=== PATIENT | male | born 1980 | race Caucasian/White ===

== ENCOUNTER 2017-10-12 07:57 | Observation (INO) | payer BC ==
[~2017-10-12] VITALS: Ht 188 cm; Wt 140.0 kg
[~2017-10-12 07:57] MED LIST: ALLERCLEAR10 MG PO; AXIRON30 MG/1.5 TOP; CALCA500CH PO; CALCAVITD PO; D3-20002000 UNIT PO; FENO48 PO; FISH1000 PO; Humalog100 UNIT/3 SC; INSULANPEN SC; INVOKANA300 MG; LIRA0.6P SC; LOW DOSE ASPIRI81 MG PO; Lyrica100 MG PO; MAGOXI400 PO; METO50 PO; MULVITMIND PO; MYCO250 PO; NAPR220 PO; NIFE90ER PO; OLME5TAB; PRED5 PO; PROZAC20 MG; Prilosec Otc20 MG PO; ROSU10TA; TACR1 PO; TERA5 PO; TYLENOL PM PO; Tylenol325 MG PO
[2017-10-12 09:03] LABS: BASOPHILS ABSOLUTE AUTO 0.02 K/mm3 (0.00-0.23); BASOPHILS PERCENT AUTO 0 % (0-2); EOSINOPHILS ABSOLUTE AUTO 0.13 K/mm3 (0.00-0.68); EOSINOPHILS PERCENT AUTO 1 % (0-6); Hematocrit 43.1 % (37.0-53.0); IMMATURE GRAN ABSOLUTE AUTO 0.07 K/mm3 (0.00-0.10); IMMATURE GRAN PERCENT AUTO 1 % (0-1); LYMPHOCYTES ABSOLUTE AUTO 1.36 K/mm3 (0.84-5.20); LYMPHOCYTES PERCENT AUTO 10 % (21-46); MONOCYTES PERCENT AUTO 7 % (4-13); Mean Corpuscular HGB 31.5 pg (26.0-34.0); Mean Corpuscular HGB Conc 34.8 g/dL (31.5-36.5); Mean Corpuscular Volume 91 fL (80-100); Mean Platelet Volume 11.1 fL (9.1-12.4); NEUTROPHILS ABSOLUTE AUTO 11.06 K/mm3 (1.96-9.15); NEUTROPHILS PERCENT AUTO 81 % (41-73); Platelet Count 338 K/mm3 (150-400); RDW Coefficient Variation 12.9 % (11.7-14.2); RDW Standard Deviation 42.4 fL (35.1-46.3); Red Blood Cell Count 4.76 M/mm3 (4.30-5.90); White Blood Cell Count 13.64 K/mm3 (4.00-11.30)
[2017-10-12 09:17] LABS: Alanine Aminotransfer (ALT/SGP 89 U/L (12-78); Albumin, Blood 3.7 g/dL (3.4-5.0); Albumin/Globulin Ratio 0.9 (0.8-1.8); Alk Phos 94 U/L (50-136); Anion Gap 10 mmol/L (6-16); Aspartate Aminotrans (AST/SGOT 48 U/L (12-37); Bilirubin, Total 0.4 mg/dL (0.1-1.0); Blood Urea Nitrogen 17 mg/dL (8-24); Bun/Creatinine Ratio 17.3 (12.0-20.0); CO2, Blood 25 mmol/L (21-32); Calcium, Blood 8.7 mg/dL (8.5-10.1); Chloride, Blood 102 mmol/L (98-108); Creatinine, Blood 0.99 mg/dL (0.60-1.20); Globulin, Blood 4.2 g/dL (2.2-4.0); Glomerular Filtration Rate >60 (60-); Glucose, Blood 234 mg/dL (70-99); Sodium, Blood 137 mmol/L (136-145); Total Protein, Blood 7.9 g/dL (6.4-8.2)
[2017-10-12 10:24] LABS: Source, Urine Clean Catch
[2017-10-12 10:27] LABS: Blood, Urine Neg (Neg); Glucose Qualitative, Urine 3+ (Neg); Ketones, Urine Neg (Neg); Leukocyte Esterase, Urine 1+ (Neg); Nitrite, Urine Neg (Neg); Protein, Urine 4+ (Neg); Specific Gravity, Urine 1.025 (1.003-1.022); Urobilinogen, Urine 1+ (Normal)
[2017-10-12 10:35] LABS: Appearance, Urine Hazy (Clear); Color, Urine Yellow (P-Yellow)
[2017-10-12 10:36] LABS: Bacteria Few /hpf; Mucus Mod (0-Heavy); Red Blood Cells, Urine Not Seen /hpf (0-2); Squamous Epithelial Cells Many /hpf (Few); White Blood Cells, Urine Not Seen /hpf (0-5)
[2017-10-12 13:52] LABS: Adenovirus F 40/41 Not Detected (NOT DETECT); Astrovirus Not Detected (NOT DETECT); Campylobacter Sp Not Detected (NOT DETECT); Cryptosporidium Not Detected (NOT DETECT); Cyclospora Cayetanensis Not Detected (NOT DETECT); E. Coli O157 Not Detected (NOT DETECT); Entamoeba Histolytica Not Detected (NOT DETECT); Enteroaggregative E. coli-EAEC Not Detected (NOT DETECT); Enteropathogenic E. coli-EPEC Not Detected (NOT DETECT); Enterotoxigenic E. coli-ETEC Not Detected (NOT DETECT); Giardia Lamblia Not Detected (NOT DETECT); Plesiomonas Shigelloides Not Detected (NOT DETECT); Rotavirus A Not Detected (NOT DETECT); Salmonella Sp Not Detected (NOT DETECT); Sapovirus Not Detected (NOT DETECT); Shiga Toxin-prod E. coli-STEC Not Detected (NOT DETECT); Shigella/Enteroin E. coli-EIEC Not Detected (NOT DETECT); Vibrio Cholerae Not Detected (NOT DETECT); Vibrio Sp Not Detected (NOT DETECT); Yersinia Enterocolitica Not Detected (NOT DETECT)
[2017-10-12 15:09] LABS: Norovirus GI/GII Detected (NOT DETECT)
[2017-10-13 04:55] LABS: BASOPHILS ABSOLUTE AUTO 0.01 K/mm3 (0.00-0.23); BASOPHILS PERCENT AUTO 0 % (0-2); EOSINOPHILS ABSOLUTE AUTO 0.06 K/mm3 (0.00-0.68); EOSINOPHILS PERCENT AUTO 1 % (0-6); Hematocrit 39.5 % (37.0-53.0); Hemoglobin 13.2 g/dL (13.5-17.5); IMMATURE GRAN ABSOLUTE AUTO 0.02 K/mm3 (0.00-0.10); IMMATURE GRAN PERCENT AUTO 0 % (0-1); LYMPHOCYTES ABSOLUTE AUTO 0.99 K/mm3 (0.84-5.20); LYMPHOCYTES PERCENT AUTO 12 % (21-46); MONOCYTES ABSOLUTE AUTO 0.64 K/mm3 (0.16-1.47); MONOCYTES PERCENT AUTO 8 % (4-13); Mean Corpuscular HGB 31.4 pg (26.0-34.0); Mean Corpuscular HGB Conc 33.4 g/dL (31.5-36.5); Mean Platelet Volume 11.1 fL (9.1-12.4); NEUTROPHILS PERCENT AUTO 80 % (41-73); Platelet Count 273 K/mm3 (150-400); RDW Coefficient Variation 13.8 % (11.7-14.2); RDW Standard Deviation 47.1 fL (35.1-46.3); Red Blood Cell Count 4.21 M/mm3 (4.30-5.90); White Blood Cell Count 8.42 K/mm3 (4.00-11.30)
[2017-10-13 05:21] LABS: Mean Corpuscular Volume 94 fL (80-100)
[2017-10-13 05:37] LABS: Anion Gap 12 mmol/L (6-16); Blood Urea Nitrogen 28 mg/dL (8-24); Bun/Creatinine Ratio 21.5 (12.0-20.0); CO2, Blood 23 mmol/L (21-32); Chloride, Blood 104 mmol/L (98-108); Glomerular Filtration Rate >60 (60-); Glucose, Blood 260 mg/dL (70-99); Potassium, Blood 4.3 mmol/L (3.5-5.5); Sodium, Blood 139 mmol/L (136-145)
[2017-10-13 05:40] LABS: Calcium, Blood 7.6 mg/dL (8.5-10.1)
[2017-10-13] MEDS ORDERED: HUMULIN R500 UNIT/1 SC (09:04)
[2017-10-13] MEDS ORDERED: GABA300 PO (09:07)
== END 2017-10-13 10:54 | disposition home or self-care (01) ==
LOC: ER 07:57 → PCU 07:58 → MEDS 07:58 → PCU 21:30
PROVIDERS: Internal Medicine; Psychiatry & Neurology Psychiatry
DX: K52.9 Noninfective gastroenteritis and colitis, unspecified (principal); E10.22 Type 1 diabetes mellitus with diabetic chronic kidney disease; I12.0 Hypertensive chronic kidney disease with stage 5 chronic kidney disease or end stage renal disease; N18.6 End stage renal disease; N25.81 Secondary hyperparathyroidism of renal origin; Z94.0 Kidney transplant status; R79.89 Other specified abnormal findings of blood chemistry; Z79.82 Long term (current) use of aspirin; Z79.899 Other long term (current) drug therapy; Z79.4 Long term (current) use of insulin
CPT/HCPCS: 36415; 76705; 80048; 80053; 81001; 82947; 83605; 83690; 85025; 87040; 87086; 87507; 92950; 96361; 96374; 96375; 96376; 99285; C9113; G0378; J1170; J1815; J2405; J2550; J7030; J7120; J7507; J7517

== ENCOUNTER 2019-07-04 21:01 | Emergency (ER) | payer BC ==
[~2019-07-04] VITALS: Ht 188 cm; Wt 136.1 kg
[~2019-07-04 21:01] MED LIST changes: -D3-20002000 UNIT PO; +GABA300 PO; +GLUC500 PO; +HUMULIN R500 UNIT/1 SC; -OLME5TAB; +OLME5TAB PO; +VITAMIN D5000 UNI1 PO
[2019-07-04 21:37] LABS: BASOPHILS ABSOLUTE AUTO 0.03 K/mm3 (0.00-0.23); BASOPHILS PERCENT AUTO 0 % (0-2); EOSINOPHILS ABSOLUTE AUTO 0.08 K/mm3 (0.00-0.68); EOSINOPHILS PERCENT AUTO 1 % (0-6); Hematocrit 39.9 % (37.0-53.0); Hemoglobin 13.7 g/dL (13.5-17.5); IMMATURE GRAN ABSOLUTE AUTO 0.03 K/mm3 (0.00-0.10); IMMATURE GRAN PERCENT AUTO 0 % (0-1); LYMPHOCYTES ABSOLUTE AUTO 2.09 K/mm3 (0.84-5.20); LYMPHOCYTES PERCENT AUTO 27 % (21-46); MONOCYTES ABSOLUTE AUTO 0.53 K/mm3 (0.16-1.47); MONOCYTES PERCENT AUTO 7 % (4-13); Mean Corpuscular HGB 31.9 pg (26.0-34.0); Mean Corpuscular HGB Conc 34.3 g/dL (31.5-36.5); Mean Corpuscular Volume 93 fL (80-100); Mean Platelet Volume 11.1 fL (9.1-12.4); NEUTROPHILS ABSOLUTE AUTO 5.11 K/mm3 (1.96-9.15); NEUTROPHILS PERCENT AUTO 65 % (41-73); Platelet Count 317 K/mm3 (150-400); RDW Coefficient Variation 12.7 % (11.7-14.2); RDW Standard Deviation 43.2 fL (35.1-46.3); Red Blood Cell Count 4.29 M/mm3 (4.30-5.90); White Blood Cell Count 7.87 K/mm3 (4.00-11.30)
[2019-07-04 22:10] LABS: Alanine Aminotransfer (ALT/SGP 24 U/L (12-78); Albumin, Blood 1.8 g/dL (3.4-5.0); Albumin/Globulin Ratio 0.5 (0.8-1.8); Alk Phos 69 U/L (50-136); Anion Gap 7 mmol/L (6-16); Aspartate Aminotrans (AST/SGOT 25 U/L (12-37); Bilirubin, Total 0.2 mg/dL (0.1-1.0); Blood Urea Nitrogen 20 mg/dL (8-24); Bun/Creatinine Ratio 13.5 (12.0-20.0); CO2, Blood 25 mmol/L (21-32); Calcium, Blood 8.3 mg/dL (8.5-10.1); Chloride, Blood 107 mmol/L (98-108); Creatinine, Blood 1.48 mg/dL (0.60-1.20); Globulin, Blood 3.8 g/dL (2.2-4.0); Glomerular Filtration Rate 56 (60-); Glucose, Blood 292 mg/dL (70-99); Potassium, Blood 3.7 mmol/L (3.5-5.5); Sodium, Blood 139 mmol/L (136-145); Total Protein, Blood 5.6 g/dL (6.4-8.2); Troponin I <0.015 ng/mL (0.000-0.040)
== END 2019-07-05 00:55 | disposition home or self-care (01) ==
LOC: ER 21:01
PROVIDERS: Emergency Medicine
DX: I12.9 Hypertensive chronic kidney disease with stage 1 through stage 4 chronic kidney disease, or unspecified chronic kidney disease (principal); E11.22 Type 2 diabetes mellitus with diabetic chronic kidney disease; N18.9 Chronic kidney disease, unspecified; Z94.0 Kidney transplant status; Z79.899 Other long term (current) drug therapy; Z79.82 Long term (current) use of aspirin; Z79.4 Long term (current) use of insulin; E78.5 Hyperlipidemia, unspecified
CPT/HCPCS: 36415; 71046; 80053; 84484; 85025; 93005; 93010; 96374; 99284-25; J0360

== ENCOUNTER → 2019-08-03 | Outpatient (CLI) | payer BC | END | disposition home or self-care (01) | LOC: LAB SHORT 18:23 → LAB 18:23 | DX: L97.512 Non-pressure chronic ulcer of other part of right foot with fat layer exposed (principal) | CPT/HCPCS: 87071; 87075; 87076; 87147; 87185; 87205 ==

== ENCOUNTER 2019-09-17 05:19 | Inpatient (IN) | payer BC ==
[~2019-09-17] VITALS: Ht 190.5 cm; Wt 129.3 kg
[~2019-09-17 05:19] MED LIST changes: -ROSU10TA; +ROSU10TA PO
[2019-09-17] MEDS ORDERED: CLON.3 PO (06:05)
[2019-09-17] MEDS ORDERED: OLME5TAB (06:06)
[2019-09-17] MEDS ORDERED: METO50 PO (06:07)
[2019-09-17 06:09] LABS: BASOPHILS ABSOLUTE AUTO 0.04 K/mm3 (0.00-0.23); BASOPHILS PERCENT AUTO 0 % (0-2); EOSINOPHILS ABSOLUTE AUTO 0.07 K/mm3 (0.00-0.68); EOSINOPHILS PERCENT AUTO 1 % (0-6); Hematocrit 41.6 % (37.0-53.0); Hemoglobin 14.5 g/dL (13.5-17.5); IMMATURE GRAN ABSOLUTE AUTO 0.03 K/mm3 (0.00-0.10); IMMATURE GRAN PERCENT AUTO 0 % (0-1); LYMPHOCYTES ABSOLUTE AUTO 1.55 K/mm3 (0.84-5.20); LYMPHOCYTES PERCENT AUTO 15 % (21-46); MONOCYTES ABSOLUTE AUTO 0.69 K/mm3 (0.16-1.47); MONOCYTES PERCENT AUTO 7 % (4-13); Mean Corpuscular HGB 31.7 pg (26.0-34.0); Mean Corpuscular HGB Conc 34.9 g/dL (31.5-36.5); Mean Corpuscular Volume 91 fL (80-100); Mean Platelet Volume 11.3 fL (9.1-12.4); NEUTROPHILS ABSOLUTE AUTO 8.19 K/mm3 (1.96-9.15); NEUTROPHILS PERCENT AUTO 77 % (41-73); Platelet Count 313 K/mm3 (150-400); RDW Coefficient Variation 12.3 % (11.7-14.2); RDW Standard Deviation 41.1 fL (35.1-46.3); Red Blood Cell Count 4.57 M/mm3 (4.30-5.90); White Blood Cell Count 10.57 K/mm3 (4.00-11.30)
[2019-09-17 06:23] LABS: Albumin, Blood 2.1 g/dL (3.4-5.0); Albumin/Globulin Ratio 0.5 (0.8-1.8); Bilirubin, Total 0.3 mg/dL (0.1-1.0); Bun/Creatinine Ratio 12.6 (12.0-20.0); Calcium, Blood 8.9 mg/dL (8.5-10.1); Creatinine, Blood 2.69 mg/dL (0.60-1.20); Potassium, Blood 3.5 mmol/L (3.5-5.5); Total Protein, Blood 6.1 g/dL (6.4-8.2)
--- NOTE | 2019-09-17 17:00 | NUR ---
SPOKE WITH DR. CLAKR ABOUT SBP >200 DESPITE GIVING IV METOPROLOL AND HYDRALAZINE. ORDERS FOR 1 INCH OF NITRO PASTE AND NOW DOSE OF COZAAR ORDERED.
--- NOTE | 2019-09-17 18:48 | NUR ---
PLACED CALL TO DR. NORMAN'S ANSWERING SERVICE FOR UNCONTROLLED BLOOD PRESSURE. AWAITING CALL BACK.
--- NOTE | 2019-09-17 19:11 | NUR ---
SPOKE WITH DR. NORMAN AND NEW MEDICATION ORDERS REEIVED TO CONTROL B/P.
--- NOTE | 2019-09-17 20:29 | NUR ---
PATIENT RESTING IN BED. USED URINAL TO VOID, PT NAUSEATED/VOMITING. GAVE PHENERAGAN AND WILL ATTEMPT TO GIVE MEDS FOR HTN SOON HE FEELS HE CAN TOLERATE THEM. BP CHECKS ON RIGHT ANKLE Q1HR ON-GOING..BED LOW AND LOCKED. CALL MONTANO WITHIN REACH.
--- NOTE | 2019-09-18 00:34 | NUR ---
2320: SPOKE TO DR NORMAN REGARDING PT ONGOING ELEVATED BPS, CONTIUES TO HAVE SBPS 190s-200s. BPS ARE NOT RESPONDING TO CURRENT MEDS. LAST MANUAL BP CHECK WAS 190/98. RECEIVED ORDER PER EMAR. PER DR IF BPS ARE NOT TRENDING DOWNWARD OF 160 THEN TRANSFER PATEINT TO ICU FOR: NITRO DRIP PER PROTOCOL. TITRATE SBP TO BELOW 160. 2330: BP AT TIME OF ATIVAN ADMINISTRATION = 170S. WILL RECHECK IN [address] INSTRUCTION.
--- NOTE | 2019-09-18 02:42 | NUR ---
PT BP 170/88 HR 102; PER MD GOAL IS TO TITRATE PT BP DOWN TO 10 160, GAVE HYDRALIZINE PER EMAR PLUS TYLENOL FOR TEMP 100.4
[2019-09-18 04:32] LABS: Bun/Creatinine Ratio 11.9 (12.0-20.0); Calcium, Blood 8.3 mg/dL (8.5-10.1); Creatinine, Blood 2.68 mg/dL (0.60-1.20); Potassium, Blood 3.6 mmol/L (3.5-5.5)
--- NOTE | 2019-09-18 06:48 | NUR ---
spoke to Dr Armando this morning regarding patient SBPs trending back up to 178/81. per her instruction stopped IVF and gave am bp meds now.
--- NOTE | 2019-09-18 16:53 | NUR ---
SHIFT SUMMARY PT HAS HAD LABILE BLOOD PRESSURES THAT HAVE ONLY BEEN CONTROLLED WITH MEDS. DR. STERLING CONSULTED FOR CARDIO THIS SHIFT AND MADE SOME MEDICATION CHANGES. PT HAS HAD A GOOD APETITE DURING THE SHIFT. PT HAS DENIED ANY PAIN OR NAUSEA DURING THIS SHIFT. WILL COUNTINUE TO MONITOR AND REPORT NOC RN, CALL [facility] WITH ON REACH.
--- NOTE | 2019-09-18 19:43 | NUR ---
JAK CONSULT SPOKE WITH DR BENEDICT ON THE PHONE REGARDING PT. REPORTED THAT PT HAS DENIED SOB. DR BENEDICT ORDERED A STAT CHEST XR, BNP AND ABG. WILL CALL TO REPORT RESULTS.
[2019-09-18 20:01] LABS: PCO2 Arterial 35.2 mmHg (35-45); PO2 Arterial 79.6 mmHg (80-100); pH Blood Arterial 7.45 (7.35-7.45)
[2019-09-19 05:42] LABS: Hematocrit 35.5 % (37.0-53.0); Hemoglobin 11.8 g/dL (13.5-17.5)
[2019-09-19 06:07] LABS: Albumin, Blood 1.5 g/dL (3.4-5.0); Anion Gap 8 mmol/L (6-16); Blood Urea Nitrogen 38 mg/dL (8-24); CO2, Blood 24 mmol/L (21-32); CPK Creatine Kinase 84 U/L (39-308); Calcium, Blood 8.5 mg/dL (8.5-10.1); Chloride, Blood 106 mmol/L (98-108); Creatinine, Blood 3.45 mg/dL (0.60-1.20); Glomerular Filtration Rate 21 (60-); Glucose, Blood 260 mg/dL (70-99); Magnesium, Blood 1.9 mg/dL (1.6-2.4); Phosphorus, Blood 2.9 mg/dL (2.5-4.9); Potassium, Blood 3.3 mmol/L (3.5-5.5); Sodium, Blood 138 mmol/L (136-145); Uric Acid, Blood 5.5 mg/dL (3.5-7.2)
[2019-09-19 06:18] LABS: Cortisol, AM 5.6 ug/dL (6.7-22.6)
--- NOTE | 2019-09-19 07:33 | NUR ---
SHIFT SUMMARY PT IS A 39 Y/O MALE, ADMITTED FOR HYPERTENSIVE URGENCY. HE HAS A HX OF KIDNEY TRANSPLANT, AND IS BEING FOLLOWED BY DR BENEDICT. PT'S BP WAS STABLE AT THE BEGINNING OF SHIFT AFTER RECEIVING HIS BEDTIME MEDS, BUT HAD CLIMBED TO 183/89. PT WAS GIVEN 20 OF HYDRALAZINE, AND ON RECHECK WAS AT 192/107. PT WAS THEN MEDICATED WITH PRN ATIVAN, WHICH BROUGHT THE PT'S BP DOWN TO 143/89 ON RECHECK. ALL OTHER VITALS STABLE. PT DID REPORT A HEADACHE WHILE HIS BP WAS ELEVATED, BUT DENIED THE NEED FOR PAIN MEDS. NO OTHER ACUTE COMPLAINTS DURING THE NIGHT. NO OTHER ACUTE CHANGES IN PT CONDITION NOTED. WILL CONTINUE TO MONITOR AND TREAT PER EMAR UNTIL HAND OFF TO DAY SHIFT RN.
--- NOTE | 2019-09-19 17:57 | NUR ---
PT. SITTING IN BED EATING DINNER, SO AT BEDSIDE. BLOOD PRESSURE IS NOW IN THE 120'S WITH JUST PO MEDS. PT. AMB IM MARTI TODAY AND SAT OUT IN LOBBY FOR A WHILE. NO REPORTS OF PAIN
--- NOTE | 2019-09-19 21:10 | NUR ---
WAS GOING TO DC PT AFTER 24HR URINE COMPLETED BUT WANTS PT TO REMAINS ADMITTED D/T WORSENING KIDNEY FUNCTION AND FEAR OF POSSIBLE KIDNEY TRANSPLANT REJECTION. CANCELLED DC ORDER RESULT UNTIL FURTHER INSTRUCTION.
--- NOTE | 2019-09-19 21:54 | NUR ---
OK'D GIVING METOPROLOL TONIGHT DESPITE HR BEING NEAR TO HOLD PARAMETERS.
--- NOTE | 2019-09-19 23:25 | NUR ---
24HR URINE SPECIMEN OBTAINED AND COMPLETED. WILL DELIVER TO LAB MOMENTARILY BUT COLLECTION BASIN REMAINS ON ICE AT THIS TIME.
--- NOTE | 2019-09-20 02:14 | NUR ---
SAW PT FOR CARDIO CX ON 09/18/19 AT 2793 AND CX'D ON 09/19/19 AT 4007.
--- NOTE | 2019-09-20 05:10 | NUR ---
SUMMARY: A/OX4, INDEPENDENT AND SPECIFIES NEEDS. 24HR URINE COLLECTION WAS COMPLETED THIS SHIFT. CONTEMPLATED D/C BUT ADVISED AGAINST IT D/T KIDNEY FUNCTION DECREASED FROM BASELINE AND FEAR OF POSSIBLE KIDNEY TRANSPLANT REJECTION. NS WAS COMMENCED AT 75 ML/HR PER NEW ORDERS RECIEVED ON DAY SHIFT. HE REMAINS NSR AT 60'S-80'S BPM. NO PRN BP MEDS WERE REQUIRED THIS SHIFT W/SBP IMPROVED TO 130'S-150'S T/O NOCTE. NO ACUTE CHANGES, VSS/AFEBRILE. AM LABS PENDING. WCTM AND REPORT TO DAY RN.
[2019-09-20 05:21] LABS: Hematocrit 30.1 % (37.0-53.0); Hemoglobin 10.1 g/dL (13.5-17.5)
[2019-09-20 05:41] LABS: Albumin, Blood 1.3 g/dL (3.4-5.0); Anion Gap 8 mmol/L (6-16); Blood Urea Nitrogen 48 mg/dL (8-24); Bun/Creatinine Ratio 12.5 (12.0-20.0); CO2, Blood 23 mmol/L (21-32); Calcium, Blood 7.9 mg/dL (8.5-10.1); Chloride, Blood 105 mmol/L (98-108); Creatinine, Blood 3.84 mg/dL (0.60-1.20); Glomerular Filtration Rate 19 (60-); Glucose, Blood 272 mg/dL (70-99); Magnesium, Blood 1.9 mg/dL (1.6-2.4); Phosphorus, Blood 3.7 mg/dL (2.5-4.9); Potassium, Blood 3.5 mmol/L (3.5-5.5); Sodium, Blood 136 mmol/L (136-145)
--- NOTE | 2019-09-20 06:15 | NUR ---
AUTHORIZED ADDING ON THE 24 HR URINE PROTEIN LAB RX'D THIS AM ONTO THE PREVIOUSLY COMPLETED 24HR URINE COLLECTION ON 09/19/19 AT 2324. LAB VERIFIED THIS WAS POSSIBLE BUT SAID THEY'D ALERT STAFF IF ANY COMPLICATIONS.
--- NOTE | 2019-09-20 15:33 | NUR ---
PATIENT IS NOT DISCHARGING AT THIS TIME. AWAITING OKAY FROM DR. BENEDICT. CONTINUING TO MONITOR, 24 HR URINE WILL BE COMPLETED AT 1130 ON 09/21.
--- NOTE | 2019-09-20 18:16 | NUR ---
SHIFT SUMMARY PATIENT WOULD LIKE TO D/C. PROVIDER WOULD LIKE THE PATIENT TO STAY ANOTHER DAY THE KIDNEY FUNCTION IS DECREASING. 24 HOUR URINE PROTEIN TO BE COMPLETED. PATIENT BLOOD PRESSURES HAVE BEEN IMPROVING. TELEMETRY D/C'D TODAY.
--- NOTE | 2019-09-21 04:20 | NUR ---
SHIFT SUMMARY NO ACUTE CHANGES OVERNIGHT. 24-HR URINE IN PROGRESS, TO FINISH 09/21 @ 1130. 10 MG IV HYDRALAZINE GIVEN THIS AM FOR SBP > 160. NS RUNNING @ 75 ML/HR. AT BEDSIDE MAJORITY OF NIGHT. NO OTHER CHANGES. WILL CONT TO MONITOR AND PROVIDE CARE UNTIL PRESUMED BY ONCOMING RN.
[2019-09-21 05:40] LABS: Hematocrit 32.3 % (37.0-53.0)
[2019-09-21 05:58] LABS: Albumin, Blood 1.5 g/dL (3.4-5.0); Anion Gap 11 mmol/L (6-16); Blood Urea Nitrogen 48 mg/dL (8-24); Bun/Creatinine Ratio 14.3 (12.0-20.0); CO2, Blood 20 mmol/L (21-32); Calcium, Blood 8.1 mg/dL (8.5-10.1); Chloride, Blood 106 mmol/L (98-108); Creatinine, Blood 3.36 mg/dL (0.60-1.20); Glomerular Filtration Rate 22 (60-); Glucose, Blood 207 mg/dL (70-99); Magnesium, Blood 1.8 mg/dL (1.6-2.4); Phosphorus, Blood 3.8 mg/dL (2.5-4.9); Potassium, Blood 3.6 mmol/L (3.5-5.5); Sodium, Blood 137 mmol/L (136-145)
[2019-09-21 13:37] LABS: Protein, Urine Quantitative 398.5 mg/dL (0.0-11.9)
--- NOTE | 2019-09-21 14:30 | NUR ---
DR. BENEDICT NOTIFIED FOR RESULTS OF URINE PROTIEN 24 HR COLLECTION
--- NOTE | 2019-09-21 18:23 | NUR ---
SHIFT SUMMARY PATIENT AMBULATED THROUGHOUT THE MARTI TODAY. NO ACUTE ISSUES NOTED. CONTINUING TO HAVE IV FLUIDS. 24 HR URINE SAMPLE COMPLETE.
--- NOTE | 2019-09-22 04:24 | NUR ---
SHIFT SUMMARY: BP CONTINUES TO BE ELEVATED. DENIES PAIN. SLEPT MOST OF THE NIGHT. COMMUNICATES NEEDS, CALL LIGHT IN REACH, BED LOW.
[2019-09-22 05:39] LABS: Hematocrit 34.9 % (37.0-53.0); Hemoglobin 11.5 g/dL (13.5-17.5)
[2019-09-22 06:18] LABS: Albumin, Blood 1.7 g/dL (3.4-5.0); Anion Gap 9 mmol/L (6-16); Blood Urea Nitrogen 49 mg/dL (8-24); Bun/Creatinine Ratio 15.1 (12.0-20.0); CO2, Blood 21 mmol/L (21-32); Calcium, Blood 8.5 mg/dL (8.5-10.1); Chloride, Blood 108 mmol/L (98-108); Creatinine, Blood 3.25 mg/dL (0.60-1.20); Glomerular Filtration Rate 23 (60-); Glucose, Blood 229 mg/dL (70-99); Magnesium, Blood 1.9 mg/dL (1.6-2.4); Phosphorus, Blood 3.8 mg/dL (2.5-4.9); Sodium, Blood 138 mmol/L (136-145)
--- NOTE | 2019-09-22 17:26 | NUR ---
SHIFT SUMMARY-PT A/O, PLESANT AND COOPERATIVE. PT EATING AND DRINKING WELL. [facility]. PT AT BEDSIDE INTERMITENTLY THROUGHOUT THIS SHIFT.
--- NOTE | 2019-09-22 21:41 | NUR ---
CBG 428. LISPRO AND LANTUS INSULIN ADMINISTERED ORDERED. CALL PLACED TO ANSWERING SERVICE. SPOKE WITH LAUREN GARCÍA. INSTRUCED TO RECHECK CBG IN 2 HRS.
[2019-09-23 05:05] LABS: Hematocrit 31.3 % (37.0-53.0); Hemoglobin 10.3 g/dL (13.5-17.5)
[2019-09-23 05:26] LABS: Albumin, Blood 1.6 g/dL (3.4-5.0); Anion Gap 8 mmol/L (6-16); Blood Urea Nitrogen 41 mg/dL (8-24); Bun/Creatinine Ratio 14.1 (12.0-20.0); CO2, Blood 20 mmol/L (21-32); Calcium, Blood 8.5 mg/dL (8.5-10.1); Chloride, Blood 111 mmol/L (98-108); Creatinine, Blood 2.91 mg/dL (0.60-1.20); Glomerular Filtration Rate 26 (60-); Glucose, Blood 213 mg/dL (70-99); Magnesium, Blood 1.7 mg/dL (1.6-2.4); Phosphorus, Blood 3.3 mg/dL (2.5-4.9); Potassium, Blood 3.9 mmol/L (3.5-5.5); Sodium, Blood 139 mmol/L (136-145)
--- NOTE | 2019-09-23 05:29 | NUR ---
SHIFT SUMMARY. NO ACUTE CHANGES. PT REMAINS HYPERTENSIVE. BP'S ARE BEING CHECKED ON R FOOT DUE TO L ARM FISTULA AND R ARM IV. 1+ PITTING EDEMA NOTED IN R HAND, PT STATES HE SLEPT ON HAND, NOW ELEVATED ON PILLOW. PT'S MOOD HAS BEEN MALANCHOLIC. SLEPT MUCH OF THE NIGHT. RECEIVED CALL FROM [facility], REQUESTING UPDATE ON PT STATUS IN PREPARATION FOR PENDING T/F.
[2019-09-23 07:08] LABS: ALDOS/RENIN RATIO <.5 (0.0-30.0); ALDOSTERONE <1.0 ng/dL (0.0-30.0)
--- NOTE | 2019-09-23 13:06 | NUR ---
[facility] DEFENSIVE DRIVING INSTRUCTOR CALLED FOR UPDATE ON PATIENT. UPDATE GIVEN. NO ROOMS AVAILABLE AT THIS TIME. [facility] WILL KEEP US UP TO DATE ON ROOM STATUS.
--- NOTE | 2019-09-23 16:04 | NUR ---
SHIFT SUMMARY THE PATIENT HAD AN UNEVENTFUL DAY. BLOOD PRESSURE STARTED OUT ELEVATED BUT CAME DOWN WNL BY LUNCH TIME. PATIENT DECLINES PAIN AND DISCOMFORT. ALL OTHER VITALS WNL. STILL AWAITING A ROOM UP AT [facility]. WILL CONTINUE TO MONITOR AND PROVIDE CARE NEEDED.
--- NOTE | 2019-09-23 22:57 | NUR ---
DIPAK FROM [facility] TRANSFER CALLED TO REPORT BED AVAILABLE FOR PT. UPDATE GIVEN TO DIPAK IN REGARDS TO PT. BED ASSIGNMENT GIVEN IS 14C RM 21 BED 1.
--- NOTE | 2019-09-23 23:36 | NUR ---
CALLED ONEIL SCHMID RN AT [facility], TO GIVE HER REPORT ON THE PATIENT WHO WILL BE TRANSFERRING TO UNIT 14-, ROOM 21, BED 1 AT 2335.
[2019-09-24 00:06] LABS: METANEPHRINE, UR 51 ug/L (Undefined)
[2019-09-26 07:07] LABS: CREATININE, URINE 104.6 mg/dL (Not Estab.)
== END 2019-09-24 00:15 | disposition short-term general hospital (02) | DRG 699 ==
LOC: ER 05:19 → MEDS 05:33 → ENPENDDIS 09-22 10:54 → MEDS 09-24 00:15
PROVIDERS: Emergency Medicine; Internal Medicine Nephrology; ADMIT Hospitalist
DX: T86.19 Other complication of kidney transplant (principal); N17.9 Acute kidney failure, unspecified; E87.2 Acidosis; N25.81 Secondary hyperparathyroidism of renal origin; I16.0 Hypertensive urgency; I12.9 Hypertensive chronic kidney disease with stage 1 through stage 4 chronic kidney disease, or unspecified chronic kidney disease; N18.3 Chronic kidney disease, stage 3 (moderate); E11.42 Type 2 diabetes mellitus with diabetic polyneuropathy; E11.22 Type 2 diabetes mellitus with diabetic chronic kidney disease; E11.65 Type 2 diabetes mellitus with hyperglycemia; E11.621 Type 2 diabetes mellitus with foot ulcer; E11.59 Type 2 diabetes mellitus with other circulatory complications; L97.509 Non-pressure chronic ulcer of other part of unspecified foot with unspecified severity; D63.1 Anemia in chronic kidney disease; E86.9 Volume depletion, unspecified; E88.09 Other disorders of plasma-protein metabolism, not elsewhere classified; E87.6 Hypokalemia; I95.9 Hypotension, unspecified; E78.5 Hyperlipidemia, unspecified; F32.9 Major depressive disorder, single episode, unspecified; Z79.82 Long term (current) use of aspirin; Z79.4 Long term (current) use of insulin; Z79.52 Long term (current) use of systemic steroids; Z79.899 Other long term (current) drug therapy
CPT/HCPCS: 36415; 36430; 36600; 71045; 76770; 80048; 80053; 80069; 80197; 81050; 82088; 82533; 82550; 82565; 82570; 82803; 82947; 83735; 83835; 83880; 83970; 84156; 84244; 84443; 84550; 84585; 85014; 85018; 85025; 86644; 86645; 87496; 96361; 96374; 96375; 96376; 99285-25; A9270; G0378; J0360; J1170; J2060; J2270; J2405; J2550; J7030; J7120; J7507; J7512; J7517

== ENCOUNTER 2019-11-05 15:33 | Inpatient (IN) | payer BC ==
[~2019-11-05] VITALS: Ht 188 cm; Wt 129.0 kg
[~2019-11-05 15:33] MED LIST changes: +Aspir 8181 MG PO; -CALCAVITD PO; +CLON.3 PO; +Calcium 600 Wi1 EAC3 PO; +Fish Oil Conc1 EACH PO; -LOW DOSE ASPIRI81 MG PO; -PROZAC20 MG; +PROZAC20 MG PO; -VITAMIN D5000 UNI1 PO; +Vitamin D2000 UNIT PO
[2019-11-05 16:00] LABS: BASOPHILS ABSOLUTE AUTO 0.03 K/mm3 (0.00-0.23); BASOPHILS PERCENT AUTO 0 % (0-2); EOSINOPHILS ABSOLUTE AUTO 0.08 K/mm3 (0.00-0.68); EOSINOPHILS PERCENT AUTO 1 % (0-6); Hematocrit 33.6 % (37.0-53.0); IMMATURE GRAN ABSOLUTE AUTO 0.09 K/mm3 (0.00-0.10); IMMATURE GRAN PERCENT AUTO 1 % (0-1); LYMPHOCYTES ABSOLUTE AUTO 1.17 K/mm3 (0.84-5.20); LYMPHOCYTES PERCENT AUTO 13 % (21-46); MONOCYTES ABSOLUTE AUTO 0.53 K/mm3 (0.16-1.47); MONOCYTES PERCENT AUTO 6 % (4-13); Mean Corpuscular HGB 30.8 pg (26.0-34.0); Mean Corpuscular HGB Conc 35.7 g/dL (31.5-36.5); Mean Platelet Volume 10.2 fL (9.1-12.4); NEUTROPHILS ABSOLUTE AUTO 7.21 K/mm3 (1.96-9.15); NEUTROPHILS PERCENT AUTO 79 % (41-73); Platelet Count 348 K/mm3 (150-400); RDW Coefficient Variation 11.5 % (11.7-14.2); RDW Standard Deviation 35.8 fL (35.1-46.3); White Blood Cell Count 9.11 K/mm3 (4.00-11.30)
[2019-11-05 16:02] LABS: Mean Corpuscular Volume 86 fL (80-100)
[2019-11-05 16:21] LABS: Albumin, Blood 2.3 g/dL (3.4-5.0); Albumin/Globulin Ratio 0.6 (0.8-1.8); Bilirubin, Total 0.4 mg/dL (0.1-1.0); Bun/Creatinine Ratio 9.8 (12.0-20.0); Calcium, Blood 8.2 mg/dL (8.5-10.1); Creatinine, Blood 5.94 mg/dL (0.60-1.20); Globulin, Blood 3.9 g/dL (2.2-4.0); Potassium, Blood 4.8 mmol/L (3.5-5.5); Total Protein, Blood 6.2 g/dL (6.4-8.2)
[2019-11-05] MEDS ORDERED: AMLO10 PO (19:12)
[2019-11-05] MEDS ORDERED: Isosorbide Mono30 MG PO (19:12)
[2019-11-05] MEDS ORDERED: PANT40 PO (19:13)
[2019-11-05] MEDS ORDERED: CARV25 PO (19:13)
[2019-11-05] MEDS ORDERED: FURO40 PO (20:47)
[2019-11-06 04:34] LABS: Source, Urine Clean Catch
[2019-11-06 04:35] LABS: Bilirubin, Urine Neg (Neg); Blood, Urine 1+ (Neg); Glucose Qualitative, Urine 4+ (Neg); Ketones, Urine 2+ (Neg); Leukocyte Esterase, Urine Neg (Neg); Nitrite, Urine Neg (Neg); Protein, Urine 4+ (Neg); Urobilinogen, Urine NORM (Normal); pH, Urine 6.5 (5.0-8.0)
[2019-11-06 04:37] LABS: Appearance, Urine Clear (Clear); Color, Urine Yellow (P-Yellow)
[2019-11-06 04:40] LABS: White Blood Cells, Urine 0-2 /hpf (0-5)
[2019-11-06 04:41] LABS: Bacteria Few /hpf; Hyaline Casts 0-2 /lpf (0-2); Squamous Epithelial Cells Few /hpf (Few)
--- NOTE | 2019-11-06 04:50 | NUR ---
CALLED TO [facility] REGARDING PT HTN. RECIEVED ORDER FOR HYDRALAZINE 10MG [id number] PRN SBP >160.
[2019-11-06 05:19] LABS: Hematocrit 31.2 % (37.0-53.0); Hemoglobin 10.6 g/dL (13.5-17.5); Mean Corpuscular HGB 30.2 pg (26.0-34.0); Mean Platelet Volume 10.2 fL (9.1-12.4); Platelet Count 261 K/mm3 (150-400); RDW Coefficient Variation 11.8 % (11.7-14.2); RDW Standard Deviation 37.5 fL (35.1-46.3); Red Blood Cell Count 3.51 M/mm3 (4.30-5.90); White Blood Cell Count 8.53 K/mm3 (4.00-11.30)
[2019-11-06 05:20] LABS: Mean Corpuscular Volume 89 fL (80-100)
[2019-11-06 05:42] LABS: Albumin/Globulin Ratio 0.6 (0.8-1.8); Bilirubin, Total 0.3 mg/dL (0.1-1.0); Bun/Creatinine Ratio 9.1 (12.0-20.0); Calcium, Blood 7.9 mg/dL (8.5-10.1); Creatinine, Blood 6.15 mg/dL (0.60-1.20); Globulin, Blood 3.5 g/dL (2.2-4.0); Magnesium, Blood 2.8 mg/dL (1.6-2.4); Phosphorus, Blood 4.1 mg/dL (2.5-4.9); Potassium, Blood 4.5 mmol/L (3.5-5.5); Total Protein, Blood 5.5 g/dL (6.4-8.2)
--- NOTE | 2019-11-06 06:12 | NUR ---
NO CHANGE IN BP WITH IV HYDRALAZINE SBP STILL IN 190'S CALLED TO [facility]. NO CHANGE IN ORDERES. TOLD PT WILL START SCHEDULED BP MEDS AT 0900 TODAY.
--- NOTE | 2019-11-06 07:24 | NUR ---
NOC SHIFT SUMMARY PT PLEASANT AND COOPERATIVE WITH CARE. VERY HYPERTENSIVE. ATTEMMPTED TO TREAT WITH HYDRALAZINE WITHOUGH SUCCESS. PER HOSPITALIST ORDERS PT WILL RECIEVE ANTIHYPERTENSIVES WITH 0900 MED PASS. RECIEVED CALL FROM JAK DURING SHIFT CHANGE FOR SURG CONSULT TO HAVE PERMACATH PLACED. HAVE PASSED THIS ON TO ONCOMING RN AND SHE WILL PLACE CONSULTS.
--- NOTE | 2019-11-06 18:47 | NUR ---
No acute changes noted. Patient's BP is back to baseline with his medications on board. Patient blood glucose remains elevated according to the hospital machines but show a drastic decrease per his continuous glucose monitor. Patient is NPO after midnight for Permacath Placement. No other issues noted at this time. Will continue to monitor for changes.
--- NOTE | 2019-11-07 03:15 | NUR ---
PT ASKED TO HAVE CBG CHECKED DUE HIM TASTING SUGAR. CBG WAS FOUND TO BE 396 MG/DL. DR. MCKEE CALLED. PROVIDER ORDERED BID LANTUS DOSE TO CHANGE TO 25 UNITS VS. 15 UNITS. PROVIDER ORDERED 10 UNITS LANTUS AND 10 UNITS HUMALOG FOR NOW. PT HAS BEEN NPO SINCE MIDNIGHT. WCTM
--- NOTE | 2019-11-07 04:58 | NUR ---
SHIFT SUMMARY PTHAD SOME ISSUES WITH GLUCOSE AND WAS TX ORDERED BY PROVIDER. PT ALSO HAD ISSUES NOTED WITH HTN. PT DID NOT RESPOND TO APRESOLINE AND DR. LEE ORDERED LABEALOL IV. PT STATES NOT FEELING WELL. PT CURRENTLY TRYING TO SLEEP. PT HAS BEEN NPO SINCE MIDNIGHT. CALL LIGHT IN REACH. WCTM.
[2019-11-07 05:42] LABS: Hematocrit 28.6 % (37.0-53.0); Hemoglobin 9.8 g/dL (13.5-17.5)
[2019-11-07 06:09] LABS: Magnesium, Blood 2.7 mg/dL (1.6-2.4)
[2019-11-07 06:11] LABS: Albumin, Blood 1.9 g/dL (3.4-5.0); Anion Gap 9 mmol/L (6-16); Blood Urea Nitrogen 54 mg/dL (8-24); Bun/Creatinine Ratio 8.1 (12.0-20.0); CO2, Blood 21 mmol/L (21-32); Calcium, Blood 7.8 mg/dL (8.5-10.1); Chloride, Blood 104 mmol/L (98-108); Creatinine, Blood 6.63 mg/dL (0.60-1.20); Glomerular Filtration Rate 10 (60-); Glucose, Blood 363 mg/dL (70-99); Phosphorus, Blood 3.3 mg/dL (2.5-4.9); Potassium, Blood 3.7 mmol/L (3.5-5.5); Sodium, Blood 134 mmol/L (136-145)
--- NOTE | 2019-11-07 08:12 | NUR ---
CONSENT TO TREAT PT GAVE STUDENT PERMISSION TO TREAT ON 11/07/2019 FROM [phone].
--- NOTE | 2019-11-07 14:37 | NUR ---
THIS STUDENT NURSE ASKED PATIENT FOR PERMISSION TO HELP IN HIS CARE ON 11/08/2019 FROM [id number]. PATIENT GAVE CONSENT.
--- NOTE | 2019-11-07 16:52 | NUR ---
SHIFT SUMMARY PT AXO, PLEASANT AND COOPERATIVE WITH CARE. BLOOD PRESSURE WITH AM VITALS WAS ELEVATED AT 171/90, DR SEGURA AWARE. AFTER MORNING MEDICATION ADMIN, BP IMPROVED AT 147/86. PT IN PROCEDURE AT THIS TIME, SEE NOTE. POC GLUCOSE IMPROVING, THOUGH PT NPO. MONITORING FOR HYPOGLYCEMIA. PT UP AD EDD IN ROOM. BED IN LOW POSITION, CALL LIGHT WITHIN REACH. AWAITING PATIENT ARRIVAL FROM PROCEDURE AT THIS TIME.
--- NOTE | 2019-11-08 00:17 | NUR ---
DIALYSIS DONE EARLIER AT SHIFT COMMENCE. ALERT AND ORIENTED X 4. UP AD EDD, TOLERATED DIET AT HS. CALL LIGHT IN REACH.
--- NOTE | 2019-11-08 04:06 | NUR ---
LUNGS CLEAR TO AUSCULTATION, DENIED PAIN WHEN ASKED. HOB ELEVATED FOR COMFORT. BP ELEVATED, RECEIVED HYDRALAZINE 10 MG IV PER MD ORDERS - SEE MAR FOR DETAILS. WILL RE CHECK BP LATER FOR FOLLOW UP. ASYMPTOMATIC. CALL LIGHT IN REACH.
[2019-11-08 05:45] LABS: Hematocrit 29.8 % (37.0-53.0)
[2019-11-08 06:05] LABS: Albumin, Blood 1.9 g/dL (3.4-5.0); Anion Gap 10 mmol/L (6-16); Blood Urea Nitrogen 38 mg/dL (8-24); Bun/Creatinine Ratio 7.2 (12.0-20.0); CO2, Blood 23 mmol/L (21-32); Calcium, Blood 7.8 mg/dL (8.5-10.1); Chloride, Blood 105 mmol/L (98-108); Glomerular Filtration Rate 13 (60-); Glucose, Blood 164 mg/dL (70-99); Magnesium, Blood 2.3 mg/dL (1.6-2.4); Phosphorus, Blood 4.2 mg/dL (2.5-4.9); Potassium, Blood 3.5 mmol/L (3.5-5.5); Sodium, Blood 138 mmol/L (136-145)
--- NOTE | 2019-11-08 14:25 | NUR ---
PT GAVE PERMISSIN FOR ME TO CARE FOR HIM THE DAY OF 11/09/2019
--- NOTE | 2019-11-08 18:11 | NUR ---
SHIFT SUMMARY PT INDEPENDENT IN ROOM. REPORTED PERMCATH LESS PAINFUL THAN IT WAS IN THE NIGHT. DID RECEIVE DIALYSIS TODAY AND TOLERATED WELL. WAS REQUESTING IV TO BE MOVED OR REMOVED SO BLOOD COULD BE DRAWN FROM THAT SITE. BLOOD PRESSURE HAS BEEN WELL CONTROLLED THROUGH DAY. CALLED AND LEFT A MESSAGE WITH . PLANS FOR PT TO DISCHARGE HOME AFTER DIALYSIS TOMORROW.
--- NOTE | 2019-11-09 03:14 | NUR ---
JOKED WITH NURSE AT . VOICED NECK FELT BETTER AND WAS LOOKING FORWARD TO DISCHARGE IN THE AM. HAS BEEN RESTING QUIETLY WITH FEW INTERRUPTIONS THIS SHIFT. CALL LIGHT IN REACH.
[2019-11-09 05:49] LABS: Hematocrit 29.9 % (37.0-53.0); Hemoglobin 9.9 g/dL (13.5-17.5)
[2019-11-09 06:19] LABS: Albumin, Blood 1.9 g/dL (3.4-5.0); Anion Gap 6 mmol/L (6-16); Blood Urea Nitrogen 29 mg/dL (8-24); Bun/Creatinine Ratio 6.2 (12.0-20.0); CO2, Blood 30 mmol/L (21-32); Chloride, Blood 105 mmol/L (98-108); Creatinine, Blood 4.67 mg/dL (0.60-1.20); Glomerular Filtration Rate 15 (60-); Glucose, Blood 96 mg/dL (70-99); Magnesium, Blood 2.2 mg/dL (1.6-2.4); Phosphorus, Blood 4.3 mg/dL (2.5-4.9); Potassium, Blood 3.3 mmol/L (3.5-5.5); Sodium, Blood 141 mmol/L (136-145)
--- NOTE | 2019-11-09 07:15 | NUR ---
BP eleaed, call placed to cost reduction engineer MD. Orders received to give AM Catapress early. AM nurse to follow up. Asymptomatic.
--- NOTE | 2019-11-09 16:23 | NUR ---
SHIFT SUMMARY PT RECIEVED DIAYLSIS THIS AM THROUGH PERMA CATH. PT DENIES PAIN THROUGHOUT SHIFT. NO CHANGES IN ASSESSMENT AT THIS TIME. BP TRENDING DOWN. OTHER VITALS STABLE. PT WAITING FOR LAB RESULTS PRIOR TO DC. WILL CONTINUE TO MONITOR UNTIL TURNOVER IS COMPLETE.
--- NOTE | 2019-11-10 05:09 | NUR ---
11/10/19 0445 LAB HERE TO DO LABWORK. PT WONDERING WHY HE NEEDS MORE LABWORK THIS AM. RN INFORMED HIM THAT MD ORDERED IT BUT HE CAN DECLINE IT. PT APOLOGISED AND WAS AGREEABLE TO GETTING THEM DONE. VITALS AND AM MED GIVEN WELL. PT STATES HE JUST WANTS TO GO HOME SOON.
[2019-11-10 05:20] LABS: BASOPHILS ABSOLUTE AUTO 0.03 K/mm3 (0.00-0.23); BASOPHILS PERCENT AUTO 0 % (0-2); EOSINOPHILS ABSOLUTE AUTO 0.14 K/mm3 (0.00-0.68); EOSINOPHILS PERCENT AUTO 2 % (0-6); Hematocrit 33.6 % (37.0-53.0); Hemoglobin 10.9 g/dL (13.5-17.5); IMMATURE GRAN ABSOLUTE AUTO 0.03 K/mm3 (0.00-0.10); IMMATURE GRAN PERCENT AUTO 0 % (0-1); LYMPHOCYTES ABSOLUTE AUTO 2.23 K/mm3 (0.84-5.20); LYMPHOCYTES PERCENT AUTO 31 % (21-46); MONOCYTES ABSOLUTE AUTO 0.84 K/mm3 (0.16-1.47); MONOCYTES PERCENT AUTO 12 % (4-13); Mean Corpuscular HGB Conc 32.4 g/dL (31.5-36.5); Mean Platelet Volume 10.3 fL (9.1-12.4); NEUTROPHILS ABSOLUTE AUTO 3.86 K/mm3 (1.96-9.15); NEUTROPHILS PERCENT AUTO 54 % (41-73); Platelet Count 320 K/mm3 (150-400); RDW Coefficient Variation 12.4 % (11.7-14.2); RDW Standard Deviation 40.5 fL (35.1-46.3); Red Blood Cell Count 3.63 M/mm3 (4.30-5.90); White Blood Cell Count 7.13 K/mm3 (4.00-11.30)
[2019-11-10 05:28] LABS: Mean Corpuscular Volume 93 fL (80-100)
[2019-11-10 05:44] LABS: Albumin, Blood 2.1 g/dL (3.4-5.0); Anion Gap 7 mmol/L (6-16); Blood Urea Nitrogen 20 mg/dL (8-24); Bun/Creatinine Ratio 4.6 (12.0-20.0); CO2, Blood 29 mmol/L (21-32); Calcium, Blood 8.2 mg/dL (8.5-10.1); Chloride, Blood 102 mmol/L (98-108); Creatinine, Blood 4.36 mg/dL (0.60-1.20); Glomerular Filtration Rate 16 (60-); Glucose, Blood 223 mg/dL (70-99); Magnesium, Blood 2.1 mg/dL (1.6-2.4); Potassium, Blood 3.5 mmol/L (3.5-5.5); Sodium, Blood 138 mmol/L (136-145)
--- NOTE | 2019-11-10 07:22 | NUR ---
ASSUMED CARE OF PT- BEDSIDE REPORT COMPLETED WITH NIGHT RN CLAUDE. PT ALERT, ORIENTED AND INDEPENDENT. PT SITTING UP IN THE RECLINER AT SHIFT CHANGE. PT STATED DR WARD HAD JUST BEEN IN TO SEE HIM AND STATED HIS RESULTS THAT THEY HAVE BEEN WAITING FOR WERE IN. PER PT DR WARD STATED HE DOES NOT NEED DIALYSIS TODAY AND MAY BE ABLE TO DISCHARGE HOME WITH [facility] ON THURSDAY (IF IT CAN BE ARRANGED).
--- NOTE | 2019-11-10 08:30 | NUR ---
CALLED [facility] TO SEE ABOUT A CHAIR FOR THE PT ON THURSDAY. SPOKE TO ANGEL LUIS. PLAN IS TO DO INTAKE FOR PT TOMORROW HOWEVER SHE DOES NOT HAVE A TIME YET. AWAITING A CALL BACK BEFORE CALLING DR SEGURA FOR PT DISCHARGE ORDERS. ANGEL LUIS IS AWARE PT DISCHARGE PENDING CHAIR TIME, PT WILL NEED DIALYSIS TOMORROW PER DR WARD (STATED BY THE PT).
[2019-11-10] MEDS ORDERED: ACET325 PO (09:24)
--- NOTE | 2019-11-10 09:43 | NUR ---
RECIEVED A CALL FROM ZACARIAS HAJI HAS A CHAIR TIME AND INTAKE FOR TOMORROW AT 1:45
--- NOTE | 2019-11-10 11:51 | NUR ---
DISCHARGE NOTE- PT WAS GIVEN VERBAL AND WRITTEN DISCHARGE INSTRUCTIONS AND ACKNOWLEDGED UNDERSTANDING OF THEM. PT HAD NO IV AT THE TIME OF DISCHARGE AND DECLINED WC. PT ARRIVED TO TAKE HIM HOME PT AWARE OF HIS APPOINTMENT AT [facility] TOMORROW AT 1:45PM. PT WALKED OUT WITH HIS SPOUSE ESCORTED BY THE HELP DESK COORDINATOR. NO FURTHER QUESTIONS AT THE TIME OF DISCHARGE.
== END 2019-11-10 11:28 | disposition home or self-care (01) | DRG 699 ==
LOC: ER 15:33 → MEDS 19:13 → ENPENDDIS 11-10 09:00 → MEDS 11-10 11:28
PROVIDERS: Internal Medicine Nephrology; Physician Assistant; Surgery; ADMIT Internal Medicine
PROC: 02HV33Z Insertion of Infusion Device into Superior Vena Cava, Percutaneous Approach (ICD-10-PCS; 2019-11-07)
PROC: 5A1D70Z Performance of Urinary Filtration, Intermittent, Less than 6 Hours Per Day (ICD-10-PCS; 2019-11-07)
PROC: 0JH63WZ Insertion of Totally Implantable Vascular Access Device into Chest Subcutaneous Tissue and Fascia, Percutaneous Approach (ICD-10-PCS; principal; 2019-11-07 12:30)
PROC: 5A1D70Z Performance of Urinary Filtration, Intermittent, Less than 6 Hours Per Day (ICD-10-PCS; 2019-11-09)
DX: E11.22 Type 2 diabetes mellitus with diabetic chronic kidney disease (principal); Z94.0 Kidney transplant status; L97.518 Non-pressure chronic ulcer of other part of right foot with other specified severity; I12.0 Hypertensive chronic kidney disease with stage 5 chronic kidney disease or end stage renal disease; E11.65 Type 2 diabetes mellitus with hyperglycemia; I12.9 Hypertensive chronic kidney disease with stage 1 through stage 4 chronic kidney disease, or unspecified chronic kidney disease; N18.4 Chronic kidney disease, stage 4 (severe); N17.9 Acute kidney failure, unspecified; E11.621 Type 2 diabetes mellitus with foot ulcer; Z79.4 Long term (current) use of insulin; N18.5 Chronic kidney disease, stage 5
CPT/HCPCS: 36415; 71046; 77001; 80053; 80069; 80074; 81001; 82947; 83690; 83735; 84100; 85014; 85018; 85025; 85027; 86317; 93005; 93010; 96361; 96374; 99284-25; A9270; C1750; J0360; J0690; J0881; J1642; J1644; J1650; J1720; J1815; J2250; J2405; J2704; J3010; J7030; J7120; J7507; J7512; J7517

== ENCOUNTER → 2019-12-01 | Day surgery (SDC) | payer BC ==
[~2019-12-01] MED LIST changes: +ACET325 PO; +AMLO10 PO; +CARV25 PO; +Cipro500 MG PO; +FURO40 PO; +Flagyl500 MG PO; +Isosorbide Mono30 MG PO; +Norco 5-325 Ta1 EACH PO; +PANT40 PO
== END ==
LOC: WOUND 08:27
DX: E11.621 Type 2 diabetes mellitus with foot ulcer (principal); L97.512 Non-pressure chronic ulcer of other part of right foot with fat layer exposed; E11.22 Type 2 diabetes mellitus with diabetic chronic kidney disease; E11.40 Type 2 diabetes mellitus with diabetic neuropathy, unspecified; I12.9 Hypertensive chronic kidney disease with stage 1 through stage 4 chronic kidney disease, or unspecified chronic kidney disease; J45.909 Unspecified asthma, uncomplicated; N18.9 Chronic kidney disease, unspecified; F41.9 Anxiety disorder, unspecified; F32.9 Major depressive disorder, single episode, unspecified; Z94.0 Kidney transplant status; Z79.4 Long term (current) use of insulin; Z79.82 Long term (current) use of aspirin; Z79.899 Other long term (current) drug therapy
CPT/HCPCS: G0463

== ENCOUNTER 2019-12-05 06:29 | Emergency (ER) | payer BC ==
[~2019-12-05] VITALS: Ht 188 cm; Wt 122.5 kg
[~2019-12-05 06:29] MED LIST changes: -Cipro500 MG PO; -Flagyl500 MG PO; -Norco 5-325 Ta1 EACH PO
[2019-12-05 07:07] LABS: BASOPHILS ABSOLUTE AUTO 0.02 K/mm3 (0.00-0.23); BASOPHILS PERCENT AUTO 0 % (0-2); EOSINOPHILS ABSOLUTE AUTO 0.04 K/mm3 (0.00-0.68); EOSINOPHILS PERCENT AUTO 0 % (0-6); Hematocrit 33.6 % (37.0-53.0); Hemoglobin 11.4 g/dL (13.5-17.5); IMMATURE GRAN ABSOLUTE AUTO 0.05 K/mm3 (0.00-0.10); IMMATURE GRAN PERCENT AUTO 1 % (0-1); LYMPHOCYTES PERCENT AUTO 22 % (21-46); MONOCYTES ABSOLUTE AUTO 0.97 K/mm3 (0.16-1.47); MONOCYTES PERCENT AUTO 11 % (4-13); Mean Corpuscular HGB 29.5 pg (26.0-34.0); Mean Corpuscular HGB Conc 33.9 g/dL (31.5-36.5); Mean Corpuscular Volume 87 fL (80-100); Mean Platelet Volume 9.9 fL (9.1-12.4); NEUTROPHILS ABSOLUTE AUTO 6.03 K/mm3 (1.96-9.15); NEUTROPHILS PERCENT AUTO 66 % (41-73); Platelet Count 287 K/mm3 (150-400); RDW Coefficient Variation 12.8 % (11.7-14.2); RDW Standard Deviation 39.6 fL (35.1-46.3); Red Blood Cell Count 3.87 M/mm3 (4.30-5.90); White Blood Cell Count 9.11 K/mm3 (4.00-11.30)
[2019-12-05 07:24] LABS: Albumin, Blood 2.1 g/dL (3.4-5.0); Bilirubin, Total 0.7 mg/dL (0.1-1.0); Bun/Creatinine Ratio 3.4 (12.0-20.0); Calcium, Blood 8.6 mg/dL (8.5-10.1); Creatinine, Blood 6.84 mg/dL (0.60-1.20); Potassium, Blood 3.3 mmol/L (3.5-5.5)
[2019-12-05 07:26] LABS: Albumin/Globulin Ratio 0.6 (0.8-1.8); Globulin, Blood 3.6 g/dL (2.2-4.0); Total Protein, Blood 5.7 g/dL (6.4-8.2)
[2019-12-05 08:34] LABS: Source, Urine Clean Catch
[2019-12-05 08:42] LABS: Bilirubin, Urine Neg (Neg); Blood, Urine 2+ (Neg); Glucose Qualitative, Urine 4+ (Neg); Ketones, Urine 1+ (Neg); Leukocyte Esterase, Urine 1+ (Neg); Nitrite, Urine Neg (Neg); Protein, Urine 4+ (Neg); Specific Gravity, Urine 1.015 (1.003-1.022); Urobilinogen, Urine NORM (Normal)
[2019-12-05] MEDS ORDERED: Flagyl500 MG PO (08:50)
[2019-12-05] MEDS ORDERED: Cipro500 MG PO (08:50)
[2019-12-05 09:33] LABS: Appearance, Urine Clear (Clear); Color, Urine Yellow (P-Yellow)
[2019-12-05 09:35] LABS: Bacteria Mod /hpf; Squamous Epithelial Cells Mod /hpf (Few)
[2019-12-05] MEDS ORDERED: Norco 5-325 Ta1 EACH PO (09:44)
== END 2019-12-05 10:09 | disposition home or self-care (01) ==
LOC: ER 06:29
PROVIDERS: Emergency Medicine
DX: K52.9 Noninfective gastroenteritis and colitis, unspecified (principal); I12.0 Hypertensive chronic kidney disease with stage 5 chronic kidney disease or end stage renal disease; E11.22 Type 2 diabetes mellitus with diabetic chronic kidney disease; N18.6 End stage renal disease; Z79.899 Other long term (current) drug therapy; Z79.82 Long term (current) use of aspirin; Z79.4 Long term (current) use of insulin
CPT/HCPCS: 36415; 74176; 80053; 81001; 83690; 85025; 87086; 96361; 96374; 96375; 99284-25; A9270-GY; J2405; J3010; J7030

== ENCOUNTER 2019-12-07 00:31 | Day surgery (SDC) | payer BC ==
[~2019-12-07 00:31] MED LIST changes: +Cipro500 MG PO; +Flagyl500 MG PO; +Norco 5-325 Ta1 EACH PO
== END 2019-12-07 22:54 | disposition home or self-care (01) ==
LOC: WOUND 00:31
DX: E11.621 Type 2 diabetes mellitus with foot ulcer (principal); L97.512 Non-pressure chronic ulcer of other part of right foot with fat layer exposed; E11.22 Type 2 diabetes mellitus with diabetic chronic kidney disease; E11.40 Type 2 diabetes mellitus with diabetic neuropathy, unspecified; N18.9 Chronic kidney disease, unspecified; I10 Essential (primary) hypertension; J45.909 Unspecified asthma, uncomplicated; F41.9 Anxiety disorder, unspecified; F32.9 Major depressive disorder, single episode, unspecified; Z99.2 Dependence on renal dialysis; Z79.4 Long term (current) use of insulin; Z94.0 Kidney transplant status

== ENCOUNTER 2019-12-14 09:00 | Day surgery (SDC) | payer BC | END 2019-12-14 22:57 | disposition home or self-care (01) | LOC: WOUND 09:00 | DX: E11.621 Type 2 diabetes mellitus with foot ulcer (principal); E11.40 Type 2 diabetes mellitus with diabetic neuropathy, unspecified; I12.9 Hypertensive chronic kidney disease with stage 1 through stage 4 chronic kidney disease, or unspecified chronic kidney disease; J45.909 Unspecified asthma, uncomplicated; L97.512 Non-pressure chronic ulcer of other part of right foot with fat layer exposed; Z94.0 Kidney transplant status; N18.9 Chronic kidney disease, unspecified; Z79.4 Long term (current) use of insulin; Z99.2 Dependence on renal dialysis ==

== ENCOUNTER → 2019-12-23 | Outpatient (CLI) | payer BC ==
[2019-12-23 16:55] LABS: Hematocrit 28.9 % (37.0-53.0); Hemoglobin 10.2 g/dL (13.5-17.5)
== END | disposition home or self-care (01) ==
LOC: LAB SHORT 15:55 → LAB 15:55
PROVIDERS: Internal Medicine Nephrology
DX: D64.9 Anemia, unspecified (principal)
CPT/HCPCS: 85014; 85018

== ENCOUNTER 2019-12-28 00:35 | Day surgery (SDC) | payer BC | END 2019-12-28 23:16 | disposition home or self-care (01) | LOC: WOUND 00:35 | DX: E11.621 Type 2 diabetes mellitus with foot ulcer (principal); L97.512 Non-pressure chronic ulcer of other part of right foot with fat layer exposed; E11.40 Type 2 diabetes mellitus with diabetic neuropathy, unspecified; E11.22 Type 2 diabetes mellitus with diabetic chronic kidney disease; I12.9 Hypertensive chronic kidney disease with stage 1 through stage 4 chronic kidney disease, or unspecified chronic kidney disease; N18.9 Chronic kidney disease, unspecified; F41.9 Anxiety disorder, unspecified; F32.9 Major depressive disorder, single episode, unspecified; J45.909 Unspecified asthma, uncomplicated; Z94.0 Kidney transplant status; Z79.4 Long term (current) use of insulin; Z99.2 Dependence on renal dialysis; Z79.899 Other long term (current) drug therapy; Z79.82 Long term (current) use of aspirin ==

== ENCOUNTER 2020-01-03 00:15 | Day surgery (SDC) | payer BC, OTHER | END 2020-01-03 22:49 | disposition home or self-care (01) | LOC: WOUND 00:15 | DX: E11.621 Type 2 diabetes mellitus with foot ulcer (principal); L97.512 Non-pressure chronic ulcer of other part of right foot with fat layer exposed; E11.40 Type 2 diabetes mellitus with diabetic neuropathy, unspecified; E11.22 Type 2 diabetes mellitus with diabetic chronic kidney disease; I12.9 Hypertensive chronic kidney disease with stage 1 through stage 4 chronic kidney disease, or unspecified chronic kidney disease; N18.9 Chronic kidney disease, unspecified; J45.909 Unspecified asthma, uncomplicated; Z79.4 Long term (current) use of insulin ==

== ENCOUNTER 2020-01-16 00:11 | Day surgery (SDC) | payer BC ==
[2020-01-19] MEDS ORDERED: PRED5 PO (07:05)
[2020-01-19] MEDS ORDERED: DULO60 PO (07:09)
[2020-01-19] MEDS ORDERED: ROPI.25 PO (07:10)
== END 2020-01-16 23:10 | disposition home or self-care (01) ==
LOC: WOUND 00:11
DX: E11.621 Type 2 diabetes mellitus with foot ulcer (principal); L97.512 Non-pressure chronic ulcer of other part of right foot with fat layer exposed; E11.40 Type 2 diabetes mellitus with diabetic neuropathy, unspecified; M10.9 Gout, unspecified; E11.22 Type 2 diabetes mellitus with diabetic chronic kidney disease; I12.9 Hypertensive chronic kidney disease with stage 1 through stage 4 chronic kidney disease, or unspecified chronic kidney disease; N18.9 Chronic kidney disease, unspecified; Z79.4 Long term (current) use of insulin; Z94.0 Kidney transplant status

== ENCOUNTER 2020-01-19 06:28 | Inpatient (IN) | payer BC ==
[~2020-01-19] VITALS: Ht 188 cm; Wt 114.5 kg
[~2020-01-19 06:28] MED LIST changes: -CLON.3 PO; +Catapres0.2 MG PO; -FURO40 PO; +FURO80 PO
[2020-01-19] MEDS ORDERED: PRED5 PO ×2 (07:05)
[2020-01-19 07:06] LABS: BASOPHILS ABSOLUTE AUTO 0.04 K/mm3 (0.00-0.23); BASOPHILS PERCENT AUTO 1 % (0-2); EOSINOPHILS ABSOLUTE AUTO 0.09 K/mm3 (0.00-0.68); EOSINOPHILS PERCENT AUTO 1 % (0-6); Hematocrit 31.7 % (37.0-53.0); Hemoglobin 10.6 g/dL (13.5-17.5); IMMATURE GRAN ABSOLUTE AUTO 0.03 K/mm3 (0.00-0.10); IMMATURE GRAN PERCENT AUTO 0 % (0-1); LYMPHOCYTES ABSOLUTE AUTO 1.84 K/mm3 (0.84-5.20); LYMPHOCYTES PERCENT AUTO 27 % (21-46); MONOCYTES PERCENT AUTO 12 % (4-13); Mean Corpuscular HGB 28.5 pg (26.0-34.0); Mean Corpuscular HGB Conc 33.4 g/dL (31.5-36.5); Mean Corpuscular Volume 85 fL (80-100); Mean Platelet Volume 10.4 fL (9.1-12.4); NEUTROPHILS ABSOLUTE AUTO 4.11 K/mm3 (1.96-9.15); NEUTROPHILS PERCENT AUTO 60 % (41-73); Platelet Count 275 K/mm3 (150-400); RDW Coefficient Variation 13.2 % (11.7-14.2); RDW Standard Deviation 40.1 fL (35.1-46.3); Red Blood Cell Count 3.72 M/mm3 (4.30-5.90); White Blood Cell Count 6.91 K/mm3 (4.00-11.30)
[2020-01-19] MEDS ORDERED: MEGE40T PO (07:08)
[2020-01-19] MEDS ORDERED: DULO60 PO ×2 (07:09)
[2020-01-19] MEDS ORDERED: ROPI.25 PO ×2 (07:10)
[2020-01-19 07:27] LABS: Albumin, Blood 3.4 g/dL (3.4-5.0); Albumin/Globulin Ratio 0.9 (0.8-1.8); Bilirubin, Total 0.5 mg/dL (0.1-1.0); Bun/Creatinine Ratio 5.9 (12.0-20.0); Calcium, Blood 9.1 mg/dL (8.5-10.1); Creatinine, Blood 4.42 mg/dL (0.60-1.20); Globulin, Blood 3.9 g/dL (2.2-4.0); Potassium, Blood 3.5 mmol/L (3.5-5.5); Total Protein, Blood 7.3 g/dL (6.4-8.2)
--- NOTE | 2020-01-19 11:34 | NUR ---
Call to Dr. Mcdaniels to verify that he had been notified of the nephrology consultation. He states that he was notified of the consultation, but not of any labs. Labs were given over the phone as requested by Dr. Mcdaniels. Call to Hiro Miranda, lay out drafter, as requested also by Dr. Mcdaniels to notify her of the pt's admission and need for dialysis.
--- NOTE | 2020-01-19 12:01 | NUR ---
ARRIVES FROM ED AT 10;45. SLEEPY ON ARRIVAL BUT OPENS EYES TO VERBAL STIMULI. ANSWERS QUESTIONS WITH SLOW RESPONSE. ORIENTED TO SELF AND PLACE. CHEMBG TAKEN ON ARRIVAL. TELEPHONE ORDER FROM KAELA ROBERTO FOR 1/2 AMP D50 AND D10 AT 75ML IVS.
--- NOTE | 2020-01-19 14:00 | NUR ---
TAKEN TO [facility] BY ROME AND ESTIVEN.
--- NOTE | 2020-01-19 17:56 | NUR ---
HOLDING 1700 COREG DUE TO NPO FOR US STUDY.
[2020-01-19 18:00] LABS: Thyroid Stimulating Hormone 2.31 uIU/mL (0.360-4.800); Uric Acid, Blood 2.2 mg/dL (3.5-7.2)
--- NOTE | 2020-01-19 18:04 | NUR ---
SHIFT SUMMARY: ADMIT FROM ED DURING SHIFT. HYPOGLYCEMIC THROUGHOUT ED VISIT WITH SEIZURE ACTIVITY PRIOR TO ED ARRIVAL. RESPONSIVE TO STERNAL RUB WITH VERBAL STIMULI ON ARRIVAL TO PCU. Q2 CHEMBG CHECKS MAINTAINED. AWAKE AND ORIENTED IN AFTERNOON WITH FULL LUNCH TRAY EATEN. 10% DEXTROSE INFUSING AT 75ML HOUR PER ORDERS. APPROX 1 HOUR DIALYSIS COMPLETED INSTEAD OF FULL 2 HOURS DUE TO INCREASING HYPERTENSION. DR. RUDD NOTIFIED. MEDICATED PER ORDERS. DR. BENEDICT TO BEDSIDE IN EVENING, ADDITIONAL ORDERS PLACED BY DR. BENEDICT. WILL CONTINUE TO MONITOR BLOOD PRESSURE AND MEDICATE PER ORDERS.
[2020-01-19 18:29] LABS: Amylase, Blood 19 U/L (25-115)
--- NOTE | 2020-01-19 18:30 | NUR ---
Radha Orona [employer] [facility] says that she will be up in about 30 minutes for the ultrasound ordered by Dr. Mcdaniels.
--- NOTE | 2020-01-19 18:55 | NUR ---
Call to Dr. Simmons regarding pt's blood sugar of 204 at this time. The pt is now eating, drinking, and has no vomiting although he was treated in the last hour for c/o nausea associated with dialysis. New orders were received for ongoing Blood sugar monitoring, and coverage with regular insulin and treatment for hypoglycemia as indicated. IVF were discontinued and the pt's IV was saline locked at this time.
--- NOTE | 2020-01-19 19:15 | NUR ---
INITAL ASSESSMENT PT IS ALERT AND ORIENTED IN ROOM SITTING UP IN BED. ULTRASOUND IN ROOM AT THIS TIME. HE STATES HE HAS A HEADACHE AND THAT HIS BACK HURTS. HE STATES HIS BACK HURTS AFTER HE HAS DIALYSIS. PT'S BP IS ELEVATED AT THIS TIME WHICH IS A LIKELY CONTRIBUTOR TO HIS HEADACHE. WILL CON'T TO MONITOR BP AND ADMINISTER PRN MEDICATIONS NEEDED TO LOWER BP. ALL OVER VITALS ARE STABLE. HE DOES NOT APPEAR TO HAVE ANY SOB UPON REST IN BED. EDEMA NOTED TO ALL EXTREMITIES AND PT STATES THIS IS MORE THAN USUAL, BUT ATTRIBUTES THIS TO LACK OF A FULL DIALYSIS TREATMENT. PT DOES APPEAR TO BE FLUSHED AND HE STATES HE HAS BEEN FEELING WARM AND THEN COLD FOR THE LAST FEW HOURS. PT STATES HE OVERALL JUST FEELS ANXIOUS ABOUT HIS CONDITION. STATES HE HAS BEEN TEXTING DR BENEDICT TO MAKE SURE HE IS GETTING THE CARE HE NEEDS. PT IS A Q2HR BLOOD SUGAR CHECK WITH A SPECIFIC SLIDDING SCALE FROM DR RUDD. REVIEWED THIS WITH PT AND HE IS OK WITH THE AMOUNT OF INSULIN TO BE ADMINISTERED FOR THE BLOOD SUGAR LEVELS. CALL LIGHT WITHIN REACH OF PT. ENCOURAGED HIM TO CALL IF HE NEEDS ANYTHING. HE DID EXPRESS THAT HE WANTED TO FINISH DINNER WHEN REBAR FABRICATOR LEAVES AND THAT HE WOULD THEN ATTEMPT TO USE THE URINAL. WILL COLLECT A SPECIMEN IF HE IS ABLE TO URINATE. PT STABLE AT THIS TIME.
--- NOTE | 2020-01-19 22:48 | NUR ---
BLOOD PRESSURE PT HAS HAD ELEVATED BP'S EVEN AFTER HIS PM MEDICATIONS WERE ADMINISTERED. PT WAS GIVEN AN ADDITIONAL DOSE OF IV HYDRALIZINE SEE EMAR. THIS DID BRING HIS BP DOWN. WILL CON'T TO MONITOR AND TREAT BP.
--- NOTE | 2020-01-20 00:23 | NUR ---
DR LANDA CALLED DR LANDA REGARDING SOME HOME MEDICATIONS THAT NEED TO BE STARTED FOR PT'S COMFORT. TYLENOL FOR HEADACHE. GABAPENTIN FOR THE NUMBNESS AND TINGLING PT HAS. HE TAKES AT HOME CONSISTENTLY. LASIX HE TAKES DAILY AND DID NOT RECIEVE TODAY REALTED TO DIALYSIS. HOWEVER HE DID NOT GET A FULL DIALYSIS CYCLE AND HE HAS EDEMA IN HIS HANDS. DR LANDA WAS OK WITH ORDERING THESE MEDICATIONS. PT AT THIS TIME HAS ELEVATED BP, BUT WILL HOLD OFF ON GIVING IV MEDICATION TO ASSIST WITH LOWERING UNTIL PT HAS HAD HIS DOSE OF LASIX. THIS MAY AFFECT HIS BP. WILL CON'T TO MONITOR PT AND KEEP SAFE.
[2020-01-20 02:32] LABS: BASOPHILS ABSOLUTE AUTO 0.02 K/mm3 (0.00-0.23); BASOPHILS PERCENT AUTO 0 % (0-2); EOSINOPHILS ABSOLUTE AUTO 0.05 K/mm3 (0.00-0.68); EOSINOPHILS PERCENT AUTO 1 % (0-6); Hematocrit 25.2 % (37.0-53.0); Hemoglobin 8.5 g/dL (13.5-17.5); IMMATURE GRAN ABSOLUTE AUTO 0.04 K/mm3 (0.00-0.10); IMMATURE GRAN PERCENT AUTO 1 % (0-1); LYMPHOCYTES ABSOLUTE AUTO 2.23 K/mm3 (0.84-5.20); LYMPHOCYTES PERCENT AUTO 27 % (21-46); MONOCYTES ABSOLUTE AUTO 0.99 K/mm3 (0.16-1.47); MONOCYTES PERCENT AUTO 12 % (4-13); Mean Corpuscular HGB 28.9 pg (26.0-34.0); Mean Corpuscular HGB Conc 33.7 g/dL (31.5-36.5); Mean Corpuscular Volume 86 fL (80-100); Mean Platelet Volume 10.2 fL (9.1-12.4); NEUTROPHILS ABSOLUTE AUTO 4.81 K/mm3 (1.96-9.15); NEUTROPHILS PERCENT AUTO 59 % (41-73); Platelet Count 291 K/mm3 (150-400); RDW Coefficient Variation 13.6 % (11.7-14.2); RDW Standard Deviation 42.2 fL (35.1-46.3); Red Blood Cell Count 2.94 M/mm3 (4.30-5.90); White Blood Cell Count 8.14 K/mm3 (4.00-11.30)
[2020-01-20 02:50] LABS: Albumin, Blood 2.6 g/dL (3.4-5.0); Albumin/Globulin Ratio 0.9 (0.8-1.8); Bilirubin, Total 0.3 mg/dL (0.1-1.0); Bun/Creatinine Ratio 5.6 (12.0-20.0); Calcium, Blood 8.2 mg/dL (8.5-10.1); Creatinine, Blood 4.86 mg/dL (0.60-1.20); Globulin, Blood 2.8 g/dL (2.2-4.0); Magnesium, Blood 1.7 mg/dL (1.6-2.4); Phosphorus, Blood 3.4 mg/dL (2.5-4.9); Potassium, Blood 3.3 mmol/L (3.5-5.5); Total Protein, Blood 5.4 g/dL (6.4-8.2)
--- NOTE | 2020-01-20 05:46 | NUR ---
SHIFT SUMMARY PT HAD A LOW BLOOD SUGAR READING THIS AM. HE WAS GIVEN AN AMP OF D50 ORDERED. HE ALSO WAS ABLE TO EAT SOME APPLESAUCE AND HAD SOME PUDDING. HE IS ALERT AND IS NOT DEMONSTRATING ANY LOW BLOOD SUGAR SYMPTOMS. WILL CON'T TO CHECK BLOOD SUGARS. VITALS HAVE BEEN STABLE. BP READINGS ARE HIGH BUT HOLDING. OVERALL PT CON'T TO COOPERATIVE WITH CARE. WILL CON'T TO MONITOR AND KEEP PT SAFE TILL REPORT TO ONCOMING RN.
--- NOTE | 2020-01-20 08:00 | NUR ---
pt laying in bed awake, a/ox3, pleasant and cooperative with care, follows commands well, denies pain this am, states he didn't sleep well last night, lungs are clear, a bit dim t/o, resp even and unlabored, no cough noted, he reports he gets a bit sob laying flat, does better sitting up, is on r/a, hrr, tele in place running sr per monitor, see strip, trace edema noted to ext, he reports his hands and arms were swollen last night, but are better this am, iv site is clear and patent, btx4, abd flat soft nontender, voids via urinal, however no void since being in hosp. does not feel like he needs to go, has a H.D. cath to [facility], site is clear, will not have dialysis today, next dialysis planned is tomorrow, btx4, abd flat soft nontender, skin has a wound to his right great toe, medial aspect, changed dressing with nonadherant dressing, secured with mefix, manuel, flo, call light in reach.
--- NOTE | 2020-01-20 13:02 | NUR ---
pt ate his lunch, is resting quietly, does not want coverage for his glucose, call light in reach.
--- NOTE | 2020-01-20 18:07 | NUR ---
pt slept most of the day, wakes easily, seems depressed, did allow insulin coverage at this time, and is eating dinner. had one void today that was dark jonel. no further changes. call light in reach.
--- NOTE | 2020-01-20 21:31 | NUR ---
PT IN ROOM, DENIES PAIN, N/V, SOB AT TIME OF EVAL-1930 PT EXPRESSED FEELINGS OF FRUSTRATION OVER HOSPITAL STAY-PT GIVEN ENCOURAGMENT
--- NOTE | 2020-01-20 22:16 | NUR ---
PT TREATED FOR CBG OF 211, PM SNACK GIVEN, NO CHANGES IN PT STATUS WILL CONTINUE TO MONITOR
--- NOTE | 2020-01-21 01:52 | NUR ---
0000-PT HAD CBG 120 NO COVERAGE NEEDED, NO CHANGES IN PATIENT STATUS VSS
--- NOTE | 2020-01-21 03:06 | NUR ---
0200-PT CBG 58, PT A/OX4 PT GIVEN 25CC OF D50 PER ORDER, DR LANDA CALLED NEW ORDERS RECIEVED, PT RECHECKED 20 MINUTES POST ADMINISTRATION OF D50 CBG 69, 25CC MORE OF D50 GIVEN DR LANDA ALERTED TO REPEAT CBG, PT GIVEN SNACK, PT DENIES ANY SYMPTOMS OF HYPOGLYCEMIA AT THIS TIME. WILL REPEAT CBG Q1HR FOR REMAINDER OF SHIFT
[2020-01-21 03:46] LABS: Hematocrit 23.5 % (37.0-53.0); Hemoglobin 7.9 g/dL (13.5-17.5)
[2020-01-21 04:03] LABS: Albumin, Blood 2.6 g/dL (3.4-5.0); Anion Gap 5 mmol/L (6-16); Blood Urea Nitrogen 40 mg/dL (8-24); Bun/Creatinine Ratio 5.9 (12.0-20.0); CO2, Blood 34 mmol/L (21-32); Calcium, Blood 8.2 mg/dL (8.5-10.1); Chloride, Blood 95 mmol/L (98-108); Glomerular Filtration Rate 10 (60-); Glucose, Blood 113 mg/dL (70-99); Magnesium, Blood 1.9 mg/dL (1.6-2.4); Phosphorus, Blood 4.9 mg/dL (2.5-4.9); Potassium, Blood 3.7 mmol/L (3.5-5.5); Sodium, Blood 134 mmol/L (136-145)
--- NOTE | 2020-01-21 04:33 | NUR ---
PT CBG AT 84 PT DENIES ANY SYMPTOMS OF HYPOGLYCEMIA, PT ENCOURAGED TO EAT, PT GIVEN PUDDING, ORANGE JUICE, AND RAMA CRACKERS. PT TAKING PO WELL WILL CONTINUE TO MONITOR
--- NOTE | 2020-01-21 05:47 | NUR ---
PT IN BED RESTING QUIETLY AT THIS TIME, VSS THROUGHOUT SHIFT, BLOOD GLUCOSE LEVELS VARIED DRAMATICALLY MD AWARE. CBG 140 NO COVERAGE NEEDED, PT DENIES PAIN, N/V, SOB T/O SHIFT. WILL CONTINUE TO MONITOR ANG REPORT OFF CARE TO AM NURSE RELIEF
--- NOTE | 2020-01-21 08:00 | NUR ---
pt laying in bed awake, a/ox3, pleasant and cooperative with care, follows commands well, denies pain, reports poor sleep last night, lungs are clear t/o, resp even and unlabored, no cough noted, hrr, tele in place running sr per monitor, see strip, no a bit of edema noted to b/l le, hands looks like they did yesterday, ppp+2, cap refill <3sec, vs stable, afebrile, iv site is clear and patent, btx4, abd flat soft nontender voids very small amounts at a time, urine is dark jonel, 24hr urine in progress, skin has a wound to the right great toe, dressing in place, flo jackson, call light in reach, plan for dialysis today.
[2020-01-21 09:39] LABS: Percent Saturation 20.5 % (20.0-50.0)
[2020-01-21 12:23] LABS: Protein, Urine Quantitative 2156.3 mg/dL (0.0-11.9)
[2020-01-21 20:37] LABS: Source, Urine Voided
[2020-01-21 20:41] LABS: Appearance, Urine Clear (Clear); Bilirubin, Urine Neg (Neg); Blood, Urine 1+ (Neg); Color, Urine Amber (P-Yellow); Glucose Qualitative, Urine 2+ (Neg); Ketones, Urine 1+ (Neg); Leukocyte Esterase, Urine 1+ (Neg); Nitrite, Urine Neg (Neg); Protein, Urine 4+ (Neg); Urobilinogen, Urine NORM (Normal)
[2020-01-21 20:49] LABS: Bacteria Mod /hpf; Red Blood Cells, Urine 0-2 /hpf (0-2); Squamous Epithelial Cells Mod /hpf (Few)
[2020-01-21 20:50] LABS: Waxy Cast 0-2 /lpf (0)
--- NOTE | 2020-01-21 20:52 | NUR ---
CARE ASSUMED CARE AND REPORT ASSUMED FROM DEVAN PETER. PT SITTING UP IN BED. HE IS A/O X 3, CALM AND COOPERATIVE. C/O MILD HEADACHE. BP ELEVATED; WILL ADMINISTER EVEVNING BP MEDS. TEMP 99.0; WILL MONITOR. LUNG SOUNDS CLEAR THROUGHOUT BUT DIMINISHED. UA SENT TO LAB. PT INDEPENDENT IN ROOM. CALL LIGHT WITHIN REACH. WILL CONTINUE TO MONITOR.
[2020-01-21 20:53] LABS: U Amphetamine Screen Not Detected; U Barbituate Screen Not Detected; U Benzodiazapine Screen Not Detected; U Buprenorphine Screen Not Detected; U Cannabinoids Screen Not Detected; U Cocaine Screen Not Detected; U Methadone Screen Not Detected; U Methamphetamine Screen Not Detected; U Opiates Screen Not Detected; U Oxycodone Screen Not Detected; U Phencyclidine Screen Not Detected; U Propoxyphene Screen Not Detected
--- NOTE | 2020-01-22 00:05 | NUR ---
REASSESSMENT PT SITTING UPRIGHT IN BED HE REPORTS HE IS HAVING DIFFICULTY SLEEPING. DENIES PAIN. BP ELEVATED; WILL MONITOR. AFEBRILE. WILL CONTINUE TO MONITOR.
[2020-01-22 04:13] LABS: Hemoglobin 7.9 g/dL (13.5-17.5)
--- NOTE | 2020-01-22 04:24 | NUR ---
REASSESSMENT PT SITTING UP IN BED, FLAT AFFECT; STATING HE WANTS TO GO HOME SOON. AFEBRILE. BP ELEVATED 189/106, HYDRALAZINE 20 MG IVP GIVEN. WILL RECHECK BP IN A BIT. PT STATED HE IS FRUSTRATED THAT HIS BP CONTINUES TO BE ELEVATED DESPITE MULTIPLE ADMISSIONS AND MEDICATION CHANGES. DISCUSSED WITH PT THE IMPORTANCE OF MAKING SCHEDULED APPOINTMENTS WITH HIS PCP, WHO STATES IS MD BENEDICT, TO DISCUSS HIS CURRENT MEDICATION REGIMEN. LABS PENDING. WILL CONTINUE TO MONITOR.
[2020-01-22 04:32] LABS: Albumin, Blood 2.6 g/dL (3.4-5.0); Anion Gap 7 mmol/L (6-16); Blood Urea Nitrogen 37 mg/dL (8-24); Bun/Creatinine Ratio 6.2 (12.0-20.0); CO2, Blood 31 mmol/L (21-32); Calcium, Blood 8.1 mg/dL (8.5-10.1); Chloride, Blood 96 mmol/L (98-108); Creatinine, Blood 5.95 mg/dL (0.60-1.20); Glomerular Filtration Rate 11 (60-); Glucose, Blood 254 mg/dL (70-99); Phosphorus, Blood 3.6 mg/dL (2.5-4.9); Potassium, Blood 4.1 mmol/L (3.5-5.5); Sodium, Blood 134 mmol/L (136-145)
--- NOTE | 2020-01-22 05:56 | NUR ---
SHIFT SUMMARY PT SLEPT OFF/ON DURING SHIFT. HYDRALAZINE 20 MG GIVEN X1 DURING SHIFT. BP NOW 158/89. PT SITTING UP IN CHAIR READING AT THIS TIME. WILL GIVE BEDSIDE, HANDOFF REPORT TO DAY RN.
[2020-01-22] MEDS ORDERED: LOSA50 PO ×2 (14:43)
[2020-01-22] MEDS ORDERED: INSULANPEN SC ×2 (14:44)
[2020-01-22] MEDS ORDERED: CLON.3 TD ×2 (14:45)
--- NOTE | 2020-01-22 15:30 | NUR ---
discharge Discharged home. Pt medication orders faxed to [facility] per request. Pt will arrange EEG with Dr Mcdaniels as out pt. IV removed with cannula intct. Pressure dressing applied with 2x2 with coban wrap. COntinue pot.
[2020-01-23 15:08] LABS: METANEPHRINE, UR 29 ug/L (Undefined)
[2020-01-25 09:09] LABS: ALDOS/RENIN RATIO <.8 (0.0-30.0); ALDOSTERONE <1.0 ng/dL (0.0-30.0)
[2020-01-25 10:10] LABS: CREATININE, URINE 93.6 mg/dL (Not Estab.)
== END 2020-01-22 15:26 | disposition home or self-care (01) | DRG 638 ==
LOC: ER 06:28 → PCU 06:29
PROVIDERS: Emergency Medicine; Family Medicine; Internal Medicine Nephrology; Nurse Practitioner Acute Care; ADMIT Internal Medicine
DX: E11.649 Type 2 diabetes mellitus with hypoglycemia without coma (principal); Z94.0 Kidney transplant status; I12.0 Hypertensive chronic kidney disease with stage 5 chronic kidney disease or end stage renal disease; N18.6 End stage renal disease; N25.81 Secondary hyperparathyroidism of renal origin; E11.40 Type 2 diabetes mellitus with diabetic neuropathy, unspecified; Z99.2 Dependence on renal dialysis; F32.9 Major depressive disorder, single episode, unspecified; Z79.82 Long term (current) use of aspirin; Z79.4 Long term (current) use of insulin; E11.22 Type 2 diabetes mellitus with diabetic chronic kidney disease; E11.21 Type 2 diabetes mellitus with diabetic nephropathy; E78.5 Hyperlipidemia, unspecified; I16.0 Hypertensive urgency; E87.6 Hypokalemia; D64.9 Anemia, unspecified; R56.9 Unspecified convulsions; T38.3X5A Adverse effect of insulin and oral hypoglycemic [antidiabetic] drugs, initial encounter; Y92.9 Unspecified place or not applicable; Z66 Do not resuscitate
CPT/HCPCS: 36415; 70551; 71045; 76776; 80053; 80069; 80197; 81001; 81050; 82088; 82150; 82530; 82570; 82728; 82947; 83036; 83525; 83527; 83540; 83550; 83690; 83735; 83835; 84100; 84156; 84244; 84443; 84484; 84550; 84585; 84681; 85014; 85018; 85025; 87086; 93005; 93010; 96374; 96375; 96376; 99285-25; A9270; A9270-GY; G0257; G0378; J0360; J0881; J1610; J1720; J1815; J2250; J2405; J2916; J3475; J7030; J7070; J7507; J7512; J7517; J7799

== ENCOUNTER 2020-01-24 00:10 | Day surgery (SDC) | payer BC ==
[~2020-01-24 00:10] MED LIST changes: +CLON.3 TD; +DULO60 PO; +LOSA50 PO; +MEGE40T PO; +ROPI.25 PO
== END 2020-01-24 22:57 | disposition home or self-care (01) ==
LOC: WOUND 00:10
DX: E11.621 Type 2 diabetes mellitus with foot ulcer (principal); L97.512 Non-pressure chronic ulcer of other part of right foot with fat layer exposed; E11.40 Type 2 diabetes mellitus with diabetic neuropathy, unspecified; E11.22 Type 2 diabetes mellitus with diabetic chronic kidney disease; N18.9 Chronic kidney disease, unspecified; F41.9 Anxiety disorder, unspecified; I12.0 Hypertensive chronic kidney disease with stage 5 chronic kidney disease or end stage renal disease; N18.6 End stage renal disease; F32.9 Major depressive disorder, single episode, unspecified; J45.909 Unspecified asthma, uncomplicated; Z79.4 Long term (current) use of insulin; Z99.2 Dependence on renal dialysis; Z94.0 Kidney transplant status

== ENCOUNTER 2020-01-31 00:19 | Day surgery (SDC) | payer BC | END 2020-01-31 22:55 | disposition home or self-care (01) | LOC: WOUND 00:19 | DX: E11.621 Type 2 diabetes mellitus with foot ulcer (principal); L97.512 Non-pressure chronic ulcer of other part of right foot with fat layer exposed; E11.40 Type 2 diabetes mellitus with diabetic neuropathy, unspecified; I12.9 Hypertensive chronic kidney disease with stage 1 through stage 4 chronic kidney disease, or unspecified chronic kidney disease; N18.9 Chronic kidney disease, unspecified; E11.22 Type 2 diabetes mellitus with diabetic chronic kidney disease; Z79.4 Long term (current) use of insulin | CPT/HCPCS: Q4196 ==

== ENCOUNTER 2020-02-07 00:22 | Day surgery (SDC) | payer BC | END 2020-02-07 22:39 | disposition home or self-care (01) | LOC: WOUND 00:22 | DX: E11.621 Type 2 diabetes mellitus with foot ulcer (principal); L97.512 Non-pressure chronic ulcer of other part of right foot with fat layer exposed; E11.40 Type 2 diabetes mellitus with diabetic neuropathy, unspecified; I13.0 Hypertensive heart and chronic kidney disease with heart failure and stage 1 through stage 4 chronic kidney disease, or unspecified chronic kidney disease; E11.22 Type 2 diabetes mellitus with diabetic chronic kidney disease; N18.6 End stage renal disease; Z79.4 Long term (current) use of insulin | CPT/HCPCS: Q4196 ==

== ENCOUNTER → 2020-02-10 | Outpatient (CLI) | payer BC ==
[~2020-02-10] MED LIST changes: +ABAT250V; +Catapres-Tts 11 EACH TD; +OMEP20ER PO
== END | disposition home or self-care (01) ==
LOC: LAB DAV 07:00
DX: N18.6 End stage renal disease (principal)
CPT/HCPCS: 85651

== ENCOUNTER 2020-02-14 00:15 | Day surgery (SDC) | payer BC | END 2020-02-14 22:38 | disposition home or self-care (01) | LOC: WOUND 00:15 | DX: E11.621 Type 2 diabetes mellitus with foot ulcer (principal); E11.22 Type 2 diabetes mellitus with diabetic chronic kidney disease; E11.40 Type 2 diabetes mellitus with diabetic neuropathy, unspecified; L97.512 Non-pressure chronic ulcer of other part of right foot with fat layer exposed; J45.909 Unspecified asthma, uncomplicated; I12.0 Hypertensive chronic kidney disease with stage 5 chronic kidney disease or end stage renal disease; N18.6 End stage renal disease; Z94.0 Kidney transplant status; Z79.4 Long term (current) use of insulin; Z99.2 Dependence on renal dialysis; Z79.82 Long term (current) use of aspirin; Z79.899 Other long term (current) drug therapy | CPT/HCPCS: Q4196 ==

== ENCOUNTER 2020-02-20 15:32 | Inpatient (IN) | payer BC ==
[~2020-02-20] VITALS: Ht 188 cm; Wt 106.8 kg
[2020-02-20 16:26] LABS: BASOPHILS ABSOLUTE AUTO 0.02 K/mm3 (0.00-0.23); BASOPHILS PERCENT AUTO 0 % (0-2); EOSINOPHILS ABSOLUTE AUTO 0.04 K/mm3 (0.00-0.68); EOSINOPHILS PERCENT AUTO 1 % (0-6); Hematocrit 29.8 % (37.0-53.0); Hemoglobin 9.9 g/dL (13.5-17.5); IMMATURE GRAN ABSOLUTE AUTO 0.03 K/mm3 (0.00-0.10); IMMATURE GRAN PERCENT AUTO 0 % (0-1); LYMPHOCYTES ABSOLUTE AUTO 1.43 K/mm3 (0.84-5.20); LYMPHOCYTES PERCENT AUTO 19 % (21-46); MONOCYTES ABSOLUTE AUTO 0.75 K/mm3 (0.16-1.47); MONOCYTES PERCENT AUTO 10 % (4-13); Mean Corpuscular HGB 28.5 pg (26.0-34.0); Mean Corpuscular HGB Conc 33.2 g/dL (31.5-36.5); Mean Platelet Volume 11.1 fL (9.1-12.4); NEUTROPHILS ABSOLUTE AUTO 5.46 K/mm3 (1.96-9.15); NEUTROPHILS PERCENT AUTO 71 % (41-73); Platelet Count 331 K/mm3 (150-400); RDW Coefficient Variation 13.9 % (11.7-14.2); RDW Standard Deviation 43.6 fL (35.1-46.3); Red Blood Cell Count 3.47 M/mm3 (4.30-5.90); White Blood Cell Count 7.73 K/mm3 (4.00-11.30)
[2020-02-20 16:28] LABS: Mean Corpuscular Volume 86 fL (80-100)
[2020-02-20 16:46] LABS: Alanine Aminotransfer (ALT/SGP 12 U/L (12-78); Albumin, Blood 3.7 g/dL (3.4-5.0); Alk Phos 53 U/L (50-136); Anion Gap 12 mmol/L (6-16); Aspartate Aminotrans (AST/SGOT 13 U/L (12-37); Bilirubin, Total 0.5 mg/dL (0.1-1.0); Blood Urea Nitrogen 35 mg/dL (8-24); Bun/Creatinine Ratio 7.6 (12.0-20.0); CO2, Blood 30 mmol/L (21-32); Chloride, Blood 93 mmol/L (98-108); Creatinine, Blood 4.59 mg/dL (0.60-1.20); Globulin, Blood 3.8 g/dL (2.2-4.0); Glomerular Filtration Rate 15 (60-); Glucose, Blood 228 mg/dL (70-99); Potassium, Blood 4.4 mmol/L (3.5-5.5); Sodium, Blood 135 mmol/L (136-145); Total Protein, Blood 7.5 g/dL (6.4-8.2); Troponin I <0.015 ng/mL (0.000-0.040)
[2020-02-20] MEDS ORDERED: Carvedilol25 MG PO (18:03)
[2020-02-20] MEDS ORDERED: DULOXETINE HCL60 M1 PO (18:03)
[2020-02-20] MEDS ORDERED: Megestrol Aceta40 MG PO (18:04)
[2020-02-20] MEDS ORDERED: HYDR10 PO (18:04)
[2020-02-20] MEDS ORDERED: MYCOPHENOLATE500 MG PO (18:05)
[2020-02-20] MEDS ORDERED: Klonopin0.5 MG PO (18:05)
[2020-02-20] MEDS ORDERED: BASAGLAR K100 UNIT/1 SC (18:06)
[2020-02-20] MEDS ORDERED: ROPINIROLE HCL0.5 MG PO (18:06)
[2020-02-20] MEDS ORDERED: CLON.2 PO (18:07)
[2020-02-20] MEDS ORDERED: CATAPRES-TTS 31 EACH TOP (18:13)
--- NOTE | 2020-02-20 21:00 | NUR ---
ARRIVAL NOTE PT ARRIVED FROM ED ON STRETCHER. PT OPENS EYES TO VERBAL STIMULI, OTHER CARLOS KEEPS EYES CLOSED AND ONLY ANSWERS DIRECT QUESTIONS. PT VERY TREMULOUS AND SKIN IS VISIBLY RED AND HOT TO TOUCH. PT FEBRILE AT 102.8 IN ED. TEMP 101.7 UPON ARRIVAL. PT REPORTS BEING UNABLE TO KEEP MEDS DOWN. ED RN REPORTS GAVE ZOFRAN WHICH DID NOT HELP. PT SBP >200 UPON ARRIVAL. WILL MEDICATE PT PER EMAR FOR HIGN BP. PT LEFT SIDE VERY WEAK. PT DRIFT TO L SIDE AND UNKABLE TO HOLD SELF UP. REGIONAL FLATBED TRUCK DRIVER STRENGTH UNEQUAL, L SIDE UNABLE TO REGIONAL FLATBED TRUCK DRIVER AT ALL. PT DID HAVE CT IN ED. BLANKETS REMOVED OFF PT, ICE PACKS PLACED UNDER ARMS AND BACK OF NECK FOR TEMP. PILLOWS PLACED UNDER L SIDE TO SUPPORT PT UPRIGHT D/T NAUSEA.
[2020-02-20 23:07] LABS: Adenovirus Not Detected (NOT DETECT); Bordetella pertussis Not Detected (NOT DETECT); Chlamydophila pneumoniae Not Detected (NOT DETECT); Coronavirus 229E Not Detected (NOT DETECT); Coronavirus HKU1 Not Detected (NOT DETECT); Coronavirus NL63 Not Detected (NOT DETECT); Coronavirus OC43 Not Detected (NOT DETECT); Human Metapneumovirus Not Detected (NOT DETECT); Human Rhinovirus/Enterovirus Not Detected (NOT DETECT); Influenza A/2009-H1 Not Detected (NOT DETECT); Influenza A/H1 Not Detected (NOT DETECT); Influenza A/H3 Not Detected (NOT DETECT); Influenza B Not Detected (NOT DETECT); Mycoplasma pneumoniae Not Detected (NOT DETECT); Parainfluenza Virus 1 Not Detected (NOT DETECT); Parainfluenza Virus 2 Not Detected (NOT DETECT); Parainfluenza Virus 3 Not Detected (NOT DETECT); Parainfluenza Virus 4 Not Detected (NOT DETECT); Respiratory Syncytial Virus Not Detected (NOT DETECT)
--- NOTE | 2020-02-21 | NUR ---
ICE PACKS PLACED IN PT GROIN, BILAT AXILLARY, AND BEHIND NECK TO ASSIST IN BRINGING DOWN FEVER
--- NOTE | 2020-02-21 02:30 | NUR ---
SBP REMAINS HIGH. WILL MEDICATE PER EMAR FOR BP AND FEVER OF 102.8
[2020-02-21 04:08] LABS: BASOPHILS ABSOLUTE AUTO 0.03 K/mm3 (0.00-0.23); BASOPHILS PERCENT AUTO 0 % (0-2); EOSINOPHILS PERCENT AUTO 0 % (0-6); Hematocrit 32.4 % (37.0-53.0); Hemoglobin 10.6 g/dL (13.5-17.5); IMMATURE GRAN ABSOLUTE AUTO 0.07 K/mm3 (0.00-0.10); IMMATURE GRAN PERCENT AUTO 1 % (0-1); LYMPHOCYTES ABSOLUTE AUTO 1.47 K/mm3 (0.84-5.20); LYMPHOCYTES PERCENT AUTO 11 % (21-46); MONOCYTES ABSOLUTE AUTO 1.18 K/mm3 (0.16-1.47); MONOCYTES PERCENT AUTO 9 % (4-13); Mean Corpuscular HGB 28.6 pg (26.0-34.0); Mean Corpuscular HGB Conc 32.7 g/dL (31.5-36.5); Mean Corpuscular Volume 87 fL (80-100); Mean Platelet Volume 10.9 fL (9.1-12.4); NEUTROPHILS ABSOLUTE AUTO 10.55 K/mm3 (1.96-9.15); NEUTROPHILS PERCENT AUTO 79 % (41-73); Platelet Count 393 K/mm3 (150-400); RDW Coefficient Variation 14.4 % (11.7-14.2); RDW Standard Deviation 45.2 fL (35.1-46.3); Red Blood Cell Count 3.71 M/mm3 (4.30-5.90)
[2020-02-21 04:31] LABS: Albumin, Blood 3.5 g/dL (3.4-5.0); Anion Gap 14 mmol/L (6-16); Blood Urea Nitrogen 45 mg/dL (8-24); Bun/Creatinine Ratio 7.3 (12.0-20.0); CO2, Blood 25 mmol/L (21-32); Calcium, Blood 8.5 mg/dL (8.5-10.1); Chloride, Blood 96 mmol/L (98-108); Creatinine, Blood 6.17 mg/dL (0.60-1.20); Glomerular Filtration Rate 11 (60-); Glucose, Blood 234 mg/dL (70-99); Magnesium, Blood 1.6 mg/dL (1.6-2.4); Potassium, Blood 4.5 mmol/L (3.5-5.5); Sodium, Blood 135 mmol/L (136-145)
--- NOTE | 2020-02-21 05:05 | NUR ---
CALLED PROVIDER TO UPDATE PT CONDITION. NEW IORDERS. AND ICU TRANSFER.
--- NOTE | 2020-02-21 05:19 | NUR ---
SHIFT SUMMARY/TRANSFER OF CARE PT SLEEPING IN ROOM RESTLESS AT THIS TIME. PT HAS BEEN FEBRILE AND HYPERTENIVE T/O NIGHT. RESP TACHY AND LABORED AT TIMES ON RA W/ SATS >92%. TMAX DURING NIGHT WAS 102.9, PT WAS MEDICATED TWICE PER EMAR FOR FEVER, AND HAD ICE PACKS PLACED BEHIND NECK, IN BILAT AXILLARY, AND GROIN TO ASSIST IN TEMP. SBP REMAINED >200 T/O NIGHT, UP TO SBP 235. PT WAS MEDCIATED MULTIPLE TIMES DURING NIGHT FOR HYPERTENSION, NOT CONTROLED. CALL TO HOSPITALIST FOR FURTHER ORDERS. PT TO BE TRANSFFERED TO ICU ON PLACED ON NITRO GTT. PT TO HAVE MRI TODAY. PT UNABLE TO ANSWER QUESTIONS ABOUT MRI FOR PAPERWORK. WAITING TO CALL AND CLARIFY WITH SPOUSE. WILL GIVE REPORT OFF TO COLLAR SEPARATOR.
--- NOTE | 2020-02-21 06:27 | NUR ---
PT TO ICU 10 FROM PCU. PT HYPERTENSIVE ON ARRIVAL WITH SPB 248 AND TEMP 103.9. PT VISIBLY SHAKING AND HAS FACIAL FLUSHING. RECTAL TEMP PROBE INSERTED FOR CORE TEMP MONITORING AND COOLING BLANKET PLACED. PT HAS LEFT SIDED DEFICIT THAT IS REPORTED TO BE NEW TO THIS ADMISSION. PT HAS NO LEFT SIDED DIRECTOR OF DIGITAL TECHNOLOGY, CANNOT PUSH BACK OR UP WITH LEFT FOOT. WHEN LEFT ARM LIFTED IT DROPS FLACCIDLY TO PT'S SIDE. PT ABLE TO RESPOND WITH ONE WORD ANSWERS TO QUESTIONS AND ABLE TO FOLLOW COMMANDS. O2 SATS 96% ON ROOM AIR, PT GRUNTING, SNORING AND BLOWING AIR THROUGH PUFFED CHEEKS. NICARDAPINE GTT STARTED AT 50 ML/HR TO BE TITRATED TO EFFECT. DR. FONTENOT AT BEDSIDE TO REASESS, ORDER TO CHANGE ANTIBIOTICS TO ZOSYN AND ORDER STAT LACTIC ACID, CONSULT FOR DR. GARSIA FOR DIALYSIS CATH CHANGE . DR. BENEDICT AT BEDSIDE FOR MORNING ROUNDS, ORDER FOR ECHO THIS AM TO ASSESS FOR VEGETATION ON THE HEART. SCHEDULED MRI THIS MORNING WELL. ROBERTO CONSULT.
--- NOTE | 2020-02-21 07:30 | NUR ---
ASSUMED CARE: REPORT RECEIVED FROM NICHOLAS Lugo RN. ASSUMED CARE OF THIS PT AT APPROX 0700. ON ASSESSMENT, THE PT IS RESTING QUIETLY. HE IS TREMULOUS T/O BODY, MORE TREMORS NOTED ON R SIDE. HE AWAKENS EASILY TO VERBAL STIMULI & IS ABLE TO TELL THIS RN HIS & RESPOND "NO" WHEN ASKED IF HAVING ANY PAIN. PT IS ABLE TO FOLLOW COMMANDS SOMEWHAT. HE IS ABLE TO MOVE THE R SIDE OF HIS BODY, BUT VERY MINIMAL MOVEMENT OF L SIDE IS NOTED. L SIDE FINGERS & FOOT MOVE SLIGHTLY, BUT L SIDE EXTREMITIES ARE OTHERWISE FLACCID. PT's HEAD IS TURNED TO R SIDE OF BODY & HE IS UNABLE TO LOOK TOWARD LEFT SIDE. PERRL. NO FACIAL DROOP NOTED. LS ARE DIM T/O, PT ON RA W/ O2 SATS > 92% MONITOR SHOWS ST W/ HR 130s. HTN PERSISTS W/ NICARDIPINE DRIP AT 100 ML/HR ON ASSUMING CARE. SBP 190-200s, BUT IMPROVED PER REPORT. BT HYPOACTIVE, PT IS NPO R/T DECREASED LOC. DIALYSIS PT MAKES MINIMAL URINE, UNABLE TO COLLECT SPECIMEN FOR UA ORDERED. ANGELINA Vergara, ASSISTANT PORTFOLIO MANAGER, CALLS TO SAY DIALYSIS TO OCCUR AROUND 1300 TODAY. SKIN CONDITION IS OVERALL CDI. PERMACATH SITE TO R CHEST WALL W/ CHG DRESSING CDI. SLIGHT REDNESS NOTED AROUND INSERTION SITE. CHRONIC WOUND TO R GREAT TOE IS SUKHDEEP. WILL CONTINUE TO MONITOR & UPDATE NEEDED.
--- NOTE | 2020-02-21 08:39 | NUR ---
DR ELLSWORTH: PROVIDER AT BEDSIDE TO EVAL PT. NEURO STATUS & LACK OF MOBILITY TO L SIDE HAS BEEN DISCUSSED. SHE STS THAT SHE WILL PLACE ORDERS FOR F/U CT OF HEAD & THAT MRI WILL BE HELD FOR THIS TIME PT IS NOT MEDICALLY STABLE ENOUGH. DISCUSSED PT's CONTINUED FEVER OF 104.0 PER RECTAL TEMP PROBE MONITORING. SHE STS IF PT REMAINS FEBRILE DESPITE COOLING BLANKET TO NOTIFY HER. PROVIDER AGREES THAT SC HEPARIN SHOULD BE HELD UNTIL CT RESULTS ARE BACK. PROVIDER STS THAT SHE MAY CONSULT SURGICAL SERVICES ASST SERVICE IF PT CONDITION DECLINES FURTHER.
--- NOTE | 2020-02-21 12:59 | NUR ---
UPDATE: PT HAS BEEN TAKEN DOWN TO IMAGING FOR HEAD CT W/ THIS RN, NOW BACK TO ROOM. SHORTLY AFTER RETURN TO ROOM, THIS RN COMPLETED REPEAT ASSESSMENT & NOTED THE PT's PUPILS TO BE UNEQUAL W/ THE LEFT PUPIL APPROX 7MM & THE RIGHT PUPIL APPROX 5 MM. LEFT PUPIL REMAINS BRISK IN RESPONSE & LEFT PUPIL SLIGHTLY MORE SLUGGISH. THE PT IS ALSO MORE LETHARGIC & LESS RESPONSIVE VERBALLY THAN HE HAD BEEN THIS AM. DR DEL ROSARIO IS AWARE OF THESE NEURO STATUS CHANGES WELL & WOULD LIKE THE PT's TO BE NOTIFIED OF CURRENT PT STATUS. PALLIATIVE CARE CONSULT ALSO PLACED BY THIS RN FOR ADVANCED CARE PLANNING NEEDS.
--- NOTE | 2020-02-21 13:20 | NUR ---
UPDATE TO PT's / DR ELLSWORTH: CALL TO PT's , SUREKHA, TO INFORM HER OF PT's CURRENT STATUS & NEUROLOGICAL CHANGES SEEN SINCE THIS RN's ASSUMPTION OF CARE. CODE STATUS IS DISCUSSED & SUREKHA STS THAT TRISTA WOULD WANT ALL EXTRAORDINARY MEASURES TO BE COMPLETED IN THE EVENT OF HIS CONDITION DETERIORATING FURTHER. 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 THIS HAS BEEN NOTED ON HIS PHYSICAL CHART WELL. WHEN ASKED IF SHE KNEW ANY DETAILS REGARDING THE PT's GROUND LEVEL FALL PRIOR TO ADMIT, SHE STS THAT SHE WAS NOT HOME BUT THAT THE PT DID NOT REMEMBER THE EVENT, HE JUST REMEMBERED HIS HEAD HURTING AFTER. CALL FROM DR ELLSWORTH TO NOTIFY THIS RN ABOUT THE PT's HEAD CT RESULTS. 4MM SUBDURAL HEMATOMA NOTED IN R PARIETAL REGION ON SCAN. HEPARIN HAS BEEN D/C'd. NOTIFIED HER OF PT's NEURO CHANGES & SHE BELIEVES THAT HTN EMERGENCY MAY BE CONTRIBUTING TO THIS WELL. NO OTHER CHANGES AT THIS TIME.
--- NOTE | 2020-02-21 14:47 | NUR ---
Case Conference Note Reviewed chart and spoke with Bedside RN Kiki. Pt experiencing brain bleed and hypertensive urgency. Pt currently receiving dilysis on his room. Called and spoke with Pt's spouse Sussy. Provided update, POC, and offer therapeutic listening. Answered questions. Sussy expresses appreciation of call and reports no concerns at this time. Palliative Care will remain available.
[2020-02-21 17:10] LABS: Vancomycin, Random 13.1 ug/mL
--- NOTE | 2020-02-21 17:31 | NUR ---
SHIFT SUMMARY: CHANGES NOTED PRIOR & IN REASSESSMENT INTERVENTIONS. PT INCREASINGLY SOMNOLENT, IS NO LONGER ANSWERING QUESTIONS BUT DOES MUMBLE/GROAN OCCASIONALLY. R PUPIL SMALLER THAN L PUPIL, R SIDE PUPILARRY RESPONSE ALSO SLUGGISH COMPARED TO L SIDE. SWELLING NOTED TO R EYE & PT RESISTS OPENING OF EYE DURING ASSESSMENTS. UNABLE TO ASSESS GAG R/T PT CLENCHING JAW TIGHTLY. HE HAS BEEN HAVING FROTHY SECRETIONS NOTED COMING FROM MOUTH. LS REMAIN DIM T/O, PT ON RA W/ O2 SATS > 92%. MONITOR SHOWS ST, HR NOW DECREASED SLIGHTLY TO 120 BPM ON AVG. HTN PERSISTS AFTER DIALYSIS W/ 2.5 L TAKEN OFF DURING HD. NICARDIPINE DRIP INCREASED TO 125 ML/HR. PT HAD ONE INCONTINENT, SMALL SOFT BROWN BM THIS AFTERNOON. OLIGURIC R/T HD & ESRD, NO VOID THIS SHIFT. SKIN CONDITION UNCHANGED FROM AM ASSESSMENT. PHOTO DOCUMENTATION OF R GREAT TOE WOUND COMPLETED & PLACED IN CHART. PERMACATH DRESSING CDI. WILL CONTINUE TO MONITOR & REPORT OFF TO ONCOMING RN.
--- NOTE | 2020-02-21 19:30 | NUR ---
ASSUMED CARE OF PT, REPORT RCV'D FROM ROME WILSON. PT ON NICARDAPINE GTT OF 125 ML/HR INFUSING INTO MARGA PG. PT REMAINS UNDER COOLING BLANKET CORE TEMP IS CURRENTLY 102.9. PUPIL UNEQUAL, LEFT PUPIL 7 MM SLUGGISH, RIGHT PUPIL 5 MM BRISK. NYSTAGMUS NOTICED WITH EYES UP AND TO THE RIGHT. PT FAILING TO FOLLOW COMMANDS FOR THIS NURSE, ATTEMPTS TO VERBALLY ANSWER QUESTIONS BUT JUST GRUNTS RESPONSE. LEFT EYE OPENS SPONTANEOUSLY, RIGHT EYE SQUEEZED SHUT AND HARD TO OPEN. JAW CLENCHED, UNABLE TO ASSESS GAG REFLUX. PT SHIVERING, MOSTLY RIGHT SIDED. LEFT SIDE FLACCID. DR. DEL ROSARIO IN TO ASSESS NEUROLOGICAL CHANGES. CONTACTED AND ENCOURAGED TO COME AND SEE PATIENT. SEE FULL SHIFT ASSESSMENT
--- NOTE | 2020-02-21 21:30 | NUR ---
PT'S AT BEDSIDE, DR. DEL ROSARIO UPDATED PT'S ON PT'S STATUS AND PLAN OF CARE.
--- NOTE | 2020-02-21 22:00 | NUR ---
PT MINIMALLY RESPONSIVE TO . PT WEAKLY SQUEEZED RIGHT HAND, ATTEMPTS TO ANSWER QUESTIONS ON OCCASION WITH GRUNTING. PUPILS CURRENTLY EQUAL, REACTIVE.
--- NOTE | 2020-02-22 01:51 | NUR ---
MIDSHIFT ASSESSMENT CURRENT CORE TEMP 102.4, COOLING BLANKET REMAINS IN PLACE. LEFT PUPIL 4MM AND SLUGGISH, RIGHT PUPIL PINPOINT. PT FAILS TO FOLLOW COMMANDS AT THIS TIME. PT MOANING/GRUNTING. LEFT EYE OPENS SPONTANEOUSLY, DOES NOT APPEAR TO FOCUS ON OBJECTS. INVOLUNTARY MUSCLE MOVEMENT/TWITCH/SHIVER CONTINUE ON RIGHT SIDE. PT HAD LARGE INCONTINENT FORMED BOWEL MOVEMENT. NICARDAPINE INFUSING AT 50 ML/HR. SBP LABILE 120-160'S.
--- NOTE | 2020-02-22 03:58 | NUR ---
PUPILS 4MM EQUAL AND REACTIVE. PT FOAMING AT MOUTH, ORAL CARE PERFORMED. CURRENT TEMP 102.0. NICARDAPINE GTT INCREASED TO 75 ML/HR. PT FAILS TO FOLLOW COMMANDS OR DISPLAY PURPOSEFUL MOVEMENT.
[2020-02-22 04:02] LABS: BASOPHILS ABSOLUTE AUTO 0.04 K/mm3 (0.00-0.23); BASOPHILS PERCENT AUTO 0 % (0-2); EOSINOPHILS PERCENT AUTO 0 % (0-6); Hematocrit 29.3 % (37.0-53.0); Hemoglobin 9.4 g/dL (13.5-17.5); IMMATURE GRAN PERCENT AUTO 1 % (0-1); LYMPHOCYTES ABSOLUTE AUTO 1.65 K/mm3 (0.84-5.20); LYMPHOCYTES PERCENT AUTO 10 % (21-46); MONOCYTES ABSOLUTE AUTO 1.67 K/mm3 (0.16-1.47); MONOCYTES PERCENT AUTO 10 % (4-13); Mean Corpuscular HGB 28.7 pg (26.0-34.0); Mean Corpuscular HGB Conc 32.1 g/dL (31.5-36.5); Mean Platelet Volume 10.4 fL (9.1-12.4); NEUTROPHILS PERCENT AUTO 79 % (41-73); Platelet Count 313 K/mm3 (150-400); RDW Coefficient Variation 14.6 % (11.7-14.2); RDW Standard Deviation 47.5 fL (35.1-46.3); Red Blood Cell Count 3.27 M/mm3 (4.30-5.90); White Blood Cell Count 16.56 K/mm3 (4.00-11.30)
[2020-02-22 04:04] LABS: Mean Corpuscular Volume 90 fL (80-100)
[2020-02-22 04:17] LABS: Albumin, Blood 3.2 g/dL (3.4-5.0); Anion Gap 17 mmol/L (6-16); Blood Urea Nitrogen 50 mg/dL (8-24); Bun/Creatinine Ratio 7.3 (12.0-20.0); CO2, Blood 24 mmol/L (21-32); Calcium, Blood 8.9 mg/dL (8.5-10.1); Chloride, Blood 97 mmol/L (98-108); Creatinine, Blood 6.87 mg/dL (0.60-1.20); Glomerular Filtration Rate 10 (60-); Glucose, Blood 166 mg/dL (70-99); Magnesium, Blood 1.8 mg/dL (1.6-2.4); Potassium, Blood 4.7 mmol/L (3.5-5.5); Sodium, Blood 138 mmol/L (136-145)
--- NOTE | 2020-02-22 05:54 | NUR ---
SHIFT SUMMARY PT REMAINS ON NICARDAPINE GTT @75 ML/HR. COOLING BLANKET REMAINS IN PLACE, CURRENT TEMP 102.7. PT CONTINUES TO FOAM AT MOUTH AND DISPLAY INVOLUNTARY MUSCLE MOVEMENTS. LEFT PUPIL VARIES FROM 4MM-7MM, RIGHT PUPIL FROM 5MM-PINPOINT, OCCASIONALLY UNEQUAL AND SLUGGISH. LEFT SIDED FACIAL DROOP NOTED. PT CONTINUES TO SPONTANEOUSLY OPEN LEFT EYE, SQUEEZES RIGHT EYE SHUT, CLAMPS JAW CLOSED. ADMINISTERED ONE TIME 1 MG ATIVAN DOSE FOR POSSIBLE SEIZURE ACTIVITY WITH NO NOTICEABLE CHANGE. PT DOES NOT FOLLOW COMMANDS, OCCASIONALLY MAKES MOANING SOUNDS BUT DOES NOT FORM ACTUAL WORDS. PLEASE SEE PREVIOUS NOTES FROM THIS SHIFT
--- NOTE | 2020-02-22 08:37 | NUR ---
Sevier of Care: Care assumed at 0700hr. Patient constantly tremors/shivers. Spontaneously moves all extremities, but significantly less movement to rt arm and leg. Attempts to open eyes to verbal stimuli, but only left eye opens. Rt pupil 4mm, lt pupil 6mm, both brisk reaction to lite. Moans/grunts with noxious stimuli, moaned the word "yes" x1, otherwise non-verbal and not following any commands. Withdraws extremities to painful stimuli. Unable to assess plantar reflex as patient's feet/legs constantly tremor. Unable to assess gag reflex as patient clamps mouth closed when attempting to do oral care. SpO2-96% on RA, respirations 22-24/min. Snoring respirations at times, otherwise no s/s of respiratory distress. Power-glide to MARGA patent and intact, infusing without difficulty. Nicardipine gtt infusing at 75ml/hr, systolic BP in the 160's. Rectal temp-probe in place, temp-101.2-102.4. Cooling blanket in place, temp is slowly decreasing at this time, will consider ice packs if temp again increasing. Received orders per Dr. Boyer this morning for head MRI and EEG. Dr. Boyer then to unit to see patient. Discussed that MRI and EEG will not be possible at this time as patient constantly tremors, may repeat head CT. Also discussed discussing possible transfer to [facility] with Dr. Galloway this morning. Will continue to monitor.
--- NOTE | 2020-02-22 14:08 | NUR ---
Update: Received order per Dr. Galloway for [place] transfer to [facility] medical ICU. Awaiting bed assignment at this time. NO significant changes to patient's condition throughout morning.
--- NOTE | 2020-02-22 15:30 | NUR ---
REPORT TO [facility]: bed assignment received at [facility], (medical ICU, room 16, bed 1). Report called to Julio PETER at [facility]. Update and information given to patient's who is at bedside at this time. Belongings gathered and will be sent home with .
--- NOTE | 2020-02-22 16:40 | NUR ---
Transfer to [facility]: Patient transferred via [facility] ground transport to [facility]. Patient left facility at 1639, accompanied by x2 Paramedics. IV gtt/s and fluids reveiwed with [facility] staff. No changes to patient's condition at time of departure, remained stable. Belongings sent home with patient's .
[2020-02-23 14:28] LABS: CMV QUANT DNA PCR (PLASMA) Negative (Negative); EBV AB VCA, IGG 52.6 U/mL (0.0-17.9)
== END 2020-02-22 16:45 | disposition short-term general hospital (02) | DRG 871 ==
LOC: ER 15:32 → PCU 20:26 → ICUW 20:26 → PCU 20:30 → ICUW 02-21 05:40
PROVIDERS: Emergency Medicine; Internal Medicine Nephrology; Pharmacist; ADMIT Family Medicine
DX: A41.9 Sepsis, unspecified organism (principal); S06.5X0A Traumatic subdural hemorrhage without loss of consciousness, initial encounter; N18.6 End stage renal disease; Z94.0 Kidney transplant status; N25.81 Secondary hyperparathyroidism of renal origin; E87.1 Hypo-osmolality and hyponatremia; Z79.82 Long term (current) use of aspirin; R65.20 Severe sepsis without septic shock; E11.22 Type 2 diabetes mellitus with diabetic chronic kidney disease; J45.909 Unspecified asthma, uncomplicated; E78.5 Hyperlipidemia, unspecified; F32.9 Major depressive disorder, single episode, unspecified; Z99.2 Dependence on renal dialysis; I12.9 Hypertensive chronic kidney disease with stage 1 through stage 4 chronic kidney disease, or unspecified chronic kidney disease; Z79.4 Long term (current) use of insulin; E11.40 Type 2 diabetes mellitus with diabetic neuropathy, unspecified; I16.0 Hypertensive urgency; D63.1 Anemia in chronic kidney disease; K21.9 Gastro-esophageal reflux disease without esophagitis; W18.30XA Fall on same level, unspecified, initial encounter; R53.1 Weakness; R25.1 Tremor, unspecified; Y92.9 Unspecified place or not applicable; L97.519 Non-pressure chronic ulcer of other part of right foot with unspecified severity; E11.621 Type 2 diabetes mellitus with foot ulcer
CPT/HCPCS: 0099U; 36415; 70450; 71045; 73630; 74176; 80053; 80069; 80197; 80202; 82330; 82550; 82947; 83605; 83735; 84484; 85025; 86403; 86644; 86645; 86665; 87040; 87497; 93005; 93010; 93306; 96361; 96365; 96367; 96375; 99285-25; A9270; A9270-GY; C1751; J0133; J0360; J0692; J0696; J0780; J1200; J1580; J1644; J1953; J2060; J2405; J2543; J2765; J2920; J2930; J3010; J3370; J7030; J7040; J7050; J7517; U0003

== ENCOUNTER → 2020-03-14 | Outpatient (CLI) | payer BC ==
[~2020-03-14] MED LIST changes: +BASAGLAR K100 UNIT/1 SC; +CATAPRES-TTS 31 EACH TOP; +CLON.2 PO; +Carvedilol25 MG PO; +DULOXETINE HCL60 M1 PO; +HYDR10 PO; +Klonopin0.5 MG PO; +MYCOPHENOLATE500 MG PO; +Megestrol Aceta40 MG PO; +ROPINIROLE HCL0.5 MG PO
== END | disposition home or self-care (01) ==
LOC: LAB SHORT 16:21 → LAB 16:21
DX: E03.9 Hypothyroidism, unspecified (principal)
CPT/HCPCS: 84443

== ENCOUNTER 2020-04-03 00:17 | Day surgery (SDC) | payer BC | END 2020-04-03 23:16 | disposition home or self-care (01) | LOC: WOUND 00:17 | DX: E11.621 Type 2 diabetes mellitus with foot ulcer (principal); E11.40 Type 2 diabetes mellitus with diabetic neuropathy, unspecified; L97.512 Non-pressure chronic ulcer of other part of right foot with fat layer exposed; I12.9 Hypertensive chronic kidney disease with stage 1 through stage 4 chronic kidney disease, or unspecified chronic kidney disease; E11.22 Type 2 diabetes mellitus with diabetic chronic kidney disease; N18.9 Chronic kidney disease, unspecified; J45.909 Unspecified asthma, uncomplicated; F41.9 Anxiety disorder, unspecified; F32.9 Major depressive disorder, single episode, unspecified; Z79.4 Long term (current) use of insulin; Z94.0 Kidney transplant status; Z99.2 Dependence on renal dialysis; Z79.82 Long term (current) use of aspirin; Z79.899 Other long term (current) drug therapy | CPT/HCPCS: G0463 ==

== ENCOUNTER 2020-04-05 19:21 | Inpatient (IN) | payer BC ==
[~2020-04-05] VITALS: Ht 188 cm; Wt 103.2 kg
[2020-04-05 20:01] LABS: BASOPHILS ABSOLUTE AUTO 0.02 K/mm3 (0.00-0.23); BASOPHILS PERCENT AUTO 0 % (0-2); EOSINOPHILS PERCENT AUTO 0 % (0-6); Hematocrit 32.6 % (37.0-53.0); Hemoglobin 10.4 g/dL (13.5-17.5); IMMATURE GRAN PERCENT AUTO 1 % (0-1); LYMPHOCYTES ABSOLUTE AUTO 0.33 K/mm3 (0.84-5.20); LYMPHOCYTES PERCENT AUTO 3 % (21-46); MONOCYTES ABSOLUTE AUTO 1.24 K/mm3 (0.16-1.47); MONOCYTES PERCENT AUTO 10 % (4-13); Mean Corpuscular HGB 32.2 pg (26.0-34.0); Mean Corpuscular HGB Conc 31.9 g/dL (31.5-36.5); Mean Corpuscular Volume 101 fL (80-100); Mean Platelet Volume 10.1 fL (9.1-12.4); NEUTROPHILS ABSOLUTE AUTO 11.26 K/mm3 (1.96-9.15); NEUTROPHILS PERCENT AUTO 87 % (41-73); Platelet Count 330 K/mm3 (150-400); RDW Coefficient Variation 15.8 % (11.7-14.2); RDW Standard Deviation 58.8 fL (35.1-46.3); Red Blood Cell Count 3.23 M/mm3 (4.30-5.90); White Blood Cell Count 12.95 K/mm3 (4.00-11.30)
[2020-04-05 20:24] LABS: Albumin, Blood 2.5 g/dL (3.4-5.0); Albumin/Globulin Ratio 0.6 (0.8-1.8); Bilirubin, Total 0.5 mg/dL (0.1-1.0); Bun/Creatinine Ratio 9.4 (12.0-20.0); Calcium, Blood 8.1 mg/dL (8.5-10.1); Creatinine, Blood 6.69 mg/dL (0.60-1.20); Globulin, Blood 4.2 g/dL (2.2-4.0); Potassium, Blood 5.8 mmol/L (3.5-5.5); Total Protein, Blood 6.7 g/dL (6.4-8.2)
[2020-04-05] MEDS ORDERED: GABA300 PO (22:44)
[2020-04-05] MEDS ORDERED: DIVA500ER PO (22:44)
[2020-04-05] MEDS ORDERED: ONDA4ODT MM (22:45)
[2020-04-05] MEDS ORDERED: ACETAMINOPHEN500 M2 PO (22:48)
[2020-04-05] MEDS ORDERED: QUET25 PO (22:49)
[2020-04-06 05:08] LABS: Adenovirus Not Detected (NOT DETECT); Bordetella pertussis Not Detected (NOT DETECT); Chlamydophila pneumoniae Not Detected (NOT DETECT); Coronavirus 229E Not Detected (NOT DETECT); Coronavirus HKU1 Not Detected (NOT DETECT); Coronavirus NL63 Not Detected (NOT DETECT); Coronavirus OC43 Not Detected (NOT DETECT); Human Metapneumovirus Not Detected (NOT DETECT); Human Rhinovirus/Enterovirus Not Detected (NOT DETECT); Influenza A/2009-H1 Not Detected (NOT DETECT); Influenza A/H1 Not Detected (NOT DETECT); Influenza A/H3 Not Detected (NOT DETECT); Influenza B Not Detected (NOT DETECT); Mycoplasma pneumoniae Not Detected (NOT DETECT); Parainfluenza Virus 1 Not Detected (NOT DETECT); Parainfluenza Virus 2 Not Detected (NOT DETECT); Parainfluenza Virus 3 Not Detected (NOT DETECT); Parainfluenza Virus 4 Not Detected (NOT DETECT); Respiratory Syncytial Virus Not Detected (NOT DETECT)
--- NOTE | 2020-04-06 07:20 | NUR ---
ASSUMED CARE OF PATIENT AT . PATIENT ALERT AND ORIENTED BUT SLEEPY AND SHAKY. PATIENT STATES THAT HE HAS BEEN THRASHING ABOUT LATELY. HERE FOR FEVER, TEMPERATURE NOTED TO BE 98.6 ON ARRIVAL. TEMPERATURE CHECK AT 0600 WAS 103.3. ACETOMINOPHEN ADMINISTERED, DOCTOR CALLED ABOUT BLOOD PRESSURE BEING ELEVATED AND TEMPERATURE. DR. MOORE ORDERED IBUPROFEN 400MG X1. EDUCATED PATIENT ON USING CALL LIGHT FOR ANY AMBULATION DUE TO HIM BEING UNSTEADY ON HIS FEET. CALL LIGHT WITHIN REACH, BED LOWERED TO LOWEST POSITION. WILL CONTINUE TO MONITOR UNTIL THE END OF SHIFT.
[2020-04-06 10:16] LABS: BASOPHILS ABSOLUTE AUTO 0.04 K/mm3 (0.00-0.23); BASOPHILS PERCENT AUTO 0 % (0-2); EOSINOPHILS PERCENT AUTO 0 % (0-6); Hematocrit 28.5 % (37.0-53.0); Hemoglobin 8.7 g/dL (13.5-17.5); IMMATURE GRAN ABSOLUTE AUTO 0.05 K/mm3 (0.00-0.10); IMMATURE GRAN PERCENT AUTO 1 % (0-1); LYMPHOCYTES ABSOLUTE AUTO 0.37 K/mm3 (0.84-5.20); LYMPHOCYTES PERCENT AUTO 4 % (21-46); MONOCYTES ABSOLUTE AUTO 0.73 K/mm3 (0.16-1.47); MONOCYTES PERCENT AUTO 8 % (4-13); Mean Corpuscular HGB 31.6 pg (26.0-34.0); Mean Corpuscular HGB Conc 30.5 g/dL (31.5-36.5); Mean Corpuscular Volume 104 fL (80-100); Mean Platelet Volume 9.8 fL (9.1-12.4); NEUTROPHILS ABSOLUTE AUTO 8.58 K/mm3 (1.96-9.15); NEUTROPHILS PERCENT AUTO 88 % (41-73); Platelet Count 257 K/mm3 (150-400); RDW Coefficient Variation 16.4 % (11.7-14.2); RDW Standard Deviation 61.6 fL (35.1-46.3); Red Blood Cell Count 2.75 M/mm3 (4.30-5.90); White Blood Cell Count 9.77 K/mm3 (4.00-11.30)
[2020-04-06 10:44] LABS: Albumin, Blood 2.2 g/dL (3.4-5.0); Albumin/Globulin Ratio 0.6 (0.8-1.8); Bilirubin, Total 0.5 mg/dL (0.1-1.0); Calcium, Blood 7.8 mg/dL (8.5-10.1); Globulin, Blood 3.5 g/dL (2.2-4.0); Total Protein, Blood 5.7 g/dL (6.4-8.2)
[2020-04-06 10:46] LABS: Bun/Creatinine Ratio 9.1 (12.0-20.0); Creatinine, Blood 8.01 mg/dL (0.60-1.20)
--- NOTE | 2020-04-06 13:17 | NUR ---
PT HAS NOW RETURNED FROM DIALYSIS
[2020-04-06 13:27] LABS: Vancomycin, Random 12.7 ug/mL
--- NOTE | 2020-04-06 18:45 | NUR ---
SHIFT NOTE PT HAD FEVER AT THE BEGINING OF THE SHIFT WHICH RESOLVED WITH TYLENOL AND MOTRIN GIVEN VIA NOC SHIFT. PT BEGAN SHIVERING A FEW MOMENTS AGO, TEMP REASSESSED WHICH WAS 99.1, PT WAS TREATED WITH 650MG TYLENOL PO FOR FEVER. PT HAS BEEN TO DIALYSIS TODAY WHICH HE TOLERATED WELL. PT'S IV BEGAN LEAKING AND WAS NO LONGER PATENT WHILE IN DIALYSIS SO FLUIDS AND ROCEPHIN HAVE NOT BEEN ABLE TO BE GIVEN, CALLED FOR POWERGLIDE NURSE BUT ONE WAS NOT AVAILABLE, MULTIPLE NURSES HAVE ATTEMPTED TO INSERT A PATENT LINE WITHOUT SUCCESS, MEDICAL FLOOR RN IS JUST FINISHING WITH US GUIDED IV AT THE TIME OF THIS NOTE. PT IS ALERT, FREQUENTLY DROWSY.
--- NOTE | 2020-04-06 18:45 | NUR ---
MEDICAL FLOOR RN IS ATTEMPTING US GUIDED IV AT THIS TIME
[2020-04-06 20:29] LABS: Campylobacter Sp Not Detected (NOT DETECT); Plesiomonas Shigelloides Not Detected (NOT DETECT)
[2020-04-06 20:30] LABS: Adenovirus F 40/41 Not Detected (NOT DETECT); Astrovirus Not Detected (NOT DETECT); Cryptosporidium Not Detected (NOT DETECT); Cyclospora Cayetanensis Not Detected (NOT DETECT); E. Coli O157 Not Detected (NOT DETECT); Entamoeba Histolytica Not Detected (NOT DETECT); Enteroaggregative E. coli-EAEC Not Detected (NOT DETECT); Enteropathogenic E. coli-EPEC Not Detected (NOT DETECT); Enterotoxigenic E. coli-ETEC Not Detected (NOT DETECT); Giardia Lamblia Not Detected (NOT DETECT); Norovirus GI/GII Not Detected (NOT DETECT); Rotavirus A Not Detected (NOT DETECT); Salmonella Sp Detected (NOT DETECT); Sapovirus Not Detected (NOT DETECT); Shiga Toxin-prod E. coli-STEC Not Detected (NOT DETECT); Shigella/Enteroin E. coli-EIEC Not Detected (NOT DETECT); Vibrio Cholerae Not Detected (NOT DETECT); Vibrio Sp Not Detected (NOT DETECT); Yersinia Enterocolitica Not Detected (NOT DETECT)
--- NOTE | 2020-04-07 00:23 | NUR ---
PROVIDER CALLED DR MOORE REGARDING PT'S BP OF 199/92. DR AWARE OF PT'S POST CVA STATUS AND HX OF HTN. UPDATED ON ALL THE HTN MEDICATIONS GIVEN AT 2100 THIS SHIFT. UPDATED THAT PT IS ASYMPTOMATIC TO THIS BP. UPDATED TO THE FACT THAT WE HAVE NOT BEEN ABLE TO OBTAIN IV ACCESS AND THE SONOGRAM IV PLACED ON DAY SHIFT INFILTRATESD AT THE BEGINNING OF SHIFT. PLACES IV HYDRALZINE IN THE CHANCE THAT STAFF ARE ABLE TO OBTAIN IV ACCESS. DUE TO PT'S PAST CVA, HTN, AND BEING ASYMPTOMATIC, STATES EVEN WITHOUT IV HYDRALZINE TO CONTINUE TO MONITOR BUT CALL IF IT INCREASES SIGNIFICANTLY OR PT BECOMES SYMPTOMATIC.
--- NOTE | 2020-04-07 03:54 | NUR ---
PROVIDER CALLED DR MOORE REGARDING PT'S BP, ORDERS RECEIVED FOR ANOTHER LABETOLOL PUSH. DR STATES TO CALL DR BENEDICT IF THIS MEDICATION DOESN'T MANAGE BP. DR BENEDICT CALLED FOLLOWING ADMINISTRATION OF LABETOLOL WITH SBP 239. ORDERS RECEIVED.
--- NOTE | 2020-04-07 05:29 | NUR ---
END OF SHIFT SUMMARY PT AXO BUT SLEEPY T/O SHIFT. LUNGS CLEAR. PT IN SR. BP HAS RANGED FROM 160SBP TO 239. MULTIPLE CALLS TO PROVIDERS HAVE BEEN MADE, MEDS RECEIVED AND ADMINISTERED. PT ASYMPTOMATIC TO THESE BP'S. UNABLE TO OBTAIN IV ACCESS UNTIL LATE INTO SHIFT WITH HELP OF SONOGRAM AND CEMENT MIXER DRIVER. PT GI PANEL RECEIVED, NEGATIVE FOR C DIFF, POSITIVE FOR SALMONELLA IN BM, PT TAKEN OUT OF ISOLATION. PT HAS HAD A FEVER AT TIMES T/O THE SHIFT BUT HAW PREDOMINANTLY BEEN AFEBRILE. L SIDED WEAKNESS PRESENT WITH TREMORS BASELINE PER PT. WILL CONTINUE TO MONITOR UNTIL SHIFT CHANGE.
[2020-04-07 05:59] LABS: BASOPHILS ABSOLUTE AUTO 0.02 K/mm3 (0.00-0.23); BASOPHILS PERCENT AUTO 0 % (0-2); EOSINOPHILS PERCENT AUTO 0 % (0-6); Hematocrit 28.8 % (37.0-53.0); Hemoglobin 8.8 g/dL (13.5-17.5); IMMATURE GRAN ABSOLUTE AUTO 0.03 K/mm3 (0.00-0.10); IMMATURE GRAN PERCENT AUTO 1 % (0-1); LYMPHOCYTES ABSOLUTE AUTO 0.52 K/mm3 (0.84-5.20); LYMPHOCYTES PERCENT AUTO 9 % (21-46); MONOCYTES ABSOLUTE AUTO 0.58 K/mm3 (0.16-1.47); MONOCYTES PERCENT AUTO 10 % (4-13); Mean Corpuscular HGB 31.8 pg (26.0-34.0); Mean Corpuscular HGB Conc 30.6 g/dL (31.5-36.5); Mean Corpuscular Volume 104 fL (80-100); Mean Platelet Volume 9.4 fL (9.1-12.4); NEUTROPHILS ABSOLUTE AUTO 4.62 K/mm3 (1.96-9.15); NEUTROPHILS PERCENT AUTO 80 % (41-73); Platelet Count 213 K/mm3 (150-400); RDW Coefficient Variation 15.6 % (11.7-14.2); RDW Standard Deviation 59.7 fL (35.1-46.3); Red Blood Cell Count 2.77 M/mm3 (4.30-5.90); White Blood Cell Count 5.77 K/mm3 (4.00-11.30)
[2020-04-07 06:18] LABS: Albumin, Blood 2.2 g/dL (3.4-5.0); Anion Gap 8 mmol/L (6-16); Blood Urea Nitrogen 49 mg/dL (8-24); Bun/Creatinine Ratio 7.6 (12.0-20.0); CO2, Blood 30 mmol/L (21-32); Chloride, Blood 101 mmol/L (98-108); Creatinine, Blood 6.44 mg/dL (0.60-1.20); Glomerular Filtration Rate 10 (60-); Glucose, Blood 112 mg/dL (70-99); Magnesium, Blood 2.4 mg/dL (1.6-2.4); Phosphorus, Blood 3.8 mg/dL (2.5-4.9); Potassium, Blood 3.9 mmol/L (3.5-5.5); Sodium, Blood 139 mmol/L (136-145)
--- NOTE | 2020-04-07 18:27 | NUR ---
PCU DAYSHIFT SUMMARY PATIENT ALERT AND ORIENTED TO SELF, LOCATION AND SITUATION T/O SHIFT. PATIENT DENIES ANY PAIN T/O SHIFT. PATIENT STOOD AND TRANSFERED OVER TO COMMODE USING GAIT BELT, WALKER AND 1 ASSIT. RESP E/U W/ CLEAR CLUNG SOUNDS T/O SHIFT ON ROOM AIR. PATIENT REMAINED NSR IN THE 60-70'S T/O SHIFT. PATIENT OVER IMPROVED THIS SHIFT - AT BEDSIDE VERBALIZED THAT HE IS CLOSE TO IF NOT BASELINE. MILD TREMORS NORMAL FOR PATIENT SINCE HIS CVA A FEW MONTHS AGO ALONG WITH LEFT SIDED WEAKNESS. PATIENT HAD DIALYSIS THIS SHIFT AND TOLERATED IT WELL. AWAITING FINAL PERMA CATH CULTURE - TO ASSESS IF CATH IS INFECTED. PATIENT HAD MUTLIPLE LOOSE STOOLS THIS SHIFT. MD ISTRATE UPDATE AND PATIEN TIN ROOM OF PLAN OF CARE. NO ACUTE DISTRESS NOTED. WILL CONTINUE TO MONITOR AND REPORT TO NOC SHIFT RN. CALL LIGHT W/I REACH.
[2020-04-08 04:21] LABS: BASOPHILS ABSOLUTE AUTO 0.02 K/mm3 (0.00-0.23); BASOPHILS PERCENT AUTO 0 % (0-2); EOSINOPHILS ABSOLUTE AUTO 0.04 K/mm3 (0.00-0.68); EOSINOPHILS PERCENT AUTO 1 % (0-6); Hematocrit 28.6 % (37.0-53.0); Hemoglobin 9.2 g/dL (13.5-17.5); IMMATURE GRAN ABSOLUTE AUTO 0.03 K/mm3 (0.00-0.10); IMMATURE GRAN PERCENT AUTO 1 % (0-1); LYMPHOCYTES ABSOLUTE AUTO 0.88 K/mm3 (0.84-5.20); LYMPHOCYTES PERCENT AUTO 18 % (21-46); MONOCYTES ABSOLUTE AUTO 0.92 K/mm3 (0.16-1.47); MONOCYTES PERCENT AUTO 18 % (4-13); Mean Corpuscular HGB 32.4 pg (26.0-34.0); Mean Corpuscular HGB Conc 32.2 g/dL (31.5-36.5); Mean Corpuscular Volume 101 fL (80-100); Mean Platelet Volume 9.9 fL (9.1-12.4); NEUTROPHILS PERCENT AUTO 62 % (41-73); Platelet Count 239 K/mm3 (150-400); RDW Coefficient Variation 14.7 % (11.7-14.2); RDW Standard Deviation 54.2 fL (35.1-46.3); Red Blood Cell Count 2.84 M/mm3 (4.30-5.90); White Blood Cell Count 4.99 K/mm3 (4.00-11.30)
[2020-04-08 04:38] LABS: Albumin, Blood 2.2 g/dL (3.4-5.0); Anion Gap 7 mmol/L (6-16); Blood Urea Nitrogen 43 mg/dL (8-24); CO2, Blood 32 mmol/L (21-32); Chloride, Blood 94 mmol/L (98-108); Creatinine, Blood 6.17 mg/dL (0.60-1.20); Glomerular Filtration Rate 11 (60-); Glucose, Blood 186 mg/dL (70-99); Magnesium, Blood 2.3 mg/dL (1.6-2.4); Phosphorus, Blood 3.1 mg/dL (2.5-4.9); Potassium, Blood 3.6 mmol/L (3.5-5.5); Sodium, Blood 133 mmol/L (136-145)
--- NOTE | 2020-04-08 06:35 | NUR ---
END OF SHIFT SUMMARY NO ACUTE CHANGES THIS SHIFT, BP HAS BEEN BETTER CONTROLLED THIS SHSIFT VS LAST. HAS ONLY REQUIRED ONE PRN BP MEDICATION. HAS AMBULATED TO BATHROOM WITH LITTLE ASSISTANCE AT ALL WITH FWW. MUCH IMPROVED FROM LAST SHIFT. REMAINS SR 60'S. HAS NOT HAD ANY LOOSE STOOLS THIS SHIFT. PT AFEBRILE. BASELINE CVA EFFECTS TO L SIDE PRESENT. PT HAS BEEN ABLE TO SLEEP T/O MUCH OF SHIFT, THANFUL FOR THIS HE WAS NOT ABLE TO OBTAIN MUCH SLEEP LAST NOC SHIFT. WILL CONTINUE TO MONITOR UNTIL SHIFT CHANGE.
[2020-04-08] MEDS ORDERED: LEVOFLOXACIN500 MG PO (11:43)
[2020-04-08] MEDS ORDERED: VISBIOME PROBIOTIC PO (11:45)
--- NOTE | 2020-04-08 14:33 | NUR ---
PCU DISCHARGE SUMMARY PATIENT ALERT AND ORIENTED TO SELF, LOCATION AND TIME/DATE - CONFUSED AT TIMES (NORMAL PER PATIENT AND HIS ). PATIENT HAS STRONG STEADY GAIT. DISCHARGED HOME WITH . EDUCATED (BOTH PATIENT AND ) VIA WRITTEN AND VERBALLY REGARDING DISCHARGE INSTRUCTIONS, MEDICATIONS AND FOLLOW UP APPTS -VERBALIZED UNDERSTAND. PATIENT LEFT VIA WHEEL CHAIR HOME WITH BELONGINGS WITH HIM IN NO ACUTE DISTRESS.
[2020-04-09 17:08] LABS: CMV QUANT DNA PCR (PLASMA) Negative (Negative)
[2020-04-11] MEDS ORDERED: Norco 5-325 Ta1 EACH PO (11:51)
[2020-04-24] MEDS ORDERED: LOSA25 PO (14:26)
[2020-04-24] MEDS ORDERED: GABA300 PO (14:26)
[2020-04-24] MEDS ORDERED: CLON.1 PO (14:27)
[2020-04-24] MEDS ORDERED: HYDRA25 PO (14:27)
[2020-04-24] MEDS ORDERED: AMLO5 PO (14:27)
[2020-04-24] MEDS ORDERED: CARV25 PO (14:28)
[2020-05-09] MEDS ORDERED: TACROLIMUS1 MG PO (12:31)
[2020-05-12] MEDS ORDERED: AMOCLA875 PO (15:13)
[2020-05-12] MEDS ORDERED: Norco 5-325 Ta1 EACH PO (15:14)
[2020-05-12] MEDS ORDERED: VENL37.5ER PO (16:15)
[2020-05-12] MEDS ORDERED: AMOCLA500 PO (16:57)
[2020-05-12] MEDS ORDERED: DIVA500ER PO (18:19)
== END 2020-04-08 12:33 | disposition home or self-care (01) | DRG 64 ==
LOC: ER 19:21 → PCU 23:48 → ER 04-06 00:21 → PCU 04-06 01:38
PROVIDERS: Emergency Medicine; Family Medicine; Internal Medicine Nephrology; ADMIT Internal Medicine
PROC: 5A1D70Z Performance of Urinary Filtration, Intermittent, Less than 6 Hours Per Day (ICD-10-PCS; principal; 2020-04-07)
DX: I63.511 Cerebral infarction due to unspecified occlusion or stenosis of right middle cerebral artery (principal); N18.6 End stage renal disease; G81.94 Hemiplegia, unspecified affecting left nondominant side; G93.40 Encephalopathy, unspecified; Z94.0 Kidney transplant status; I12.0 Hypertensive chronic kidney disease with stage 5 chronic kidney disease or end stage renal disease; E11.22 Type 2 diabetes mellitus with diabetic chronic kidney disease; Z99.2 Dependence on renal dialysis; R56.9 Unspecified convulsions; E11.40 Type 2 diabetes mellitus with diabetic neuropathy, unspecified; Z20.828 Contact with and (suspected) exposure to other viral communicable diseases; F32.9 Major depressive disorder, single episode, unspecified; E78.5 Hyperlipidemia, unspecified; K21.9 Gastro-esophageal reflux disease without esophagitis
CPT/HCPCS: 0097U; 0099U; 36415; 70450; 70551; 71046; 80053; 80069; 80202; 82947; 83605; 83735; 85014; 85018; 85025; 86644; 86645; 87040; 87497; 93005; 93010; 96360; 99285-25; A9270; A9270-GY; J0360; J0610; J0696; J0881; J1644; J2405; J3370; J7030; J7050; J7507; J7512; U0002

== ENCOUNTER → 2020-04-10 | Outpatient (CLI) | payer BC, OTHER ==
[~2020-04-10] MED LIST changes: +ACET500 PO; +ACETAMINOPHEN500 M2 PO; +AMLO5 PO; +AMOCLA500 PO; +AMOCLA875 PO; +CLON.1 PO; +DIVA500ER PO; +HYDRA25 PO; +LEVOFLOXACIN500 MG PO; +LOSA25 PO; +ONDA4ODT MM; +QUET25 PO; +TACROLIMUS1 MG PO; +VENL37.5ER PO; +VISBIOME PROBIOTIC PO
== END | disposition home or self-care (01) ==
LOC: LAB 08:36 → LAB SHORT 08:36
DX: R05 Cough (principal); Z20.828 Contact with and (suspected) exposure to other viral communicable diseases
CPT/HCPCS: U0002

== ENCOUNTER 2020-05-07 15:35 | Emergency (ER) | payer BC ==
[~2020-05-07] VITALS: Ht 190.5 cm; Wt 104.3 kg
[~2020-05-07 15:35] MED LIST changes: -ACET500 PO; -AMOCLA500 PO; -AMOCLA875 PO; -TACROLIMUS1 MG PO; -VENL37.5ER PO
[2020-05-07 16:00] LABS: BASOPHILS ABSOLUTE AUTO 0.04 K/mm3 (0.00-0.23); BASOPHILS PERCENT AUTO 1 % (0-2); EOSINOPHILS ABSOLUTE AUTO 0.11 K/mm3 (0.00-0.68); EOSINOPHILS PERCENT AUTO 2 % (0-6); Hematocrit 31.9 % (37.0-53.0); Hemoglobin 10.3 g/dL (13.5-17.5); IMMATURE GRAN ABSOLUTE AUTO 0.09 K/mm3 (0.00-0.10); IMMATURE GRAN PERCENT AUTO 2 % (0-1); LYMPHOCYTES ABSOLUTE AUTO 0.94 K/mm3 (0.84-5.20); LYMPHOCYTES PERCENT AUTO 17 % (21-46); MONOCYTES ABSOLUTE AUTO 0.78 K/mm3 (0.16-1.47); MONOCYTES PERCENT AUTO 14 % (4-13); Mean Corpuscular HGB 32.4 pg (26.0-34.0); Mean Corpuscular HGB Conc 32.3 g/dL (31.5-36.5); Mean Corpuscular Volume 100 fL (80-100); NEUTROPHILS ABSOLUTE AUTO 3.51 K/mm3 (1.96-9.15); NEUTROPHILS PERCENT AUTO 64 % (41-73); Platelet Count 230 K/mm3 (150-400); RDW Standard Deviation 51.3 fL (35.1-46.3); Red Blood Cell Count 3.18 M/mm3 (4.30-5.90); White Blood Cell Count 5.47 K/mm3 (4.00-11.30)
[2020-05-07] MEDS ORDERED: ACET500 PO (16:05)
[2020-05-07] MEDS ORDERED: DIVA500ER PO (16:07)
[2020-05-07] MEDS ORDERED: ONDA4ODT MM (16:09)
[2020-05-07] MEDS ORDERED: QUET25 PO (16:09)
[2020-05-07] MEDS ORDERED: PRED5 PO (16:11)
[2020-05-07 16:18] LABS: Albumin, Blood 2.7 g/dL (3.4-5.0); Albumin/Globulin Ratio 0.6 (0.8-1.8); Bilirubin, Total 0.5 mg/dL (0.1-1.0); Bun/Creatinine Ratio 8.8 (12.0-20.0); Calcium, Blood 8.3 mg/dL (8.5-10.1); Creatinine, Blood 4.56 mg/dL (0.60-1.20); Globulin, Blood 4.3 g/dL (2.2-4.0); Potassium, Blood 4.4 mmol/L (3.5-5.5)
[2020-05-07 17:17] LABS: Valproic Acid 39.4 ug/mL (50.0-100.0)
[2020-05-09] MEDS ORDERED: TACROLIMUS1 MG PO (12:31)
[2020-05-12] MEDS ORDERED: AMOCLA875 PO (15:13)
[2020-05-12] MEDS ORDERED: Norco 5-325 Ta1 EACH PO (15:14)
[2020-05-12] MEDS ORDERED: VENL37.5ER PO (16:15)
[2020-05-12] MEDS ORDERED: AMOCLA500 PO (16:57)
[2020-05-12] MEDS ORDERED: DIVA500ER PO (18:19)
== END 2020-05-07 20:34 | disposition home or self-care (01) ==
LOC: ER 15:35
PROVIDERS: Physician Assistant
DX: G40.909 Epilepsy, unspecified, not intractable, without status epilepticus (principal); I12.0 Hypertensive chronic kidney disease with stage 5 chronic kidney disease or end stage renal disease; N18.6 End stage renal disease; E11.22 Type 2 diabetes mellitus with diabetic chronic kidney disease; R89.2 Abnormal level of other drugs, medicaments and biological substances in specimens from other organs, systems and tissues; Z79.82 Long term (current) use of aspirin; Z79.4 Long term (current) use of insulin; Z79.899 Other long term (current) drug therapy; Z79.52 Long term (current) use of systemic steroids; E11.40 Type 2 diabetes mellitus with diabetic neuropathy, unspecified; F32.9 Major depressive disorder, single episode, unspecified; E78.5 Hyperlipidemia, unspecified; Z99.2 Dependence on renal dialysis; Z86.73 Personal history of transient ischemic attack (TIA), and cerebral infarction without residual deficits
CPT/HCPCS: 36415; 70450; 72125; 80053; 80164; 85025; 93005; 93010; 96365; 96375; 99285-25; J0360; J2060

== ENCOUNTER 2020-06-11 01:41 | Inpatient (IN) | payer BC ==
[~2020-06-11] VITALS: Ht 188 cm; Wt 102.0 kg
[~2020-06-11 01:41] MED LIST changes: +ACET500 PO; +AMOCLA500 PO; +AMOCLA875 PO; +AURYXIA210 MG PO; -CLON.1 PO; +CLON.3 PO; +Crestor40 MG PO; +Divalproex Sod500 MG PO; -HUMULIN R500 UNIT/1 SC; +HYDR100 PO; -HYDRA25 PO; +INSULIN LI100 UNIT/6 SC; -LOSA25 PO; +MEGESTROL400 MG/11 PO; +ONDA4 PO; -ROSU10TA PO; +TACROLIMUS1 MG PO; +VENL37.5ER PO
[2020-06-11 02:28] LABS: BASOPHILS ABSOLUTE AUTO 0.02 K/mm3 (0.00-0.23); BASOPHILS PERCENT AUTO 0 % (0-2); EOSINOPHILS ABSOLUTE AUTO 0.21 K/mm3 (0.00-0.68); EOSINOPHILS PERCENT AUTO 3 % (0-6); Hematocrit 26.7 % (37.0-53.0); Hemoglobin 8.5 g/dL (13.5-17.5); IMMATURE GRAN ABSOLUTE AUTO 0.07 K/mm3 (0.00-0.10); IMMATURE GRAN PERCENT AUTO 1 % (0-1); LYMPHOCYTES ABSOLUTE AUTO 1.48 K/mm3 (0.84-5.20); LYMPHOCYTES PERCENT AUTO 24 % (21-46); MONOCYTES ABSOLUTE AUTO 0.73 K/mm3 (0.16-1.47); MONOCYTES PERCENT AUTO 12 % (4-13); Mean Corpuscular HGB 30.1 pg (26.0-34.0); Mean Corpuscular HGB Conc 31.8 g/dL (31.5-36.5); Mean Corpuscular Volume 95 fL (80-100); Mean Platelet Volume 9.8 fL (9.1-12.4); NEUTROPHILS ABSOLUTE AUTO 3.66 K/mm3 (1.96-9.15); NEUTROPHILS PERCENT AUTO 59 % (41-73); Platelet Count 172 K/mm3 (150-400); RDW Coefficient Variation 13.9 % (11.7-14.2); RDW Standard Deviation 46.9 fL (35.1-46.3); Red Blood Cell Count 2.82 M/mm3 (4.30-5.90); White Blood Cell Count 6.17 K/mm3 (4.00-11.30)
[2020-06-11 02:50] LABS: Magnesium, Blood 2.5 mg/dL (1.6-2.4); Troponin I <0.015 ng/mL (0.000-0.040)
[2020-06-11 03:05] LABS: Alanine Aminotransfer (ALT/SGP 32 U/L (12-78); Albumin, Blood 2.8 g/dL (3.4-5.0); Albumin/Globulin Ratio 0.7 (0.8-1.8); Alk Phos 66 U/L (50-136); Anion Gap 12 mmol/L (6-16); Bilirubin, Total 0.3 mg/dL (0.1-1.0); Blood Urea Nitrogen 97 mg/dL (8-24); Bun/Creatinine Ratio 10.6 (12.0-20.0); CO2, Blood 27 mmol/L (21-32); Calcium, Blood 8.2 mg/dL (8.5-10.1); Chloride, Blood 96 mmol/L (98-108); Creatinine, Blood 9.12 mg/dL (0.60-1.20); Globulin, Blood 4.3 g/dL (2.2-4.0); Glomerular Filtration Rate 7 (60-); Glucose, Blood 159 mg/dL (70-99); Potassium, Blood 4.4 mmol/L (3.5-5.5); Sodium, Blood 135 mmol/L (136-145); Total Protein, Blood 7.1 g/dL (6.4-8.2)
[2020-06-11 03:12] LABS: Aspartate Aminotrans (AST/SGOT 7 U/L (12-37)
[2020-06-11 05:22] LABS: Valproic Acid 61.7 ug/mL (50.0-100.0)
--- NOTE | 2020-06-11 06:47 | NUR ---
ARRIVAL FROM ED NOTE PT ARRIVED TO ICU 3 VIA GURNEY. HAD 250 EMESIS ENROUTE. PT TX TO BED USING SLIDER SHEET. PLACED ON ICU MONITORS. CONTINUES TO BE HYPERTENSIVE. O2 SATS IN HIGH 70'S/ LOW 80'S ON RA, PLACED ON 6L/ OXY, SATS IN THE LOW 90'S. RESPIRATIONS SHALLOW. REPORT GIVEN TO ONCOMING NURSE. FIRST DOSE OF 10MG LABETOLOL GIVEN.
--- NOTE | 2020-06-11 08:48 | NUR ---
ASSUMED CARE OF PT AT 0700. REPORT FROM TALON/FIDELIA RN. PT RECENTLY ARRIVED FROM ER FOR HTN URGENCY. BP UNRESPONSIVE TO HYDRALAZINE AND CLONIDINE GIVEN IN ER. LABETALOL GIVEN PRIOR TO SHIFT CHANGE. DR BENEDICT CALLED FOR CONSULT, PLAN FOR DIALYSIS TODAY. PT A&OX 3. SLOW TO RESPOND, FLAT AFFECT. PT C/O GODFREY, STATES PAIN 7/10. REPORTS NO RELIEF FROM PREVIOUS PAIN MEDS GIVEN. NSR, RATE 80'S. PT ON 6L O2 VIA OXYMIZER, SHALLOW RESP. WEAK, NON PRODUCTIVE COUGH. LUNGS DIMINISHED IN BASES. O2 SATS LOW 90'S. PT REPORTS NAUSEA. NO FURTHER EMESIS SINCE ARRIVAL. PERMACATH TO LEFT CHEST WALL, DRESSING C/D/I. NON FUNCTIONING FISTULA TO LEFT ARM. MAEW. PT REPORTS INCREASED WEAKNESS c GAIT, USES CANE. WILL CONTINUE TO MONITOR.
--- NOTE | 2020-06-11 18:26 | NUR ---
PT RESTING IN BED. WAKES c VERBAL STIMULI. C/O GODFREY, 04/20. MINIMAL RELIEF FROM FENTANYL. APPEARS TO SLEEP WHEN UNDISTURBED. HTN MOST OF SHIFT. NICARDIPINE GTT D/C'D AFTER MAX RATE REACHED c NO IMPROVEMENT OF BP, CHANGED TO LABETALOL DRIP. CURRENTLY INFUSING AT 5 MG/MIN. DR JAK GIRON, ORDERED HTN MANAGEMENT c CLONDINE PATCHES, PRN IVP LABETALOL AND HYDRALAZINE, AWAITING ORDERED. ORDERED LABETALOL BE TITRATED OFF BY [phone] AND D/C'D AT THAT TIME. NEUROLOGY CONSULT ORDERED, CALL TO BE PLACED TOMORROW DAY SHIFT. DIALYSIS COMPLETED THIS SHIFT. PT REFUSING PO MEDS AND FLUIDS ENTIRE SHIFT. PT HAD ONE SEIZURE, LASTING APPROX 2 MINUTES DURING DIALYSIS, ATIVAN GIVEN. SO AT BEDSIDE. REPORTS PT NORMAL BP 160'S/90'S. ALSO REPORTS PT MAKES URINE EVERY THREE DAYS. WILL CONTINUE TO MONITOR UNTIL REPORT TO ONCOMING NURSE.
--- NOTE | 2020-06-11 19:45 | NUR ---
SHIFT ASSESSMENT RECEIVED REPORT FROM ROME BAPTISTE. PT RESTING IN BED, RESPONDS TO VERBAL STIMULI, A&OX4. NO COMPLAINTS OF PAIN AT THIS TIME. PT ON 5LPM 02 VIA NC c SATS >95%. PT HYPERTENSIVE c LABETOLOL GTT @ 5MG/MIN INFUSING IN THE POWERGLIDE IN MARGA. 2-0.3MG CLONIDINE PATCHES RECENTLY PLACED VIA DAY NURSE. PLAN ON TITRATING OFF THE LABETOLOL GTT, REPLACING WITH Q4 PRN HYDRALIZINE, LABETOLOL PUSH, AND CLONIDINE. WILL ATTEMPT TO ADMINISTER EVENING MEDS PENDING PT REMAINS FREE OF NAUSEA.
[2020-06-12 04:09] LABS: Hematocrit 26.1 % (37.0-53.0); Hemoglobin 8.2 g/dL (13.5-17.5)
[2020-06-12 04:24] LABS: Albumin, Blood 2.4 g/dL (3.4-5.0); Anion Gap 8 mmol/L (6-16); Blood Urea Nitrogen 61 mg/dL (8-24); Bun/Creatinine Ratio 7.9 (12.0-20.0); CO2, Blood 30 mmol/L (21-32); Calcium, Blood 8.5 mg/dL (8.5-10.1); Chloride, Blood 96 mmol/L (98-108); Creatinine, Blood 7.77 mg/dL (0.60-1.20); Glomerular Filtration Rate 8 (60-); Glucose, Blood 70 mg/dL (70-99); Magnesium, Blood 2.1 mg/dL (1.6-2.4); Potassium, Blood 4.6 mmol/L (3.5-5.5); Sodium, Blood 134 mmol/L (136-145)
--- NOTE | 2020-06-12 06:35 | NUR ---
SHIFT SUMMARY. PT RESTED THROUGHOUT MOST OF THE NIGHT. LABETOLOL GTT DISCONTINUED AROUND 2200. LABETOLOL AND HYDRALYZINE PUSHES ADMINSTERED Q4H. DR. BENEDICT NOTIFIED OF THE CONTINOUS HTN. PO LABETOLOL AND ONE TIME HYDRALYZINE PUSH GIVEN PER DR. BENEDICT. PT REMAINED HYPERTENSIVE, BUT WAS BELOW 190 SYSTOLIC UNTIL APPROXIMATELY 0600. PT HAD NO C/O OF HEADACHE. WILL CONTINUE TO MONITOR.
--- NOTE | 2020-06-12 10:15 | NUR ---
DR BENEDICT / ASSUMED CARE: PROVIDER AT BEDSIDE APPROX 0710. VERBAL ORDER FOR ATIVAN TAKEN BY OFFGOING RN. DR BENEDICT VERIFIES THAT NEURO CONSULT WILL BE CALLED THIS AM. REPORT RECEIVED FROM FIDELIA Monroe, RN & TALON Monroe RN. ASSUMED CARE OF THIS PT AT APPROX 0700. ON ASSESSMENT. THE PT IS AWAKE, A&O. HE IS TREMULOUS TO ALL EXT & STS THIS IS RESIDUAL DEFICIT FROM CVA IN FEBRUARY. LS ARE DIM, COARSE IN BASES. PT ON 2L NC W/ O2 SATS > 92%. MONITOR SHOWS SR W/ HR 80-90s, HTN PERSISTS W/ SBP 190-200s. MEDS PER EMAR. PT HAS NO GI COMPLAINTS, VOIDS APPROX EVERY 3 DAYS R/T DIALYSIS. DIALYSIS CATHETER IN PLACE TO R CHEST. SKIN OVERALL CDI. WILL CONTINUE TO MONITOR & UPDATE NEEDED.
--- NOTE | 2020-06-12 16:59 | NUR ---
SHIFT SUMMARY: NO ACUTE CHANGES SINCE PRIOR UPDATES. PT REMAINS A&O, PLEASANT & COOPERATIVE. HE HAS GOTTEN SOME REST THIS AFTERNOON & STS FEELING BETTER. LS REMAIN DIM IN BASES, ON 2L NC W/ O2 SATS > 92%, ENCOURAGED TO COUGH/ DEEP BREATHE. MONITOR SHOWS SR W/ HR 70-80s, HTN PERSISTS W/ SBP 190-200s, MEDS PER EMAR. PT HAS NO GI COMPLAINTS. NO URINARY VOID THIS SHIFT. SKIN CONDITION UNCHANGED & PT IS REPOSITIONING SELF IN BED FREQUENTLY. REPORT HAS BEEN GIVEN TO HALLE Vergara RN TO ASSUME CARE FOR REMAINDER OF SHIFT.
--- NOTE | 2020-06-12 17:22 | NUR ---
REPORT RECIEVED FROM STEVE PETER. PT AWAKE AND TALKING TO AT BEDSIDE. HTN NOTED. WILL MEDICATE ABLE. NO FURTHER NEEDS AT THIS TIME.
--- NOTE | 2020-06-12 18:15 | NUR ---
CALL TO DR BENEDICT IN REGARDS TO PT'S INCREASED BLOOD PRESSURES THIS SHIFT. RECIEVED NEW MED ORDER. WILL ADMINISTER SOON ABLE
--- NOTE | 2020-06-12 20:00 | NUR ---
SHIFT ASSESSMENT REPORT RECEIVED FROM ROME NERI. PT RESTING COMFORTABLY IN BED, A&OX4. HEENT-NORMOCEPHALIC. LS CLEAR, DIMINISHED LOWERS. WAS ON 2LPM O2 THROUGHOUT THE DAY, BUT CONTINUES TO KNOCK IT OFF ACCIDENTALLY, OXYGEN SATS REMAINING ABOVE 95% ON RA, WILL LEAVE OFF AND MONITOR. PT REMAINS HYPERTENSIVE. DENIES H/A. IV/ PO MEDS TO BE ADMINSTERED PRN FOR HTN.
--- NOTE | 2020-06-12 21:00 | NUR ---
DOCTOR LADONNA IN TO SEE PATIENT, AND PLACED CALL TO PATIENTS . SEE NEW ORDERS
--- NOTE | 2020-06-12 23:06 | NUR ---
DR AVIS BENEDICT NOTIFIED OF CONTINUED HTN AFTER PO AND IV MEDS. ATTEMPTED TO ORDER MINOXIDIL, PHARMACY CONTACTED, WE DO NOT CARRY THAT MEDICATION. SEE NEW ORDERS.
[2020-06-13 05:06] LABS: Hematocrit 25.2 % (37.0-53.0); Hemoglobin 8.1 g/dL (13.5-17.5)
[2020-06-13 05:52] LABS: Magnesium, Blood 2.5 mg/dL (1.6-2.4)
[2020-06-13 05:56] LABS: Albumin, Blood 2.4 g/dL (3.4-5.0); Anion Gap 10 mmol/L (6-16); Blood Urea Nitrogen 91 mg/dL (8-24); Bun/Creatinine Ratio 8.7 (12.0-20.0); CO2, Blood 28 mmol/L (21-32); Calcium, Blood 8.2 mg/dL (8.5-10.1); Chloride, Blood 97 mmol/L (98-108); Glomerular Filtration Rate 6 (60-); Glucose, Blood 127 mg/dL (70-99); Phosphorus, Blood 8.8 mg/dL (2.5-4.9); Potassium, Blood 5.8 mmol/L (3.5-5.5); Sodium, Blood 135 mmol/L (136-145)
--- NOTE | 2020-06-13 06:23 | NUR ---
SHIFT SUMMARY PT SLEEPING OFF AND ON THROUGH THE NIGHT. HTN CONTINUES DESPITE SLEEPING/ WAKEFULLNESS. PRN MEDS GIVEN PER EMAR. DR. BENEDICT AWARE OF CONTINUED HTN, PLAN ON DIALYSIS TODAY PER DR. BENEDICT. CONTINUE c CURRENT ORDERS.
--- NOTE | 2020-06-13 08:00 | NUR ---
ASSUMED CARE BEDSIDE REPORT RECIEVED. PT AWAKENS TO VERBAL STIMULI UPON ENTERING ROOM. PT IS DROWSEY, BUT IS ALERT, ORIENTED, AND FOLLOWING DIRECTIONS APPROPRIATELY. PT DRIFTS BACK TO SLEEP QUICKLY. PT HYPERTENSIVE WITH SBP 200'S. POWERGLIDE TO MARGA SALINE LOCKED. PERMACATH TO RIGHT UPPER CHEST C/D/I. WILL CONTINUE TO MONITOR.
--- NOTE | 2020-06-13 15:14 | NUR ---
DIALYSIS DR ALEX ORDERED DIALYSIS 2.5 HOURS, 2L UF, AND 4 K+ DIALYSATE. WHEN I WAS READY TO START THE PT, HER VS WERE 94/58, 115 HR, AND 99.1 TEMP. Екатерина LEA RN WAS THERE TO SUPPORT THE BP WITH MEICATIONS. BP WENT TO 85/54 130 HR, THEN 98/67 130 HR, THEN 70/43 137, 56/46 125, 61/36 120. i STARTED THE TX WITH A UF 1500 ML DECREASED TO 1 L THEN DECREASED AGAIN TO 500 ML, THEN 0 UF. DESPITE ADJUSTMENTS OF UF GOAL AND Екатерина LEA'S ADJUSTMENT OF MEDICATIONS A CODE BLUE WAS CALLED. I RETURNED THE BLOOD AND DC'ED TX. DUE TO MY POSITION IN THE ROOM I WAS UNABLE TO LEAVE THE ROOM. I ASSISTED WITH LAB DRAWS FROM THE DIALYSIS PORT. HER UF WAS 352 ML. 21 MIN OF TX. AND A RINSE BACK OF 400 ML OF SALINE. [id number] HER VS WERE 112/66 111 HR.
--- NOTE | 2020-06-13 17:52 | NUR ---
SHIFT SUMMARY NO ACUTE CHANGES THIS SHIFT. PT REMAINS AWAKE, ALERT, AND ORIENTED. PT SLEPT FOR PERIODS THROUGHOUT THE DAY. PT RECIEVED DIALYSIS AND AN EEG TODAY. PT HAS REMAINED HYPERTENSIVE WITH SBP 150-200'S. PT REMAINS ON ROOM AIR. IV AND POWERGLIDE REMAIN SALINE LOCKED. PT UP TO TOILET WITH STANDBY ASSISTANCE. PT SPOUSE REMAINS AT BEDSIDE AT THIS TIME. PERMACATH TO RIGHT UPPER CHEST REMAINS C/D/I. WILL CONTINUE TO MONITOR AND REPORT OFF TO ONCOMING RN.
--- NOTE | 2020-06-13 19:45 | NUR ---
ASSUMPTION OF CARE: RECIEED REPORT FROM KAELA PETER. PATIENT ALERT AND ORIENTED WITH FLAT AFFECT/WITHDRAWN. SKIN C/D/I AND PATIENT TURNS SELF FREQUENTLY. PATIENT HAS RESIDUAL, MILD LEFT SIDED WEAKNESS FROM A PREVIOUS CVA AND ALSO HAS TREMORS, THEREFORE HE IS A SBA WITH CANE. PATIENT DENIES PAIN AND STATES HE JUST WANTS TO SLEEP. BED LOW AND LOCKED WITH CALL LIGHT WITHIN REACH AND PATIENT MONITORED CAREFULLY.
[2020-06-14 03:34] LABS: Hematocrit 26.5 % (37.0-53.0); Hemoglobin 8.4 g/dL (13.5-17.5)
[2020-06-14 03:59] LABS: Albumin, Blood 2.4 g/dL (3.4-5.0); Anion Gap 7 mmol/L (6-16); Blood Urea Nitrogen 62 mg/dL (8-24); Bun/Creatinine Ratio 7.8 (12.0-20.0); CO2, Blood 33 mmol/L (21-32); Calcium, Blood 8.3 mg/dL (8.5-10.1); Chloride, Blood 98 mmol/L (98-108); Creatinine, Blood 7.95 mg/dL (0.60-1.20); Glomerular Filtration Rate 8 (60-); Glucose, Blood 53 mg/dL (70-99); Magnesium, Blood 2.3 mg/dL (1.6-2.4); Potassium, Blood 4.8 mmol/L (3.5-5.5); Sodium, Blood 138 mmol/L (136-145)
[2020-06-14 04:08] LABS: Phosphorus, Blood 8.5 mg/dL (2.5-4.9)
--- NOTE | 2020-06-14 04:37 | NUR ---
SHIFT SUMMARY: PATIENT SBP DROPPED TO 160'S THIS SHIFT BUT THEN TRENDED BACK UP AGAIN TOWARDS MORNING. MONITORING PATINT CLOSELY, BED LOW AND LOCKED, NO OTHER ISSUES NOTED.
--- NOTE | 2020-06-14 07:20 | NUR ---
ASSUMED CARE BEDSIDE REPORT RECIEVED. PT IS AWAKE, ALERT, AND ORIENTED. PT DENIES PAIN OR DISCOMFORT. PT ON ROOM AIR. VITAL SIGNS STABLE. PT HYPERTENSIVE WITH SBP 180-200'S. PT MED PER EMAR. IV AND POWERGLIDE SALINE LOCKED. PERMACATH TO RIGHT UPPER CHEST C/D/I. PT REPOSITIONS SELF IN BED FOR COMFORT. NO FAMILY AT BEDSIDE. WILL CONTINUE TO MONITOR.
--- NOTE | 2020-06-14 17:54 | NUR ---
SHIFT SUMMARY NO ACUTE CHANGES THIS SHIFT. PT HAS REMAINED ALERT, ORIENTED, AND PLEASANT. PT UP OUT OF BED TO AMBULATE AND REPOSITIONS SELF INDEPENDENTLY. VITAL SIGNS STABLE. PT ON ROOM AIR. IV AND POWERGLIDE REMAIN SALINE LOCKED. PERMACATH TO RIGHT UPPER CHEST REMAINS C/D/I. PT SPOUSE AT BEDSIDE FOR PART OF THE DAY. PT REMAINS WITH SBP 180-200'S. WILL CONTINUE TO MONITOR AND REPORT OFF TO ONCOMING RN.
--- NOTE | 2020-06-14 19:19 | NUR ---
ASSUMED ARE OF PT AT 1915. REPORT RECEIVED AT BEDSIDE. PT PRESENTS IN BED. ALERT AND ORIENTED. PARTICIPATES IN BEDSIDE REPORT. NOTING PT'S BLOOD PRESSURE REMAINS ELEVATED. WILL REVIEW OPTIONS FOR CONTROL. WILL REVIEW CHART AND PLAN OF CARE FOR THIS PT.
--- NOTE | 2020-06-14 23:06 | NUR ---
PT'S BLOOD PRESSURES REMAIN ELEVATED. HAS RECEIVED HIS PM DOSES OF ANTIHYPERTENSIVES. HAVE GIVEN PRN DOSE OF LABATELOL 20MG IVP. THIS DID NOT CHANGE PRESSURES. WILL REVIEW OTHER PRN OPTIONS.
[2020-06-15 04:12] LABS: Hematocrit 24.8 % (37.0-53.0); Hemoglobin 8.1 g/dL (13.5-17.5)
--- NOTE | 2020-06-15 04:13 | NUR ---
PT MEDICATED WITH 20 MG LABATELOL FOR SBP > 180. PT ASYMPTOMATIC WITH ELEVATED BLOOD PRESSURES. NO COMPLAINTS HEADACHE. HAS BEEN ABLE TO SLEEP THIS SHIFT. PT HAS VOIDED ONCE TONIGHT WHICH WAS NOT SAVED TO BE TALLIED IN I/O. WILL CONTINUE TO MONITOR PT.
[2020-06-15 04:49] LABS: Magnesium, Blood 2.5 mg/dL (1.6-2.4)
[2020-06-15 05:30] LABS: Albumin, Blood 2.4 g/dL (3.4-5.0); Anion Gap 13 mmol/L (6-16); Blood Urea Nitrogen 91 mg/dL (8-24); Bun/Creatinine Ratio 9.4 (12.0-20.0); CO2, Blood 26 mmol/L (21-32); Calcium, Blood 7.6 mg/dL (8.5-10.1); Chloride, Blood 96 mmol/L (98-108); Creatinine, Blood 9.64 mg/dL (0.60-1.20); Glomerular Filtration Rate 6 (60-); Glucose, Blood 130 mg/dL (70-99); Potassium, Blood 5.2 mmol/L (3.5-5.5); Sodium, Blood 135 mmol/L (136-145)
[2020-06-15 05:31] LABS: Phosphorus, Blood 9.8 mg/dL (2.5-4.9)
--- NOTE | 2020-06-15 06:29 | NUR ---
DR BENEDICT COMES IN TO SEE PT NO ORDERS RECEIVED AT THIS TIME. PT IS TO HAVE DIALYSIS THIS DAY. PT HAS BEEN ABLE TO REST THROUGH THE NIGHT. BLOOD PRESSURES REMAIN HYPERTENSIVE. LABATELOL AND HYDRALAZINE HAS BEEN GIVEN PRN WITH SMALL SUCCESS. WILL CONTINUE TO MONITOR PT, AND WILL REPORT OFF TO ONCOMING RN.
--- NOTE | 2020-06-15 09:04 | NUR ---
AM NOTE... ASSUMED CARE OF PT APROX 0700, REPORT WAS DONE OUTSIDE OF THE ROOM PER THE PT'S REQUEST TO NOT BE WOKEN UP. PT IS CURRENTLY HYPERTENSIVE WITH SBP IN THE 200'S, PT C/O OF MODERATE HEADACHE HE FELT WAS DUE TO HIS HIGH BP. OTHER VS STABLE AT THIS TIME. NO EDEMA NOTED ON ASSESSMENT. L/S CLEAR T/O ON RA. BT PRESENT AND HYPOACTIVE ABD SOFT AND NONTENDER TO PALP. PT HAS SLIGHT TREMOR AND WEAKNESS ON THE LEFT SIDE FROM PREVIOUS CVA. PT IS TO HAVE DIALYSIS THIS AM. CALL LIGHT IN REACH WILL CONTINUE TO MONITOR.
--- NOTE | 2020-06-15 10:56 | NUR ---
PT UPDATE... PT IS GETTING DIALYSIS IN THE ROOM CURRENTLY PT'S SBP IS 180'S-170'S DOWN FROM 190'S-200'S, WILL CONTINUE TO MONITOR DURING DIALYSIS FOR BP CHANGES.
--- NOTE | 2020-06-15 18:32 | NUR ---
SHIFT SUMMARY... PT HAS BEEN HYPERTENSIVE T/O SHIFT, PT HAD DIALYSIS TODAY AND HAD 3.5L TAKEN OFF THIS DID NOT IMPROVE HIS BP. PT'S HAS BEEN AT THE BEDSIDE MOST OF THE SHIFT, PT CONTINUES TO C/O OF A SEVERE HEADACHE 05/21 PT HAS BEEN MEDICATED PER EMAR FOR PAIN/ANXIETY AND HIS HYPERTENSION. DR. BENEDICT WAS CALLED AND UPDATED, NEW ORDERS OBTAINED. PT HAS NOT HAD ANY SEIZURE LIKE ACTIVITY THIS SHIFT. PT HAS NOT VOIDED THIS SHIFT NOR HAD A BM. PT'S OTHER VS STABLE T/O SHIFT. CALL LIGHT IN REACH WILL CONTINUE TO MONITOR UNTIL REPORT IS GIVEN TO ONCOMING RN.
--- NOTE | 2020-06-15 20:00 | NUR ---
ASSUMED CARE OF PT AT 1915. REPORT RECEIVED. PT PRESENTS IN BED. SOMEWHAT WITHDRAWN AND WITH FLAT AFFECT. PT REMAINS HYPERTENSIVE DISPITE INCREASE IN BLOOD PRESSURE MEDICATIONS AND DIALYSIS DONE EARLIER. PT'S LEAVES FOR THE NIGHT. PT VOICES AGREEMENT THAT HE IS FEELING DEPRESSED. DID POORLY WITH HIS DINNER. IF POOR APPETITE CONTINUES MEGASE MAY BE NECESSARY PER PRN EMAR. WILL REVIEW CHART AND PLAN OF CARE FOR THIS PT. WILL CONSIDER OPTIONS TO ADDRESS HYPERTENSION. PT VOICES NO COMPLAINTS OF HEADACHE AT THIS TIME.
--- NOTE | 2020-06-15 23:26 | NUR ---
HAVE MEDICATED PT WITH PRN ENALIPRIL, AND HYDRALAZINE WELL PM ANTIHYPERTENSIVES. PENDING IMPROVEMENT IN BLOOD PRESSURES.
[2020-06-16 05:57] LABS: Hematocrit 27.8 % (37.0-53.0); Hemoglobin 8.9 g/dL (13.5-17.5)
--- NOTE | 2020-06-16 06:22 | NUR ---
HAVE CONTINUED TO MEDICATE WITH PRN ANTIHYPERTENSIVES WITH MARGINAL AFFECT. PT HAS MUCH MORE FLAT AFFECT THIS SHIFT THAN PRIOR NOC SHIFT. HAS BEGUN ANTIDEPRESSANT. PT'S POWERGLIDE IV NO LONGER WILL DRAW BACK BLOOD. THIS RESULTS IN PT BEING IRRITABLE. PT HAS NOT HAD ANY COMPLAINTS OF HEADACHE THIS NIGHT. WILL CONTINUE TO MONITOR PT, AND WILL REPORT OFF TO ONCOMING RN.
[2020-06-16 06:23] LABS: Albumin, Blood 2.5 g/dL (3.4-5.0); Anion Gap 8 mmol/L (6-16); Blood Urea Nitrogen 61 mg/dL (8-24); Bun/Creatinine Ratio 7.7 (12.0-20.0); CO2, Blood 30 mmol/L (21-32); Calcium, Blood 8.5 mg/dL (8.5-10.1); Chloride, Blood 100 mmol/L (98-108); Creatinine, Blood 7.92 mg/dL (0.60-1.20); Glomerular Filtration Rate 8 (60-); Glucose, Blood 76 mg/dL (70-99); Magnesium, Blood 2.3 mg/dL (1.6-2.4); Potassium, Blood 5.3 mmol/L (3.5-5.5); Sodium, Blood 138 mmol/L (136-145)
[2020-06-16 06:28] LABS: Phosphorus, Blood 8.9 mg/dL (2.5-4.9)
--- NOTE | 2020-06-16 08:40 | NUR ---
ASSUMED CARE / DR SIGALA: REPORT RECEIVED FROM TREASURE Monroe RN. ASSUMED CARE OF THIS PT AT APPROX 0700. ON ASSESSMENT, THE PT IS RESTING QUIETLY. HE AWAKENS EASILY TO VERBAL STIMULUS & IS ALERT/ORIENTED AT THAT TIME. HE IS TREMULOUS TO EXT x 4 BUT IS ABLE TO STAND/AMBULATE STEADILY W/ PERSONAL CANE. LS ARE CLEAR T/O, PT ON RA W/ O2 SATS > 92% WHEN CHECKED. MONITOR SHOWS SR W/ HR 70-80s. HTN IS PERSISTANT W/ SBP 180-200s DESPITE MEDS PER EMAR. PT HAS NO GI COMPLAINTS, TOLERATING PO INTAKE WELL. VOIDS APPROX EVERY 3 DAYS R/T HD. SKIN CONDITION OVERALL CDI, PT REPOSITIONS HIMSELF IN BED W/O DIFFICULTY. PROVIDER AT BEDSIDE TO EVAL PT. HE STS NO CHANGES AT THIS TIME. WILL CONTINUE TO MONITOR & UPDATE NEEDED.
--- NOTE | 2020-06-16 09:37 | NUR ---
DR BENEDICT: PROVIDER AT BEDSIDE TO ARNOLDOAL PT. STS OKAY TO D/C GABAPENTIN PER PT REQUEST. VERIFIED THAT PT IS WEARING BOTH CLONIDINE PATCHES ORDERED. NO OTHER CHANGES AT THIS TIME.
--- NOTE | 2020-06-16 16:40 | NUR ---
SHIFT SUMMARY: NO ACUTE CHANGES SINCE PRIOR UPDATES. PT REMAINS A&O, PLEASANT & COOPERATIVE W/ CARE. ASSESSMENT OVERALL UNCHANGED - SEE REASSESSMENTS. HTN PERSISTS, BUT AVG SBP DOWN TO 160s FROM 190-200s THIS AM. DR SIGALA STS THAT IF SBP CAN REMAIN < 200, PT MAY BE ABLE TO TRANSFER TO PCU STATUS. WILL CONTINUE TO MONITOR & REPORT OFF TO ONCOMING RN.
--- NOTE | 2020-06-16 20:00 | NUR ---
ASSUMED CARE OF PT AT 1915. PT PRESENTS IN BED SLEEPING. DOES AWAKEN TO VERBAL STIMULI. IS COOPERATIVE WITH CARE ALTHOUGH HAS A VERY FLAT AFFECT. STATES THAT "I AM JUST REALLY TIRED". PT IN NO APPARENT DISTRESS AT THIS TIME. WILL REVIEW CHART, ORDERS AND PLAN OF CARE FOR THIS PT.
--- NOTE | 2020-06-16 22:11 | NUR ---
HAVE PROVIDED PT'S PM MEDICATIONS. WILL HOLD OFF ON PRN ANTIHYPERTENSIVES TO ASSESS AFFECTIVENESS OF SCHEDULED MEDS. DISCUSSED THIS WITH PT. REATTEMPT TO DRAW BLOOD GLUCOSE SAMPLE FROM POWERGLIDE WAS SUCCESSFUL.
--- NOTE | 2020-06-16 23:18 | NUR ---
ADMINISTERED 5MG ENALIPRIL FOR CONTINUED HYPERTENSION. PENDING RESULTS. WHILE ADMINISTERING DOSE, PT STATES, "I WANT TO GO HOME" "THE DOCTOR IS NOT DOING ANYTHING FOR ME ANYWAYS" ENCOURAGED PT TO SPEAK WITH HIS DOCTOR IN THE MORNING.
--- NOTE | 2020-06-17 01:55 | NUR ---
PT RESTING AT THIS TIME. BLOOD PRESSURES HAVE IMPROVED SOME. SEE VS FLOWSHEET FOR DETAILS. WILL CONTINUE TO MONITOR.
[2020-06-17 04:05] LABS: Hematocrit 26.3 % (37.0-53.0); Hemoglobin 8.6 g/dL (13.5-17.5)
[2020-06-17 04:41] LABS: Magnesium, Blood 2.3 mg/dL (1.6-2.4)
[2020-06-17 04:52] LABS: Albumin, Blood 2.4 g/dL (3.4-5.0); Anion Gap 10 mmol/L (6-16); Blood Urea Nitrogen 81 mg/dL (8-24); Bun/Creatinine Ratio 8.2 (12.0-20.0); CO2, Blood 28 mmol/L (21-32); Calcium, Blood 7.8 mg/dL (8.5-10.1); Chloride, Blood 98 mmol/L (98-108); Creatinine, Blood 9.84 mg/dL (0.60-1.20); Glomerular Filtration Rate 6 (60-); Glucose, Blood 152 mg/dL (70-99); Phosphorus, Blood 8.9 mg/dL (2.5-4.9); Potassium, Blood 5.6 mmol/L (3.5-5.5); Sodium, Blood 136 mmol/L (136-145)
--- NOTE | 2020-06-17 06:31 | NUR ---
PT RESTING IN BED AT THIS TIME. HAS BEEN ABLE TO TURN HIMSELF ABOUT IN BED ON HIS OWN. NO COMPLAINTS OF HEADACHE OR S/S SEIZURE ACTIVITIES THIS NIGHT. BLOOD PRESSURES HAVE BEEN 180'S TO 200'S SBP THROUGHOUT THE NIGHT. PT ASYMPTOMATIC WITH THIS. HAVE MEDICATED WITH PRN ANTIHYPERTENSIVES THIS NIGHT WITH MARGINAL RESULTS. WILL CONTINUE TO MONITOR PT, AND WILL REPORT OFF TO ONCOMING RN.
--- NOTE | 2020-06-17 07:18 | NUR ---
ASSUMED CARE / DR BENEDICT: REPORT RECEIVED FROM TREASURE Monroe RN. ASSUMED CARE OF THIS PT AT APPROX 0700. ON ASSESSMENT, THE PT IS AWAKE, A&O. HE EXPRESSES THE DESIRE TO GO HOME & FEELS THAT "NOT ENOUGH" IS BEING DONE TO MANAGE HIS HTN. LS ARE CLEAR T/O, PT ON RA W/ O2 SATS > 92%. MONITOR SHOWS SR W/ HR 70-80s, HTN W/ SBP 170s. NO GI COMPLAINTS. OLIGURIC, VOIDING APPROX Q3 DAYS. SKIN CONDITION OVERALL CDI. CALL FROM ANGELINA Vergara CAN TECHNICIAN, PLAN IS TO DIALYZE PT IN ROOM THIS AFTERNOON HE REMAINS ICU STATUS. PROVIDER AT BEDSIDE TO EVAL PT. HE STS PLAN FOR DIALYSIS TODAY & THEN WOULD LIKE THE PT TO BE PCU STATUS IF CLEARED W/ HOSPITALIST. NO NEW ORDERS. WILL CONTINUE TO MONITOR & UPDATE NEEDED.
--- NOTE | 2020-06-17 09:00 | NUR ---
DR SIGALA: PROVIDER AT BEDSIDE TO DENNY PT. DISCUSSED W/ HIM CHANGES TO ANTIHYPERTENSIVE MEDS THAT DR BENEDICT HAS MADE THIS AM & PLAN TO DIALYZE. HE STS NO NEW ORDERS AT THIS TIME. PLEASE NOTIFY HIM IF PT's SBP MAINTAINS < 200 & STATUS CHANGE TO PCU MAY BE ORDERED.
--- NOTE | 2020-06-17 13:24 | NUR ---
DIALYSIS: ANGELINA Vergara DOGGY DAYCARE ACTIVITIES DIRECTOR, AT BEDSIDE TO COMPLETE HEMODIALYSIS ORDERED.
--- NOTE | 2020-06-17 18:48 | NUR ---
SHIFT SUMMARY: NO ACUTE CHANGES SINCE PRIOR UPDATES. PT REMAINS A&O, PLEASANT & COOPERATIVE. HE HAS BEEN MORE MOTIVATED, AMBULATING IN HALLS W/ HIS . ASSESSMENT UNCHANGED. BP IMPROVED SUBSTANTIALLY - SEE VS. WILL CONTINUE TO MONITOR & UPDATE NEEDED.
--- NOTE | 2020-06-17 19:30 | NUR ---
PATIENT RESTING QUIETLY IN BED, AWAKENS TO SLIGHT STIMULI. VERBALIZED FEELING TIRED, REQUESTING ROOM DOOR CLOSED TO KEEP NOISE DOWN. PLAN TO SPOT CHECK BIOX T/O NIGHT. DIALYSIS CATH TO RIGHT CHEST CLAMPED WITH DRESSING CD&I.
--- NOTE | 2020-06-17 21:00 | NUR ---
PATIENT AWAKE C/O GODFREY, TYLENOL GIVEN WITH HS MEDS. WILL CONTINUE TO MONITOR BP CLOSELY AND MEDICATE WITH PRN'S NEEDED.
[2020-06-18 04:53] LABS: Hematocrit 27.1 % (37.0-53.0); Hemoglobin 8.7 g/dL (13.5-17.5)
[2020-06-18 05:11] LABS: Albumin, Blood 2.4 g/dL (3.4-5.0); Anion Gap 7 mmol/L (6-16); Blood Urea Nitrogen 53 mg/dL (8-24); Bun/Creatinine Ratio 7.2 (12.0-20.0); CO2, Blood 32 mmol/L (21-32); Calcium, Blood 8.1 mg/dL (8.5-10.1); Chloride, Blood 99 mmol/L (98-108); Creatinine, Blood 7.35 mg/dL (0.60-1.20); Glomerular Filtration Rate 9 (60-); Glucose, Blood 61 mg/dL (70-99); Magnesium, Blood 2.2 mg/dL (1.6-2.4); Potassium, Blood 4.5 mmol/L (3.5-5.5); Sodium, Blood 138 mmol/L (136-145)
--- NOTE | 2020-06-18 06:32 | NUR ---
PATIENT RESTING QUIETLY T/O NIGHT, SLEEPING OFF AND ON. AWAKENS EASILY. VERBALIZED WANTING TO GO HOME. MEDICATED WITH VASOTEC AND APRESOLINE DURING THE NIGHT FOR HYPERTENSION SEE EMAR.
--- NOTE | 2020-06-18 08:15 | NUR ---
ASSUMED CARE: REPORT RECEIVED FROM FIDELIA Monroe RN. ASSUMED CARE OF THIS PT AT APPROX 0700. ON ASSESSMENT, THE PT IS A&O. DENIES PAIN OR SOB. HE IS MOTIVATED TO GO HOME & APPEARS IN RELATIVELY GOOD SPIRITS. ASSESSMENT CHARTED. HTN PERSISTANT W/ SBP 180s THIS AM. AM MEDS GIVEN, VS CHARTED. PT REPOSITIONING SELF IN BED, SKIN CONDITION OVERALL CDI. WILL CONTINUE TO MONITOR & UPDATE NEEDED.
--- NOTE | 2020-06-18 09:19 | NUR ---
DR RUDD: PROVIDER AT BEDSIDE TO EVAL PT. FEELS THAT PT's BP IS ADEQUATELY CONTROLLED AT THIS TIME VERSUS WHEN PT ADMITTED. HE WILL BE WRITING FOR DISCHARGE ORDERS, PT AGREEABLE.
--- NOTE | 2020-06-18 11:09 | NUR ---
UPDATE: CALL TO DR BENEDICT's OFFICE TO SCHEDULE F/U APPT FOR THIS PT. DR BENEDICT PLANS TO F/U WITH THE PT DURING SCHEDULED DIALYSIS ON THURSDAY (06/20/2020) & WOULD LIKE THE PT TO BE DIALYZED TODAY PRIOR TO DISCHARGE HOME. ESTRADA Gibson, HIGHBALLER, IS AWARE OF THIS & ORDERS HAVE BEEN PLACED. PT & HIS ARE AWARE OF UPDATED PLAN.
--- NOTE | 2020-06-18 14:58 | NUR ---
DISCHARGE TO HOME: DIALYSIS HAS BEEN COMPLETED BY ESTRADA Gibson CIVIL CAD DESIGNER. VSS REMAIN STABLE & PT IS ABLE TO D/C HOME NOW. D/C TEACHING HAS BEEN COMPLETED W/ PT & HIS , SUREKHA. ALL QUESTIONS HAVE BEEN ANSWERED & THEY VERBALIZE UNDERSTANDING OF PLAN TO F/U WITH DR BENEDICT AT DIALYSIS ON THURSDAY. MEDICATIONS HAVE BEEN CALLED TO [facility] & MESSAGE LEFT. PIV & ALL MONITORS HAVE BEEN REMOVED. SUREKHA HAS HELPED GET THE PT DRESSED & HE IS ABLE TO AMBULATE TO DOORWAY & SIT IN WC W/O DIFFICULTY. TAKEN OUT OF UNIT VIA WC BY TRENTON TILLEY, AT APPROX 1450. ALL BELONGINGS HAVE BEEN TAKEN OUT W/ PT & HIS .
[2020-06-20] MEDS ORDERED: Catapres0.3 MG PO (22:40)
== END 2020-06-18 14:50 | disposition home or self-care (01) | DRG 304 ==
LOC: ER 01:41 → EDBEDREQ 06:53 → ICUE 06:55 → ICUW 06:55 → ICUE 06:56
PROVIDERS: Emergency Medicine; Internal Medicine Nephrology; ADMIT Family Medicine
DX: I16.1 Hypertensive emergency (principal); N18.6 End stage renal disease; N25.81 Secondary hyperparathyroidism of renal origin; E87.1 Hypo-osmolality and hyponatremia; T86.12 Kidney transplant failure; I69.398 Other sequelae of cerebral infarction; I12.0 Hypertensive chronic kidney disease with stage 5 chronic kidney disease or end stage renal disease; Z79.82 Long term (current) use of aspirin; E78.5 Hyperlipidemia, unspecified; E11.40 Type 2 diabetes mellitus with diabetic neuropathy, unspecified; K21.9 Gastro-esophageal reflux disease without esophagitis; Z79.4 Long term (current) use of insulin; F32.9 Major depressive disorder, single episode, unspecified; D64.9 Anemia, unspecified; G40.909 Epilepsy, unspecified, not intractable, without status epilepticus; E83.39 Other disorders of phosphorus metabolism; E87.70 Fluid overload, unspecified; E11.22 Type 2 diabetes mellitus with diabetic chronic kidney disease; E87.5 Hyperkalemia; Z99.2 Dependence on renal dialysis
CPT/HCPCS: 36415; 70450; 71045; 80053; 80069; 80164; 80197; 82947; 83735; 83880; 84484; 85014; 85018; 85025; 93005; 93010; 95819; 96374; 96375; 96376; 99285-25; A9270; A9270-GY; C1751; G0378; J0360; J0881; J1815; J2060; J2270; J2405; J3010; J7050; J7060; J7507; J7512

== ENCOUNTER 2020-06-20 20:29 | Inpatient (IN) | payer BC ==
[~2020-06-20] VITALS: Ht 188 cm; Wt 105.3 kg
[2020-06-20 21:06] LABS: BASOPHILS ABSOLUTE AUTO 0.02 K/mm3 (0.00-0.23); BASOPHILS PERCENT AUTO 0 % (0-2); EOSINOPHILS PERCENT AUTO 2 % (0-6); Hematocrit 28.7 % (37.0-53.0); Hemoglobin 9.3 g/dL (13.5-17.5); IMMATURE GRAN ABSOLUTE AUTO 0.04 K/mm3 (0.00-0.10); IMMATURE GRAN PERCENT AUTO 1 % (0-1); LYMPHOCYTES ABSOLUTE AUTO 0.97 K/mm3 (0.84-5.20); LYMPHOCYTES PERCENT AUTO 18 % (21-46); MONOCYTES ABSOLUTE AUTO 0.71 K/mm3 (0.16-1.47); MONOCYTES PERCENT AUTO 13 % (4-13); Mean Corpuscular HGB Conc 32.4 g/dL (31.5-36.5); Mean Corpuscular Volume 93 fL (80-100); Mean Platelet Volume 9.5 fL (9.1-12.4); NEUTROPHILS ABSOLUTE AUTO 3.59 K/mm3 (1.96-9.15); NEUTROPHILS PERCENT AUTO 66 % (41-73); Platelet Count 228 K/mm3 (150-400); RDW Standard Deviation 43.2 fL (35.1-46.3); White Blood Cell Count 5.43 K/mm3 (4.00-11.30)
[2020-06-20 21:47] LABS: Albumin, Blood 2.8 g/dL (3.4-5.0); Albumin/Globulin Ratio 0.7 (0.8-1.8); Alk Phos 65 U/L (50-136); Anion Gap 6 mmol/L (6-16); Aspartate Aminotrans (AST/SGOT 10 U/L (12-37); Bilirubin, Total 0.4 mg/dL (0.1-1.0); Blood Urea Nitrogen 36 mg/dL (8-24); CO2, Blood 34 mmol/L (21-32); Calcium, Blood 8.4 mg/dL (8.5-10.1); Chloride, Blood 97 mmol/L (98-108); Creatinine, Blood 5.12 mg/dL (0.60-1.20); Globulin, Blood 4.3 g/dL (2.2-4.0); Glomerular Filtration Rate 13 (60-); Glucose, Blood 151 mg/dL (70-99); Magnesium, Blood 2.1 mg/dL (1.6-2.4); Phosphorus, Blood 4.3 mg/dL (2.5-4.9); Potassium, Blood 4.5 mmol/L (3.5-5.5); Sodium, Blood 137 mmol/L (136-145); Total Protein, Blood 7.1 g/dL (6.4-8.2); Troponin I <0.015 ng/mL (0.000-0.040)
[2020-06-20 21:48] LABS: Alanine Aminotransfer (ALT/SGP <6 U/L (12-78)
[2020-06-20] MEDS ORDERED: AURYXIA210 MG PO (22:39)
[2020-06-20] MEDS ORDERED: CLON.2 PO (22:40)
[2020-06-20] MEDS ORDERED: PRED5 PO (22:41)
[2020-06-20] MEDS ORDERED: QUETIAPINE FUMA25 MG PO (22:41)
[2020-06-20] MEDS ORDERED: MEGESTROL400 MG/11 PO (22:42)
[2020-06-20] MEDS ORDERED: AMLODIPINE BESYL5 MG PO (22:42)
[2020-06-20] MEDS ORDERED: EFFEXOR XR37.5 MG PO (22:43)
[2020-06-20] MEDS ORDERED: LOSA50 PO (22:43)
[2020-06-20] MEDS ORDERED: ROSUVASTATIN CA40 MG PO (22:43)
--- NOTE | 2020-06-20 23:45 | NUR ---
ADMISSION ASSESSMENT PT TRANSPORTED FROM ED TO ICU. PT ARRIVED VIA GURNEY. TRANSFERRED OVER TO BED VIA SLIDER SHEET BY STAFF. REPORT RECEIVED FROM ROME SHEWROOD. PT CAME IN TODAY WITH H/A THAT HAS INCREASED IN SEVERITY SINCE APPROXIMATELY 0700, 06/20/20. PT BEING ADMITTED FOR HYPERTENSIVE CRISIS. PT A&OX4. PT C/O SEVERE HEADACHE. EENT-NORMOCEPHALIC. 18 GA IV RAC c NICARDIPINE GTT@3MG/HR, 30ML/HR. HYPERTENSIVE, BP 198/103. NSR ON THE SENIOR PRODUCT MARKETING MANAGER IN THE 80'S. LS CLEAR, DIMINISHED LOWERS. ABD SOFT, NON-TENDER. BT'S X 4, HYPOACTIVE. PT PRODUCES URINE EVERY 2-3 DAYS, DENIES NEED TO URINATE. RECEIVED DIALYSIS TODAY, UNSURE OF HOW MUCH FLUID WAS TAKEN OFF. DIALYSIS CATHETER IN THE R CHEST WALL, CLAMPED, DRESSING IN TACT, SITE CLEAR. TEMP OF 100.6, RECEIVED AN ORDER FOR TYLENOL FROM DR MCKEE. TO BEDSIDE, ASSISTED PT c ANSWERING ADMIT QUESTIONS. PT SLEEPING WHEN UNDISTURBED. HOME AFTER ADMIT HX COMPLETED. PLACED ON 2LPM O2 VIA NC FOR SPO2 OF 88-90%. SPO2 UP TO 97%, DECREASED O2 TO 1L.
[2020-06-21] MEDS ORDERED: Norco 5-325 Ta1 EACH PO (00:07)
[2020-06-21] MEDS ORDERED: HYDR100 PO (00:08)
[2020-06-21 03:48] LABS: BASOPHILS ABSOLUTE AUTO 0.03 K/mm3 (0.00-0.23); BASOPHILS PERCENT AUTO 1 % (0-2); EOSINOPHILS ABSOLUTE AUTO 0.06 K/mm3 (0.00-0.68); EOSINOPHILS PERCENT AUTO 1 % (0-6); Hematocrit 26.9 % (37.0-53.0); Hemoglobin 8.4 g/dL (13.5-17.5); IMMATURE GRAN ABSOLUTE AUTO 0.05 K/mm3 (0.00-0.10); IMMATURE GRAN PERCENT AUTO 1 % (0-1); LYMPHOCYTES ABSOLUTE AUTO 1.23 K/mm3 (0.84-5.20); LYMPHOCYTES PERCENT AUTO 24 % (21-46); MONOCYTES ABSOLUTE AUTO 0.61 K/mm3 (0.16-1.47); MONOCYTES PERCENT AUTO 12 % (4-13); Mean Corpuscular HGB 29.3 pg (26.0-34.0); Mean Corpuscular HGB Conc 31.2 g/dL (31.5-36.5); Mean Corpuscular Volume 94 fL (80-100); Mean Platelet Volume 9.4 fL (9.1-12.4); NEUTROPHILS ABSOLUTE AUTO 3.25 K/mm3 (1.96-9.15); NEUTROPHILS PERCENT AUTO 62 % (41-73); Platelet Count 225 K/mm3 (150-400); RDW Standard Deviation 43.7 fL (35.1-46.3); Red Blood Cell Count 2.87 M/mm3 (4.30-5.90); White Blood Cell Count 5.23 K/mm3 (4.00-11.30)
[2020-06-21 04:28] LABS: Alanine Aminotransfer (ALT/SGP <6 U/L (12-78); Albumin, Blood 2.5 g/dL (3.4-5.0); Albumin/Globulin Ratio 0.7 (0.8-1.8); Alk Phos 58 U/L (50-136); Anion Gap 3 mmol/L (6-16); Aspartate Aminotrans (AST/SGOT 6 U/L (12-37); Bilirubin, Total 0.3 mg/dL (0.1-1.0); Blood Urea Nitrogen 41 mg/dL (8-24); Bun/Creatinine Ratio 7.2 (12.0-20.0); CO2, Blood 36 mmol/L (21-32); Calcium, Blood 8.2 mg/dL (8.5-10.1); Chloride, Blood 97 mmol/L (98-108); Creatinine, Blood 5.67 mg/dL (0.60-1.20); Globulin, Blood 3.7 g/dL (2.2-4.0); Glomerular Filtration Rate 12 (60-); Glucose, Blood 149 mg/dL (70-99); Potassium, Blood 4.5 mmol/L (3.5-5.5); Sodium, Blood 136 mmol/L (136-145); Total Protein, Blood 6.2 g/dL (6.4-8.2)
--- NOTE | 2020-06-21 05:31 | NUR ---
SHIFT SUMMARY TITRATED NICARDIPINE DOWN TO 3MG/HR, BP INCREASED >180 SYSTOLIC, TITRATED TO 4MG/HR AND CURRENTLY AT 5MG/HR. PT REMAINS HYPERTENSIVE c SBP AROUND 190. PTS HEADACHE TREATED WITH THE FENTANYL. PT SLEEPING THROUGHOUT THE MORNING. POWERGLIDE INSERTED IN MARGA. REPORT TO ONCOMING NURSE.
--- NOTE | 2020-06-21 08:16 | NUR ---
CARE ASSUMED ASSESSMENT COMPLETED, PT DROWSY, WAKES EASILY, ORIENTED X4. RESIDUAL L WEAKNESS D/T HX OF CVA, PT ZAVALA, NO FACIAL DROOP OR SLURRED SPEECH NOTED. HR 70'S SINUS, BP 180/80 WITH NICARDIPINE GTT AT 7.5MG/HR, WILL TITRATE NEEDED AND ADMINISTER PO BP MEDS. LS CTA, O2 2L/NC WITH SPO2 >90%, PT DENIES SOB. PT REPORTS ANURIA AT BASELINE, WILL RECEIVE HEMODIALYSIS THIS MORNING AROUND 0900 PER DIALYSIS NURSE. PERMACATH TO R CHEST WALL WNL. NO EDEMA NOTED, PPP. PT REPORTS GODFREY 04/20, FALLS QUICKLY ASLEEP AFTER CARES, NO NARCS ADMINISTERED AT THIS TIME. LOW GRADE FEVER PRESENT.
--- NOTE | 2020-06-21 11:54 | NUR ---
UPDATE PT HAS BEEN SLEEPING MOST OF THE MORNING, REMAINS EASILY ROUSABLE WITH NEURO ASSESSMENT UNCHANGED. BP IMPROVING, TITRATING NICARDIPINE DOWN ABLE, HR REMAINS 70'S SINUS. PT REMAINS ON 2L/NC FOR DESAT WHILE SLEEPING, SPO2 >95%. PT RECEIVING HD, TOLERATING WELL. ATE LATE BREAKFAST WITHOUT DIFFICULTY, DENIES NAUSEA. AT BEDSIDE TO VISIT BRIEFLY. PT POSITIONS SELF IN BED, DENIES NEEDS.
--- NOTE | 2020-06-21 19:19 | NUR ---
ASSESSMENT PT SITTING UP IN BED WATCHING TV. C/O HEADACHE 11/21 REFUSED PAIN MED AT FIRST UNTIL OFFERED TYLENOL, PT AGREED TO TYLENOL-MED GIVEN. PT MOVING SELF IN BED. LUNGS CLEAR ON 1 LITER O2 VIA NC. RESP EVEN AND NONLABORED. DENIES SOB OR COUGH AT THIS TIME. PT STATES,"I HAD SOB EARLIER BUT BETTER NOW". HEART RATE IN THE 70'S. SBP 160 ON NICARDIPINE AT 7.5 MG/HR VIA POWER GLIDE TO RIGHT UPPER ARM. POWER GLIDE SITE CLEAR. IV 18G TO RIGHT AC SALINE LOCKED, SITE CLEAR, FLUSHED WITHOUT DIFFICULTY. PT REQUESTED IV IN HAND DUE TO IV IN AC MAKING IT HARD TO BEND ARM. RIGHT HAND SWOLLEN AND UNABLE TO FIND IV SITE. PT STATED," IT'S OKAY WE WILL JUST USE THE ONE IN MY ELBOW". BT+ ABD SOFT AND NONTENDER. DENIES N/V. DIALYSIS CATH TO RIGHT CHEST WALL, SITE CLEAR AND PORTS CLAMPED. WEAKNESS NOTED TO LEFT SIDE FROM HX CVA. PT MOVING SELF IN BED.
--- NOTE | 2020-06-21 19:37 | NUR ---
END OF SHIFT PT SLEPT MOST OF DAY, WAKES EASILY, NO CHANGES TO NEURO STATUS. PT HAS DENIED PAIN THIS AFTERNOON, DENIED NAUSEA T/O DAY. TOLERATED MEALS WELL. NO VOID OR BM TODAY. 2000ML FLUID REMOVED DURING DIALYSIS, PT TOELRATED WELL. NICARDIPINE BRIEFLY DECREASED TO 2.5MG/HR DURING DIALYSIS, BP STEADILY INCREASED TOWARDS END OF DIALYSIS AND T/O AFTERNOON, NICARDIPNE GTT NOW BACK AT 7.5MG/HR, DESPITE ADMINISTRATION OF ALL SCHEDULED PO MEDS. FIRST OF 2 COVID SWABS NEGATIVE. REPORT TO ONCOMING SHIFT.
[2020-06-22 03:57] LABS: BASOPHILS ABSOLUTE AUTO 0.03 K/mm3 (0.00-0.23); BASOPHILS PERCENT AUTO 1 % (0-2); EOSINOPHILS ABSOLUTE AUTO 0.13 K/mm3 (0.00-0.68); EOSINOPHILS PERCENT AUTO 3 % (0-6); Hematocrit 26.4 % (37.0-53.0); Hemoglobin 8.5 g/dL (13.5-17.5); IMMATURE GRAN ABSOLUTE AUTO 0.04 K/mm3 (0.00-0.10); IMMATURE GRAN PERCENT AUTO 1 % (0-1); LYMPHOCYTES PERCENT AUTO 35 % (21-46); MONOCYTES ABSOLUTE AUTO 0.75 K/mm3 (0.16-1.47); MONOCYTES PERCENT AUTO 14 % (4-13); Mean Corpuscular HGB 29.9 pg (26.0-34.0); Mean Corpuscular HGB Conc 32.2 g/dL (31.5-36.5); Mean Corpuscular Volume 93 fL (80-100); Mean Platelet Volume 9.7 fL (9.1-12.4); NEUTROPHILS ABSOLUTE AUTO 2.46 K/mm3 (1.96-9.15); NEUTROPHILS PERCENT AUTO 47 % (41-73); Platelet Count 216 K/mm3 (150-400); RDW Coefficient Variation 12.7 % (11.7-14.2); RDW Standard Deviation 41.9 fL (35.1-46.3); Red Blood Cell Count 2.84 M/mm3 (4.30-5.90); White Blood Cell Count 5.21 K/mm3 (4.00-11.30)
[2020-06-22 04:25] LABS: Albumin, Blood 2.4 g/dL (3.4-5.0); Anion Gap 4 mmol/L (6-16); Blood Urea Nitrogen 33 mg/dL (8-24); Bun/Creatinine Ratio 5.8 (12.0-20.0); CO2, Blood 35 mmol/L (21-32); Chloride, Blood 99 mmol/L (98-108); Creatinine, Blood 5.71 mg/dL (0.60-1.20); Glomerular Filtration Rate 12 (60-); Glucose, Blood 119 mg/dL (70-99); Magnesium, Blood 2.1 mg/dL (1.6-2.4); Phosphorus, Blood 4.5 mg/dL (2.5-4.9); Potassium, Blood 4.2 mmol/L (3.5-5.5); Sodium, Blood 138 mmol/L (136-145)
--- NOTE | 2020-06-22 05:17 | NUR ---
SHIFT SUMMARY PT RESTING QUIETLY. TURNING AND MOVING SELF IN BED. MED WITH TYLENOL ONCE DURING THE NIGHT FOR HEADACHE WITH GOOD RESULT. PT HAD HS SNACK AND ATE 100%. NO N/V DURING THE NIGHT. NICARDIPINE GTT VIA POWER GLIDE TO RIGHT UPPER ARM CURRENTLY AT 6 MG/HR, 60 ML/HR TO KEEP SBP BELOW 180. NICARDIPINE TITRATED DOWN FROM 75 ML/HR, 7.5 MG/HR. REPORT TO ON COMING NURSE
--- NOTE | 2020-06-22 06:02 | NUR ---
PT HAVING NIGHT TERRORS, CRYING AND YELLING OUT WHILE SLEEPING. CLAMS WITH TOUCH AND TALKING WITH PT TELLING HIM HE IS SAFE AND IN THE HOSPITAL. PT THAN GOES BACK TO SLEEP AND STOPS CRYING.
--- NOTE | 2020-06-22 12:13 | NUR ---
COVID RAPID SWAB: SWABBED R NARES PT DID NOT TOLLERATE VERY WELL. SENT UP TO LAB WITH MARY PETER.
--- NOTE | 2020-06-22 21:30 | NUR ---
ASSUMPTION OF CARE PT RESTING IN BED, AROUSES TO VERBAL STIMULI, ORIENTED x4. O2 SATURATIONS> 90% ON RA, MONITOR SHOWS SINUS RHYTHM WITH HR 70'S, HYPERTENSION NOTED, SCHEDULED MEDICATIONS PROVIDED, WILL RECHECK BP IN ONE HOUR TO ASSESS NEED FOR PRN MEDICATIONS. PT DENIES GI/ ISSUES AT THIS TIME, SWALLOWS PILLS WHOLE WITH WATER, PT ON DIALYSIS, ANURIA AT THIS TIME. PT MOVES SELF INDEPENDENTLY IN BED. CALL LIGHT WITHIN REACH.
--- NOTE | 2020-06-22 22:48 | NUR ---
HYPERTENSION HYPERTENSION CONTINUES, CALL PLACED TO LAUREN GARCÍA ETIQUETTE COACH, ORDERS TO START NICARDIPINE GTT AND CHANGE STATUS TO ICU.
[2020-06-23 04:34] LABS: BASOPHILS ABSOLUTE AUTO 0.01 K/mm3 (0.00-0.23); BASOPHILS PERCENT AUTO 0 % (0-2); EOSINOPHILS ABSOLUTE AUTO 0.15 K/mm3 (0.00-0.68); EOSINOPHILS PERCENT AUTO 3 % (0-6); Hematocrit 28.3 % (37.0-53.0); Hemoglobin 9.1 g/dL (13.5-17.5); IMMATURE GRAN ABSOLUTE AUTO 0.05 K/mm3 (0.00-0.10); IMMATURE GRAN PERCENT AUTO 1 % (0-1); LYMPHOCYTES ABSOLUTE AUTO 1.97 K/mm3 (0.84-5.20); LYMPHOCYTES PERCENT AUTO 34 % (21-46); MONOCYTES ABSOLUTE AUTO 0.69 K/mm3 (0.16-1.47); MONOCYTES PERCENT AUTO 12 % (4-13); Mean Corpuscular HGB 29.7 pg (26.0-34.0); Mean Corpuscular HGB Conc 32.2 g/dL (31.5-36.5); Mean Corpuscular Volume 93 fL (80-100); Mean Platelet Volume 9.9 fL (9.1-12.4); NEUTROPHILS ABSOLUTE AUTO 2.98 K/mm3 (1.96-9.15); NEUTROPHILS PERCENT AUTO 51 % (41-73); Platelet Count 278 K/mm3 (150-400); RDW Coefficient Variation 13.1 % (11.7-14.2); RDW Standard Deviation 43.6 fL (35.1-46.3); Red Blood Cell Count 3.06 M/mm3 (4.30-5.90); White Blood Cell Count 5.85 K/mm3 (4.00-11.30)
[2020-06-23 05:04] LABS: Albumin, Blood 2.5 g/dL (3.4-5.0); Anion Gap 8 mmol/L (6-16); Blood Urea Nitrogen 43 mg/dL (8-24); Bun/Creatinine Ratio 5.7 (12.0-20.0); CO2, Blood 30 mmol/L (21-32); Calcium, Blood 8.4 mg/dL (8.5-10.1); Chloride, Blood 99 mmol/L (98-108); Creatinine, Blood 7.56 mg/dL (0.60-1.20); Glomerular Filtration Rate 9 (60-); Glucose, Blood 129 mg/dL (70-99); Magnesium, Blood 2.2 mg/dL (1.6-2.4); Phosphorus, Blood 4.6 mg/dL (2.5-4.9); Potassium, Blood 4.1 mmol/L (3.5-5.5); Sodium, Blood 137 mmol/L (136-145)
--- NOTE | 2020-06-23 05:38 | NUR ---
SHIFT SUMMARY PT RESTED WELL T/O SHIFT, STATUS CHANGE TO ICU THIS SHIFT R/T NICARDIPINE GTT, CURRENTLY INF @ 12.5mg/hr (SEE FLOWSHEET FOR TITRATIONS), SBP 150'S-170'S WITH NICARDIPINE GTT AND PRN VASOTEC, HR 70'S NSR. PT REMAINS ON ROOM AIR WITH O2 SATURATIONS>90%. CALL LIGHT WITHIN REACH, PT USING APPROPRIATELY.
--- NOTE | 2020-06-23 08:26 | NUR ---
DIALYSIS NURSE IN ROOM SETTING UP.
--- NOTE | 2020-06-23 08:27 | NUR ---
INITIAL ASSESSMENT PATIENT SLEEPING SOUNDLY UPON ENTERING ROOM. PATIENT ALERT AND ORIENTED X 4, AFEBRILE. PATIENT HAS FLAT AFFECT, COOPERATIVE. PATIENT DENIES PAIN AT THIS TIME. PATIENT STATES HE HAS CHRONIC N/T IN ALL EXTREMITIES. PATIENT HAS SLIGHT L SIDED WEAKNESS FROM PAST CVA. PATIENT REPOSITIONING SELF IN BED; USES CANE AT HOME TO GET AROUND. RESP WNL. PATIENT SATTING 90% AND GREATER ON RA. PATIENT IN SR, HR IN THE 70S. SBP 140S TO 160S. NICARDIPINE DRIP INFUSING AT 10 MG/ HOUR. GI WNL. PATIENT ANURIC; DIALYSIS PATIENT. SCABS NOTED TO R FOOT, OTHERWISE SKIN APPEARS C/D/I. PERMACATH TO R CHEST WALL. OLD FISTULA TO L ARM. BLOOD SUGAR 129 THIS AM; NO COVERAGE INDICATED. PATIENT WANTS TO WAIT TO EAT BREAKFAST UNTIL HIS GETS HERE TO HELP HIM. BED LOW, CALL LIGHT IN REACH. WILL CONTINUE TO MONITOR PATIENT FREQUENTLY THROUGHOUT SHIFT.
--- NOTE | 2020-06-23 10:25 | NUR ---
ISTRATE HERE TO SEE PATIENT. INFORMED OF INCREASED BPS DURING NIGHT AND THAT NICARDIPINE DRIP WAS RESTARTED ON DIRECTOR ACUTE AROUND 2300. INFORMED THAT PATIENT GIVEN PRN VASOTEC 3 TIMES ON DIRECTOR ACUTE. INFORMED THAT NICARDIPINE DRIP AT 10 MG/ HOUR AT START OF AM SHIFT AND THAT TITRATED DOWN TO 5 MG/ HOUR. DRIP NOW PLACED ON SB PER REQUEST. NO OTHER ORDERS OBTAINED AT THIS TIME. WILL CONTINUE TO MONITOR.
--- NOTE | 2020-06-23 12:11 | NUR ---
PATIENT HAS TEMP OF 99.1 DEGREES FAHRENHEIT. PATIENT REMAINS SATTING 90% AND GREATER ON RA. PATIENT REMAINS IN SR, HR IN THE 70S. SBP 120S TO 150S. NICARDIPINE DRIP OFF. PATIENT STATES LAST BM WAS ON THE 7TH BUT DOES NOT WANT ANY BOWEL CARE AT THIS TIME. PATIENT STATES "THIS IS NORMAL FOR ME" WHEN ASKED ABOUT BOWEL HABITS. BLOOD SUGAR OF 166; NO COVERAGE INDICATED. PATIENT REFUSING BED BATH AT THIS TIME. NO OTHER ACUTE CHANGES TO NOTE ON AT THIS TIME. WILL CONTINUE TO MONITOR. AT BEDSIDE.
--- NOTE | 2020-06-23 15:25 | NUR ---
INFORMED DR. RIVAS ABOUT PATIENT'S SBP 160S TO 180S DESPITE PATIENT SLEEPING SOUNDLY AND PRN VASOTEC BEING GIVEN. NO VERBAL ORDER RECEIVED AT THIS TIME.
--- NOTE | 2020-06-23 16:45 | NUR ---
PATIENT AFEBRILE. PATIENT REMAINS SATTING GREATER THAN 90% ON RA. HR IN THE 70S. SBP 150S TO 180S. SCHEDULED 1700 COREG AND CATAPRES GIVEN. PRN VASOTEC AND LOPRESSOR GIVEN. BLOOD SUGAR OF 151; NO COVERAGE INDICATED. NO OTHER ACUTE CHANGES TO NOTE ON AT THIS TIME. WILL CONTINUE TO MONITOR.
--- NOTE | 2020-06-23 17:33 | NUR ---
DR. RIVAS STATED EARLIER TO CALL DR. BENEDICT IF PATIENT'S BP CONTINUES TO BE HIGH AFTER PRN METOPROLOL GIVEN. 1700 DOSE OF HTN MEDS GIVEN EARLY WELL AND ALSO DID NOT IMPROVE BP. DR. BENEDICT INFORMED THAT PATIENT HAD 3 L OUT WITH DIALYSIS. INFORMED THAT 1700 BP MEDS GIVEN EARLY AND THAT ALL PRN HTN MEDS HAD BEEN GIVEN. ORDERS RECEIVED TO DC LOPRESSOR AND ORDER PRN HYDRALAZINE AND LABETALOL.
--- NOTE | 2020-06-23 17:34 | NUR ---
copy of advance directive on chart and review of pt blood restrictions confirmed with malcolm.
--- NOTE | 2020-06-23 17:59 | NUR ---
SHIFT SUMMARY PATIENT REMAINED ALERT AND ORIENTED. PATIENT LETHARGIC AND NAPPING ON AND OFF THROUGHOUT THE DAY. PATIENT HAD TMAX OF 99.1 DEGREES FAHRENHEIT. PATIENT GIVEN PRN GABAPENTIN UPON REQUEST THIS SHIFT. PATIENT 1 PERSON ASSIST. PATIENT UP WITH ASSISTANCE TO TOILET AND CHAIR TODAY; PATIENT TOLERATED WELL, ALTHOUGH WEAK. RESP REMAINED WNL. PATIENT REMAINED IN SR, HR 60S TO 70S. SBP 120S TO 180S. NICARDIPINE DRIP ABLE TO BE TITRATED TO OFF AFTER AM BP MEDS GIVEN AND DURING DIALYSIS. HOWEVER, BP THEN STARTED TO STEADILY INCREASE THE REST OF THE DAY. PRN HTN ORDERS CHANGED UP THIS SHIFT TO TRY AND DECREASE BP WITHOUT HAVING TO RESTART DRIP. PATIENT GIVEN PRN IV VASOTEC, METOPROLOL AND HYDRALAZINE. DR. BENEDICT WOULD LIKE TO KEEP SBP UNDER 170. PATIENT GIVEN PRN ZOFRAN FOR NAUSEA OT. PATIENT HAD POOR APPETITE DURING DAY. NO BM THIS SHIFT OR SINCE THE . PATIENT DID NOT WANT NURSE TO ASK DOCTOR ABOUT BOWEL CARE. PATIENT REMAINED ANURIC. NO CHANGE TO SKIN. PATIENT REMAINED REPOSITIONING SELF IN BED. PATIENT HAD DIALYSIS THIS AM AND HAD 3 L TAKEN OFF. PATIENT DID NOT NEED BLOOD SUGAR COVERAGE THIS SHIFT. PATIENT REFUSED BED BATH. PATIENT SLEEPING AT THIS TIME WITH NO COMPLAINTS. AT BEDSIDE. BED LOW, CALL LIGHT IN REACH. REPORT WILL BE GIVEN TO CHARGE NURSEASHELY AT THIS TIME.
--- NOTE | 2020-06-23 21:07 | NUR ---
ASSUMPTION OF CARE PT ALERT AND ORIENTED x4, O2 SATURATIONS> 95% ON RA, MONITOR SHOWS SINUS RHYTHM WITH HR 70'S, HTN, SCHEDULED MEDICATIONS PROVIDED, PRN MEDICATIONS AVAILABLE. SKIN C/D/I, PT REPOSITION SELF IN BED, HEMODIALYSIS PERMACATH TO R SUBCLAVIAN IN PLACED, CHG DRESSING C/D/I, SITE CARE BY HAND STRIPER. PT TOLERATING PO INTAKE. CALL LIGHT WITHIN REACH, PT USING APPROPRIATELY.
[2020-06-24 03:21] LABS: BASOPHILS ABSOLUTE AUTO 0.03 K/mm3 (0.00-0.23); BASOPHILS PERCENT AUTO 1 % (0-2); EOSINOPHILS ABSOLUTE AUTO 0.17 K/mm3 (0.00-0.68); EOSINOPHILS PERCENT AUTO 3 % (0-6); Hematocrit 28.6 % (37.0-53.0); Hemoglobin 9.1 g/dL (13.5-17.5); IMMATURE GRAN ABSOLUTE AUTO 0.03 K/mm3 (0.00-0.10); IMMATURE GRAN PERCENT AUTO 1 % (0-1); LYMPHOCYTES ABSOLUTE AUTO 1.67 K/mm3 (0.84-5.20); LYMPHOCYTES PERCENT AUTO 32 % (21-46); MONOCYTES ABSOLUTE AUTO 0.74 K/mm3 (0.16-1.47); MONOCYTES PERCENT AUTO 14 % (4-13); Mean Corpuscular HGB 29.8 pg (26.0-34.0); Mean Corpuscular HGB Conc 31.8 g/dL (31.5-36.5); Mean Corpuscular Volume 94 fL (80-100); Mean Platelet Volume 9.5 fL (9.1-12.4); NEUTROPHILS ABSOLUTE AUTO 2.65 K/mm3 (1.96-9.15); NEUTROPHILS PERCENT AUTO 50 % (41-73); Platelet Count 251 K/mm3 (150-400); RDW Coefficient Variation 13.2 % (11.7-14.2); RDW Standard Deviation 44.3 fL (35.1-46.3); Red Blood Cell Count 3.05 M/mm3 (4.30-5.90); White Blood Cell Count 5.29 K/mm3 (4.00-11.30)
[2020-06-24 03:35] LABS: Albumin, Blood 2.4 g/dL (3.4-5.0); Anion Gap 5 mmol/L (6-16); Blood Urea Nitrogen 28 mg/dL (8-24); Bun/Creatinine Ratio 4.4 (12.0-20.0); CO2, Blood 33 mmol/L (21-32); Calcium, Blood 8.2 mg/dL (8.5-10.1); Chloride, Blood 102 mmol/L (98-108); Creatinine, Blood 6.31 mg/dL (0.60-1.20); Glomerular Filtration Rate 10 (60-); Glucose, Blood 107 mg/dL (70-99); Magnesium, Blood 2.1 mg/dL (1.6-2.4); Phosphorus, Blood 4.5 mg/dL (2.5-4.9); Potassium, Blood 4.3 mmol/L (3.5-5.5); Sodium, Blood 140 mmol/L (136-145)
--- NOTE | 2020-06-24 06:09 | NUR ---
SHIFT SUMMARY PT SLEPT WELL T/O SHIFT, AROUSES TO VERBAL STIMULI, PT CALM, PLEASANT AND COOPERATIVE T/O SHIFT. O2 SATURATIONS> 95% ON RA, MONITOR SHOWS NSR WITH HR 70'S-80'S, PT REMAINS HYPERTENSIVE DESPITE PRN MEDICATIONS, VASOTEC x2, HYDRALAZINE x2 AND LABETALOL x2 ADMINISTERED THIS SHIFT (SEE MAR), PT DENIES PAIN OR HEADACHE. PT REPOSITIONS SELF IN BED INDEPENDENTLY, CALL LIGHT WITHIN REACH, USES APPROPRIATELY.
--- NOTE | 2020-06-24 09:28 | NUR ---
PT RESTING IN BED. AT BEDSIDE ASSISTED HIM WITH BREAKFAST. DR. RIVAS CAME IN TO SEE PT AND CHANGED HIM TO MEDICAL STATUS. PT VOCALIZES WANTING TO GET OUT OF THE ICU DUE TO DIFFICULTY RESTING IN HERE. HYPERTENSIVE THIS AM. ALL AM MEDS GIVEN AND WILL GIVE PRN'S. NO DIAYLISIS TODAY. PT HAS HX OF CVA WITH L SIDED DEFICITS. PT CAN USE L SIDE. ABLE TO MANUFACTURING PLANT CONTROLLER PILL CUP AND DRINK WATER WITH THAT HAND. DOES HAVE SOME INVOLUNTARY SPASMS AT TIMES. ABLE TO LIFT BOTH FEET OFF BED. USES CANE TO AMBULATE AT BASELINE. NO MENTATION ISSUES. PT MOVES SELF IN BED INDEP. NO SIGN OF DISTRESS.
--- NOTE | 2020-06-24 11:20 | NUR ---
PT TRANSFERED TO MEDICAL FLOOR ROOM 312 VIA BED. REPORT GIVEN TO SUE PETER. PT ABLE TO AMB SELF TO BED. NO SIGN OF DISTRESS. ACCOMPANIES PT.
--- NOTE | 2020-06-24 18:43 | NUR ---
SHIFT SUMMARY PATIENT IS PLEASANT, ALERT AND ORIENTED. INDEPENDENT TO STANDBY IN THE ROOM. CALLS APPROPRIATELY. HERE FOR HYPERTENSIVE EMERGENCY. DENIES ANY CONCERNS. HE IS READY TO GET OUT OF HERE AND HIS HELPS WITH MOST OF HIS CARE.
--- NOTE | 2020-06-25 01:58 | NUR ---
HTN PT HAS BEEN HTN THIS EVENING WITH SBP'S RANGING FROM 180'S-210'S. LAST BP BEING 214/104. PT HAS BEEN ON TELEMETRY RUNNING SINUS RHYTHM IN THE 80'S THROUGHOUT THE NIGHT. BEDTIME SCHEDULED MEDICATIONS GIVEN APRESOLINE 100 MG, CATAPRES 0.4 MG, COZAAR 50 MG, AND PROCARDIA 60 MG. PT'S BLOOD PRESSURE ACTUALLY WENT UP AFTER THIS FROM 181/88 TO 196/96. PRN IV LABETALOL 20 MG GIVEN. WITH SLIGHT IMPROVEMENT BACK DOWN TO 184/86. IV VASOTEC 1.25 MG GIVEN AT THIS TIME WITH NO EFFECT. BLOOD PRESSURE 195/89 AFTER ADMINISTRATION. LAST AVAILABLE PRN HTN MEDICATION 20 MG OF APRESOLINE GIVEN WITH FURTHER INCREASE IN HTN TO 214/104. PT ALSO HAS 2 CATPRES PATCHES ON TOTALING 0.[address] FONTENOT. NEW ORDERS TO TRANSFER TO ICU AND RESTART NICARDIPINE DRIP. COMMERCIAL TRUCK DRIVER AND NURSING PERSONNEL SECURITY ASSISTANT NOTIFIED.
--- NOTE | 2020-06-25 03:47 | NUR ---
PT TO ICU 7 @0245 FROM ROOM 312 D/T UNCONTROLLED HTN. PT ALERT AND ORIENTED, ABLE TO AMBULATE TO ICU USING CANE. LUNG SOUNDS CLEAR, SATS >90% ON ROOM AIR, PT AFEBRILE, HYPERTENSIVE ON ARRIVAL WITH SBT>200. CALL TO DR. FONTENOT REGARDING PT TRANSFER AND HYPERTENSION, ORDER TO RESTART NICARDAPINE GTT. PT'S MARGA PG NOT FLUSHING AND UNABLE TO INFUSE NICARDAPINE OF 0430. THIS RN WORKING TO ESTABLISH ADDITIONAL PATENT IV SITE. PT HAS RIGHT UPPER CHEST PERMACATH. LEFT ARM OLD FISTULA. SEE FULL ASSESSMENT
[2020-06-25 03:54] LABS: BASOPHILS ABSOLUTE AUTO 0.02 K/mm3 (0.00-0.23); BASOPHILS PERCENT AUTO 0 % (0-2); EOSINOPHILS ABSOLUTE AUTO 0.15 K/mm3 (0.00-0.68); EOSINOPHILS PERCENT AUTO 2 % (0-6); Hematocrit 28.6 % (37.0-53.0); Hemoglobin 9.1 g/dL (13.5-17.5); IMMATURE GRAN ABSOLUTE AUTO 0.07 K/mm3 (0.00-0.10); IMMATURE GRAN PERCENT AUTO 1 % (0-1); LYMPHOCYTES ABSOLUTE AUTO 1.83 K/mm3 (0.84-5.20); LYMPHOCYTES PERCENT AUTO 29 % (21-46); MONOCYTES ABSOLUTE AUTO 0.84 K/mm3 (0.16-1.47); MONOCYTES PERCENT AUTO 13 % (4-13); Mean Corpuscular HGB Conc 31.8 g/dL (31.5-36.5); Mean Corpuscular Volume 94 fL (80-100); Mean Platelet Volume 9.3 fL (9.1-12.4); NEUTROPHILS ABSOLUTE AUTO 3.47 K/mm3 (1.96-9.15); NEUTROPHILS PERCENT AUTO 54 % (41-73); Platelet Count 224 K/mm3 (150-400); RDW Coefficient Variation 13.5 % (11.7-14.2); RDW Standard Deviation 44.9 fL (35.1-46.3); Red Blood Cell Count 3.03 M/mm3 (4.30-5.90); White Blood Cell Count 6.38 K/mm3 (4.00-11.30)
[2020-06-25 04:21] LABS: Magnesium, Blood 2.4 mg/dL (1.6-2.4)
[2020-06-25 04:25] LABS: Albumin, Blood 2.6 g/dL (3.4-5.0); Anion Gap 9 mmol/L (6-16); Blood Urea Nitrogen 39 mg/dL (8-24); Bun/Creatinine Ratio 4.7 (12.0-20.0); CO2, Blood 29 mmol/L (21-32); Calcium, Blood 8.5 mg/dL (8.5-10.1); Chloride, Blood 101 mmol/L (98-108); Creatinine, Blood 8.25 mg/dL (0.60-1.20); Glomerular Filtration Rate 8 (60-); Glucose, Blood 123 mg/dL (70-99); Phosphorus, Blood 5.2 mg/dL (2.5-4.9); Potassium, Blood 4.5 mmol/L (3.5-5.5); Sodium, Blood 139 mmol/L (136-145)
--- NOTE | 2020-06-25 04:57 | NUR ---
NICARDAPINE GTT STARTED AT 50 ML/HR (5 MG/HR) IN MARGA PG.
--- NOTE | 2020-06-25 05:33 | NUR ---
NO ACUTE CHANGES SINCE TRANSFER TO ICU. NICARDAPINE GTT REMAINS INFUSING AT 50 ML/HR (5 MG/HR). PT REMAINS ALERT AND ORIENTED. PT TREATED ONE TIME FOR BILATERAL LEG PAIN. WILL REPORT TO DAYSHIFT NURSE
--- NOTE | 2020-06-25 08:03 | NUR ---
ASSUMED CARE OF PT. PT IS ALERT AND ORIENTED. DENIES PAIN AT THIS TIME. PT EXPRESSED OF BEING TIRED IN THE HOSPITAL, EAGER TO GO HOME. PT IS ON NICARDEPINE DRIP @ 5MG/HR. AFEBRILE.
--- NOTE | 2020-06-25 10:32 | NUR ---
0930-nicardipine drip off at this time 1030-Dr. Estevez at bedside updated him of patient's status. Discussed better blood pressure control.
--- NOTE | 2020-06-25 12:49 | NUR ---
CALLED DR. RIVAS REGARDING PATIENT'S GRADUAL INCREASE IN BLOOD PRESSURE. ORDERS RECEIVED.
--- NOTE | 2020-06-25 16:14 | NUR ---
DR. BENEDICT CALLED. UPDATED HIM OF PT'S BLOOD PRESSURE. ORDERS RECEIVED. PT ON DIALYSIS AT THIS TIME.
--- NOTE | 2020-06-25 18:24 | NUR ---
DR. BENEDICT WAS NOTIFIED REGARDING PT'S ELEVATED BLOOD PRESSURE AGAIN. ORDERS RECEIVED.
--- NOTE | 2020-06-25 18:25 | NUR ---
PT HAD DIALYSIS TODAY. 3 LITERS REMOVED. BLOOD PRESSURE STILL ELEVATED. PT HAS BEEN MEDICATED [facility] IV BP PRN MEDICATIONS. STILL OFF NICARDEPINE DRIP.
--- NOTE | 2020-06-25 20:56 | NUR ---
ASSUMED CARE OF PT, REPORT RCV'D FROM ROME LUND. PT ALERT AND ORIENTED, COOPERATIVE WITH CARE. PT ABLE TO INDEPENDENTLY AMBULATE TO TOILET WITH USE OF CANE. PT COMPLAINS OF 8-9/10 HEADACHE AND LEG PAIN. PT TREATED PER EMAR. NICARDAPINE GTT REMAINS ON STANDBY, WILL RESTART NEEDED. PG MARGA UMANZOR. PT REQUESTS TO BE ALLOWED TO SLEEP TONIGHT, WILL ATTEMPT TO CLUSTER CARE TO MINIMIZE INTERRUPTIONS. SEE FULL SHIFT ASSESSMENT.
--- NOTE | 2020-06-25 22:05 | NUR ---
PT CONTINUES TO BE HYPERTENSIVE DESPITE ADMINISTRATION OF VASOTEC, HYDRALAZINE, AND FENTANYL. NICARDAPINE GTT RESTARTED AT 50 ML/HR (5 MG/HR).
--- NOTE | 2020-06-26 06:03 | NUR ---
SHIFT SUMMARY NO ACUTE CHANGES OVERNIGHT. PT REPORTS THIS MORNING THAT HE WAS ABLE TO REST COMFORTABLY OVERNIGHT AFTER BEING TREATED FOR HEADACHE AND LEG PAIN. PT REMAINS ON NICARDAPINE GTT @ 6 MG/HR SBP 160'S. WILL REPORT TO DAYSHIFT NURSE.
--- NOTE | 2020-06-26 08:12 | NUR ---
ASSUMED CARE: REPORT RECEIVED FROM NICHOLAS Lugo RN. ASSUMED CARE OF THIS PT AT APPROX 0700. ON ASSESSMENT, THE PT AWAKENS EASILY & IS ALERT/ ORIENTED TO ALL. HE STS HAVING A MILD GODFREY THAT WAS IMPROVED W/ MEDS PER EMAR. ALSO STS EXPERIENCING MILD NEUROPATHY PAIN TO BILAT FEET, GABAPENTIN GIVEN PRN PER EMAR. ASSESSMENT CHARTED. NICARDIPINE DRIP CONTINUES AT 6 MG/HR. SBP 140-160s CURRENTLY. CALL FROM JOHN CHAVARRIA RN AT APPROX 0710. SHE STS NO DIALYSIS TODAY. CALL TO DR BENEDICT REGARDING PT's STAT POTASSIUM RESULT OF 3.9. HE ACKNOWLEDGES THIS W/ NO FURTHER ORDERS. ALSO NOTIFIED HIM OF PT's REQUEST TO HAVE HOME PHOSPHORUS BINDER BROUGHT IN HE DISLIKES THE LIQUID PHOSPHORUS BINDER THAT OUR PHARMACY HAS ON FORMULARY. HE STS THIS IS FINE & CAN BE ORDERED PER HOME DOSING.
--- NOTE | 2020-06-26 18:05 | NUR ---
SHIFT SUMMARY: NO ACUTE CHANGES SINCE PRIOR UPDATES. LS CLEAR T/O, PT ON RA W/ O2 SATS > 92%. NICARDIPINE ON STANDBY SINCE APPROX 1500. PT TOLERATING WELL W/ SBP 120-150s ON AVG. MONITOR SHOWS SR W/ HR 70s. PT HAS NO GI COMPLAINTS, IS TOLERATING PO INTAKE WELL. PT HAS NOT VOIDED THIS SHIFT, VOIDS APPROX Q3 DAYS R/T HEMODIALYSIS. SKIN CONDITION OVERALL CDI. WILL CONTINUE TO MONITOR & UPDATE NEEDED.
--- NOTE | 2020-06-26 20:43 | NUR ---
ASSUMED CARE OF PT, REPORT RCV'D FROM ROME WILSON. PT ALERT AND ORIENTED, COOPERATIVE WITH CARE. POWERGLIDE TO RIGHT UPPER ARM SL. NICARDAPINE GTT REMAINS ON STANDBY WITH SBP 150'S. PT DENIES NEEDS AT THIS TIME, REQUESTING DOOR/CURTAIN SHUT SO THAT HE MAY SLEEP. BED IN LOW/LOCKED POSITION, CALL LIGHT WITHIN REACH.
--- NOTE | 2020-06-27 01:45 | NUR ---
PT AWAKE COMPLAINING OF HAND/LEG PAIN D/T NEUROPATHY WELL HEADACHE. PT TREATED PER EMAR. VSS.
[2020-06-27 03:37] LABS: Hematocrit 24.4 % (37.0-53.0); Hemoglobin 8.1 g/dL (13.5-17.5)
[2020-06-27 04:09] LABS: Magnesium, Blood 2.3 mg/dL (1.6-2.4)
[2020-06-27 04:13] LABS: Albumin, Blood 2.4 g/dL (3.4-5.0); Anion Gap 7 mmol/L (6-16); Blood Urea Nitrogen 38 mg/dL (8-24); Bun/Creatinine Ratio 4.4 (12.0-20.0); CO2, Blood 31 mmol/L (21-32); Calcium, Blood 8.2 mg/dL (8.5-10.1); Chloride, Blood 99 mmol/L (98-108); Creatinine, Blood 8.61 mg/dL (0.60-1.20); Glomerular Filtration Rate 7 (60-); Glucose, Blood 116 mg/dL (70-99); Phosphorus, Blood 5.3 mg/dL (2.5-4.9); Potassium, Blood 4.4 mmol/L (3.5-5.5); Sodium, Blood 137 mmol/L (136-145)
--- NOTE | 2020-06-27 05:48 | NUR ---
SHIFT SUMMARY NO ACUTE CHANGES OVERNIGHT. PT SLEPT WELL. MEDICATED ONCE FOR C/O PAIN IN ARMS/LEGS/HEADACHE. PT DID NOT REQUIRE ANY PRN ANTIHYPERTENSIVES. SBP 140'S THIS AM. VSS T/O SHIFT. WILL REPORT TO DAYSHIFT NURSE.
--- NOTE | 2020-06-27 08:36 | NUR ---
ASSUMED CARE: REPORT RECEIVED FROM NICHOLAS Lugo RN. ASSUMED CARE OF THIS PT AT APPROX 0700. ON ASSESSMENT, THE PT IS AWAKE, A&O. HE IS PLEASANT & COOPERATIVE W/ CARE. HTN REMAINS IMPROVED - SEE VS. PT HAS MILD C/O NERVE PAIN TO BLE THIS AM, PRN GABAPENTIN PER EMAR. ASSESSMENT CHARTED. ESTRADA Gibson PALLET STONE POSITIONER, AT BEDSIDE THIS AM FOR HD. WILL CONTINUE TO MONITOR & UPDATE NEEDED.
--- NOTE | 2020-06-27 11:07 | NUR ---
DR RIVAS: PROVIDER IN UNIT TO SEE PT. THIS RN REQUESTS CLARIFICATION REGARDING NEW SCHEDULED MED NICARDIPINE, AM DOSE OF PROCARDIA HAD ALREADY BEEN GIVEN PRIOR TO MED DISCONTINUATION. HE STS TO SKIP 0900 DOSE OF NICARDIPINE, THIS HAS BEEN NOTED IN EMAR WELL. STS OKAY FOR TRANSFER TO PCU STATUS. IF NEW MEDICATION REGIMEN FAILS TO MANAGE PT's BP FOR THE NEXT 1-2 DAYS, THEN HE WILL NEED TO BE COBRA TRANSFERRED TO A LARGER FACILITY W/ MORE RESOURCES.
--- NOTE | 2020-06-27 11:44 | NUR ---
UPDATE: ESTRADA Gibson, THERAPY TEACHER HAS BEEN AT BEDSIDE THIS AM & NOW HD IS COMPLETE. HE STS 3L REMOVED DURING HD. NOTIFIED HIM THAT THE PT WILL BE HAVING CT ABD/ PELVIS W/ CONTRAST LATER THIS AFTERNOON & THAT DIALYSIS WILL BE NEEDED AGAIN TOMORROW R/T TO THIS. HE VERBALIZES UNDERSTANDING OF THIS & STS DIALYSIS TEAM WILL PLAN TX SCHEDULE ACCORDINGLY.
--- NOTE | 2020-06-27 18:27 | NUR ---
SHIFT SUMMARY: NO ACUTE CHANGES SINCE PRIOR UPDATES. PT REMAINS A&O, PLEASANT & COOPERATIVE. LS CLEAR T/O, PT ON RA W/ O2 SATS > 92%> MONITOR SHOWS SR W/ HR 70s, HTN PERSISTANT, BUT OVERALL IMPROVED - SEE VS. ISTRATE CONTACTED REGARDING RESULTS OF CTA ABD/ PELVIS SHOWING LARGE COLONIC STL BLOCKAGE. BOWEL CARE ORDERED PER PROVIDER. PT TOLERATING PO INTAKE WELL. NO URINARY VOID THIS SHIFT R/T HD. SKIN CONDITION OVERALL CDI & PT REPOSITIONS SELF IN BED W/O DIFFICULTY. PT's IS AT BEDSIDE THIS AFTERNOON & HAS BEEN UPDATED. WILL CONTINUE TO MONITOR & REPORT OFF TO ONCOMING RN.
--- NOTE | 2020-06-27 20:00 | NUR ---
ASSUMED CARE OF PT AT 1915. REPORT RECEIVED AT BEDSIDE. PT PRESENTS IN BED. ALERT AND ORIENTED. PLEASANT AND COOPERATIVE WITH CARE AND ASSESSMENT. DENIES COMPLAINTS AT THIS TIME. INDEPENDENT IN ROOM. MOVES SELF ABOUT IN BED. PT HAS SOMEWHAT WITHDRAWN AFFECT. WILL REVIEW CHART AND PLAN OF CARE FOR THIS PT.
--- NOTE | 2020-06-28 03:30 | NUR ---
HAVE MEDICATED PT WITH VASOTEC FOR BLOOD PRESSURES ELEVATING. PENDING RESULTS. PT ABLE TO REST THIS NIGHT. INDEPENDENT IN ROOM.
[2020-06-28 04:31] LABS: Hematocrit 27.7 % (37.0-53.0); Hemoglobin 8.7 g/dL (13.5-17.5)
[2020-06-28 04:52] LABS: Albumin, Blood 2.4 g/dL (3.4-5.0); Anion Gap 7 mmol/L (6-16); Blood Urea Nitrogen 26 mg/dL (8-24); Bun/Creatinine Ratio 3.8 (12.0-20.0); CO2, Blood 32 mmol/L (21-32); Calcium, Blood 8.3 mg/dL (8.5-10.1); Chloride, Blood 98 mmol/L (98-108); Creatinine, Blood 6.79 mg/dL (0.60-1.20); Glomerular Filtration Rate 10 (60-); Glucose, Blood 78 mg/dL (70-99); Magnesium, Blood 2.3 mg/dL (1.6-2.4); Potassium, Blood 4.2 mmol/L (3.5-5.5); Sodium, Blood 137 mmol/L (136-145)
--- NOTE | 2020-06-28 06:25 | NUR ---
DR BENEDICT COMES IN TO SEE PT. DISCUSSED BLOOD PRESSURES AND THAT PHARMACY HAS MANUFACTURE'S BACKORDER OF HYDRALAZINE IV WITH NONE AVAILABLE IN FORMULARY. DR BENEDICT STATES THAT HE WILL RUN DIALYSIS AGAIN TODAY. NO ORDERS RECEIVED AT THIS TIME. PT'S BLOOD PRESSURES HAVE NOT RESPONDED TO IV PRN ANTIHYPERTENSIVES THAT ARE AVAILABLE.
--- NOTE | 2020-06-28 10:53 | NUR ---
Assumed care of pt at 0700. Bedside report received from Raheel PETER. Pt A&O x 4. Answers questions. Follows commands. Verbalizes needs. Independent in room. Pt on room air. SR per monitor. Plans for pt to have dialysis this afternoon. Dr Boyer in to see pt. BP discussed. Provider states plan to reassess after pt has dialysis.
--- NOTE | 2020-06-28 18:20 | NUR ---
MEDICATION ORDERS- REVIEWED MEDICATIONS WITH DR. BENEDICT-SEE NEW ORDERS
--- NOTE | 2020-06-28 19:51 | NUR ---
SUMMARY Pt remains A&O x 4. Independent in room. Answers questions. Follows commands. Verbalizes needs. Lungs clear. SpO2 90% or greater RA. SR per monitor. Hypertensive. BP reponds to PO medication administration. Late this afternoon, Dr Mcdaniels changed PO medication regimen. At this time, pt's SBP 150s-160s. No urine void this shift; pt had hemodialysis today. Pt PCU status. Bedside report given to oncoming RNApple.
--- NOTE | 2020-06-28 23:50 | NUR ---
UPDATE: PT'S BP CONTINUES TO RISE. PRN LABETALOL GIVEN PER EMAR, MINIMAL EFFECT. ENALAPRIL 5MG PRN GIVEN. WILL CONTINUE TO MONITOR PT.
--- NOTE | 2020-06-29 00:16 | NUR ---
CALLED REGARDING ELEVATING BP. ORDERS FOR ONE-TIME DOSE OF 300MG OF LABETALOL GIVEN.
[2020-06-29 03:47] LABS: Hematocrit 26.3 % (37.0-53.0); Hemoglobin 8.5 g/dL (13.5-17.5)
[2020-06-29 04:06] LABS: Albumin, Blood 2.4 g/dL (3.4-5.0); Anion Gap 6 mmol/L (6-16); Blood Urea Nitrogen 24 mg/dL (8-24); Bun/Creatinine Ratio 3.8 (12.0-20.0); CO2, Blood 33 mmol/L (21-32); Calcium, Blood 8.1 mg/dL (8.5-10.1); Chloride, Blood 98 mmol/L (98-108); Creatinine, Blood 6.36 mg/dL (0.60-1.20); Glomerular Filtration Rate 10 (60-); Glucose, Blood 126 mg/dL (70-99); Magnesium, Blood 2.2 mg/dL (1.6-2.4); Phosphorus, Blood 4.4 mg/dL (2.5-4.9); Sodium, Blood 137 mmol/L (136-145)
--- NOTE | 2020-06-29 05:51 | NUR ---
SHIFT SUMMARY: SEE PREVIOUS NOTES. PT BP CONTINUES TO ELEVATE T/O SHIFT, DESPITE ALL PRN BP MEDS GIVEN,. DR. BENEDICT AWARE. PT WAS GIVEN OT DOSE OF 300MG OF LABETALOL PO THIS SHIFT. PT STS " IF I GO HOME. I WILL NEVER CHECK MY BP THIS MUCH, SO WHAT THEN" PT IS WORRIED HE WILL NOT BE ABLE TO MANAGE HIS BP AT HOME. PT ALSO STS HE WANTS TO GO TO [facility]. PT REMAINS ALERT AND ORIENTED. PT REAMINS ON RA. WILL CONTINUE TO MONITOR PT UNTIL REPORT IS GIVEN TO ONCOMING SHIFT.
--- NOTE | 2020-06-29 09:15 | NUR ---
ASSESSEMENT- PT AWAKE, ALERT, COOPERATIVE. STATES DID NOT REST AT ALL, WANTS TO GO HOME TODAY. DISCUSSED PLAN OF CARE, BP ELEVATED. DR. ELLSWORTH HERE AT BEDSIDE, PT EMOTIONAL REGARDING DESIRE TO GO HOME. AM MEDS GIVEN, WILL CONTINUE TO MONITOR VS. LUNGS CLEAR, NO SOB, DENIES PAIN. AFEBRILE, SKIN W/D. EATING. BLOOD SUGAR 121, LONG ACTING INSULIN GIVEN. DIALYSIS CATH D/I RIGHT CHEST. RIGHT UPPER ARM POWER GLIDE DI. NO N/V. MOVING SELF IN BED
--- NOTE | 2020-06-29 10:41 | NUR ---
PT SLEEPING WITHOUT COMPLAINTS, FAN ON IN ROOM, DOOR CLOSED FOR COMFORT. BP IMPROVED
--- NOTE | 2020-06-29 12:30 | NUR ---
PT HAS BEEN ABLE TO SLEEP. BP IMPROVED NOW TRENDING UP AGAIN. SCHEDULED PO MEDS GIVEN, SITTING UP FOR LUNCH. DENIES COMPLAINTS, NO HEADACHE, SKIN W/D.
--- NOTE | 2020-06-29 13:04 | NUR ---
PT UP TO SINK IN ROOM WITH WITHOUT PROBLEMS. / JODEE CALLED-UPDATED. SCHEDULED MED MINOXIDIL GIVEN. WILL MEDICATE WTIH PRN MED IF BP REMAINS ELEVATED
--- NOTE | 2020-06-29 14:53 | NUR ---
PT'S BP IMPROVED, ABLE TO TAKE ANOTHER NAP, STATES WAS VERY TIRED AFTER UP IN THE ROOM. STATES WOULD STILL LIKE TO GO HOME. UPDATE TO DR. ELLSWORTH. PLANS FOR DISCHARGE.
[2020-06-29] MEDS ORDERED: NICARDIPINE HCL PO (16:06)
[2020-06-29] MEDS ORDERED: LABE100 PO (16:07)
[2020-06-29] MEDS ORDERED: Isosorbide Mono30 MG PO (16:08)
[2020-06-29] MEDS ORDERED: MINO10 PO (16:10)
[2020-06-29] MEDS ORDERED: MIRALAX17 GM PO (16:11)
[2020-06-29] MEDS ORDERED: SENN187 PO (16:12)
[2020-06-29] MEDS ORDERED: OMEP20ER PO (16:18)
[2020-06-29] MEDS ORDERED: Catapres-Tts 11 EACH TOP (16:19)
--- NOTE | 2020-06-29 17:26 | NUR ---
REVIEWED DISCHARGE INSTRUCTIONS WITH PT AND PT'S . DISCUSSED MEDICATION CHANGES-STATES UNDERSTANDING. MEDICATIONS FAXED TO [facility]. BP ELEVATED AFTER NAP, MEDS GIVEN AND BP IMPROVED. AYLA MERCADO D/C. UP IN ROOM WITHOUT PROBLEMS. PLANS FOR F/U APPOINTMENT THURSDAY WITH DR. BENEDICT AT DIALYSIS. LIST GIVEN OF MEDICATIONS AND REVIEWED LAST TIMES GIVEN WITH WHO MANAGES MEDICATIONS.
== END 2020-06-29 17:35 | disposition home or self-care (01) | DRG 304 ==
LOC: ER 20:29 → ICUW 20:30 → ER 22:28 → ICUW 22:28 → MEDS 06-24 11:18 → ICUE 06-25 02:20
PROVIDERS: Emergency Medicine; Family Medicine; Internal Medicine Nephrology; ADMIT Internal Medicine
DX: I16.0 Hypertensive urgency (principal); N18.6 End stage renal disease; Z94.0 Kidney transplant status; N25.81 Secondary hyperparathyroidism of renal origin; Z79.82 Long term (current) use of aspirin; Z79.4 Long term (current) use of insulin; E11.40 Type 2 diabetes mellitus with diabetic neuropathy, unspecified; I69.398 Other sequelae of cerebral infarction; G40.909 Epilepsy, unspecified, not intractable, without status epilepticus; Z99.2 Dependence on renal dialysis; K21.9 Gastro-esophageal reflux disease without esophagitis; E88.09 Other disorders of plasma-protein metabolism, not elsewhere classified; E11.22 Type 2 diabetes mellitus with diabetic chronic kidney disease; D63.1 Anemia in chronic kidney disease; N05.8 Unspecified nephritic syndrome with other morphologic changes
CPT/HCPCS: 36415; 70450; 71045; 74174; 80053; 80069; 80197; 82947; 83735; 84100; 84132; 84484; 85014; 85018; 85025; 93005; 93010; 96365; 96366; 96372; 96375; 96376; 99285-25; A9270; A9270-GY; C1751; G0378; J0360; J0881; J1170; J1644; J2405; J3010; J7050; J7507; J7512; Q9967; U0002

== ENCOUNTER 2020-07-05 16:20 | Inpatient (IN) | payer BC ==
[~2020-07-05] VITALS: Ht 188 cm; Wt 104.7 kg
[~2020-07-05 16:20] MED LIST changes: +AMLODIPINE BESYL5 MG PO; +Catapres-Tts 11 EACH TOP; +EFFEXOR XR37.5 MG PO; +LABE100 PO; +MINO10 PO; +MIRALAX17 GM PO; +NICARDIPINE HCL PO; +QUETIAPINE FUMA25 MG PO; +ROSUVASTATIN CA40 MG PO; +SENN187 PO
[2020-07-05 17:03] LABS: BASOPHILS ABSOLUTE AUTO 0.02 K/mm3 (0.00-0.23); BASOPHILS PERCENT AUTO 0 % (0-2); EOSINOPHILS ABSOLUTE AUTO 0.16 K/mm3 (0.00-0.68); EOSINOPHILS PERCENT AUTO 3 % (0-6); Hematocrit 28.7 % (37.0-53.0); Hemoglobin 9.1 g/dL (13.5-17.5); IMMATURE GRAN ABSOLUTE AUTO 0.11 K/mm3 (0.00-0.10); IMMATURE GRAN PERCENT AUTO 2 % (0-1); LYMPHOCYTES PERCENT AUTO 20 % (21-46); MONOCYTES ABSOLUTE AUTO 0.89 K/mm3 (0.16-1.47); MONOCYTES PERCENT AUTO 16 % (4-13); Mean Corpuscular HGB 29.8 pg (26.0-34.0); Mean Corpuscular HGB Conc 31.7 g/dL (31.5-36.5); Mean Corpuscular Volume 94 fL (80-100); Mean Platelet Volume 9.5 fL (9.1-12.4); NEUTROPHILS ABSOLUTE AUTO 3.35 K/mm3 (1.96-9.15); NEUTROPHILS PERCENT AUTO 60 % (41-73); Platelet Count 203 K/mm3 (150-400); RDW Coefficient Variation 14.3 % (11.7-14.2); RDW Standard Deviation 48.3 fL (35.1-46.3); Red Blood Cell Count 3.05 M/mm3 (4.30-5.90); White Blood Cell Count 5.63 K/mm3 (4.00-11.30)
[2020-07-05 17:20] LABS: Albumin, Blood 2.8 g/dL (3.4-5.0); Albumin/Globulin Ratio 0.7 (0.8-1.8); Bilirubin, Total 0.5 mg/dL (0.1-1.0); Bun/Creatinine Ratio 3.1 (12.0-20.0); Calcium, Blood 8.8 mg/dL (8.5-10.1); Creatinine, Blood 6.13 mg/dL (0.60-1.20); Globulin, Blood 3.9 g/dL (2.2-4.0); Potassium, Blood 4.3 mmol/L (3.5-5.5); Total Protein, Blood 6.7 g/dL (6.4-8.2); Troponin I 0.04 ng/mL (0.000-0.040)
[2020-07-05] MEDS ORDERED: HYDR100 PO (17:34)
[2020-07-05] MEDS ORDERED: ISOSORBIDE MONO60 MG PO (18:25)
[2020-07-05] MEDS ORDERED: FURO80 PO (18:26)
[2020-07-05] MEDS ORDERED: QUETIAPINE FUMA25 MG PO (18:27)
[2020-07-05] MEDS ORDERED: OMEP20ER PO (18:28)
[2020-07-05] MEDS ORDERED: LOSA50 PO (18:29)
--- NOTE | 2020-07-05 20:57 | NUR ---
PT UP TO ICU 14 VIA ED. PT C/O OF HEADACHE. SBP IN THE 200S. HR IN THE 80S. DIALYSIS NURSE AT BEDSIDE PT IS CURRENTLY RECEIVING DIALYSIS
[2020-07-06 05:14] LABS: BASOPHILS ABSOLUTE AUTO 0.02 K/mm3 (0.00-0.23); BASOPHILS PERCENT AUTO 0 % (0-2); EOSINOPHILS ABSOLUTE AUTO 0.12 K/mm3 (0.00-0.68); EOSINOPHILS PERCENT AUTO 2 % (0-6); Hematocrit 28.5 % (37.0-53.0); Hemoglobin 9.1 g/dL (13.5-17.5); IMMATURE GRAN ABSOLUTE AUTO 0.05 K/mm3 (0.00-0.10); IMMATURE GRAN PERCENT AUTO 1 % (0-1); LYMPHOCYTES ABSOLUTE AUTO 1.15 K/mm3 (0.84-5.20); LYMPHOCYTES PERCENT AUTO 16 % (21-46); MONOCYTES ABSOLUTE AUTO 0.93 K/mm3 (0.16-1.47); MONOCYTES PERCENT AUTO 13 % (4-13); Mean Corpuscular HGB 30.5 pg (26.0-34.0); Mean Corpuscular HGB Conc 31.9 g/dL (31.5-36.5); Mean Corpuscular Volume 96 fL (80-100); Mean Platelet Volume 9.1 fL (9.1-12.4); NEUTROPHILS ABSOLUTE AUTO 4.79 K/mm3 (1.96-9.15); NEUTROPHILS PERCENT AUTO 68 % (41-73); Platelet Count 194 K/mm3 (150-400); RDW Coefficient Variation 14.6 % (11.7-14.2); RDW Standard Deviation 49.5 fL (35.1-46.3); Red Blood Cell Count 2.98 M/mm3 (4.30-5.90); White Blood Cell Count 7.06 K/mm3 (4.00-11.30)
[2020-07-06 05:35] LABS: Albumin, Blood 2.6 g/dL (3.4-5.0); Anion Gap 5 mmol/L (6-16); Blood Urea Nitrogen 14 mg/dL (8-24); Bun/Creatinine Ratio 2.8 (12.0-20.0); CO2, Blood 33 mmol/L (21-32); Calcium, Blood 8.5 mg/dL (8.5-10.1); Chloride, Blood 99 mmol/L (98-108); Creatinine, Blood 5.07 mg/dL (0.60-1.20); Glomerular Filtration Rate 14 (60-); Glucose, Blood 104 mg/dL (70-99); Phosphorus, Blood 3.5 mg/dL (2.5-4.9); Potassium, Blood 4.1 mmol/L (3.5-5.5); Sodium, Blood 137 mmol/L (136-145); Troponin I 0.033 ng/mL (0.000-0.040)
--- NOTE | 2020-07-06 05:55 | NUR ---
SHIFT SUMMARY: PT SLEPT MAJORITY OF SHIFT. RESPONDING WELL TO NICARDIPINE GTT. SBP CURRENTLY IN 160S. NICARDIPINE IS RUNNING AT 125MLS/HR. LUNG SOUNDS CLEAR. ON RA. PT HAS 18G IN MARGA. NEEDS A PICC LINE PLACED. FISTULA IN L ARM-UNABLE TO PALPATE AND IT DOES NOT WORK THEREFORE PT HAS A PERMACATH TO R UPPER CHEST. PT RECEIVED DIALYSIS LAST NIGHT. 1.5L REMOVED. WILL PASS REPORT TO ONCOMING SHIFT
--- NOTE | 2020-07-06 09:00 | NUR ---
ASSUMED CARE: REPORT RECEIVED FROM LORIN Beck RN. ASSUMED CARE OF THIS PT AT APPROX 0700. ON ASSESSMENT, THE PT IS RESTING QUIETLY. HE AWAKENS EASILY & IS ALERT/ORIENTED AT THAT TIME. ASSESSMENT CHARTED. VSS. HYPERTENSION PERSISTANT W/ NICARDIPINE DRIP INFUSING PER EMAR. PT HAS NO C/O PAIN OR DISCOMFORT, STS FEELING VERY TIRED. IS AT BEDSIDE & ASSISTS W/ CARE PRN. WILL CONTINUE TO MONITOR & UPDATE NEEDED.
--- NOTE | 2020-07-06 11:36 | NUR ---
HEMODIALYSIS: ELECTROFORMER TITA AT BEDSIDE AT APPROX 1030. HD HAS BEEN STARTED & TITA REMAINS AT BEDSIDE.
--- NOTE | 2020-07-06 12:10 | NUR ---
DR LANDA: PROVIDER AT BESIDE TO ARNOLDOAL PT AT APPROX 1210. SHE WOULD LIKE THE PT TO RECEIVE ORDERED DOSE OF PO NICARDIPINE & THEN FOR NICARDIPINE DRIP TO BE TURNED OFF 1 HR AFTER PO DOSE RECEIVED. DISCUSSED PT's CONTINUED C/O "HEARTBURN" & PAINFUL SWALLOWING. PT's STS THAT HE OFTEN GETS A SORE THROAT R/T HIS ALLERGIES & HAS BEEN HAVING INCREASED C/O HEARTBURN AT HOME WELL. ORDERS PLACED FOR HOME DOSE OF CLARITIN & FOR GI COCKTAIL.
--- NOTE | 2020-07-06 15:43 | NUR ---
DR LANDA: CALL TO PROVIDER REGARDING PT's INCREASED HTN W/ SBP 210. THE PT DOES NOT HAVE ANY PRN MEDICATIONS ORDERED. SHE WOULD LIKE THE DRIP TO REMAIN OFF, ORDERS HAVE BEEN PLACED FOR SCHEDULED PO HYDRALAZINE.
--- NOTE | 2020-07-06 19:02 | NUR ---
SHIFT SUMMARY: NO ACUTE CHANGES SINCE PRIOR UPDATES. PT REMAINS A&O, COOPERATIVE W/ CARE & OVERALL FLAT IN AFFECT. 2L NC IN PLACE FOR DESATS TO 88% WHILE SLEEPING. HTN IMPROVING NOW SINCE MED ADJUSTMENTS PER EMAR & PRIOR NOTE. PT HAS NO GI/ COMPLAINTS & IS TOLERATING PO INTAKE WELL. HE REPOSITIONS SELF IN BED & SKIN OVERALL CDI. WILL CONTINUE TO MONITOR & REPORT OFF TO ONCOMING RN.
--- NOTE | 2020-07-06 23:00 | NUR ---
PT HYPERTENSIVE WITH SBP CLIMBING INTO THE 180S. CALLED LEILA BENEDICT, ORDERS RECEIVED FOR VASOTEC 5MG IV X 1 AND LABETOLOL 20MG IV X 1.
--- NOTE | 2020-07-07 02:32 | NUR ---
PT SBP BACK UP. DOSE OF VASOTEC AND LABETOLOL DROPPED SBP TO 170S BRIEFLY. SBP CURRENTLY IN THE 200S. CALL PLACED TO DR BENEDICT. ORDERS RECEIVED FOR VASOTEC 5MG IV AND LABETOLOL 20MG IV X 1 EACH.
[2020-07-07 03:19] LABS: Hematocrit 27.7 % (37.0-53.0); Hemoglobin 8.8 g/dL (13.5-17.5)
[2020-07-07 03:34] LABS: Albumin, Blood 2.6 g/dL (3.4-5.0); Anion Gap 5 mmol/L (6-16); Blood Urea Nitrogen 14 mg/dL (8-24); Bun/Creatinine Ratio 2.8 (12.0-20.0); CO2, Blood 33 mmol/L (21-32); Calcium, Blood 8.2 mg/dL (8.5-10.1); Chloride, Blood 95 mmol/L (98-108); Creatinine, Blood 5.07 mg/dL (0.60-1.20); Glomerular Filtration Rate 14 (60-); Glucose, Blood 127 mg/dL (70-99); Phosphorus, Blood 4.2 mg/dL (2.5-4.9); Potassium, Blood 4.3 mmol/L (3.5-5.5); Sodium, Blood 133 mmol/L (136-145)
--- NOTE | 2020-07-07 04:46 | NUR ---
2ND DOSE OF VASOTEC AND LABETOLOL NOT EFFECTIVE, SBP ABOVE 200S NOW. DR BENEDICT CALLED. ORDERS RECEIVED TO RESTART NICARDIPINE GTT
--- NOTE | 2020-07-07 06:06 | NUR ---
SHIFT SUMMARY: PT SLEPT T/O NIGHT. NO COMPLAINTS OVER NIGHT. NICARDIPINE RESTARTED AFTER VASOTEC AND LABETOLOL X 2 DOSES FAILED. CURRENT SBP 141. WILL PASS REPORT TO ONCOMING SHIFT
--- NOTE | 2020-07-07 08:07 | NUR ---
ASSUMED CARE OF PT. PT IS ALERT AND ORIENTED. ON NICARDIPINE DRIP @ 12.5MG/HR. DENIES ANY HEADACHE OR ANY PAIN AT THIS TIME.
--- NOTE | 2020-07-07 17:10 | NUR ---
NOTIFIED DR. LANDA REGARDING RESTARTING OF THE NICARDIPINE DRIP SINCE PT'S BLOOD PRESSURES IN THE 200s DESPITE PRN MEDICATIONS. ORDERS RECEIVED.
--- NOTE | 2020-07-07 18:00 | NUR ---
BLOOD PRESSURE BETTER BELOW 170 AFTER RESTARTING NICARDIPINE DRIP @ 5MG/HR. AFEBRILE. DENIES ANY PAIN.
--- NOTE | 2020-07-07 20:00 | NUR ---
ASSUMED CARE: NO ACUTE CHANGES SINCE LAST SHIFT. PT REMAINS ON NICARDIPINE GTT AT 5MG/HR. HR STABLE. SBP IN THE 130S. AT BEDSIDE. WILL CONTINUE TO MONITOR
[2020-07-08 03:36] LABS: Hematocrit 27.3 % (37.0-53.0); Hemoglobin 8.6 g/dL (13.5-17.5)
[2020-07-08 03:55] LABS: Albumin, Blood 2.5 g/dL (3.4-5.0); Anion Gap 5 mmol/L (6-16); Blood Urea Nitrogen 25 mg/dL (8-24); Bun/Creatinine Ratio 3.6 (12.0-20.0); CO2, Blood 33 mmol/L (21-32); Calcium, Blood 8.3 mg/dL (8.5-10.1); Chloride, Blood 95 mmol/L (98-108); Creatinine, Blood 6.88 mg/dL (0.60-1.20); Glomerular Filtration Rate 9 (60-); Glucose, Blood 153 mg/dL (70-99); Magnesium, Blood 2.3 mg/dL (1.6-2.4); Phosphorus, Blood 3.7 mg/dL (2.5-4.9); Potassium, Blood 4.4 mmol/L (3.5-5.5); Sodium, Blood 133 mmol/L (136-145)
--- NOTE | 2020-07-08 06:47 | NUR ---
NO ACUTE CHANGES SINCE ASSUMED CARE NOTE. PT TOLERATING NICARDIPINE GTT WELL.
--- NOTE | 2020-07-08 07:45 | NUR ---
PT SLEEPY BUT AROUSABLE, NO SOB NO DISTRESS NOTED. NICARDIPINE INFUSING. B/P STABLE AT THIS TIME.
--- NOTE | 2020-07-08 10:57 | NUR ---
PT B/P DECREASED TO 90 SYSTOLIC AT TIMES WHILE ON DIALYSIS. NICARDIPINE GTT ON STANDBY.
--- NOTE | 2020-07-08 14:00 | NUR ---
PT SITTING UP WATCHING TV, DENIES PAIN OR DISCOMFORT, B/P STABLE AT THIS TIME. PT'S AT BEDSIDE.
--- NOTE | 2020-07-08 21:02 | NUR ---
ASSUMED CARE OF PT, REPORT RCV'D FROM ROME LUCAS. PT ALERT/ORIENTED, INDEPENDENT, FLAT AFFECT, AND COOPERATIVE WITH CARE. PT REPORTS ANXIETY AND TROUBLE SLEEPING, GIVEN LORAZEPAM PER EMAR. NICARDAPINE GTT REMAINS ON STANDBY, SBP GOAL <180. PATIENT IN ROOM ADJACENT TO THIS PT'S ROOM IS VERY LOUD, OFFERED THIS PT EARPLUGS. PT DECLINED STATING THAT HE HAS MUSIC TO LISTEN TO ON HIS PHONE AND A FAN. ENCOURAGED PT TO LET NURSING STAFF KNOW IF HE IS UNABLE TO SLEEP D/T THE NOISE AND WE CAN ADDRESS IT. SEE FULL SHIFT ASSESSMENT.
[2020-07-09 03:35] LABS: Hematocrit 28.8 % (37.0-53.0); Hemoglobin 9.1 g/dL (13.5-17.5)
[2020-07-09 03:55] LABS: Albumin, Blood 2.6 g/dL (3.4-5.0); Anion Gap 4 mmol/L (6-16); Blood Urea Nitrogen 18 mg/dL (8-24); Bun/Creatinine Ratio 3.1 (12.0-20.0); CO2, Blood 33 mmol/L (21-32); Calcium, Blood 8.2 mg/dL (8.5-10.1); Chloride, Blood 99 mmol/L (98-108); Creatinine, Blood 5.75 mg/dL (0.60-1.20); Glomerular Filtration Rate 12 (60-); Glucose, Blood 155 mg/dL (70-99); Magnesium, Blood 2.2 mg/dL (1.6-2.4); Phosphorus, Blood 2.7 mg/dL (2.5-4.9); Sodium, Blood 136 mmol/L (136-145)
--- NOTE | 2020-07-09 05:39 | NUR ---
SHIFT SUMMARY NO ACUTE CHANGES OVERNIGHT. PT'S SBP MAINTAINED LESS THAN 180 WITHOUT THE NEED FOR NICARDAPINE GTT OR PRN ANTIHYPERTENSIVES. PT WAS RESTLESS OVERNIGHT AND NOT ABLE TO GET MUCH SLEEP. TREATED FOR ANXIETY PER EMAR WITH VERY LITTLE RELIEF. PT CURRENTLY UP IN CHAIR DRINKING COFFEE. PT DENIES PAIN T/O SHIFT AND AT THIS TIME. WILL REPORT TO DAYSHIFT NURSE.
--- NOTE | 2020-07-09 07:15 | NUR ---
Assumed care of pt at 0700. Bedside report received from Pablo PETER. Pt A&O x 2. States frustration that his did not come visit today and he didn't get any meals today. This RN explained to pt that it is 7 am and breakfast will be here shortly. Pt states he often gets time confused. Pt on room air. SR per monitor. BP low 100s. Pt sitting up in chair. Curious when he can go home, stating Dr Mcdaniels said he does not need to be hospitalized anymore. Explained that hospitalist will ultimately be discharging the pt. Pt verbalizes understanding.
--- NOTE | 2020-07-09 09:15 | NUR ---
Dr Sanders in to see pt. States patient may discharge home today. Discussed SBP, which is ranging from 100-110. Discussed that nicardipine and labetalol are the only medication with hold parameters. Provider states to hold lasix, in addition to nicadipine and labetalol. Plan to stagger PO medications this morning, goal to have pt take remaining PO medications. Pt will not be discharging home until lunch time or later.
[2020-07-09] MEDS ORDERED: Loratadine10 MG PO (11:42)
[2020-07-09] MEDS ORDERED: GI cocktail PO (11:44)
[2020-07-09] MEDS ORDERED: HYDRA50 PO (12:44)
--- NOTE | 2020-07-09 14:07 | NUR ---
Pt discharged from unit at 1355 accompanied by spouse. Discharge education given to spouse. New medications faxed to [facility]. This RN discussed pt's labile BP with Dr Sanders. Provider states that pt may discharge home. Pt escorted to personal vehicle driven by spouse, but this RN.
== END 2020-07-09 13:55 | disposition home or self-care (01) | DRG 304 ==
LOC: ER 16:20 → ICUW 16:21
PROVIDERS: Emergency Medicine; Internal Medicine Nephrology; ADMIT Family Medicine
DX: I16.1 Hypertensive emergency (principal); N18.6 End stage renal disease; Z94.0 Kidney transplant status; N25.81 Secondary hyperparathyroidism of renal origin; I67.4 Hypertensive encephalopathy; E87.1 Hypo-osmolality and hyponatremia; Z79.82 Long term (current) use of aspirin; Z79.4 Long term (current) use of insulin; G40.909 Epilepsy, unspecified, not intractable, without status epilepticus; K21.9 Gastro-esophageal reflux disease without esophagitis; E11.22 Type 2 diabetes mellitus with diabetic chronic kidney disease; Z99.2 Dependence on renal dialysis; D63.1 Anemia in chronic kidney disease; E87.70 Fluid overload, unspecified; I12.0 Hypertensive chronic kidney disease with stage 5 chronic kidney disease or end stage renal disease; R13.10 Dysphagia, unspecified
CPT/HCPCS: 36415; 70450; 71046; 80053; 80069; 82947; 83735; 84484; 85014; 85018; 85025; 93005; 93010; 96372; 96374; 96375; 96376; 99285-25; A9270; A9270-GY; G0378; J0881; J1644; J1815; J2060; J2405; J3010; J7050; J7060; J7507; J7512

== ENCOUNTER 2020-07-18 12:39 | Day surgery (SDC) | payer BC ==
[~2020-07-18] VITALS: Ht 188 cm; Wt 106.0 kg
[~2020-07-18 12:39] MED LIST changes: +GI cocktail PO; +HYDRA50 PO; +ISOSORBIDE MONO60 MG PO; +Loratadine10 MG PO
[2020-07-18] MEDS ORDERED: CLOP75 PO (16:53)
--- NOTE | 2020-07-18 17:02 | NUR ---
PT MEDICATED WITH PLAVIX 225 MG PO ORDERED FOR LOADING DOSE PER DR. GARSIA. PT TOLERATES PO FLUIDS WITH NO DIFFICULTIES. APPEARS DROWSY, ALTHOUGH RESPONDS TO VERBAL STIMULI. PRESENT TO BEDSIDE, DISCHARGE INSTRUCTIONS REVIEWED. LFA FISTULA SITE APPEARS TO BE STABLE. POLY PAD INTACT, NO SIGNS OF ACTIVE EXTERNAL BLEEDING OR OOZING NOTED. WILL CONTINUE TO MONITOR.
--- NOTE | 2020-07-18 17:30 | NUR ---
IV REMOVED FROM RFA WITH CATH INTACT, PRESSURE DRESSING APPLIED. PT GETS DRESSED WITH ASSISTANCE FROM HIS . LEFT ARM PLACED INTO SLING ORDERED. DISCHARGE PAPERWORK PROVIDED IN FOLDER. PT AMBULATES WITH SLOW GAIT USING CANE. PLAVIX PRESCRIPTION CALLED TO [facility]. ENCOURAGED TO FOLLOW UP SCHEDULED. TAKEN OUT TO PRIVATE VEHICLE VIA W/C. PT DECLINES MEAL TRAY PRIOR TO LEAVING. NO ACUTE DISTRESS NOTED AT TIME OF DISCHARGE.
== END 2020-07-18 17:10 | disposition home or self-care (01) ==
LOC: MHTC 12:39
DX: I12.0 Hypertensive chronic kidney disease with stage 5 chronic kidney disease or end stage renal disease (principal); E11.22 Type 2 diabetes mellitus with diabetic chronic kidney disease; N18.6 End stage renal disease; I69.954 Hemiplegia and hemiparesis following unspecified cerebrovascular disease affecting left non-dominant side; E11.40 Type 2 diabetes mellitus with diabetic neuropathy, unspecified; E78.5 Hyperlipidemia, unspecified; D63.1 Anemia in chronic kidney disease; Z99.2 Dependence on renal dialysis; Z94.0 Kidney transplant status; J45.909 Unspecified asthma, uncomplicated; K21.9 Gastro-esophageal reflux disease without esophagitis; Z79.4 Long term (current) use of insulin; Z79.82 Long term (current) use of aspirin; Z79.899 Other long term (current) drug therapy
CPT/HCPCS: 64415; 82947; 99152; A9270-GY; C1725; C1769; C1889; C1894; G2170; J1644; J2250; J3010; J7030; J7040

== ENCOUNTER 2020-07-23 14:11 | Observation (INO) | payer BC ==
[~2020-07-23] VITALS: Ht 188 cm; Wt 106.6 kg
[~2020-07-23 14:11] MED LIST changes: +CLOP75 PO
[2020-07-23 15:00] LABS: BASOPHILS ABSOLUTE AUTO 0.03 K/mm3 (0.00-0.23); BASOPHILS PERCENT AUTO 0 % (0-2); EOSINOPHILS ABSOLUTE AUTO 0.12 K/mm3 (0.00-0.68); EOSINOPHILS PERCENT AUTO 1 % (0-6); Hematocrit 29.9 % (37.0-53.0); Hemoglobin 9.5 g/dL (13.5-17.5); IMMATURE GRAN ABSOLUTE AUTO 0.07 K/mm3 (0.00-0.10); IMMATURE GRAN PERCENT AUTO 1 % (0-1); LYMPHOCYTES ABSOLUTE AUTO 0.81 K/mm3 (0.84-5.20); LYMPHOCYTES PERCENT AUTO 9 % (21-46); MONOCYTES ABSOLUTE AUTO 1.13 K/mm3 (0.16-1.47); MONOCYTES PERCENT AUTO 12 % (4-13); Mean Corpuscular HGB 30.7 pg (26.0-34.0); Mean Corpuscular HGB Conc 31.8 g/dL (31.5-36.5); Mean Corpuscular Volume 97 fL (80-100); Mean Platelet Volume 9.9 fL (9.1-12.4); NEUTROPHILS ABSOLUTE AUTO 7.22 K/mm3 (1.96-9.15); NEUTROPHILS PERCENT AUTO 77 % (41-73); Platelet Count 163 K/mm3 (150-400); RDW Coefficient Variation 16.2 % (11.7-14.2); RDW Standard Deviation 57.1 fL (35.1-46.3); Red Blood Cell Count 3.09 M/mm3 (4.30-5.90); White Blood Cell Count 9.38 K/mm3 (4.00-11.30)
[2020-07-23 15:21] LABS: Troponin I <0.015 ng/mL (0.000-0.040)
[2020-07-23 15:31] LABS: Alanine Aminotransfer (ALT/SGP 6 U/L (12-78); Albumin, Blood 2.6 g/dL (3.4-5.0); Albumin/Globulin Ratio 0.7 (0.8-1.8); Alk Phos 54 U/L (50-136); Anion Gap 10 mmol/L (6-16); Aspartate Aminotrans (AST/SGOT 10 U/L (12-37); Bilirubin, Total 0.5 mg/dL (0.1-1.0); Blood Urea Nitrogen 85 mg/dL (8-24); Bun/Creatinine Ratio 8.5 (12.0-20.0); CO2, Blood 27 mmol/L (21-32); Calcium, Blood 8.3 mg/dL (8.5-10.1); Chloride, Blood 100 mmol/L (98-108); Globulin, Blood 3.5 g/dL (2.2-4.0); Glomerular Filtration Rate 6 (60-); Glucose, Blood 92 mg/dL (70-99); Sodium, Blood 137 mmol/L (136-145); Total Protein, Blood 6.1 g/dL (6.4-8.2)
[2020-07-23 15:58] LABS: Magnesium, Blood 2.3 mg/dL (1.6-2.4)
[2020-07-23 16:08] LABS: PCO2 Arterial 40.4 mmHg (35-45); pH Blood Arterial 7.46 (7.35-7.45)
[2020-07-23] MEDS ORDERED: ISOSORBIDE MONO60 MG PO (18:16)
[2020-07-23] MEDS ORDERED: CATAPRES-TTS 31 EACH TOP (18:18)
[2020-07-23] MEDS ORDERED: GABA300 PO (21:10)
[2020-07-24 04:03] LABS: Hematocrit 31.3 % (37.0-53.0); Hemoglobin 9.9 g/dL (13.5-17.5)
[2020-07-24 04:33] LABS: Magnesium, Blood 2.2 mg/dL (1.6-2.4)
[2020-07-24 04:34] LABS: Albumin, Blood 2.6 g/dL (3.4-5.0); Anion Gap 9 mmol/L (6-16); Blood Urea Nitrogen 60 mg/dL (8-24); Bun/Creatinine Ratio 7.7 (12.0-20.0); CO2, Blood 33 mmol/L (21-32); Calcium, Blood 8.5 mg/dL (8.5-10.1); Chloride, Blood 98 mmol/L (98-108); Glomerular Filtration Rate 8 (60-); Glucose, Blood 78 mg/dL (70-99); Phosphorus, Blood 5.2 mg/dL (2.5-4.9); Potassium, Blood 4.4 mmol/L (3.5-5.5); Sodium, Blood 140 mmol/L (136-145)
--- NOTE | 2020-07-24 05:42 | NUR ---
SHIFT SUMMARY PT ARRIVED TO UNIT FROM DIALYSIS. PT ALERT AND ORIENTED UPON ARRIVAL. PT ABLE TO ANSWER QUESTIONS CLEARLY AND NOT LETHARGIC. PT DID NOT RECIEVE HOME BP MEDICATIONS UPON TRANSFER. MEDICATIONS ORDERED AND GIVEN. PT REMAINED HYPERTENSIVE T/O SHIFT. PHYSICIAN NOTIFIED AND UPDATED EMAR. PT UNABLE TO VOID T/O SHIFT. STATES HE VOIDS "EVERY OTHER DAY." ASKED PT IF HE WAS WILLING TO HAVE PHYSICIAN NOTIFIED FOR POSSIBLE CATHETER INSERTION AND PT REFUSED. PT HAS BEEN ATTEMPTING TO URINATE FROM [id number]. PT REPORTS NO CP OR PRESSURE. OXYGEN SATURATION MAINTAINED ABOVE 92% ON 2 L OF OXYGEN VIA NC. HR STABLE. PT BIT TONGUE WHILE SLEEPING. STATES HE BITES HIS TONGUE WHILE SLEEPING "FREQUENTLY." WILL CONTINUE TO MONITOR UNTIL REPORT GIVEN TO DAYSMACY PETER.
--- NOTE | 2020-07-24 13:46 | NUR ---
PATIENT PROVIDED DISCHARGE INFO REGARDING FOLLOW UP PLANS, REASONS TO RETURN TO THE HOSPITAL, EDUCATION REGARDING RENAL DIET AND MEDICATION TO DISCONTINUE. PATIENT AND SP0USE VERBALIZED UNDERSTANDING, NO SIGNS OF ACUTE DISTRESS, LEFT VIA WHEELCHAIR.
== END 2020-07-24 13:44 | disposition home or self-care (01) ==
LOC: ER 14:11 → PCU 14:12 → ER 18:00 → PCU 18:00
PROVIDERS: Emergency Medicine; Internal Medicine Nephrology; Physician Assistant; ADMIT Internal Medicine
DX: G92 Toxic encephalopathy (principal); I16.0 Hypertensive urgency; E11.22 Type 2 diabetes mellitus with diabetic chronic kidney disease; I13.2 Hypertensive heart and chronic kidney disease with heart failure and with stage 5 chronic kidney disease, or end stage renal disease; N18.6 End stage renal disease; I43 Cardiomyopathy in diseases classified elsewhere; F32.9 Major depressive disorder, single episode, unspecified; E11.40 Type 2 diabetes mellitus with diabetic neuropathy, unspecified; T86.12 Kidney transplant failure; Z99.2 Dependence on renal dialysis; K21.9 Gastro-esophageal reflux disease without esophagitis; I50.9 Heart failure, unspecified; Z79.82 Long term (current) use of aspirin; Z79.4 Long term (current) use of insulin; Z79.899 Other long term (current) drug therapy
CPT/HCPCS: 36415; 36600; 70450; 71046; 80053; 80069; 82803; 82947; 83735; 83880; 84100; 84484; 85014; 85018; 85025; 93005; 93010; 94644; 96374; 96375; 99285-25; A9270-GY; G0257; G0378; J1815; J7507

== ENCOUNTER 2020-09-12 13:13 | Day surgery (SDC) | payer BC ==
[~2020-09-12] VITALS: Ht 188 cm; Wt 107.0 kg
--- NOTE | 2020-09-12 17:12 | NUR ---
PATIENT RESTING. RESPONDS APPROPRIATELY TO QUESTIONS. AT BEDSIDE. DRESSING TO LEFT UPPER ARM D&I
--- NOTE | 2020-09-12 17:37 | NUR ---
DISCHARGE INSTRUCTIONS AND PRECAUTIONS GIVEN TO PATIENT AND . GOOD BRUIT NOTED ON LEFT INNER ARM. DRESSING DRY AND INTACT TO LEFT UPPER ARM.IV SITE DCED WITH CATHETER IN TACT. PATIENT DRESSED WITH STANDBYE ASSIST FROM . PATIENT TRANSFERRED TO [facility]IDE VIA WHEEL CHAIR BY
== END 2020-09-12 22:38 | disposition home or self-care (01) ==
LOC: MHTC 13:13
DX: Z49.01 Encounter for fitting and adjustment of extracorporeal dialysis catheter (principal); I12.0 Hypertensive chronic kidney disease with stage 5 chronic kidney disease or end stage renal disease; E11.22 Type 2 diabetes mellitus with diabetic chronic kidney disease; N18.6 End stage renal disease; D63.1 Anemia in chronic kidney disease; M10.9 Gout, unspecified; J45.909 Unspecified asthma, uncomplicated; E78.5 Hyperlipidemia, unspecified; E11.40 Type 2 diabetes mellitus with diabetic neuropathy, unspecified; K21.9 Gastro-esophageal reflux disease without esophagitis; F34.1 Dysthymic disorder; F41.8 Other specified anxiety disorders; Z79.4 Long term (current) use of insulin; Z79.02 Long term (current) use of antithrombotics/antiplatelets; Z79.82 Long term (current) use of aspirin; Z79.899 Other long term (current) drug therapy; Z94.0 Kidney transplant status
CPT/HCPCS: 36901; 36909; 99152; 99153; C1887; C1894; J1644; J2250; J3010; J7030; J7040; Q9967

== ENCOUNTER 2020-09-14 18:58 | Emergency (ER) | payer BC ==
[~2020-09-14] VITALS: Ht 190.5 cm; Wt 104.3 kg
[2020-09-14] MEDS ORDERED: Roxicodone5 MG PO (22:40)
== END 2020-09-14 23:00 | disposition home or self-care (01) ==
LOC: ER 18:58
DX: S82.831A Other fracture of upper and lower end of right fibula, initial encounter for closed fracture (principal); F10.21 Alcohol dependence, in remission; Z09 Encounter for follow-up examination after completed treatment for conditions other than malignant neoplasm; I69.359 Hemiplegia and hemiparesis following cerebral infarction affecting unspecified side; R53.1 Weakness; Z88.8 Allergy status to other drugs, medicaments and biological substances; Z79.52 Long term (current) use of systemic steroids; Z79.4 Long term (current) use of insulin; Z79.82 Long term (current) use of aspirin; Z79.899 Other long term (current) drug therapy; Z91.81 History of falling
CPT/HCPCS: 29515; 73562-LT; 73590; 73610; 99283-25; A9270

== ENCOUNTER 2020-10-22 10:27 | Inpatient (IN) | payer BC ==
[~2020-10-22] VITALS: Ht 182.9 cm; Wt 97.9 kg
[~2020-10-22 10:27] MED LIST changes: +DIVA500EC PO; +Roxicodone5 MG PO; -SENN187 PO
[2020-10-22 11:45] LABS: BASOPHILS ABSOLUTE AUTO 0.02 K/mm3 (0.00-0.23); BASOPHILS PERCENT AUTO 0 % (0-2); EOSINOPHILS ABSOLUTE AUTO 0.13 K/mm3 (0.00-0.68); EOSINOPHILS PERCENT AUTO 2 % (0-6); Hematocrit 22.7 % (37.0-53.0); Hemoglobin 7.3 g/dL (13.5-17.5); IMMATURE GRAN ABSOLUTE AUTO 0.02 K/mm3 (0.00-0.10); IMMATURE GRAN PERCENT AUTO 0 % (0-1); LYMPHOCYTES ABSOLUTE AUTO 0.64 K/mm3 (0.84-5.20); LYMPHOCYTES PERCENT AUTO 12 % (21-46); MONOCYTES ABSOLUTE AUTO 0.78 K/mm3 (0.16-1.47); MONOCYTES PERCENT AUTO 14 % (4-13); Mean Corpuscular HGB 29.6 pg (26.0-34.0); Mean Corpuscular HGB Conc 32.2 g/dL (31.5-36.5); Mean Corpuscular Volume 92 fL (80-100); Mean Platelet Volume 10.9 fL (9.1-12.4); NEUTROPHILS ABSOLUTE AUTO 3.85 K/mm3 (1.96-9.15); NEUTROPHILS PERCENT AUTO 71 % (41-73); Platelet Count 171 K/mm3 (150-400); RDW Coefficient Variation 17.8 % (11.7-14.2); RDW Standard Deviation 58.3 fL (35.1-46.3); Red Blood Cell Count 2.47 M/mm3 (4.30-5.90); White Blood Cell Count 5.44 K/mm3 (4.00-11.30)
[2020-10-22 11:52] LABS: Albumin, Blood 2.8 g/dL (3.4-5.0); Albumin/Globulin Ratio 0.7 (0.8-1.8); Bilirubin, Total 0.8 mg/dL (0.1-1.0); Bun/Creatinine Ratio 10.4 (12.0-20.0); Calcium, Blood 8.5 mg/dL (8.5-10.1); Creatinine, Blood 3.74 mg/dL (0.60-1.20); Globulin, Blood 3.9 g/dL (2.2-4.0); Potassium, Blood 3.3 mmol/L (3.5-5.5); Total Protein, Blood 6.7 g/dL (6.4-8.2)
[2020-10-22] MEDS ORDERED: CLON.3 PO (14:39)
[2020-10-22] MEDS ORDERED: LABE200 PO (14:41)
[2020-10-22] MEDS ORDERED: CALCIUM ACETAT667 M2 PO (14:45)
[2020-10-22] MEDS ORDERED: PLAVIX75 MG PO (14:46)
[2020-10-22 15:37] LABS: Hematocrit 23.3 % (37.0-53.0); Hemoglobin 7.4 g/dL (13.5-17.5)
--- NOTE | 2020-10-22 18:29 | NUR ---
SHIFT ASSESMENT; ASSUMED CARE FROM ED FOR NEW ADMIT. SPOUSE AT BEDSIDE. OPENS EYES TO NAME, MOANS, AND FOLLOWS DIRECTIONS. SPOUSE STATES HAS BEEN THIS WAY SINCE THIS AM. SHE REPORTED GOING [facility] AND HAVING TO FINISH 45 MINS EARLY. SPOUSE STATES HAS BEEN VOMITING AND IS WEAK. COOL AND CLAMY ON ARRIVAL. NEW FISTUALA SITE ON LEFT WITH BRUISING TO AREA. PERMICATH IN PLACE IN RIGHT CHEST WALL. RIGHT ANKLE STIRRUP SPLINT IN PLACE FROM PREVIOUS ANKLE INJURY. 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 DR. BENEDICT TO BEDSIDE FOR ASSESMENT. MEDICATED WITH ZOFRAN FOR NAUSEA, UNABLE TO GIVE PO BLOOD PRESSURE MEDS DUE TO VOMITING. DR. BENEDICT CALLED BY [employer] AND TELEPHONE ORDERS GIVEN FOR IV LABETOLOL. MEDICATED PER ORDERS WITH 10MG, WITH GOOD RESULTS. PLACED ON 4L 02 FOR SATS OF 87%. SATS INCREASED TO 95% AFTER O2 PLACEMENT. NO DYSPNEA NOTED, L/S COARSE T/O. WILL CONTINUE TO TX AND MONITOR UNTIL CHANGE OF SHIFT.
[2020-10-22 18:58] LABS: Adenovirus Not Detected (NOT DETECT); Coronavirus 229E Not Detected (NOT DETECT); Coronavirus HKU1 Not Detected (NOT DETECT); Coronavirus NL63 Not Detected (NOT DETECT); Coronavirus OC43 Not Detected (NOT DETECT)
[2020-10-22 18:59] LABS: Bordetella pertussis Not Detected (NOT DETECT); Chlamydophila pneumoniae Not Detected (NOT DETECT); Human Metapneumovirus Not Detected (NOT DETECT); Human Rhinovirus/Enterovirus Not Detected (NOT DETECT); Influenza A/2009-H1 Not Detected (NOT DETECT); Influenza A/H1 Not Detected (NOT DETECT); Influenza A/H3 Not Detected (NOT DETECT); Influenza B Not Detected (NOT DETECT); Mycoplasma pneumoniae Not Detected (NOT DETECT); Parainfluenza Virus 1 Not Detected (NOT DETECT); Parainfluenza Virus 2 Not Detected (NOT DETECT); Parainfluenza Virus 3 Not Detected (NOT DETECT); Parainfluenza Virus 4 Not Detected (NOT DETECT); Respiratory Syncytial Virus Not Detected (NOT DETECT); SARS-Cov-2 (COVID-19), BioFire Not Detected (NOT DETECT)
[2020-10-22 20:52] LABS: Hematocrit 22.3 % (37.0-53.0); Hemoglobin 7.1 g/dL (13.5-17.5)
--- NOTE | 2020-10-22 21:40 | NUR ---
HTN / CALL TO MD CALL TO MD BURT TO REPORT PT INABILITY TO TAKE SCHEDULED ORAL MEDICATIONS D/T LETHARGY & PT REPORT OF CURRENT NAUSEA W/ PREVIOUS EMESIS TODAY. PT HTN W/ CURRENT PRN IV LABETOLOL TOO SOON TO GIVE AGAIN. MD BURT W/ NEW ORDERS FOR 10-20MG IV LABETOLOL Q4H PRN W/ OKAY TO GIVE DOSE NOW.
[2020-10-23 04:17] LABS: BASOPHILS ABSOLUTE AUTO 0.02 K/mm3 (0.00-0.23); BASOPHILS PERCENT AUTO 0 % (0-2); EOSINOPHILS ABSOLUTE AUTO 0.06 K/mm3 (0.00-0.68); EOSINOPHILS PERCENT AUTO 1 % (0-6); Hematocrit 22.1 % (37.0-53.0); Hemoglobin 6.9 g/dL (13.5-17.5); IMMATURE GRAN ABSOLUTE AUTO 0.02 K/mm3 (0.00-0.10); IMMATURE GRAN PERCENT AUTO 0 % (0-1); LYMPHOCYTES ABSOLUTE AUTO 0.79 K/mm3 (0.84-5.20); LYMPHOCYTES PERCENT AUTO 16 % (21-46); MONOCYTES ABSOLUTE AUTO 0.79 K/mm3 (0.16-1.47); MONOCYTES PERCENT AUTO 16 % (4-13); Mean Corpuscular HGB 28.9 pg (26.0-34.0); Mean Corpuscular HGB Conc 31.2 g/dL (31.5-36.5); Mean Corpuscular Volume 93 fL (80-100); Mean Platelet Volume 10.7 fL (9.1-12.4); NEUTROPHILS ABSOLUTE AUTO 3.32 K/mm3 (1.96-9.15); NEUTROPHILS PERCENT AUTO 66 % (41-73); Platelet Count 138 K/mm3 (150-400); RDW Coefficient Variation 17.9 % (11.7-14.2); RDW Standard Deviation 60.4 fL (35.1-46.3); Red Blood Cell Count 2.39 M/mm3 (4.30-5.90)
[2020-10-23 04:42] LABS: Albumin, Blood 2.5 g/dL (3.4-5.0); Albumin/Globulin Ratio 0.7 (0.8-1.8); Alk Phos 60 U/L (50-136); Anion Gap 6 mmol/L (6-16); Aspartate Aminotrans (AST/SGOT 13 U/L (12-37); Bilirubin, Total 0.8 mg/dL (0.1-1.0); Blood Urea Nitrogen 49 mg/dL (8-24); Bun/Creatinine Ratio 8.6 (12.0-20.0); CO2, Blood 35 mmol/L (21-32); Calcium, Blood 8.5 mg/dL (8.5-10.1); Chloride, Blood 95 mmol/L (98-108); Creatinine, Blood 5.68 mg/dL (0.60-1.20); Globulin, Blood 3.5 g/dL (2.2-4.0); Glomerular Filtration Rate 12 (60-); Glucose, Blood 71 mg/dL (70-99); Phosphorus, Blood 3.8 mg/dL (2.5-4.9); Potassium, Blood 3.6 mmol/L (3.5-5.5); Sodium, Blood 136 mmol/L (136-145)
[2020-10-23 04:50] LABS: Alanine Aminotransfer (ALT/SGP <6 U/L (12-78)
--- NOTE | 2020-10-23 05:28 | NUR ---
HTN & OXYGEN NEEDS / CALL TO PT CONTINUES TO BE HYPERTENSIVE DESPITE BP MEDICATION TX. PT OXYGEN REQUIREMENTS INCREASED FROM 4L NC TO 9L OXYMIZER. MD BENEDICT NOTIFIED W/ INSTRUCTIONS TO NOTIFY DIALYSIS NURSE TO START DIALYSIS. DIALYSIS NURSE NOTIFIED.
[2020-10-23 06:32] LABS: Percent Saturation 9.8 % (20.0-50.0)
--- NOTE | 2020-10-23 07:23 | NUR ---
SHIFT SUMMARY PT MORE ALERT THIS AM, ABLE TO KEEP EYES OPEN & INTERACT W/ STAFF. SCHEDULED PO MEDICATIONS HELD LAST NOC D/T PT LETHARGY & NAUSEA. PT MEDICATED FOR NAUSEA X3 THIS SHIFT PER EMAR W/ IMPROVEMENT. BP ELEVATED T/O SHIFT DESPITE PRN BP MEDICATION TX. OTHERWISE VSS. MONITOR SHOWING SR-ST, HR 90's-110's. OXYGEN NEEDS INCREASING FROM 4L NC TO 9L OXYMIZER THIS SHIFT. PT W/ DRY, NONPRODUCTIVE COUGH. PRN COUGH MEDICATION PROVIDED THIS AM W/ PT TOLERATING PO INTAKE WELL THIS AM. MD BENEDICT NOTIFIED OF PT BP & OXYGEN NEEDS W/ MD INSTRUCTION TO START DIALYSIS. DIALYSIS NURSE IN TO SEE PT, DIALYSIS TO BEGIN ONCE ABLE. PT HGB LOW, PT REFUSAL FOR BLOOD REASSESSED W/ PT W/ PT CONFIRMATION OF "IT's NOT AN OPTION." BLOOD REFUSAL SHEET NOTED IN PT CHART.
--- NOTE | 2020-10-23 08:49 | NUR ---
Pt is requiring increasing amounts of oxygen to maintain spo2 greater than 88%. He has a frequent, shallow non-productive cough and very coarse sounding lung sounds. He states that he is having soreness in the abdomen due to so much coughing. Going to dialysis at this time.
[2020-10-23 12:25] LABS: PCO2 Arterial 44.1 mmHg (35-45); pH Blood Arterial 7.46 (7.35-7.45)
--- NOTE | 2020-10-23 12:32 | NUR ---
ABG DONE; PT BEING PUT ON BIPAP AT THIS TIME BY RT BUDDY.
--- NOTE | 2020-10-23 13:05 | NUR ---
Pt is tolerating bipap very well.
--- NOTE | 2020-10-23 22:13 | NUR ---
PATIENT IS LETHARGIC AT START OF SHIFT, ABLE TO WAKE FOR A SECOND TO ANSWER YES OR NO BUT PATIENT WILL NOT OPEN EYES OR REMAIN AWAKE. PO NIGHT MEDICATIONS HELD DUE TO LETHARGY/ASPIRATION RISK. PATIENT TOLERATING BIPAP WELL 02 SATS 95%. VSS. CALL LIGHT IN REACH.
--- NOTE | 2020-10-24 04:29 | NUR ---
SUMMARY PATIENT IS LETHARGIC THROUGHOUT SHIFT. WILL WAKE TO ANSWER/MUMBLE BUT FALLS RIGHT BACK TO SLEEP. PATIENT CAN NOT KEEP HIS EYES OPEN. TOLERATING BIPAP WELL 02 SATS >90%. TURNED PATIENT Q2 HOURS. VSS, NO ACUTE CHANGES. CALL LIGHT IN REACH. BED IN LOWEST POSITON.
[2020-10-24 04:37] LABS: BASOPHILS ABSOLUTE AUTO 0.01 K/mm3 (0.00-0.23); BASOPHILS PERCENT AUTO 0 % (0-2); EOSINOPHILS ABSOLUTE AUTO 0.05 K/mm3 (0.00-0.68); EOSINOPHILS PERCENT AUTO 1 % (0-6); Hematocrit 19.5 % (37.0-53.0); IMMATURE GRAN ABSOLUTE AUTO 0.03 K/mm3 (0.00-0.10); IMMATURE GRAN PERCENT AUTO 1 % (0-1); LYMPHOCYTES ABSOLUTE AUTO 0.59 K/mm3 (0.84-5.20); LYMPHOCYTES PERCENT AUTO 13 % (21-46); MONOCYTES ABSOLUTE AUTO 0.52 K/mm3 (0.16-1.47); MONOCYTES PERCENT AUTO 12 % (4-13); Mean Corpuscular HGB 29.1 pg (26.0-34.0); Mean Corpuscular HGB Conc 30.8 g/dL (31.5-36.5); Mean Corpuscular Volume 95 fL (80-100); Mean Platelet Volume 10.7 fL (9.1-12.4); NEUTROPHILS ABSOLUTE AUTO 3.27 K/mm3 (1.96-9.15); NEUTROPHILS PERCENT AUTO 73 % (41-73); Platelet Count 122 K/mm3 (150-400); RDW Coefficient Variation 18.5 % (11.7-14.2); RDW Standard Deviation 64.6 fL (35.1-46.3); Red Blood Cell Count 2.06 M/mm3 (4.30-5.90); White Blood Cell Count 4.47 K/mm3 (4.00-11.30)
[2020-10-24 05:05] LABS: Albumin, Blood 2.3 g/dL (3.4-5.0); Anion Gap 8 mmol/L (6-16); Blood Urea Nitrogen 49 mg/dL (8-24); Bun/Creatinine Ratio 8.2 (12.0-20.0); CO2, Blood 30 mmol/L (21-32); Calcium, Blood 8.5 mg/dL (8.5-10.1); Chloride, Blood 99 mmol/L (98-108); Creatinine, Blood 5.98 mg/dL (0.60-1.20); Glomerular Filtration Rate 11 (60-); Glucose, Blood 86 mg/dL (70-99); Magnesium, Blood 2.1 mg/dL (1.6-2.4); Phosphorus, Blood 4.3 mg/dL (2.5-4.9); Sodium, Blood 137 mmol/L (136-145)
--- NOTE | 2020-10-24 08:12 | NUR ---
This morning the pt is talking and requesting a break from bipap, which he wore all night, per noc shift RN. Bipap is off and pt is maintaining spo2 of 94% on 4 l/min n.c. delivery. He is sleepy, keeps his eyes closed,but does answer when spoken to. Declined breakfast; requesting cheerios.
--- NOTE | 2020-10-24 09:21 | NUR ---
ASSUMED CARE FROM [facility] RN, MORNING UPDATE PT WAS REPORTED BEING VERY LETHARGIC. PT HAS DECLINED BLOOD PRODUCTS DUE TO ADVENT REASONS. PT HAS A PERMCATH ON THE RIGHT CHEST; AND FISTULA ON THE LEFT ARM; NO BP OR BLOOD DRAWS ON THE LEFT. PT WAS ABLE TO AWAKE ENOUGH FOR MORNING MEDICATIONS; I ADMINISTERED THREE OR FOUR AT A TIME WITH WATER AND THE PT TOLERATED THIS WELL. PT WAS VERY SHAKING THIS MORNING AND NEEDED ASSISTANCE WITH MEDICATIONS AND BREAKFAST. PT IS NOW RESTING IN BED
--- NOTE | 2020-10-24 13:10 | NUR ---
C/O sharp pain in the right shoulder, with movement. Declined ice/heat application for relief. Did accept offer of Tylenol for relief. He is easily awakened, and carrying on normal conversation when awake. Falls back to sleep easily and each time no activity is going on in the room. Neurontin held due to somnulence.
[2020-10-24 15:03] LABS: Vancomycin, Random 18.8 ug/mL
--- NOTE | 2020-10-24 18:09 | NUR ---
Pt stated that he needed to have a BM; assisted up to bedside commode, pt was able to stand with moderate to minimal assistance and used the walker to turn and sit on bedside commode. Assisted back to bed after having a large liquid very dark green stool. No urinary output this shift. The activity was tolerated by the pt without hypoxia while on 5 l/min O2 delivery via n.c. He is very tired he says after getting back to bed, wants to sleep. HIs left about 10 minutes ago to go home.
--- NOTE | 2020-10-24 18:09 | NUR ---
SHIFT SUMMARY PT WAS VERY DROWSY THIS MORNING BUT WAS AROUSABLE FOR MEDICATIONS AND FOR SMALL AMOUNTS OF BREAKFAST. PT WAS TURNED EVERY 2 HOURS AND BOOSTED IN BED. PT WAS AROUSABLE THROUGHOUT THE DAY FOR ALL MEDS AND SMALL AMOUNTS OF MEALS. PT REPORTED SOME PAIN IN THE RIGHT SHOULDER AND TYLENOL WAS ABLE TO HELP RELIEVE THE PAIN. PT PARTICIPATED IN EDUCATION WITH THE INCENTIVE SPIROMETER AND FLUTTER VALVE. PT WAS ABLE TO AWAKE ENOUGH TO VISIT WITH THIS THIS AFTERNOON. PT IS NOW RESTING IN BED AT THIS TIME.
[2020-10-25 04:01] LABS: Hematocrit 17.9 % (37.0-53.0); Hemoglobin 5.6 g/dL (13.5-17.5)
[2020-10-25 04:22] LABS: Albumin, Blood 2.2 g/dL (3.4-5.0); Anion Gap 8 mmol/L (6-16); Blood Urea Nitrogen 70 mg/dL (8-24); CO2, Blood 31 mmol/L (21-32); Calcium, Blood 8.3 mg/dL (8.5-10.1); Chloride, Blood 99 mmol/L (98-108); Creatinine, Blood 7.74 mg/dL (0.60-1.20); Glomerular Filtration Rate 8 (60-); Glucose, Blood 132 mg/dL (70-99); Magnesium, Blood 2.2 mg/dL (1.6-2.4); Phosphorus, Blood 4.4 mg/dL (2.5-4.9); Potassium, Blood 4.1 mmol/L (3.5-5.5); Sodium, Blood 138 mmol/L (136-145)
--- NOTE | 2020-10-25 07:43 | NUR ---
SUMMARY PATIENT ALERT AND ORIENTED. CONFUSED AT TIMES, ESPECIALLY UPON WAKING. TURNED Q2 HOURS. COMPRESSION STALKING ON. PATIENT SPIT UP SMALL AMOUNT OF RED BLOODY SPUTUM. 02 SATS >95% ON 3L VIA NC. LUNGS SOUNDS COARSE. PATIENT ABLE TO STAY AWAKE AND SWALLOW PILLS. CALL LIGHT IN REACH, BED IN LOW POSITION AND BED ALARM ON.
--- NOTE | 2020-10-25 07:54 | NUR ---
ASSUMED CARE FROM NOC RN PT WAS SLEEPING DURING REPORT. PT WAS ABLE TO MAINTAIN SAT ABOVE 92% ON 3L O2 VIA NC THROUGHOUT THE NIGHT. VS STABLE, NO PAIN REPORTED BY PT THIS MORNING. PT IS DROWSEY AND WEAK BUT AROUSABLE. PLAN FOR TODAY IS DIALYSIS AND HOPEFULLY WORKING WITH THERAPY IF THE PT IS AWAKE ENOUGH; PT IS AGREEABLE. PT RESTING IN BED AT THIS TIME AWAITING BREAKFAST
--- NOTE | 2020-10-25 15:26 | NUR ---
Permission for care given at 1510.
[2020-10-25 16:15] LABS: Vancomycin, Random 13.4 ug/mL
--- NOTE | 2020-10-25 17:50 | NUR ---
SHIFT SUMMARY PT HAS BEEN AWAKE MOST OF THE DAY. PT HAS BEEN DROWSY BUT AROUSABLE AND ABLE TO INTERACT MORE WITH STAFF AND VISITORS. PT WAS GIVEN MORNING MEDICATIONS AND AGREED TO SIT IN THE CHAIR FOR LUNCH. PT TOLERATED THE CHAIR FOR ALMOST AN HOUR BEFORE STATING HIS BOTTOM HURT AND HE NEEDED TO BE MOVED. PT MOVED BACK TO BED AND THEN WAS RECEIVING DIALYSIS TREATMENT MOST OF THE AFTERNOON. VS STABLE, PT MAINTAINING SATS ABOVE 92% ON 2L VIA NC. PT HAS EATEN EACH MEAL TODAY AND HAS MORE OF AN APPETITE. PT IS CURRENTLY RESTING IN BED AND VISITING WITH HIS SPOUSE
[2020-10-26 05:11] LABS: Hematocrit 18.8 % (37.0-53.0)
--- NOTE | 2020-10-26 05:11 | NUR ---
SHIFT SUMMARY PATIENT IS ALERT AND ORIENTED. SLEPT MOST THE NIGHT, ABLE TO WAKE AND HAVE FULL CONVERSTATIONS. TOLERATED PO MEDS WELL. REPOSITIONED Q2 HOURS. NO URINE OUTPUT. PATIENT SPIT UP A SCANT AMOUNT OF BLOODY SPUTUM. HELD BP MEDICATION BECAUSE BP 11/70, BP LATER INCREASED AND I GAVE HIS BP MEDS. 02 SATS >93% ON 2L. NO COMPLAINTS OF SOB. VSS, NO ACUTE CHANGES. CALL LIGHT IN REACH.
[2020-10-26 05:22] LABS: Hemoglobin 5.8 g/dL (13.5-17.5)
[2020-10-26 05:39] LABS: Albumin, Blood 2.4 g/dL (3.4-5.0); Anion Gap 10 mmol/L (6-16); Blood Urea Nitrogen 60 mg/dL (8-24); Bun/Creatinine Ratio 9.1 (12.0-20.0); CO2, Blood 29 mmol/L (21-32); Calcium, Blood 8.5 mg/dL (8.5-10.1); Chloride, Blood 99 mmol/L (98-108); Creatinine, Blood 6.58 mg/dL (0.60-1.20); Glomerular Filtration Rate 10 (60-); Glucose, Blood 140 mg/dL (70-99); Magnesium, Blood 2.3 mg/dL (1.6-2.4); Phosphorus, Blood 3.6 mg/dL (2.5-4.9); Potassium, Blood 3.8 mmol/L (3.5-5.5); Sodium, Blood 138 mmol/L (136-145)
--- NOTE | 2020-10-26 08:00 | NUR ---
PT LAYING IN BED WITH EYES CLOSED, WAKES EASILY, A/OX3, COOPERATIVE WITH CARE, FOLLOWS COMMANDS WELL, DENIES PAIN, STATES HE DIDN'T SLEEP MUCH, AND IS TIRED, LUNGS ARE CLEAR IN UPPER MIN, COURSE IN BASES, RESP EVEN AND UNLABORED, NO COUGH NOTED, HRR, NO EDEMA NOTED, PPP+2, CAP REFILL <3SEC, VS STABLE, PIV TO RFA, S.L., POWER GLIDE TO MARGA, SITE CLEAR AND PATENT, BTX4, ABD FLAT SOFT NONTENDER, NO VOIDS, SKIN C/W/D, HAS A TREMOR TO LEFT ARM/HAND, WEAKER ON LEFT SIDE, SWALLOWS PO MEDS WITHOUT DIFF, LEONARDO, CALL LIGHT IN REACH.
[2020-10-26 12:30] LABS: Vancomycin, Random 17.6 ug/mL
--- NOTE | 2020-10-26 12:30 | NUR ---
Initial palliative care consult: Mukesh is a 40 year old who was admitted with pneumonia on 10/23/20. He has a history of ESRD on HD s/p unsuccessful kidney transplant, seizures, HTN, DM, GERD, chronic anemia, hyperlipidemia, depression. He lives with his Sussy who helps to take care of him. Mukesh reports his mother lives in [place] and they have a support system through their spiritism. Mukesh reports he was working in [employer] prior to his stroke last year. He has been unable to work since the stroke. He reports his license was also taken away after his stroke. He states that his assists him with ADLs as necessary and sets up and makes sure that he takes all of his medications. He uses a walker and cane to get around in his home. He reports he did do some outpatient therapy after his stroke to help him get stronger. He reports he still has some residual effects from the CVA to his left arm/hand and generalized weakness and muscle atrophy. He states he currently weighs about 235 lbs which is down from about 300 lbs prior to his CVA. He states they purchased a home with fewer stairs (he has 1 to get into his bedroom) after his stroke to make it easier to get around. He spends most of his day sitting in a chair watching cooking shows on TV. 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 He reports that he feels well supported and cared for. He does not have any children. He tells this lyric writer that his and he have been in contact with members of their spiritism for direction on treating his anemia. He is a Jewish and is happy with the plan moving forward with medications and vitamins and diet at this time to improve his chronic anemia. He voices no questions or concerns at this time. He has no plans to change direction of care that he is receiving at this time. He denies any SOB or discomfort at this time. No cough noted during my visit. He is on 2 l/min by NC of O2. He c/o generalized weakness and fatigue. He denies any depression at this time. He has just completed a HD treatment. He is open to HH services at discharge as this service may be helpful to him at discharge. PC will remain available to assist with symptom management and advanced care planning as needed/requested.
--- NOTE | 2020-10-26 18:21 | NUR ---
PT HAD DIALYSIS TODAY, IN TO SEE HIM, B/P REMAINS HIGH, HAS BEEN TRANSFERED TO MEDICAL FLOOR, REPORT GIVEN TO RECIEVING NURSE, LEFT VIA BED WITH MANAGER HUMAN RESOURCES AND AT BEDSIDE. ALL BELONGINGS WENT WITH HIM.
--- NOTE | 2020-10-26 18:31 | NUR ---
PT IS A PCU TRANSFER. ALERT ORIENTED AND CALLS APPROPRIATELY. PT HAS A HX OF ESRD SECONDARY TO NEPHROPATHY AND RECEIVING DIALYSIS. PT RECEIVED DIALYSIS TODAY. PT ALSO HAS A HX OF CVA- LEFT SIDE WEAKNESS WITH LEFT SIDED MOUTH DROOP, HTN, AND DM. PT IS ON 1.5L OF 02 PRN. RA AT BASELINE. PT IS ON TELE- NSR. PT HAS A CRITICAL H&H- PT REFUSED BLOOD DUE TO SPIRITISM PREFERENCE WHICH IS YAZIDISM. DR BENEDICT IS THE KIDNEY DR OF THIS PT. PT ALSO HAD PULMUNOLOGY CONSULT BY DR ROTH. PT HAS CHRONIC HTN AND RECEIVING MULTIPLE BP MEDICATIONS. DENIES PAIN AT THIS TIME. PT HAS POWEGLIDE ON MARGA, PERMCATH ON RIGHT CHEST, AND FISTULA ON LEFT ARM. PT IS CURRRENTLY BEDREST AND Q2 TURN DUE TO WEAKNESS. PT LIVES WITH SUREKHA AT [place]. PT ORIENTED IN THE ROOM AND BED IS IN THE LOWEST POSITION WITH CALL LIGHT WITHIN REACH
--- NOTE | 2020-10-27 04:27 | NUR ---
SHIFT SUMMARY NO ACUTE CHANGES THIS SHIFT, NO C/O ANY KIND, A&O, REPOS Q2, CALL LIGHT IN REACH, SLEPT T/O THE NIGHT & AT THIS TIME, WILL CONT TO MONITOR UNTIL REPORT GIVEN TO DAY RN.
[2020-10-27 05:22] LABS: Hematocrit 18.9 % (37.0-53.0)
[2020-10-27 05:41] LABS: Magnesium, Blood 2.2 mg/dL (1.6-2.4)
[2020-10-27 05:42] LABS: Albumin, Blood 2.4 g/dL (3.4-5.0); Anion Gap 8 mmol/L (6-16); Blood Urea Nitrogen 58 mg/dL (8-24); Bun/Creatinine Ratio 8.9 (12.0-20.0); CO2, Blood 32 mmol/L (21-32); Calcium, Blood 8.8 mg/dL (8.5-10.1); Chloride, Blood 98 mmol/L (98-108); Creatinine, Blood 6.55 mg/dL (0.60-1.20); Glomerular Filtration Rate 10 (60-); Glucose, Blood 149 mg/dL (70-99); Phosphorus, Blood 2.8 mg/dL (2.5-4.9); Potassium, Blood 3.7 mmol/L (3.5-5.5); Sodium, Blood 138 mmol/L (136-145)
[2020-10-27 14:20] LABS: Vancomycin, Random 16.8 ug/mL
--- NOTE | 2020-10-27 16:04 | NUR ---
LEFT SIDED FACIAL DROOP NOTED. DR. RODRIGUEZ NOTIFIED AND HEAD CT WITHOUT CONTRAST ORDERED
--- NOTE | 2020-10-27 18:24 | NUR ---
PATIENT IS ALERT AND ORIENTED AND COOPERATIVE WITH CARE. NO DIALYSIS TODAY. THE PATIENT WORKED WITH PHYSICAL THERAPY THIS MORNING AND TRANSFERRED TO THE CHAIR. THE PATIENTS IS AT THE BEDSIDE AT THIS TIME, SHE ASSISTED HIM IN SHOWERING. THE PATIENT IS EATING DINNER AT THIS TIME. THE PATIENT APPEARED TO HAVE WORSENING LEFT SIDED FACIAL DROOP, DR. RODRIGUEZ NOTIFIED AND A CT OF THE HEAD WITHOUT CONTRAST WAS ORDERED. THE PATIENT CONTINUES TO BE HYPERTENSIVE, IV HYDRALAZINE WAS ORDERED. THE LAST BP OF 204/84 WAS TAKEN AFTER THE PATIENT'S SHOWER AND HIS ASKED THAT WE LET HIM REST AND RECHECK A BP. WILL CONTINUE TO MONITOR.
--- NOTE | 2020-10-28 04:27 | NUR ---
SHIFT SUMMARY NO ACUTE CHANGES THIS SHIFT, NO C/O ANY KIND, IV HYDRAL ADMIN FOR BP 194/83- REDUCED TO 113/65 AFTER ADMIN. PT SLEPT T/O THE SHIFT, WAKING FOR CARE THEN RETURNING EASILY TO SLEEP (SOMETIMES DURING CARE), SLEEPING AT THIS TIME, CALL LIGHT IN REACH, WILL CONT TO MONITOR UNTIL REPORT GIVEN TO DAY RN.
[2020-10-28 09:42] LABS: Albumin, Blood 2.4 g/dL (3.4-5.0); Anion Gap 11 mmol/L (6-16); Blood Urea Nitrogen 65 mg/dL (8-24); CO2, Blood 25 mmol/L (21-32); Calcium, Blood 8.9 mg/dL (8.5-10.1); Chloride, Blood 99 mmol/L (98-108); Creatinine, Blood 7.22 mg/dL (0.60-1.20); Glomerular Filtration Rate 9 (60-); Glucose, Blood 181 mg/dL (70-99); Phosphorus, Blood 2.5 mg/dL (2.5-4.9); Sodium, Blood 135 mmol/L (136-145)
[2020-10-28 11:32] LABS: Vancomycin, Random 11.9 ug/mL
--- NOTE | 2020-10-28 18:39 | NUR ---
PATIENT A/OX4, UP WITH 1 ASSIST AND FWW TO CHAIR TODAY. DIALYSIS DONE TODAY IN ROOM. FISTULA TO L UPPER ARM AND PERM CATH TO R CHEST. B/P ELEVATED THIS EVENING, HYDRALIZINE IV GIVEN X1 TO TREAT. TYLENOL X1 FOR BLE PAIN. TOLERATING RENAL DIET. ACHS BLOOD SUGARS, COVERAGE PER SS. SKIN INTACT. COOPERATIVE WITH CARE, CALLS APPROPRIATELY FOR ASSISTANCE. NO ACUTE CHANGES THIS SHIFT.
--- NOTE | 2020-10-29 03:52 | NUR ---
SHIFT SUMMARY ASSUMED CARE OF PT AT 1900. PT IS A/OX4. PT IS VERY LETHARGIC AND PALE. PT IS SAD ABOUT HAVING TO BE IN THE HOSPITAL AND HOPES TO GO HOME SOON, PT IS TEARFUL WHEN TALKING ABOUT BEING IN THE HOSPITAL LONGER. HEART SOUNDS REGULAR, TELE SHOWS SINUS. LUNG SOUNDS ARE DIMINISHED WITH CRACKLES IN THE LOWER L LUNG. PT HAS HAD BREATHING TREATMENTS T/O THE NIGHT. PT IS CONTINENT WITH URINAL T/O THE NIGHT. PT RECEIEVED SHOWER THIS AM. NO ACUTE EVENTS DURING THE NIGHT. PT SLEPT T/O THE NIGHT. CALL LIGHT IN REACH, BED IN LOWEST POSTION.
--- NOTE | 2020-10-29 04:28 | NUR ---
Behavior: Pt started crying so I asked what was wrong and he said he did not want us to keep him here. He said the best place for him was at home. He just wants to go home.
[2020-10-29 04:39] LABS: Hematocrit 20.1 % (37.0-53.0); Hemoglobin 6.2 g/dL (13.5-17.5)
[2020-10-29 05:11] LABS: Albumin, Blood 2.3 g/dL (3.4-5.0); Anion Gap 9 mmol/L (6-16); Blood Urea Nitrogen 50 mg/dL (8-24); Bun/Creatinine Ratio 8.2 (12.0-20.0); CO2, Blood 31 mmol/L (21-32); Calcium, Blood 8.5 mg/dL (8.5-10.1); Chloride, Blood 100 mmol/L (98-108); Creatinine, Blood 6.07 mg/dL (0.60-1.20); Glomerular Filtration Rate 11 (60-); Glucose, Blood 201 mg/dL (70-99); Magnesium, Blood 2.2 mg/dL (1.6-2.4); Phosphorus, Blood 2.8 mg/dL (2.5-4.9); Potassium, Blood 3.9 mmol/L (3.5-5.5); Sodium, Blood 140 mmol/L (136-145)
--- NOTE | 2020-10-29 14:40 | NUR ---
PT BP 110/55- PT SPOUSE ARRIVED AND STATED AT HOME SHE WOULD NOT GIVE THE LEBETOLOL OR THE CLONIDINE WITH THE BP THAT LOW. WAITING 1 HOUR AND RECHECKING PT BP.
--- NOTE | 2020-10-29 15:00 | NUR ---
PT ASSISTED 2P MODERATE ASSIST TO BSC. PT RECIEVED MIRALAX AND REQUESTED THE COMMODE. PT HAS JERKY MOVEMENTS AND HIS LEGS SEEM TO INTERMITTENTLY GIVE OUT WHEN HE IS ATTEMPTING TO TRANSFER. PT CURRENTLY SITTING ON THE COMMODE IN THE ROOM FOR SAFETY, SHE WILL CALL WHEN HE IS DONE.
--- NOTE | 2020-10-29 15:42 | NUR ---
SHIFT SUMMARY- PT HAS REMAINED LETHARGIC T/O THE SHIFT. HE DID WORK WITH OT BUT HE SEEMS VERY DISCOURAGED. PT SPOUSE ARRIVED AROUND 2PM AND THE PT BROKE INTO TEARS, HE SEEMS TO BE FEELING DEFEATED. SPOUSE PROVIDED WORDS OF ENCOURAGEMENT AND THE PT SEEMED TO BE RECEPTIVE. PT NEEDS TO BE ENCOURAGED TO DO WHAT HE CAN FOR HIMSELF. PT WANTS TO GET STRONGER AND GO HOME. PT HAS DENIED PAIN T/O THE SHIFT. BP HAS REMAINED LOW SINCE DIALYSIS. SBP WAS GREATER THAN 200 THIS MORNING PRIOR TO MORNING MEDS AND DIALYSIS. HR HAS REMAINED 70-80'S T/O THE SHIFT WELL. PT HAS A PG TO THE MARGA. IV ABX ORDERED DAILY AT 1800, OTHERWISE SL. PT HAS IV PRN'S FOR HTN. NONE ADMINISTERED THIS SHIFT. PT HAS NOT HAD A BM SINCE THE . PER THE SPOUSE THE PT OFTEN ONLY HAS A BM 1-2 TIMES A WEEK. MEDICATED WITH MIRALAX PRN WITH NO RESULT YET. PT DID SIT ON THE BSC FOR A LITTLE BIT. PT DECLINED THE PRUNE JUICE COCKTAIL OFFERED BY STAFF. NEW BOWEL CARE MEDS SCHEDULED (SEE EMAR) AFTER SPEAKING WITH DR. GOLD IS POSSIBLE HOME WITH HOME HEALTH UPON DISCHARGE, IS THE PT PRIMARY CAREGIVER AT HOME.
[2020-10-30 05:15] LABS: Hematocrit 20.1 % (37.0-53.0); Hemoglobin 6.6 g/dL (13.5-17.5)
[2020-10-30 05:38] LABS: Albumin, Blood 2.3 g/dL (3.4-5.0); Anion Gap 7 mmol/L (6-16); Blood Urea Nitrogen 38 mg/dL (8-24); Bun/Creatinine Ratio 7.3 (12.0-20.0); CO2, Blood 32 mmol/L (21-32); Calcium, Blood 8.8 mg/dL (8.5-10.1); Chloride, Blood 98 mmol/L (98-108); Glomerular Filtration Rate 13 (60-); Glucose, Blood 203 mg/dL (70-99); Magnesium, Blood 2.1 mg/dL (1.6-2.4); Phosphorus, Blood 2.9 mg/dL (2.5-4.9); Potassium, Blood 4.3 mmol/L (3.5-5.5); Sodium, Blood 137 mmol/L (136-145); Thyroxine (T4) 8.4 ug/dL (4.5-12.1); Valproic Acid 85.9 ug/mL (50.0-100.0)
--- NOTE | 2020-10-30 05:55 | NUR ---
SHIFT SUMMARY NO ACUTE CHANGES THIS SHIFT. AOX4. PT VERY DROWSY & STATES HE IS TIRED. VSS. TELE NSR @74. DENIES PAIN, N/V OR DYSPNEA. HAS TREMORS TO BUE & WEAKNESS IN L ARM FROM OLD CVA. NEEDS HELP c REPOSITIONING IN BED. NO BM REPORTED SINCE 10/24, GAVE HS SENNA. CALL LIGHT IN REACH & PT ABLE TO MAKE NEEDS KNOWN. WILL MONITOR UNTIL DAY NURSE ASSUMES CARE.
--- NOTE | 2020-10-30 07:56 | NUR ---
RECIEVED A CALL FROM DIALYSIS PT NOT GOING TO DIALIZE TODAY. PT STILL LETHARGIC WILL HOLD MORNING GABAPENTIN. STILL NO BM WILL GIVE PRN MEDSWHEN PT IS AWAKE.
--- NOTE | 2020-10-30 18:09 | NUR ---
SHIFT SUMMARY- PT ALERT AND ORIENTED 2P ASSIST TO CHAIR OR BSC FOR SAFETY. PT STILL VERY WEAK BUT WHEN HE IS AWAKE HIS AWAKE SEEMS MORE ALERT WHEN COMPARED TO YESTERDAY. PT SPOUSE IS AT THE BEDSIDE CURRENTLY ASSISTING THE PT WITH HIS DINNER. PT WAS ABLE TO FEED HIMSELF BREAKFAST AND LUNCH. PT DID NOT HAVE DIALYSIS TODAY POSSIBLY TOMORROW. PG TO THE MARGA IS PATENT AND WILL SOON HAVE IV ABX RUNNING, OTHERWISE IS SL.
--- NOTE | 2020-10-31 04:41 | NUR ---
SHIFT SUMMARY NO ACUTE CHANGES THIS SHIFT. AOX4. VSS. TELE NSR @82. DENIES PAIN, N/V OR DYSPNEA. ON 1L O2 FOR COMFORT. LUNGS HAVE FINE CRACKLES IN BASES. TREMORS BUE. DROWSY BUT AWAKENS TO VERBAL STIMULI. NO BM IN 6 DAYS, GAVE MIRALAX & SENNA, STILL NO BM-SUGGESTED SUPPOSITORY & PT REFUSED. CALL LIGHT IN REACH & PT ABLE TO MAKE NEEDS KNOWN. WILL MONITOR UNTIL DAY NURSE ASSUMES CARE.
[2020-10-31 09:02] LABS: Albumin, Blood 2.3 g/dL (3.4-5.0); Anion Gap 4 mmol/L (6-16); Blood Urea Nitrogen 62 mg/dL (8-24); Bun/Creatinine Ratio 8.3 (12.0-20.0); CO2, Blood 34 mmol/L (21-32); Calcium, Blood 8.9 mg/dL (8.5-10.1); Chloride, Blood 98 mmol/L (98-108); Creatinine, Blood 7.44 mg/dL (0.60-1.20); Glomerular Filtration Rate 9 (60-); Glucose, Blood 122 mg/dL (70-99); Magnesium, Blood 2.4 mg/dL (1.6-2.4); Potassium, Blood 4.7 mmol/L (3.5-5.5); Sodium, Blood 136 mmol/L (136-145)
[2020-10-31] MEDS ORDERED: AMOCLA875 PO (16:25)
[2020-10-31] MEDS ORDERED: MINO10 PO (16:51)
--- NOTE | 2020-10-31 18:15 | NUR ---
DISCHARGE NOTE- PT WAS GIVEN VERBAL AND WRITTEN DISCHARGE INSTRUCTIONS, PRESENT FOR THE TEACHING. PG AND TELE DC'D PRIOR TO DISCHARGE. PT SPOUSE ASSISTED THE PT WITH A FULL SHOWER PRIOR TO DISCHARGE. PT SPOUSE RETURNED FOR THE PT HOME MEDS THAT WERE IN THE PT LOCKED DRAWER. PT WAS ESCORTED OUT TO HIS VEHICLE VIA WC BY THE STOCK TRANSFER CLERK. NO FURTHER QUESTIONS AT THE TIME OF DISCHARGE.
== END 2020-10-31 17:35 | disposition home health service (06) | DRG 871 ==
LOC: ER 10:27 → PCU 10:28 → ER 10:28 → PCU 10:28 → MEDS 10-26 18:08
PROVIDERS: Internal Medicine; Internal Medicine Critical Care Medicine; Internal Medicine Nephrology; Nurse Practitioner Acute Care; Pharmacist; Physician Assistant; ADMIT Family Medicine
PROC: 5A09457 Assistance with Respiratory Ventilation, 24-96 Consecutive Hours, Continuous Positive Airway Pressure (ICD-10-PCS; 2020-10-23)
PROC: 5A1D70Z Performance of Urinary Filtration, Intermittent, Less than 6 Hours Per Day (ICD-10-PCS; principal; 2020-10-24)
PROC: 5A1D70Z Performance of Urinary Filtration, Intermittent, Less than 6 Hours Per Day (ICD-10-PCS; 2020-10-26)
PROC: 5A1D70Z Performance of Urinary Filtration, Intermittent, Less than 6 Hours Per Day (ICD-10-PCS; 2020-10-29)
DX: A41.9 Sepsis, unspecified organism (principal); G92 Toxic encephalopathy; J18.9 Pneumonia, unspecified organism; N18.6 End stage renal disease; J96.91 Respiratory failure, unspecified with hypoxia; Z94.0 Kidney transplant status; D84.9 Immunodeficiency, unspecified; E87.1 Hypo-osmolality and hyponatremia; N02.8 Recurrent and persistent hematuria with other morphologic changes; Z20.822 Contact with and (suspected) exposure to COVID-19; E11.40 Type 2 diabetes mellitus with diabetic neuropathy, unspecified; E78.5 Hyperlipidemia, unspecified; E11.22 Type 2 diabetes mellitus with diabetic chronic kidney disease; D64.9 Anemia, unspecified; E61.1 Iron deficiency; E87.6 Hypokalemia; E87.70 Fluid overload, unspecified; E88.09 Other disorders of plasma-protein metabolism, not elsewhere classified; F32.9 Major depressive disorder, single episode, unspecified; G40.909 Epilepsy, unspecified, not intractable, without status epilepticus; K21.9 Gastro-esophageal reflux disease without esophagitis; Z86.73 Personal history of transient ischemic attack (TIA), and cerebral infarction without residual deficits; Z99.2 Dependence on renal dialysis; I11.0 Hypertensive heart disease with heart failure
CPT/HCPCS: 0202U; 36415; 36600; 70450; 71045; 80053; 80069; 80164; 80202; 82728; 82803; 82947; 83540; 83550; 83735; 83880; 84100; 84145; 84436; 84443; 85014; 85018; 85025; 87040; 87070; 87205; 94640; 94660; 94667; 94760; 94762; 96365; 96367; 96372; 96375; 96376; 97110; 97112; 97116; 97163; 97166; 97530; 97535; 99285-25; A9270; C1751; G0378; J0360; J0456; J0692; J0881; J2405; J2765; J2916; J3370; J7050; J7507; J7512; P9046

== ENCOUNTER 2020-11-19 03:58 | Emergency (ER) | payer BC ==
[~2020-11-19] VITALS: Ht 182.9 cm; Wt 81.7 kg
[~2020-11-19 03:58] MED LIST changes: +CALCIUM ACETAT667 M2 PO; +LABE200 PO; +PLAVIX75 MG PO
[2020-11-19 06:44] LABS: BASOPHILS ABSOLUTE AUTO 0.03 K/mm3 (0.00-0.23); BASOPHILS PERCENT AUTO 0 % (0-2); EOSINOPHILS ABSOLUTE AUTO 0.24 K/mm3 (0.00-0.68); EOSINOPHILS PERCENT AUTO 3 % (0-6); Hematocrit 27.6 % (37.0-53.0); Hemoglobin 9.1 g/dL (13.5-17.5); IMMATURE GRAN ABSOLUTE AUTO 0.05 K/mm3 (0.00-0.10); IMMATURE GRAN PERCENT AUTO 1 % (0-1); LYMPHOCYTES ABSOLUTE AUTO 1.63 K/mm3 (0.84-5.20); LYMPHOCYTES PERCENT AUTO 23 % (21-46); MONOCYTES ABSOLUTE AUTO 1.02 K/mm3 (0.16-1.47); MONOCYTES PERCENT AUTO 14 % (4-13); Mean Corpuscular HGB 31.8 pg (26.0-34.0); Mean Corpuscular Volume 97 fL (80-100); Mean Platelet Volume 9.6 fL (9.1-12.4); NEUTROPHILS PERCENT AUTO 59 % (41-73); Platelet Count 212 K/mm3 (150-400); RDW Coefficient Variation 18.2 % (11.7-14.2); RDW Standard Deviation 62.2 fL (35.1-46.3); Red Blood Cell Count 2.86 M/mm3 (4.30-5.90); White Blood Cell Count 7.17 K/mm3 (4.00-11.30)
[2020-11-19 06:58] LABS: Automated CSF WBC Count 0.004 K/mm3 (0-5); WBC Count, CSF 4 /mm3 (0-5)
[2020-11-19 07:01] LABS: Appearance, CSF Clear (Clear); Color, CSF No Color (No Color); RBC Count, CSF 0 /mm3 (0-0); WBC Count, CSF 3 /mm3 (0-5)
[2020-11-19 07:04] LABS: Alanine Aminotransfer (ALT/SGP 10 U/L (12-78); Albumin, Blood 2.9 g/dL (3.4-5.0); Albumin/Globulin Ratio 0.8 (0.8-1.8); Alk Phos 76 U/L (50-136); Anion Gap 8 mmol/L (6-16); Aspartate Aminotrans (AST/SGOT 17 U/L (12-37); Bilirubin, Total 0.5 mg/dL (0.1-1.0); Blood Urea Nitrogen 69 mg/dL (8-24); Bun/Creatinine Ratio 9.1 (12.0-20.0); CO2, Blood 35 mmol/L (21-32); Chloride, Blood 94 mmol/L (98-108); Creatinine, Blood 7.59 mg/dL (0.60-1.20); Globulin, Blood 3.6 g/dL (2.2-4.0); Glomerular Filtration Rate 8 (60-); Glucose, Blood 165 mg/dL (70-99); Magnesium, Blood 2.4 mg/dL (1.6-2.4); Potassium, Blood 4.1 mmol/L (3.5-5.5); Sodium, Blood 137 mmol/L (136-145); Total Protein, Blood 6.5 g/dL (6.4-8.2); Valproic Acid 67.5 ug/mL (50.0-100.0)
[2020-11-19 07:08] LABS: Glucose, CSF 85 mg/dL (40-70)
[2020-11-19 07:20] LABS: RBC Count, CSF 1277 /mm3 (0-0)
[2020-11-19 07:22] LABS: Lymphocytes, CSF 77 % (40-80); Monocytes, CSF 17 % (15-45); Neutrophils, CSF 6 % (0-6)
[2020-11-19 07:23] LABS: Appearance, CSF Clear (Clear); Color, CSF No Color (No Color)
[2020-11-19 07:30] LABS: Lymphocytes, CSF 56 % (40-80); Monocytes, CSF 23 % (15-45); Neutrophils, CSF 21 % (0-6)
[2020-11-19] MEDS ORDERED: ZEBUTAL 50-3251 EAC1 PO (07:54)
== END 2020-11-19 08:07 | disposition home or self-care (01) ==
LOC: ER 03:58
PROVIDERS: Emergency Medicine
DX: R51.9 Headache, unspecified (principal); Z79.02 Long term (current) use of antithrombotics/antiplatelets; Z79.899 Other long term (current) drug therapy
CPT/HCPCS: 62270; 70450; 80053; 80164; 82945; 83735; 84157; 85025; 87070; 87205; 89051; 96374-59; 96375-59; 96376-59; 99284-25; A9270; J0780; J2270; J2405

== ENCOUNTER 2020-11-19 18:32 | Emergency (ER) | payer BC ==
[~2020-11-19] VITALS: Ht 182.9 cm; Wt 90.7 kg
[~2020-11-19 18:32] MED LIST changes: +ZEBUTAL 50-3251 EAC1 PO
[2020-11-19 19:08] LABS: BASOPHILS ABSOLUTE AUTO 0.01 K/mm3 (0.00-0.23); BASOPHILS PERCENT AUTO 0 % (0-2); EOSINOPHILS ABSOLUTE AUTO 0.19 K/mm3 (0.00-0.68); EOSINOPHILS PERCENT AUTO 3 % (0-6); Hematocrit 31.4 % (37.0-53.0); Hemoglobin 10.1 g/dL (13.5-17.5); IMMATURE GRAN ABSOLUTE AUTO 0.03 K/mm3 (0.00-0.10); IMMATURE GRAN PERCENT AUTO 1 % (0-1); LYMPHOCYTES ABSOLUTE AUTO 1.23 K/mm3 (0.84-5.20); LYMPHOCYTES PERCENT AUTO 20 % (21-46); MONOCYTES ABSOLUTE AUTO 1.03 K/mm3 (0.16-1.47); MONOCYTES PERCENT AUTO 17 % (4-13); Mean Corpuscular HGB 30.7 pg (26.0-34.0); Mean Corpuscular HGB Conc 32.2 g/dL (31.5-36.5); Mean Corpuscular Volume 95 fL (80-100); Mean Platelet Volume 9.8 fL (9.1-12.4); NEUTROPHILS ABSOLUTE AUTO 3.63 K/mm3 (1.96-9.15); NEUTROPHILS PERCENT AUTO 59 % (41-73); Platelet Count 231 K/mm3 (150-400); RDW Standard Deviation 62.6 fL (35.1-46.3); Red Blood Cell Count 3.29 M/mm3 (4.30-5.90); White Blood Cell Count 6.12 K/mm3 (4.00-11.30)
[2020-11-19 19:32] LABS: Albumin, Blood 3.3 g/dL (3.4-5.0); Albumin/Globulin Ratio 0.9 (0.8-1.8); Bilirubin, Total 0.6 mg/dL (0.1-1.0); Bun/Creatinine Ratio 9.6 (12.0-20.0); Calcium, Blood 8.9 mg/dL (8.5-10.1); Creatinine, Blood 4.81 mg/dL (0.60-1.20); Globulin, Blood 3.6 g/dL (2.2-4.0); Potassium, Blood 3.6 mmol/L (3.5-5.5); Total Protein, Blood 6.9 g/dL (6.4-8.2)
[2020-11-19 19:41] LABS: Valproic Acid 46.5 ug/mL (50.0-100.0)
== END 2020-11-19 20:05 | disposition home or self-care (01) ==
LOC: ER 18:32
PROVIDERS: Emergency Medicine
DX: R56.9 Unspecified convulsions (principal); I10 Essential (primary) hypertension; E11.9 Type 2 diabetes mellitus without complications; Z79.4 Long term (current) use of insulin; Z79.02 Long term (current) use of antithrombotics/antiplatelets; Z79.899 Other long term (current) drug therapy
CPT/HCPCS: 80053; 80164; 85025; 96374; 96375; 99285-25; A9270; J2060; J2405; J3010

== ENCOUNTER 2020-11-23 08:47 | Inpatient (IN) | payer BC ==
[~2020-11-23] VITALS: Ht 188 cm; Wt 99.8 kg
[2020-11-23 10:39] LABS: BASOPHILS ABSOLUTE AUTO 0.02 K/mm3 (0.00-0.23); BASOPHILS PERCENT AUTO 1 % (0-2); EOSINOPHILS ABSOLUTE AUTO 0.08 K/mm3 (0.00-0.68); EOSINOPHILS PERCENT AUTO 2 % (0-6); Hematocrit 26.8 % (37.0-53.0); Hemoglobin 8.9 g/dL (13.5-17.5); IMMATURE GRAN ABSOLUTE AUTO 0.05 K/mm3 (0.00-0.10); IMMATURE GRAN PERCENT AUTO 1 % (0-1); LYMPHOCYTES ABSOLUTE AUTO 0.72 K/mm3 (0.84-5.20); LYMPHOCYTES PERCENT AUTO 17 % (21-46); MONOCYTES ABSOLUTE AUTO 0.68 K/mm3 (0.16-1.47); MONOCYTES PERCENT AUTO 16 % (4-13); Mean Corpuscular HGB 31.2 pg (26.0-34.0); Mean Corpuscular HGB Conc 33.2 g/dL (31.5-36.5); Mean Corpuscular Volume 94 fL (80-100); Mean Platelet Volume 10.1 fL (9.1-12.4); NEUTROPHILS ABSOLUTE AUTO 2.77 K/mm3 (1.96-9.15); NEUTROPHILS PERCENT AUTO 64 % (41-73); Platelet Count 175 K/mm3 (150-400); RDW Coefficient Variation 16.7 % (11.7-14.2); RDW Standard Deviation 56.7 fL (35.1-46.3); Red Blood Cell Count 2.85 M/mm3 (4.30-5.90); White Blood Cell Count 4.32 K/mm3 (4.00-11.30)
[2020-11-23 10:43] LABS: Albumin, Blood 2.9 g/dL (3.4-5.0); Albumin/Globulin Ratio 0.8 (0.8-1.8); Bilirubin, Total 0.5 mg/dL (0.1-1.0); Bun/Creatinine Ratio 6.8 (12.0-20.0); Calcium, Blood 8.6 mg/dL (8.5-10.1); Creatinine, Blood 4.25 mg/dL (0.60-1.20); Globulin, Blood 3.5 g/dL (2.2-4.0); Potassium, Blood 3.4 mmol/L (3.5-5.5); Total Protein, Blood 6.4 g/dL (6.4-8.2)
[2020-11-23] MEDS ORDERED: NICARDIPINE HCL PO (14:13)
[2020-11-23] MEDS ORDERED: ISOSORBIDE MONO60 MG PO (14:15)
[2020-11-23] MEDS ORDERED: MEGESTROL ACETA PO (14:15)
[2020-11-23] MEDS ORDERED: HYDRA50 PO ×2 (14:16→15:13)
[2020-11-23] MEDS ORDERED: LABE200 PO ×2 (14:16→15:13)
[2020-11-23] MEDS ORDERED: ONDA4ODT SL (15:17)
[2020-11-23] MEDS ORDERED: MINO10 PO (15:17)
[2020-11-23] MEDS ORDERED: OLME20 PO (15:17)
--- NOTE | 2020-11-23 15:56 | NUR ---
ADMISSION: PT ARRIVES FROM ED AFTER DIALYSIS ON NICARDIPINE GTT AT 7.5MG/HR. TITRATED NEEDED WITH CURRENT RATE 12.5 MG/HR. CALL TO DR LANDA TO CLARIFY ORDERS AND DR CONFIRMED THAT GOAL SBP IS LESS THAN 200 AT THIS TIME. WITH PT'S HISTORY FO STROKE SHE DOES NOT WANT TO DROP HIS BP TOO FAST. CALL TO DR BENEDICT TO ENSURE THAT HE IS AWARE OF CONSULT. PT HAD DIALYSIS TODAY AND STATED THAT HE HAS BEEN TWITCHING EVER SINCE. HAS BEEN AT BEDSIDE BUT LEFT TO GET HOME MEDS THAT ARE NEEDED. PT C/O HEADACHE. DOSE OF FIORECET GIVEN. HEATING PAD PROVIDED DUE TO PT REQUESTING SHOWER FOR HEADACHE BUT STAFF EDUCATED HIM THAT AMBULATING AND SITTING IN SHOWER WOULD NOT BE SAFE WITH ELEVATED BP AT THIS TIME. PT DECLINED SCDS AT PRESENT. NO FURTHER NEEDS OR CONCERNS AT THIS TIME.
--- NOTE | 2020-11-23 17:44 | NUR ---
SHIFT SUMMARY: PT SITTING UPRIGHT INB ED EATING LUNCH. LEFT SIDED WEAKNESS WHICH IS BASELINE FROM PREVIOUS STROKE IN FEBRUARY. DUE TO THIS HISTORY, ORDERS ARE TO TITRATE NICARDIPINE GTT SLOWLY WITH GOAL OF LESS THAN 200 SYSTOLIC. NICARDIPINE AT 10MG/HR AT THIS TIME. PT CONTINUES TO C/O OF HEADACHE BUT IT DID IMPROVE AFTER MIGRAINE MEDICATION ADMINISTERED. NO FURTHER NEEDS OR CONCERNS AT THIS TIME.
--- NOTE | 2020-11-23 19:00 | NUR ---
ASSUMED CARE ASSUMED CARE OF PATIENT. AWAKE AND ALERT. ORIENTED AND COOPERATIVE. PT CONTINUES TO C/O HEADACHE 05/21. DENIES C/O OTHER DISCOMFORT. SBP 170s-200s WITH NICARDIPINE AT 5MG/HR. MONITOR SHOWS NSR, RATE 90s. RA SATS STABLE. RESPIRATIONS EVEN AND UNLABORED. SEE SHIFT ASSESSMENT FOR FULL ASSESSMENT.
[2020-11-24 04:04] LABS: BASOPHILS ABSOLUTE AUTO 0.04 K/mm3 (0.00-0.23); BASOPHILS PERCENT AUTO 1 % (0-2); EOSINOPHILS ABSOLUTE AUTO 0.01 K/mm3 (0.00-0.68); EOSINOPHILS PERCENT AUTO 0 % (0-6); Hematocrit 26.6 % (37.0-53.0); Hemoglobin 8.5 g/dL (13.5-17.5); IMMATURE GRAN ABSOLUTE AUTO 0.03 K/mm3 (0.00-0.10); IMMATURE GRAN PERCENT AUTO 1 % (0-1); LYMPHOCYTES ABSOLUTE AUTO 1.39 K/mm3 (0.84-5.20); LYMPHOCYTES PERCENT AUTO 28 % (21-46); MONOCYTES ABSOLUTE AUTO 0.84 K/mm3 (0.16-1.47); MONOCYTES PERCENT AUTO 17 % (4-13); Mean Corpuscular HGB 30.7 pg (26.0-34.0); Mean Corpuscular Volume 96 fL (80-100); Mean Platelet Volume 9.8 fL (9.1-12.4); NEUTROPHILS ABSOLUTE AUTO 2.72 K/mm3 (1.96-9.15); NEUTROPHILS PERCENT AUTO 54 % (41-73); Platelet Count 206 K/mm3 (150-400); RDW Coefficient Variation 17.2 % (11.7-14.2); RDW Standard Deviation 60.3 fL (35.1-46.3); Red Blood Cell Count 2.77 M/mm3 (4.30-5.90); White Blood Cell Count 5.03 K/mm3 (4.00-11.30)
[2020-11-24 04:22] LABS: Albumin/Globulin Ratio 0.9 (0.8-1.8); Bilirubin, Total 0.7 mg/dL (0.1-1.0); Bun/Creatinine Ratio 6.8 (12.0-20.0); Calcium, Blood 9.1 mg/dL (8.5-10.1); Creatinine, Blood 5.86 mg/dL (0.60-1.20); Globulin, Blood 3.3 g/dL (2.2-4.0); Magnesium, Blood 2.3 mg/dL (1.6-2.4); Phosphorus, Blood 1.9 mg/dL (2.5-4.9); Potassium, Blood 3.8 mmol/L (3.5-5.5); Total Protein, Blood 6.3 g/dL (6.4-8.2)
--- NOTE | 2020-11-24 06:22 | NUR ---
SHIFT SUMMARY NO ACUTE CHANGES DURING NOC. SLEPT INTERMITTENTLY. CONTINUES WITH C/O HEADACHE. MEDICATED WITH FIORICET X 1 DOSE WITH SOME RELIEF. ALSO MEDICATED WITH FENTANYL 25MCG IV X 1 DOSE WITH SOME RELIEF OF HEADACHE. NICARDIPINE HAS INFUSED BETWEEN 5-10MG/HR TO KEEP SBP <200. NOW INFUSING AT 5MG/HR. NO URINE VOID DURING SHIFT. TMAX 100.1F. WILL REPORT TO ONCOMING RN WHEN AVAILABLE.
--- NOTE | 2020-11-24 07:44 | NUR ---
ASSUMED CARE BEDSIDE REPORT RECIEVED. PT IS LAYING IN BEDSIDE RECLINER CHAIR. PT AWAKENS TO VERBAL STIMULI. PT IS ALERT AND ORIENTED. PT ANSWERS QUESTIONS APPROPRIATELY. PT COMPLAINS OF DULL HEADACHE AT THIS TIME, BUT REPORTS ITS BETTER THAN EARLIER. VITAL SIGNS STABLE. PT ON ROOM AIR. NICARDIPINE GTT INFUSING AT 5 MG/HR. DIALYSIS CATH TO RIGHT CHEST C/D/I. WILL CONTINUE TO MONITOR.
--- NOTE | 2020-11-24 17:45 | NUR ---
SHIFT SUMMARY NO ACUTE CHANGES THIS SHIFT. PT REMAINS ALERT AND ORIENTED. PT WITH NO COMPLAINTS OF PAIN OR DISCOMFORT THROUGHOUT THE AFTERNOON. NICARDIPINE GTT REMAINS AT 5 MG/HR. PT REMAINS HYPERTENSIVE, OTHERWISE VITAL SIGNS STABLE. PT UP IN CHAIR FOR MOST OF THE SHIFT. DIALYSIS CATH TO RIGHT CHEST REMAINS C/D/I. PT TOLERATING PO INTAKE WELL. PT SPOUSE AT BEDSIDE AT THIS TIME. WILL CONTINUE TO MONITOR AND REPORT OFF TO ONCOMING RN.
--- NOTE | 2020-11-24 19:00 | NUR ---
ASSUMED CARE ASSUMED CARE OF PATIENT. AWAKE AND ALERT. ORIENTED AND COOPERATIVE. MINIMAL HEADACHE PER PATIENT. DENIES C/O OTHER DISCOMFORT. SBP 170s-190s WITH NICARDIPINE AT 5MG/HR. MONITOR SHOWS NSR, RATE 70s. RA SATS STABLE. RESPIRATIONS EVEN AND UNLABORED. DIALYSIS CATHETER NOTED TO RIGHT CHEST.SEE SHIFT ASSESSMENT FOR FULL ASSESSMENT.
[2020-11-25 05:19] LABS: Hematocrit 23.7 % (37.0-53.0); Hemoglobin 7.9 g/dL (13.5-17.5)
[2020-11-25 05:35] LABS: Albumin, Blood 2.7 g/dL (3.4-5.0); Anion Gap 6 mmol/L (6-16); Blood Urea Nitrogen 51 mg/dL (8-24); Bun/Creatinine Ratio 6.8 (12.0-20.0); CO2, Blood 33 mmol/L (21-32); Calcium, Blood 8.5 mg/dL (8.5-10.1); Chloride, Blood 95 mmol/L (98-108); Creatinine, Blood 7.46 mg/dL (0.60-1.20); Glomerular Filtration Rate 9 (60-); Glucose, Blood 124 mg/dL (70-99); Magnesium, Blood 2.3 mg/dL (1.6-2.4); Phosphorus, Blood 2.3 mg/dL (2.5-4.9); Potassium, Blood 3.7 mmol/L (3.5-5.5); Sodium, Blood 134 mmol/L (136-145)
--- NOTE | 2020-11-25 06:32 | NUR ---
SHIFT SUMMARY NO ACUTE CHANGES DURING NOC. SLEPT INTERMITTENTLY. MEDICATED WITH FENTANYL 25MCG IV X 1 DOSE FOR C/O GENERAL DISCOMFORT. NICARDIPINE HAS INFUSED BETWEEN 5-10MG/HR TO KEEP SBP <200. NOW INFUSING AT 10MG/HR. VOIDED ONCE -150CC YUSUF URINE. TMAX 99.5F. WILL REPORT TO ONCOMING RN WHEN AVAILABLE.
--- NOTE | 2020-11-25 08:00 | NUR ---
DR. GOOD UPDATED ON PATIENT STATUS. INFORMED THAT KIDNEY LABS INCREASING. INFORMED OF PHOSPHORUS OF 2.3. NO ORDERS RECEIVED AT THIS TIME.
--- NOTE | 2020-11-25 08:15 | NUR ---
INITIAL ASSESSMENT PATIENT ALERT AND ORIENTED X4, LETHARGIC. PATIENT APPEARS FLAT, WITHDRAWN, DEPRESSED. PATIENT SLOW TO RESPOND. PATIENT HAS SLIGHT LEFT SIDED WEAKNESS FROM PAST CVA. PATIENT 2 PERSON ASSIST IS WEAK, SHAKY, AND UNSTEADY ON FEET. PATIENT USES FWW. PATIENT AFEBRILE. PATIENT HAS NO COMPLAINTS OF PAIN AT THIS TIME. PATIENT SATTING 90% AND GREATER ON RA. LUNGS CLEAR AND DIMINISHED THROUGHOUT. SHALLOW BREATHS NOTED. PATIENT DENIES COUGH. PATIENT IN SR, HR IN THE 70S. SBP 170S TO 200S. ABDOMEN MILDLY DISTENDED, SOFT, WITH HYPOACTIVE BS NOTED. LAST BM NOTED ON THE . PATIENT OLIGURIC AND STATES HE NORMALLY VOIDS AROUND OT PER DAY IS DIALYSIS PATIENT. TRACE EDEMA NOTED TO BILAT ANKLES. PERMACATH NOTED TO R CHEST. AV FISTULA NOTED TO L ARM. NICARDIPINE DRIP INFUSING AT 10 MG/ HOUR. BED LOW, CALL LIGHT IN REACH. WILL CONTINUE TO MONITOR PATIENT FREQUENTLY THROUGHOUT SHIFT.
--- NOTE | 2020-11-25 09:49 | NUR ---
NURSE IN ROOM SETTING UP FOR DIALYSIS.
--- NOTE | 2020-11-25 12:30 | NUR ---
PATIENT AFEBRILE. HR 70S TO 80S. SBP 200S TO 220S. NICARDIPINE DRIP AT 10 MG/ HOUR. BLOOD SUGAR OF 166; NO COVERAGE INDICATED.
--- NOTE | 2020-11-25 16:54 | NUR ---
PATIENT HAS TEMP OF 99.3 DEGREES FAHRENHEIT AND STATES HE FEELS COLD. HR IN THE 70S. SBP 180S TO 200S. NICARDIPINE DRIP AT 10 MG/ HOUR. PRN HYDRALAZINE GIVEN. BLOOD SUGAR OF 217; COVERAGE GIVEN. AT BEDSIDE.
--- NOTE | 2020-11-25 18:31 | NUR ---
SHIFT SUMMARY PATIENT REMAINED ALERT AND ORIENTED. REMAINED WITHDRAWN, FLAT, DEPRESSED AND TEARFUL AT TIMES. PATIENT REMAINED WEAK, SHAKY AND UNSTEADY ON FEET. 2 PERSON ASSIST. PATIENT HAD TMAZ OF 99.3 DEGREES FAHRENHEIT. PATIENT GIVEN PRN FENTANYL AND TYLENOL OT FOR COMPLAINTS OF BACK PAIN. PATIENT REMAINED SATTING 90% AND GREATER ON RA. PATIENT REMAINED IN SR, HR 70S TO 80S. SBP 170S TO 220S. PATIENT REMAINED ON NICARDIPINE DRIP. DRIP RANGED FROM 5 TO 12.5 MCG/ HOUR; CURRENTLY AT 10 MG/ HOUR. PRN HYDRALAZINE GIVEN TWICE THIS SHIFT. PATIENT HAD ONE LARGE, HARD, BROWN BM THIS SHIFT. NO VOID. 3 L OUT WITH DIALYSIS. NO CHANGES TO SKIN. BLOOD SUGARS 125 TO 217. PATIENT REFUSED AM, ORAL CARE AND BED BATH THIS SHIFT. CAME DURING VISITING HOURS. BED LOW, CALL LIGHT IN REACH. PATIENT APPEARS COMFORTABLE AT THIS TIME. REPORT WILL BE GIVEN TO ASSUMING AIR CARRIER INSPECTOR NURSE SHORTLY.
--- NOTE | 2020-11-25 21:10 | NUR ---
AT 1930 PATIENT AWAKE FEELING ANXIOUS USING CALL LIGHT APPROPRIATELY, "THIS IS NOT MINE" POINTING TO HIS BLOOD PRESSURE CUFF. EXPLAINED TO PATIENT NEEDING TO CHECK HIS BLOOD PRESSURE EVERY 15 MIN BECAUSE OF THE MEDICATION HE IS RECEIVING FOR HIS BLOOD PRESSURE, EXPLAINED THAT WE CAN'T USE HIS LEFT ARM BECAUSE OF HIS NEW FISTULA AND HIS UPPER ARM HAS THE IV SO THE ONLY PLACE TO CHECK HIS BLOOD PRESSURE IS HIS RIGHT WRIST, SOME BRUISING SEEN TO RIGHT INNER WRIST. PATIENT SAYING SEVERAL TIMES "I JUST WANT TO GO HOME". TYLENOL GIVEN FOR C/O BACK PAIN, AND HYDRALAZINE PO GIVEN FOR HYPERTENSION. NICARDIPINE CONTINUES AT 10 MG/HR. PERMA CATH TO RIGHT CHEST WITH DRESSING CD&I. FISTULA TO LEFT ARM WITH GOOD BRUIT AND THRILL. TREMOR SEEN TO EXTREMITIES, MORE SO WHEN HE IS UPSET.
--- NOTE | 2020-11-25 22:18 | NUR ---
PATIENT CONTINUES TO HAVE DIFFICULTY GETTING COMFORTABLE IN BED. ASSISTED UP TO RECLINER CHAIR FOR COMFORT.
[2020-11-26 03:55] LABS: Hematocrit 27.3 % (37.0-53.0)
[2020-11-26 04:12] LABS: Albumin, Blood 2.8 g/dL (3.4-5.0); Anion Gap 6 mmol/L (6-16); Blood Urea Nitrogen 34 mg/dL (8-24); Bun/Creatinine Ratio 5.7 (12.0-20.0); CO2, Blood 29 mmol/L (21-32); Calcium, Blood 8.5 mg/dL (8.5-10.1); Chloride, Blood 101 mmol/L (98-108); Creatinine, Blood 5.93 mg/dL (0.60-1.20); Glomerular Filtration Rate 11 (60-); Glucose, Blood 138 mg/dL (70-99); Magnesium, Blood 2.2 mg/dL (1.6-2.4); Phosphorus, Blood 2.8 mg/dL (2.5-4.9); Potassium, Blood 3.5 mmol/L (3.5-5.5); Sodium, Blood 136 mmol/L (136-145)
--- NOTE | 2020-11-26 06:17 | NUR ---
PATIENT SLEEPING OFF AND ON, UP SEVERAL TIMES EARLY THIS MORNING, PASSING LARGE BM FINALLY. HYPERTENSION CONTINUES NICARDIPINE DRIP AT MAX RATE OF 15 MG/HR (150 CC/HR) PRN HYDRALAZINE GIVEN T/O NIGHT. FISTULA TO LEFT ARM WITH GOOD THRILL AND BRUIT, PERMA CATH TO RIGHT CHEST UNCHANGED. TREMOR TO EXTREMITIES APPEARS TO BE LESS SEVERE NOW THAT PATIENT IS MORE RELAXED.
--- NOTE | 2020-11-26 06:50 | NUR ---
DOCTOR BENEDICT IN TO SEE PATIENT, DOCTOR BENEDICT VERBALIZED TO CALL IN REFILL FOR MINOXIDIL AND HAVE TOY DEPARTMENT MANAGER THE REFILL.
--- NOTE | 2020-11-26 09:45 | NUR ---
PT IS ALMOST TO TEARS WANTING TO GO HOME. TREMORS NOTED OF R HAND. PT GENERALLY EMOTIONAL ABOUT BEING IN HOSP. AND "UNSURE OF WHAT I NEED". PT IS DENYING PAIN OR DISTRESS AT TIME OF ASSESSMENT BUT DID C/O NAUSEA AFTER EATING 100% OF BREAKFAST. PT REQUESTED NAUSEA MEDS AND AT TIME OF BEING GIVEN PT WAS RESTING W/O DISTRESS. VS NOTED AND NICARDIPINE GTT AT 15MG/HR OR 150ML. PO AM MEDS GIVEN AND WILL FOLLOW.
--- NOTE | 2020-11-26 17:03 | NUR ---
1500 NICARDIPINE GTT WAS STOPPED IN PREPARATION AND UNDERSTANDING THAT PT WAS FOR GOING HOME. THIS HAVE NOT BEEN THE CASE PER THE ORDERS BUT THE COMPUTERS HAVE BEEN ON AND OFF TODAY AND EVEN NOW THE EMAR BP PARAMETERS ON NICARDIPINE AND PHARAMACY'S ARE DIFFERENT. CURRENTLY THE BP IS UP AND PT IS ON THE WAY TO THE SHOWER AND WILL REASSESS AFTER SHOWER AND WILL GIVE SCHEDULED PRN TO ATTEMPT TO LOWER BP, AND THE CALL DR NEWSOME A STATUS REPORT PRIOR TO STARTING THE NICARDIPIINE GTT.
--- NOTE | 2020-11-26 17:42 | NUR ---
PER DR NEWSOME WILL RESTART NICARDIPINE GTT PER CURRENT PARAMETERS. PT IS PRESENT AND PT IS CALM BUT BP IS UP. 1800 MEDS AND PRNS WEL BE GIVEN.
--- NOTE | 2020-11-26 18:18 | NUR ---
PT RESTARTED ON NICARDIPINE GTT AT APPROX 1800. PT SETTING UP EATING SUPPER. VISITING AND IS A CALMING INFLUENCE. SBP NOTED. PT DENIES PAIN OR DISTRESS OTHERWISE. PRN MEDS GIVEN AND WILL FOLLOW FOR FURTHER TITRATION.
--- NOTE | 2020-11-26 22:14 | NUR ---
PATIENT RESTING QUIETLY WATCHING TV. HYPERTENSION CONTINUES, NICARDIPINE 10 MG/HR DRIP CONTINUES. SNACK OF 1/2 SANDWICH GIVEN PATIENT EDWARD WELL. NO C/O PAIN OR DISCOMFORT AT THIS TIME. LEFT SIDE WEAKNESS DUE TO HX CVA, SLIGHT TREMOR SEEN TO ARMS. PERMA CATH TO RIGHT CHEST. AV FISTULA TO LEFT ARM WITH GOOD THRILL AND BRUIT.
[2020-11-27 03:55] LABS: Hematocrit 24.8 % (37.0-53.0); Hemoglobin 8.1 g/dL (13.5-17.5)
[2020-11-27 04:15] LABS: Albumin, Blood 2.6 g/dL (3.4-5.0); Anion Gap 9 mmol/L (6-16); Blood Urea Nitrogen 46 mg/dL (8-24); Bun/Creatinine Ratio 6.4 (12.0-20.0); CO2, Blood 26 mmol/L (21-32); Chloride, Blood 102 mmol/L (98-108); Glomerular Filtration Rate 9 (60-); Glucose, Blood 114 mg/dL (70-99); Magnesium, Blood 2.1 mg/dL (1.6-2.4); Phosphorus, Blood 4.1 mg/dL (2.5-4.9); Sodium, Blood 137 mmol/L (136-145)
--- NOTE | 2020-11-27 05:54 | NUR ---
SUMMARY PATIENT SLEEPING OFF AND ON T/O NIGHT AWAKENS TO SLIGHT STIMULI. NICARDIPINE TITRATED DOWN TO 5 MG/HR DURING THE NIGHT, SEE FLOW SHEET. REPOSITIONING SELF IN BED FOR COMFORT. FISTULA TO LEFT ARM CONTINUES WITH GOOD THRILL. PERMA CATH CD&I TO RIGHT CHEST WALL FOR HEMODIALYSIS. LEFT SIDE WEAKNESS DUE TO HX OF CVA, ABLE TO REPOSITION SELF IN BED FOR COMFORT.
--- NOTE | 2020-11-27 09:31 | NUR ---
EARLY AM NOTE... PT SLEEPING BUT AROUSABEL. BP YET LABILE AND ELEVATED NOTE. NICARDIIPINE GTT IS ONLY AT 5MG AND WILL ATTEMPT TO FOLLOW AN WEAN DIRECTED.
--- NOTE | 2020-11-27 10:43 | NUR ---
PT HAS BEEN SLEEPING AND CALM THIS AM. NICARDIPINE GTT AT 5MG WITH BP 173/73 AND STOPPED. AT 1030 PT AWAKENED FOR PO MEDS AND PT NOTED AT 200/123. GTT RESTARTED AT 5MG AND WILL FOLLOW ALONG WITH AM PO MEDS.
--- NOTE | 2020-11-27 15:05 | NUR ---
NICARDIPINE GTT STOPPED PER DR GOOD AT 1435. DIALYSIS IN PROGRESS FROM 1351. WILL MONITOR BP AND REPORT POST DIALYSIS. PT HAD A SHORT EMOTIONAL OUTBURST WANTING THIS RN OUT OF THE ROOM, BUT IN EXPLAINING WHAT THIS RN THOUGHT WAS HEARD AND MISUNDERSTOOD PT CALMED. PT CAME IN AT ABOUT THIS TIME AND ALSO HAD A CALMING EFFECT.
--- NOTE | 2020-11-27 16:45 | NUR ---
DIALYSIS COMPLETE. BP STATUS CALLED TO DR GOOD. 1800 PO MEDS TO FOLLOW AND WILL CONT TO LEAVE NICARDIPINE GTT OFF PER DR REQUEST. REMAINS IN THE ROOM AND PT IS CALM.
[2020-11-27] MEDS ORDERED: ZEBUTAL PO (18:07)
[2020-11-27] MEDS ORDERED: CLOP75 PO (18:11)
[2020-11-27] MEDS ORDERED: CLONIDINE1 EA17 TD (18:11)
[2020-11-27] MEDS ORDERED: ABAT250V (18:11)
--- NOTE | 2020-11-27 18:38 | NUR ---
PT REQUESTING TO DR GOOD TO GO HOME AND WAS APPROVED. PT LAST SBP WAS 185, HOME MED INSTRUCTIONS AND F/U GIVEN TO JONAS. PT TO F/U WITH DR BENEDICT IN AM. PERSONAL BELONGINGS SENT HOME, MRAGA IV REMOVED INATCT AND SITE BANGAGED AND STABLE. PT W/C TO [facility] PER ULTRASONIC TESTER.
== END 2020-11-27 19:21 | disposition home or self-care (01) | DRG 280 ==
LOC: ER 08:47 → ICUW 14:08
PROVIDERS: Internal Medicine Nephrology; Physician Assistant; ADMIT Internal Medicine
PROC: 5A1D70Z Performance of Urinary Filtration, Intermittent, Less than 6 Hours Per Day (ICD-10-PCS; principal; 2020-11-23)
PROC: 5A1D70Z Performance of Urinary Filtration, Intermittent, Less than 6 Hours Per Day (ICD-10-PCS; 2020-11-25)
PROC: 5A1D70Z Performance of Urinary Filtration, Intermittent, Less than 6 Hours Per Day (ICD-10-PCS; 2020-11-27)
DX: I16.1 Hypertensive emergency (principal); N18.6 End stage renal disease; I21.4 Non-ST elevation (NSTEMI) myocardial infarction; Z94.0 Kidney transplant status; N02.8 Recurrent and persistent hematuria with other morphologic changes; E87.1 Hypo-osmolality and hyponatremia; N25.81 Secondary hyperparathyroidism of renal origin; I10 Essential (primary) hypertension; G43.909 Migraine, unspecified, not intractable, without status migrainosus; E87.70 Fluid overload, unspecified; E88.09 Other disorders of plasma-protein metabolism, not elsewhere classified; E87.6 Hypokalemia; F41.9 Anxiety disorder, unspecified; G40.909 Epilepsy, unspecified, not intractable, without status epilepticus; D63.1 Anemia in chronic kidney disease; K21.9 Gastro-esophageal reflux disease without esophagitis; E78.5 Hyperlipidemia, unspecified; F32.9 Major depressive disorder, single episode, unspecified; E11.40 Type 2 diabetes mellitus with diabetic neuropathy, unspecified; Z99.2 Dependence on renal dialysis; Z86.73 Personal history of transient ischemic attack (TIA), and cerebral infarction without residual deficits; Z79.02 Long term (current) use of antithrombotics/antiplatelets; Z79.82 Long term (current) use of aspirin; Z79.4 Long term (current) use of insulin; Z79.52 Long term (current) use of systemic steroids; Z79.899 Other long term (current) drug therapy
CPT/HCPCS: 36415; 80053; 80069; 82947; 83735; 84100; 84484; 85014; 85018; 85025; 96365; 96375; 99285-25; A9270; J0780; J0881; J1100; J1170; J1200; J3010; J7030; J7050; J7060; J7507; J7512

== ENCOUNTER 2020-12-12 10:55 | Emergency (ER) | payer BC ==
[~2020-12-12] VITALS: Ht 188 cm; Wt 95.2 kg
[~2020-12-12 10:55] MED LIST changes: +CLONIDINE1 EA17 TD; +MEGESTROL ACETA PO; +OLME20 PO; +ONDA4ODT SL; +ZEBUTAL PO
== END 2020-12-12 12:29 | disposition home or self-care (01) ==
LOC: ER 10:55
DX: S20.222A Contusion of left back wall of thorax, initial encounter (principal); E78.5 Hyperlipidemia, unspecified; K21.9 Gastro-esophageal reflux disease without esophagitis; Z79.02 Long term (current) use of antithrombotics/antiplatelets; Z79.4 Long term (current) use of insulin; Z79.52 Long term (current) use of systemic steroids; Z79.82 Long term (current) use of aspirin; Z79.899 Other long term (current) drug therapy; W01.198A Fall on same level from slipping, tripping and stumbling with subsequent striking against other object, initial encounter
CPT/HCPCS: 71100; 99284-25

== ENCOUNTER 2020-12-15 06:26 | Inpatient (IN) | payer BC ==
[~2020-12-15] VITALS: Ht 188 cm; Wt 95.0 kg
[2020-12-15 07:22] LABS: BASOPHILS ABSOLUTE AUTO 0.05 K/mm3 (0.00-0.23); BASOPHILS PERCENT AUTO 1 % (0-2); EOSINOPHILS ABSOLUTE AUTO 0.19 K/mm3 (0.00-0.68); EOSINOPHILS PERCENT AUTO 3 % (0-6); Hematocrit 28.7 % (37.0-53.0); Hemoglobin 9.5 g/dL (13.5-17.5); IMMATURE GRAN ABSOLUTE AUTO 0.02 K/mm3 (0.00-0.10); IMMATURE GRAN PERCENT AUTO 0 % (0-1); LYMPHOCYTES ABSOLUTE AUTO 1.03 K/mm3 (0.84-5.20); LYMPHOCYTES PERCENT AUTO 18 % (21-46); MONOCYTES ABSOLUTE AUTO 0.68 K/mm3 (0.16-1.47); MONOCYTES PERCENT AUTO 12 % (4-13); Mean Corpuscular HGB 32.1 pg (26.0-34.0); Mean Corpuscular HGB Conc 33.1 g/dL (31.5-36.5); Mean Corpuscular Volume 97 fL (80-100); Mean Platelet Volume 10.8 fL (9.1-12.4); NEUTROPHILS ABSOLUTE AUTO 3.73 K/mm3 (1.96-9.15); NEUTROPHILS PERCENT AUTO 65 % (41-73); Platelet Count 231 K/mm3 (150-400); RDW Coefficient Variation 15.7 % (11.7-14.2); RDW Standard Deviation 54.3 fL (35.1-46.3); Red Blood Cell Count 2.96 M/mm3 (4.30-5.90)
[2020-12-15 07:49] LABS: Albumin, Blood 2.9 g/dL (3.4-5.0); Albumin/Globulin Ratio 0.8 (0.8-1.8); Bilirubin, Total 1.1 mg/dL (0.1-1.0); Bun/Creatinine Ratio 8.6 (12.0-20.0); Calcium, Blood 9.4 mg/dL (8.5-10.1); Creatinine, Blood 5.46 mg/dL (0.60-1.20); Globulin, Blood 3.7 g/dL (2.2-4.0); Total Protein, Blood 6.6 g/dL (6.4-8.2); Troponin I 0.015 ng/mL (0.000-0.040)
[2020-12-15] MEDS ORDERED: CONSTULOSE10 GM/155 PO (08:55)
[2020-12-15] MEDS ORDERED: HYDROXYZINE PAM25 MG PO (08:56)
--- NOTE | 2020-12-15 11:00 | NUR ---
PT ADMITTED TO ICU 10 FROM ER. ARRIVES WITH NITRO GTT INFUSING AT 5MCG/MIN FOR HTN. FIRST FEW SBP'S 190'S-200'S. O2 VIA OXYMIZER AT 8L TO MAINTAIN SPO2 >92%, CRACKLES NOTED IN ALL LUNG MIN. PT REPORTS HE DID RECEIVE DIALYSIS YESTERDAY AND NORMAL DAYS ARE THURSDAY, THURSDAY AND THURSDAY. PT HAS MATURING A/V FISTULA TO LEFT ARM AND HD CATH TO RIGHT CHEST. ADMISSION PLAN IS TO DIALYSIS PT. DISCUSSED WITH INSPECTOR BICYCLE AND PLANS TO DIALYIS AFTER LUNCH. PROVIDER KAELA GAVE VERBAL INSTRUCTIONS TO STOP NITRO GTT ONCE SBP <200. MONITOR SHOWS PT TO BE IN SINUS RHYTHM.
--- NOTE | 2020-12-15 16:00 | NUR ---
REASSESSMENT PT IS ALERT AND ORIENTED, ANXIOUS. DIALYSIS COMPLETED, WITH 3.7L FLUID REMOVAL. BP GREATLY IMPROVED AND IS MAINTAINING <200. PT C/O CONSTIPATION AND INABILITY TO HAVE BM TODAY. TITRATED O2 DOWN TO 2L VIA OXYMIZER AND SPO2 MAINTAINING >92%. OTHER VITALS HAVE REMAINED STABLE. SINUS RHTYHM ON THE MONITOR.
--- NOTE | 2020-12-15 18:37 | NUR ---
SHIFT SUMMARY PT IS ALERT AND ORIENTEDx4, ANXIOUS AT TIMES. SINCE ADMISSION THIS MORNING, PT HAS BEEN WEANED TO ROOM AIR AND LUNG SOUNDS ARE NOW DEMINISED POST DIALYSIS. BP HAS ALSO IMPROVED WITH RECENT SBP'S RANGING FROM 160-170'S. DESKTOP ANALYST NOTIFIED THIS RN THAT PT IS PLANNED FOR DIALYSIS AGAIN TOMORROW, TIME DEPENDENT ON PT'S LEVEL OF CARE IN AM. PT WAS ABLE TO HAVE EXTRA LARGE HARD BM THIS EVENING. PT IS ONE PERSON ASSIST WITH WALKER WHEN OUT OF BED. OTHER VITALS HAVE REMAINED STABLE. SINUS RHYTHM ON THE MONITOR.
--- NOTE | 2020-12-15 20:00 | NUR ---
ASSUMED CARE RECEIVED REPORT FROM ROME MCDANIEL. PT IS IN BED DROWSY, BUT ORIENTED X 4. HE IS IN SINUS RHYTHM, BUT IS HYPERTENSIVE. NTG GTTP IS ON STANDBY. HE IS FAIRLY INDEPENDENT IN ROOM, REPOSITIONING HIM SELF MOST OF THE TIME, SOMETIMES WILL ASK FOR HELP. C/O HEADACHE. BED LOW AND LOCKED. CALL LIGHT WITHIN REACH.
--- NOTE | 2020-12-16 02:06 | NUR ---
UPDATE NO MAJOR CHANGES T/O NIGHT. SBP 160-195, DBP 70-95. PT SLEEPING WELL SINCE TAKING PM MEDICATIONS. VITALS STABLE. AFEBRILE. HE IS REPOSITIONING SELF WITH THE HOB = 30 DEGREES.
[2020-12-16 03:48] LABS: Hematocrit 27.3 % (37.0-53.0); Hemoglobin 8.9 g/dL (13.5-17.5)
[2020-12-16 04:05] LABS: Albumin, Blood 2.7 g/dL (3.4-5.0); Anion Gap 5 mmol/L (6-16); Blood Urea Nitrogen 37 mg/dL (8-24); Bun/Creatinine Ratio 7.3 (12.0-20.0); CO2, Blood 32 mmol/L (21-32); Calcium, Blood 9.3 mg/dL (8.5-10.1); Chloride, Blood 97 mmol/L (98-108); Creatinine, Blood 5.08 mg/dL (0.60-1.20); Glomerular Filtration Rate 13 (60-); Glucose, Blood 116 mg/dL (70-99); Magnesium, Blood 2.2 mg/dL (1.6-2.4); Potassium, Blood 4.2 mmol/L (3.5-5.5); Sodium, Blood 134 mmol/L (136-145)
--- NOTE | 2020-12-16 05:24 | NUR ---
END OF SHIFT PT HAS SLEPT FOR THE MAJORITY OF THE NIGHT. NO ISSUES OR COMPLICATIONS T/O SHIFT. PT CONTINUES TO BE HYPERTENSIVE BUT SBP < 200. SPO2 > 96% ON ROOM AIR. DENIES SOB, CHEST PAIN, AND NAUSEA. HE IS INDEPENDENT, BUT OFTEN WILL NEED TO BE COACHED - TO DO THE THINGS HE WANTS TO DO (LIKE PULLING THE BLANKETS UP THAT ARE WITHIN REACH). OLIGURIC TO ANURIC PT DID NOT VOID T/O NIGHT. BED LOW AND LOCKED. CALL LIGHT WITHIN REACH.
--- NOTE | 2020-12-16 09:45 | NUR ---
PT TRANSPORTED TO DIALYSIS ROOM VIA BED, BY ROME PORRAS.
--- NOTE | 2020-12-16 11:59 | NUR ---
DIALYSIS PT CALLED ME OVER. HE ASKED IF HE SHOULD BE WORRIED ABOUT BREATHING. I ASKED WHAT HE MEANT. HE SAID THAT HE HAS BEEN HAVING THE FEELING THAT HE COULD STOP BREATHING IF HE DOESN'T THINK ABOUT. I TOLD HIM NO, YOU AREN'T IN CHARGE YOUR BREATHING. EVEN IF YOU WERE UNCONSCIOUS, YOU BODY WOULD MAKE SURE YOU ARE BREATHING. YOU CAN RELAX AND NOT WORRY ABOUT IT. HE SAID OK THANK YOU.
--- NOTE | 2020-12-16 12:48 | NUR ---
PT RETURNED FROM DIALYSIS. DIALYSIS REMOVED 3.5L FLUID. SBP IMPROVED TO 170'S. PT REMAINS ON ROOM AIR. LUNCH TRAY PROVIDED TO PT, MEDICATED PER EMAR. CALL LIGHT IN REACH OF PT. PRIOR TO DIALYSIS, PT WAS STATUS CHANGED TO MEDICAL WITHOUT TELEMETERY.
--- NOTE | 2020-12-16 15:27 | NUR ---
TRANSFER OF CARE REPORT GIVEN TO YUNG PETER ON MEDICAL FLOOR. BELONGINGS GATHERED AND TRANSFERRED WITH PT. PT'S AWARE OF TRANSFER. TRENTON GRIFFIN ESCORTED PT TO ROOM 329 VIA WHEELCHAIR.
--- NOTE | 2020-12-16 18:18 | NUR ---
DISCHARGE:left with family, staff pushed wc to family car and assisted pt to enter REVIWED: stay, medications, discharge instructions and follow up appointments, REMOVED:tele and both iv's with no s/sx of infection or infiltration
== END 2020-12-16 17:30 | disposition home or self-care (01) | DRG 189 ==
LOC: ER 06:26 → ICUW 06:27 → MEDS 12-16 15:29
PROVIDERS: Emergency Medicine; Internal Medicine Nephrology; ADMIT Internal Medicine
DX: J96.01 Acute respiratory failure with hypoxia (principal); N18.6 End stage renal disease; I12.0 Hypertensive chronic kidney disease with stage 5 chronic kidney disease or end stage renal disease; Z94.0 Kidney transplant status; E11.22 Type 2 diabetes mellitus with diabetic chronic kidney disease; I16.0 Hypertensive urgency; E11.21 Type 2 diabetes mellitus with diabetic nephropathy; Z20.822 Contact with and (suspected) exposure to COVID-19; E78.5 Hyperlipidemia, unspecified; K21.9 Gastro-esophageal reflux disease without esophagitis; D63.1 Anemia in chronic kidney disease; D50.9 Iron deficiency anemia, unspecified; G40.909 Epilepsy, unspecified, not intractable, without status epilepticus; F32.9 Major depressive disorder, single episode, unspecified; Z99.2 Dependence on renal dialysis; Z86.73 Personal history of transient ischemic attack (TIA), and cerebral infarction without residual deficits; Z79.4 Long term (current) use of insulin; Z79.82 Long term (current) use of aspirin; Z79.02 Long term (current) use of antithrombotics/antiplatelets; Z79.52 Long term (current) use of systemic steroids
CPT/HCPCS: 36415; 71045; 80053; 80069; 82947; 83735; 83880; 84484; 85014; 85018; 85025; 93005; 93010; 96365; 96372; 96375; 96376; 99285-25; A9270; G0378; J0360; J0881; J2060; J2405; J7060; J7507; J7512

== ENCOUNTER 2021-01-09 12:37 | Emergency (ER) | payer BC ==
[~2021-01-09] VITALS: Ht 188 cm; Wt 86.2 kg
[~2021-01-09 12:37] MED LIST changes: +CONSTULOSE10 GM/155 PO; +HYDROXYZINE PAM25 MG PO
[2021-01-09] MEDS ORDERED: Norco 5-325 Ta1 EACH PO (16:18)
== END 2021-01-09 16:24 | disposition home or self-care (01) ==
LOC: ER 12:37
DX: S09.90XA Unspecified injury of head, initial encounter (principal); M25.552 Pain in left hip; I10 Essential (primary) hypertension; E11.9 Type 2 diabetes mellitus without complications; Z79.4 Long term (current) use of insulin; Z79.52 Long term (current) use of systemic steroids; Z79.899 Other long term (current) drug therapy; W18.30XA Fall on same level, unspecified, initial encounter
CPT/HCPCS: 70450; 72125; 73502; 99284-25; A9270

== ENCOUNTER 2021-02-01 09:56 | Emergency (ER) | payer BC ==
[~2021-02-01] VITALS: Ht 188 cm; Wt 90.7 kg
[~2021-02-01 09:56] MED LIST changes: -CLONIDINE1 EA17 TD; +Catapres-Tts 21 EACH TD; -ONDA4ODT SL; +SENN187 PO
[2021-02-01] MEDS ORDERED: HYDR1TAB94 PO (12:38)
== END 2021-02-01 13:00 | disposition home or self-care (01) ==
LOC: ER 09:56
DX: S39.012A Strain of muscle, fascia and tendon of lower back, initial encounter (principal); S20.212A Contusion of left front wall of thorax, initial encounter; E11.22 Type 2 diabetes mellitus with diabetic chronic kidney disease; N18.6 End stage renal disease; E78.5 Hyperlipidemia, unspecified; Z79.4 Long term (current) use of insulin; Z79.52 Long term (current) use of systemic steroids; Z79.02 Long term (current) use of antithrombotics/antiplatelets; Z79.899 Other long term (current) drug therapy; Z79.82 Long term (current) use of aspirin; W18.30XA Fall on same level, unspecified, initial encounter
CPT/HCPCS: 71046; 72100; 99283-25; A9270

== ENCOUNTER 2021-02-25 11:33 | Observation (INO) | payer BC ==
[~2021-02-25] VITALS: Ht 188 cm; Wt 93.8 kg
[~2021-02-25 11:33] MED LIST changes: +CLONIDINE1 EA17 TD; -Catapres-Tts 21 EACH TD; +HYDR1TAB94 PO; +ONDA4ODT SL; -SENN187 PO
[2021-02-25 12:15] LABS: BASOPHILS ABSOLUTE AUTO 0.02 K/mm3 (0.00-0.23); BASOPHILS PERCENT AUTO 0 % (0-2); EOSINOPHILS ABSOLUTE AUTO 0.05 K/mm3 (0.00-0.68); EOSINOPHILS PERCENT AUTO 1 % (0-6); Hematocrit 33.5 % (37.0-53.0); Hemoglobin 11.5 g/dL (13.5-17.5); IMMATURE GRAN ABSOLUTE AUTO 0.03 K/mm3 (0.00-0.10); IMMATURE GRAN PERCENT AUTO 1 % (0-1); LYMPHOCYTES ABSOLUTE AUTO 0.76 K/mm3 (0.84-5.20); LYMPHOCYTES PERCENT AUTO 13 % (21-46); MONOCYTES ABSOLUTE AUTO 0.95 K/mm3 (0.16-1.47); MONOCYTES PERCENT AUTO 16 % (4-13); Mean Corpuscular HGB 34.1 pg (26.0-34.0); Mean Corpuscular HGB Conc 34.3 g/dL (31.5-36.5); Mean Corpuscular Volume 99 fL (80-100); Mean Platelet Volume 10.2 fL (9.1-12.4); NEUTROPHILS PERCENT AUTO 69 % (41-73); Platelet Count 269 K/mm3 (150-400); RDW Coefficient Variation 13.7 % (11.7-14.2); Red Blood Cell Count 3.37 M/mm3 (4.30-5.90); White Blood Cell Count 5.91 K/mm3 (4.00-11.30)
[2021-02-25 12:29] LABS: Valproic Acid 64.4 ug/mL (50.0-100.0)
[2021-02-25 12:35] LABS: Albumin, Blood 3.3 g/dL (3.4-5.0); Albumin/Globulin Ratio 0.9 (0.8-1.8); Bilirubin, Total 0.5 mg/dL (0.1-1.0); Bun/Creatinine Ratio 11.6 (12.0-20.0); Calcium, Blood 8.7 mg/dL (8.5-10.1); Creatinine, Blood 5.79 mg/dL (0.60-1.20); Globulin, Blood 3.5 g/dL (2.2-4.0); Magnesium, Blood 2.3 mg/dL (1.6-2.4); Phosphorus, Blood 3.9 mg/dL (2.5-4.9); Potassium, Blood 4.4 mmol/L (3.5-5.5); Thyroid Stimulating Hormone 8.67 uIU/mL (0.360-4.800); Total Protein, Blood 6.8 g/dL (6.4-8.2); Troponin I 0.017 ng/mL (0.000-0.040)
--- NOTE | 2021-02-25 15:44 | NUR ---
ED Palliative Care Consult Spoke with Dr Salmon and discussed case. Pt and family are requesting SNF for strengthening. Spoke with ED Master Control Technician Jennifer and discussed case. Jennifer will start investigating possibility for SNF. Pt resting on gurny upon arrival. Spouse Sussy at bedside. Pt reports abdominal pain due to constipation and is requesting an enema. Pt is requesting his ED RN. Escorted Sussy to ED consultation room and offered therapeutic listening. Sussy reports having surgery 3 weeks ago and will be another 3 weeks before she can lift anything over 10 pounds. Sussy reports 4 days ago Pt was at baseline with the ability to transfer himself and ambulate with a walker. Since then Pt has grown increasingly weaker. Engaged in therapeutic discussion regarding the importance of considering higher a caregiver to assist with his future care needs. Instructed on the importance of self care and respite. Sussy reports potential ability to higher a caregiver finance business partner. Continued therapeutic listening and answered questions. No other concerns reported at this time. Spoke with ED RN Antonia and discussed case. Palliative Care will remain available if called upon.
[2021-02-25] MEDS ORDERED: EUTHYROX25 MC1 PO (15:46)
[2021-02-25] MEDS ORDERED: DIVALPROEX SOD500 M2 PO (15:49)
[2021-02-25] MEDS ORDERED: ISOSORBIDE MONO60 MG PO (16:04)
[2021-02-25] MEDS ORDERED: DOCU100 PO (16:42)
[2021-02-25] MEDS ORDERED: LASIX80 MG PO (16:42)
[2021-02-26 05:45] LABS: Bun/Creatinine Ratio 10.1 (12.0-20.0); Creatinine, Blood 7.8 mg/dL (0.60-1.20); Potassium, Blood 4.8 mmol/L (3.5-5.5)
--- NOTE | 2021-02-26 06:02 | NUR ---
PT ADMIT THIS SHIFT FROM ER TO ROOM 359, DIALYSIS PT WITH LEFT ARM FISTULA, DRESSING TO PORT REMOVED IN RCW. 1-ASSIST WITH FWW, EGGCRATE PLACED ON BED FOR COMFORT. VERY HYPERTENSIVE FROM ER, SCHEDULED MEDS GIVEN THIS SHIFT. POSSIBLE PLACEMENT.
--- NOTE | 2021-02-26 11:20 | NUR ---
MERCEDEZ IVY REQUEST ORDER MRI LUMBAR WO FOR WEAKNESS AND CAN CHANGE NORCO TO 1/2-1 TAB Q6 PRN
--- NOTE | 2021-02-26 11:54 | NUR ---
Brief supportive visit this AM. Pt resting in bed upon arrival and reports feeling sore due to working with PT. Reviewed plan of care with Pt reporting no concerns at this time. Spoke with Greg Hi and discussed case. Reviwed plan of care. Pt may benefit from resuming dialysis schedule if appropriate. Palliative Care will remain available.
--- NOTE | 2021-02-26 17:09 | NUR ---
OK TO ORDER NEPHROLOGY CONSULT PER
--- NOTE | 2021-02-26 17:14 | NUR ---
ALERT. ORIENTED. MEDICATED FOR PAIN WITH LITTLE RESULTS W/PATIENT REFUSING ANY FURTHER MEDS. MRI NOT COMPLETED PATIENT SAID HE COULD NOT STAND THE NOISE. MAX 2 PERSON ASSIST TO BSC. CONSULT FOR DIALYSIS ORDERED. THRILL PRESENT LT ARM. DRESSING ON OLD PERMACATH SITE. BRUISING T/O. WCTM
--- NOTE | 2021-02-27 04:23 | NUR ---
PATIENT VERY SOMNOLENT THIS EVENING. HE SAID HE HADN'T SLEPT WELL FOR SEVERAL DAYS. THIS RN HAD TO USE A LOUD VOICE AND TOUCH TO GET HIS ATTENTION. TRISTA APPEARED VERY DEPRESSED WHEN HE EXPLAINED THAT HE WAS "NEVER GOING TO BE GOING HOME AGAIN". AFFECT REMAINED FLAT OVERNIGHT. SYSTOLIC PRESSURES RANGED FROM 18O'S BEFORE HS MEDS TO HIGH 140'S ONE HOUR AFTER MEDICATIONS. AT ONE POINT, TRISTA WANTED TO GET INTO RECLINER. IT TOOK A STRONG TWO PERSON ASSIST TO PIVOT PATIENT INTO RECLINER PATIENT'S FEET KEPT SLIDING FORWARD. AT THIS TIME, WE SPENT TIME DISCUSSING IMPORTANCE OF HIS PARTICIPATION IN REHAB.
[2021-02-27 06:22] LABS: Calcium, Blood 8.9 mg/dL (8.5-10.1); Potassium, Blood 5.6 mmol/L (3.5-5.5)
[2021-02-27 06:24] LABS: Creatinine, Blood 9.71 mg/dL (0.60-1.20)
--- NOTE | 2021-02-27 09:10 | NUR ---
TO DIALYSIS VIA BED
--- NOTE | 2021-02-27 13:03 | NUR ---
BACK FROM DIALYSIS, TO BSC THEN BED
--- NOTE | 2021-02-27 18:42 | NUR ---
ALERT. ORIENTED. HAD DIALYSIS TODAY. UNLABORED RESPIRATIONS. DISCUSS GOING TO SNF FOR REHAB. WITHDRAWN. 2 PERSON ASSIST TO BSC. EXT TREMORS. WCTM
--- NOTE | 2021-02-28 05:10 | NUR ---
SUMMARY NO NEW ISSUES NOTED. PT PAIN HAS BEEN TX PER EMAR W/ RELIEF. PT HAS RESTED WELL IN RECLINER T/O SHIFT. PT CURRENTLY SLEEPING IN NO DISTRESS. CALL LIGHT IN REACH.
[2021-02-28 05:12] LABS: Hematocrit 29.2 % (37.0-53.0); Hemoglobin 9.8 g/dL (13.5-17.5)
[2021-02-28 05:39] LABS: Albumin, Blood 2.9 g/dL (3.4-5.0); Anion Gap 6 mmol/L (6-16); Blood Urea Nitrogen 73 mg/dL (8-24); Bun/Creatinine Ratio 9.3 (12.0-20.0); CO2, Blood 32 mmol/L (21-32); Calcium, Blood 8.8 mg/dL (8.5-10.1); Chloride, Blood 95 mmol/L (98-108); Creatinine, Blood 7.86 mg/dL (0.60-1.20); Glomerular Filtration Rate 8 (60-); Glucose, Blood 84 mg/dL (70-99); Magnesium, Blood 2.6 mg/dL (1.6-2.4); Phosphorus, Blood 5.3 mg/dL (2.5-4.9); Potassium, Blood 5.2 mmol/L (3.5-5.5); Sodium, Blood 133 mmol/L (136-145)
[2021-02-28 11:34] LABS: SARS-Cov-2 (COVID-19) PCR, MMC NEGATIVE (NEGATIVE)
--- NOTE | 2021-02-28 14:22 | NUR ---
PT DISCHARGED @ APPROX 1420 VIA [facility]. PERSONAL BANKING OFFICER JONAS, INFORMED OF DISCHAGRE TO [facility]. REPORT CALLED TO ROME MON @ [facility] @ APROX 1230. HOME MEDICATIONS AND DISCHARGE PACKET PROVIDED TO SKIP HOIST OPERATOR TO GIVE TO [facility]. HARD SCRIPT IN FOLDER. IV REMOVED PRIOR TO DC, SITE APPEARED WNL.
== END 2021-02-28 14:19 ==
LOC: ER 11:33 → MEDS 11:34
PROVIDERS: Emergency Medicine; Family Medicine; Internal Medicine Nephrology; ADMIT Hospitalist
DX: E86.9 Volume depletion, unspecified (principal); E87.1 Hypo-osmolality and hyponatremia; E87.5 Hyperkalemia; D64.9 Anemia, unspecified; I13.2 Hypertensive heart and chronic kidney disease with heart failure and with stage 5 chronic kidney disease, or end stage renal disease; I50.9 Heart failure, unspecified; N18.6 End stage renal disease; E11.22 Type 2 diabetes mellitus with diabetic chronic kidney disease; K59.00 Constipation, unspecified; E11.42 Type 2 diabetes mellitus with diabetic polyneuropathy; F32.9 Major depressive disorder, single episode, unspecified; E03.9 Hypothyroidism, unspecified; N25.81 Secondary hyperparathyroidism of renal origin; Z79.82 Long term (current) use of aspirin; Z79.02 Long term (current) use of antithrombotics/antiplatelets; Z79.4 Long term (current) use of insulin; Z79.899 Other long term (current) drug therapy; Z20.822 Contact with and (suspected) exposure to COVID-19
CPT/HCPCS: 36415; 70450; 71045; 80048; 80053; 80069; 80164; 80197; 82947; 83605; 83735; 84100; 84443; 84484; 85014; 85018; 85025; 87040; 93005; 93010; 96372; 96376; 97110; 97116; 97162; 97166; 97530; 99285-25; A9270; G0257; G0378; J0360; J0881; J1650; J2060; J7507; J7512; U0004

== ENCOUNTER 2021-03-24 21:09 | Emergency (ER) | payer BC ==
[~2021-03-24] VITALS: Ht 188 cm; Wt 131.5 kg
[~2021-03-24 21:09] MED LIST changes: +DIVALPROEX SOD500 M2 PO; +DOCU100 PO; +EUTHYROX25 MC1 PO; +LASIX80 MG PO
[2021-03-24 21:36] LABS: BASOPHILS ABSOLUTE AUTO 0.03 K/mm3 (0.00-0.23); BASOPHILS PERCENT AUTO 1 % (0-2); EOSINOPHILS ABSOLUTE AUTO 0.16 K/mm3 (0.00-0.68); EOSINOPHILS PERCENT AUTO 3 % (0-6); Hematocrit 32.9 % (37.0-53.0); Hemoglobin 10.9 g/dL (13.5-17.5); IMMATURE GRAN ABSOLUTE AUTO 0.04 K/mm3 (0.00-0.10); IMMATURE GRAN PERCENT AUTO 1 % (0-1); LYMPHOCYTES ABSOLUTE AUTO 1.15 K/mm3 (0.84-5.20); LYMPHOCYTES PERCENT AUTO 21 % (21-46); MONOCYTES PERCENT AUTO 13 % (4-13); Mean Corpuscular HGB 34.2 pg (26.0-34.0); Mean Corpuscular HGB Conc 33.1 g/dL (31.5-36.5); Mean Corpuscular Volume 103 fL (80-100); Mean Platelet Volume 10.2 fL (9.1-12.4); NEUTROPHILS PERCENT AUTO 63 % (41-73); Platelet Count 256 K/mm3 (150-400); RDW Coefficient Variation 12.9 % (11.7-14.2); RDW Standard Deviation 47.8 fL (35.1-46.3); Red Blood Cell Count 3.19 M/mm3 (4.30-5.90); White Blood Cell Count 5.58 K/mm3 (4.00-11.30)
[2021-03-24 21:51] LABS: International Normalized Ratio 1.07; Prothrombin Time Results 11.5 Sec (9.7-11.5)
[2021-03-24 21:56] LABS: Albumin, Blood 3.3 g/dL (3.4-5.0); Albumin/Globulin Ratio 0.9 (0.8-1.8); Bilirubin, Total 0.6 mg/dL (0.1-1.0); Bun/Creatinine Ratio 10.9 (12.0-20.0); Calcium, Blood 9.6 mg/dL (8.5-10.1); Creatinine, Blood 8.07 mg/dL (0.60-1.20); Globulin, Blood 3.6 g/dL (2.2-4.0); Potassium, Blood 5.7 mmol/L (3.5-5.5); Total Protein, Blood 6.9 g/dL (6.4-8.2)
== END 2021-03-25 00:29 | disposition home or self-care (01) ==
LOC: ER 21:09
PROVIDERS: Physician Assistant
DX: S40.012A Contusion of left shoulder, initial encounter (principal); N18.6 End stage renal disease; E78.5 Hyperlipidemia, unspecified; E11.40 Type 2 diabetes mellitus with diabetic neuropathy, unspecified; K21.9 Gastro-esophageal reflux disease without esophagitis; Z79.899 Other long term (current) drug therapy; Z86.73 Personal history of transient ischemic attack (TIA), and cerebral infarction without residual deficits; Z79.02 Long term (current) use of antithrombotics/antiplatelets; Z79.890 Hormone replacement therapy; Z79.4 Long term (current) use of insulin; W01.0XXA Fall on same level from slipping, tripping and stumbling without subsequent striking against object, initial encounter; Y92.002 Bathroom of unspecified non-institutional (private) residence as the place of occurrence of the external cause
CPT/HCPCS: 70450; 73030; 80053; 82947; 85025; 85610; 85730; 93005; 93010; 99285-25

== ENCOUNTER 2021-03-27 19:58 | Emergency (ER) | payer BC ==
[~2021-03-27] VITALS: Ht 188 cm; Wt 90.7 kg
[2021-03-27 20:17] LABS: BASOPHILS ABSOLUTE AUTO 0.02 K/mm3 (0.00-0.23); BASOPHILS PERCENT AUTO 0 % (0-2); EOSINOPHILS ABSOLUTE AUTO 0.07 K/mm3 (0.00-0.68); EOSINOPHILS PERCENT AUTO 1 % (0-6); Hematocrit 29.3 % (37.0-53.0); Hemoglobin 9.6 g/dL (13.5-17.5); IMMATURE GRAN ABSOLUTE AUTO 0.02 K/mm3 (0.00-0.10); IMMATURE GRAN PERCENT AUTO 0 % (0-1); LYMPHOCYTES ABSOLUTE AUTO 1.02 K/mm3 (0.84-5.20); LYMPHOCYTES PERCENT AUTO 18 % (21-46); MONOCYTES ABSOLUTE AUTO 1.13 K/mm3 (0.16-1.47); MONOCYTES PERCENT AUTO 20 % (4-13); Mean Corpuscular HGB 34.2 pg (26.0-34.0); Mean Corpuscular HGB Conc 32.8 g/dL (31.5-36.5); Mean Corpuscular Volume 104 fL (80-100); Mean Platelet Volume 9.3 fL (9.1-12.4); NEUTROPHILS ABSOLUTE AUTO 3.29 K/mm3 (1.96-9.15); NEUTROPHILS PERCENT AUTO 59 % (41-73); Platelet Count 176 K/mm3 (150-400); RDW Coefficient Variation 12.9 % (11.7-14.2); RDW Standard Deviation 49.4 fL (35.1-46.3); Red Blood Cell Count 2.81 M/mm3 (4.30-5.90); White Blood Cell Count 5.55 K/mm3 (4.00-11.30)
[2021-03-27 20:32] LABS: Albumin, Blood 3.2 g/dL (3.4-5.0); Albumin/Globulin Ratio 0.9 (0.8-1.8); Bilirubin, Total 0.7 mg/dL (0.1-1.0); Bun/Creatinine Ratio 8.2 (12.0-20.0); Calcium, Blood 9.5 mg/dL (8.5-10.1); Creatinine, Blood 4.75 mg/dL (0.60-1.20); Globulin, Blood 3.6 g/dL (2.2-4.0); Potassium, Blood 4.8 mmol/L (3.5-5.5); Total Protein, Blood 6.8 g/dL (6.4-8.2)
[2021-03-27 21:11] LABS: Valproic Acid 63.8 ug/mL (50.0-100.0)
== END 2021-03-27 21:50 | disposition short-term general hospital (02) ==
LOC: ER 19:58
PROVIDERS: Emergency Medicine
DX: S06.4X9A Epidural hemorrhage with loss of consciousness of unspecified duration, initial encounter (principal); I12.9 Hypertensive chronic kidney disease with stage 1 through stage 4 chronic kidney disease, or unspecified chronic kidney disease; E11.22 Type 2 diabetes mellitus with diabetic chronic kidney disease; E11.40 Type 2 diabetes mellitus with diabetic neuropathy, unspecified; N18.6 End stage renal disease; Z79.4 Long term (current) use of insulin; Z79.82 Long term (current) use of aspirin; Z79.52 Long term (current) use of systemic steroids; Z79.899 Other long term (current) drug therapy; W18.30XA Fall on same level, unspecified, initial encounter
CPT/HCPCS: 36415; 70450; 71260; 72170; 74177; 80053; 80164; 83605; 85025; 86900; 86901; 87040; 93005; 93010; 96365; 96375; 99285-25; J1953; J2060; J2270; J7050; Q9967

== ENCOUNTER 2021-05-15 03:13 | Emergency (ER) | payer BC ==
[~2021-05-15] VITALS: Ht 182.9 cm; Wt 104.3 kg
[~2021-05-15 03:13] MED LIST changes: -EUTHYROX25 MC1 PO; +EUTHYROX50 MC1 PO; +FERROUS SU220 MG/52 PO
[2021-06-07] MEDS ORDERED: AURYXIA210 MG PO (06:49)
[2021-06-07] MEDS ORDERED: VENL37.5 PO ×2 (06:50→07:06)
[2021-06-07] MEDS ORDERED: BASAGLAR K100 UNIT/1 SC (06:50)
[2021-06-07] MEDS ORDERED: MIRALAX17 G3 PO (06:51)
[2021-06-07] MEDS ORDERED: ENOX40I SC (07:03)
[2021-06-07] MEDS ORDERED: FURO80 PO (07:05)
[2021-06-18] MEDS ORDERED: LABE100 PO (16:28)
== END 2021-05-15 05:35 | disposition home or self-care (01) ==
LOC: ER 03:13
DX: Z04.3 Encounter for examination and observation following other accident (principal); I12.0 Hypertensive chronic kidney disease with stage 5 chronic kidney disease or end stage renal disease; E11.40 Type 2 diabetes mellitus with diabetic neuropathy, unspecified; E11.22 Type 2 diabetes mellitus with diabetic chronic kidney disease; N18.6 End stage renal disease; K21.9 Gastro-esophageal reflux disease without esophagitis; E78.5 Hyperlipidemia, unspecified; Z79.899 Other long term (current) drug therapy
CPT/HCPCS: 99284

== ENCOUNTER 2021-05-29 05:33 | Observation (INO) | payer BC ==
[~2021-05-29] VITALS: Ht 190.5 cm; Wt 81.3 kg
[2021-05-29 05:52] LABS: BASOPHILS ABSOLUTE AUTO 0.03 K/mm3 (0.00-0.23); BASOPHILS PERCENT AUTO 1 % (0-2); EOSINOPHILS ABSOLUTE AUTO 0.15 K/mm3 (0.00-0.68); EOSINOPHILS PERCENT AUTO 3 % (0-6); Hematocrit 31.5 % (37.0-53.0); Hemoglobin 10.5 g/dL (13.5-17.5); IMMATURE GRAN ABSOLUTE AUTO 0.01 K/mm3 (0.00-0.10); IMMATURE GRAN PERCENT AUTO 0 % (0-1); LYMPHOCYTES ABSOLUTE AUTO 1.06 K/mm3 (0.84-5.20); LYMPHOCYTES PERCENT AUTO 23 % (21-46); MONOCYTES ABSOLUTE AUTO 0.67 K/mm3 (0.16-1.47); MONOCYTES PERCENT AUTO 14 % (4-13); Mean Corpuscular HGB 32.5 pg (26.0-34.0); Mean Corpuscular HGB Conc 33.3 g/dL (31.5-36.5); Mean Corpuscular Volume 98 fL (80-100); Mean Platelet Volume 10.7 fL (9.1-12.4); NEUTROPHILS ABSOLUTE AUTO 2.72 K/mm3 (1.96-9.15); NEUTROPHILS PERCENT AUTO 59 % (41-73); Platelet Count 153 K/mm3 (150-400); RDW Coefficient Variation 12.8 % (11.7-14.2); RDW Standard Deviation 46.2 fL (35.1-46.3); Red Blood Cell Count 3.23 M/mm3 (4.30-5.90); White Blood Cell Count 4.64 K/mm3 (4.00-11.30)
[2021-05-29 06:24] LABS: Albumin, Blood 2.8 g/dL (3.4-5.0); Albumin/Globulin Ratio 0.7 (0.8-1.8); Bilirubin, Total 0.6 mg/dL (0.1-1.0); Bun/Creatinine Ratio 8.3 (12.0-20.0); Globulin, Blood 3.9 g/dL (2.2-4.0); Potassium, Blood 3.1 mmol/L (3.5-5.5); Total Protein, Blood 6.7 g/dL (6.4-8.2); Troponin I 0.02 ng/mL (0.000-0.040)
[2021-05-29 07:08] LABS: Magnesium, Blood 2.3 mg/dL (1.6-2.4); Phosphorus, Blood 1.1 mg/dL (2.5-4.9)
[2021-05-29 09:01] LABS: SARS-Cov-2 (COVID-19) PCR, MMC NEGATIVE (NEGATIVE)
[2021-05-29 11:11] LABS: Albumin, Blood 2.5 g/dL (3.4-5.0); Anion Gap 5 mmol/L (6-16); Blood Urea Nitrogen 25 mg/dL (8-24); Bun/Creatinine Ratio 7.5 (12.0-20.0); CO2, Blood 35 mmol/L (21-32); Calcium, Blood 9.2 mg/dL (8.5-10.1); Chloride, Blood 96 mmol/L (98-108); Creatinine, Blood 3.33 mg/dL (0.60-1.20); Glomerular Filtration Rate 21 (60-); Glucose, Blood 82 mg/dL (70-99); Phosphorus, Blood 1.5 mg/dL (2.5-4.9); Potassium, Blood 3.1 mmol/L (3.5-5.5); Sodium, Blood 136 mmol/L (136-145)
[2021-05-29] MEDS ORDERED: ATOR80 PO (15:22)
[2021-05-29] MEDS ORDERED: BISA10S PR (15:23)
[2021-05-29] MEDS ORDERED: FOLI1 PO (15:24)
[2021-05-29] MEDS ORDERED: ENOX40I SC (15:25)
[2021-05-29] MEDS ORDERED: MELA3 PO (15:25)
[2021-05-29] MEDS ORDERED: MULTIPLE VITAM1 EACH PO (15:26)
--- NOTE | 2021-05-29 16:57 | NUR ---
I wheeled the patient outside to meet his ride upon discharge. When I tried to hand him the bag with his belongingss and discharge paperwork, he refused it while saying, "No thank you, I don't need it." I reminded him that the bag contained his discharge instructions and medcatin information. He repeated, "No thank you, I don't need it."
--- NOTE | 2021-05-29 17:50 | NUR ---
PT ARRIVED IN THE UNIT VIA STRETCHER TRANSFERRED VIA SLIDE SHEET. PT IS HERE FOR HTN URGENCY, ALERT AND ORIENTED X3, CURRENTLY RESIDES AT [facility] FOR RE[facility]. PT HAS LEFT SIDED WEAKNESS DUE TO CVA, PT USES WALKER ASSISTED AT THE FACILITY PER PT. UPON ARRIVAL VITALS HRR SR 70'S, BP SYSTOLIC 180'S ALL ROUTINE BP MEDS GIVEN BP WENT DOWN TO 70'S-150'S SYSTOLIC. SATS ABOVE 95% ON RA, AFEBRILE. PT HAD MILD HEADACHE HAS RESOLVED PT HAS BEEN RESTING SINCE TRANSFER. NO OTHER ISSUES REPORTED AT THIS TIME, STATUS CHANGED TO MEDICAL. PT ABLE TO MAKE NEEDS KNOWN, WILL REPORT TO ONCOMING SHIFT
[2021-05-29 17:54] LABS: Potassium, Blood 3.3 mmol/L (3.5-5.5); Troponin I 0.03 ng/mL (0.000-0.040)
--- NOTE | 2021-05-29 17:56 | NUR ---
PT SUMMARY: PT WAS ON BIPAP THIS AM UPON AHIFT CHANGE SWITCHED TO AIRVO SETTINGS 50L 80%, PT HAS BEEN SATTING ABOVE 90% DESATS TO LOW 80'S WITH EXERTION RECOVERS QUICK. THE REST OF THE VITALS STABLE. PT HAS BEEN UP IN THE CHAIR FOR MEALS, USES BEDSIDE COMMODE FOR TOILETING, 1 PERSON ASSISTS, [place] DRAINED ALMOST 2L FOR THE SHIFT. WAS ALSO GIVEN ATIVAN 1MG X1 FOR ANXIETY. NO OTHER ISSUES REPORTED, PT ABLE TO MAKE NEEDS KNOWN, CALL LIGHTS IN REACH WILL REPORT TO ONCOMING SHIFT
[2021-05-30 02:42] LABS: BASOPHILS ABSOLUTE AUTO 0.03 K/mm3 (0.00-0.23); BASOPHILS PERCENT AUTO 1 % (0-2); EOSINOPHILS ABSOLUTE AUTO 0.25 K/mm3 (0.00-0.68); EOSINOPHILS PERCENT AUTO 4 % (0-6); Hematocrit 28.1 % (37.0-53.0); Hemoglobin 9.5 g/dL (13.5-17.5); IMMATURE GRAN ABSOLUTE AUTO 0.01 K/mm3 (0.00-0.10); IMMATURE GRAN PERCENT AUTO 0 % (0-1); LYMPHOCYTES ABSOLUTE AUTO 1.23 K/mm3 (0.84-5.20); LYMPHOCYTES PERCENT AUTO 21 % (21-46); MONOCYTES ABSOLUTE AUTO 0.89 K/mm3 (0.16-1.47); MONOCYTES PERCENT AUTO 15 % (4-13); Mean Corpuscular HGB 32.2 pg (26.0-34.0); Mean Corpuscular HGB Conc 33.8 g/dL (31.5-36.5); Mean Corpuscular Volume 95 fL (80-100); Mean Platelet Volume 10.1 fL (9.1-12.4); NEUTROPHILS ABSOLUTE AUTO 3.39 K/mm3 (1.96-9.15); NEUTROPHILS PERCENT AUTO 59 % (41-73); Platelet Count 176 K/mm3 (150-400); Red Blood Cell Count 2.95 M/mm3 (4.30-5.90)
[2021-05-30 02:59] LABS: Albumin, Blood 2.4 g/dL (3.4-5.0); Anion Gap 6 mmol/L (6-16); Blood Urea Nitrogen 34 mg/dL (8-24); Bun/Creatinine Ratio 7.7 (12.0-20.0); CHOL/HDL RATIO 3.1; CO2, Blood 34 mmol/L (21-32); Calcium, Blood 9.3 mg/dL (8.5-10.1); Chloride, Blood 94 mmol/L (98-108); Cholesterol 93 mg/dL (50-200); Creatinine, Blood 4.42 mg/dL (0.60-1.20); Glomerular Filtration Rate 15 (60-); Glucose, Blood 98 mg/dL (70-99); HDL Cholesterol 30 mg/dL (>39); LDL/HDL RATIO 1.5; Low Density Lipoprotein Chol 46 mg/dL (0-110); Magnesium, Blood 1.9 mg/dL (1.6-2.4); Phosphorus, Blood 2.7 mg/dL (2.5-4.9); Potassium, Blood 3.3 mmol/L (3.5-5.5); Sodium, Blood 134 mmol/L (136-145); Triglycerides 84 mg/dL (30-160); Very Low Density Lipoprot Chol 16 mg/dL (6-32)
--- NOTE | 2021-05-30 06:29 | NUR ---
SUMMARY PT ARRIVED TO FLOOR IN NO DISTRESS. PT HAS BEEN RESTING WELL T/O SHIFT. PT DENIES CX PAIN OR SOB. PT VSS. PT CURRENTLY SLEEPING IN NO DISTRESS. CALL LIGHT IN REACH AND BED ALARM ON.
--- NOTE | 2021-05-30 17:20 | NUR ---
SHIFT SUMMARY PATIENT ALERT AND ORIENTED THROUGHOUT THIS SHIFT. PATIENT DOWN TO DIALYSIS THIS AM. PATIENT BACK TO THE ROOM EARLY AFTERNOON. PATIENT REMAINS IN BED THROUGHOUT THIS SHIFT. PATIENT CALM AND COOPERATIVE WITH CARE. NO ACUTE CHANGES THIS SHIFT. PATIENT CURRENTLY LYING IN BED SLEEPING.
[2021-05-31 04:32] LABS: Hematocrit 26.9 % (37.0-53.0); Hemoglobin 8.9 g/dL (13.5-17.5)
[2021-05-31 04:52] LABS: Albumin, Blood 2.3 g/dL (3.4-5.0); Anion Gap 6 mmol/L (6-16); Blood Urea Nitrogen 32 mg/dL (8-24); CO2, Blood 33 mmol/L (21-32); Calcium, Blood 8.8 mg/dL (8.5-10.1); Chloride, Blood 96 mmol/L (98-108); Creatinine, Blood 4.01 mg/dL (0.60-1.20); Glomerular Filtration Rate 17 (60-); Glucose, Blood 90 mg/dL (70-99); Magnesium, Blood 2.3 mg/dL (1.6-2.4); Phosphorus, Blood 2.2 mg/dL (2.5-4.9); Potassium, Blood 3.9 mmol/L (3.5-5.5); Sodium, Blood 135 mmol/L (136-145)
--- NOTE | 2021-05-31 06:12 | NUR ---
SUMMARY NO NEW ISSUES NOTED. PT HAS BEEN NPO SINCE MIDNIGHT. PT HAS SLEPT WELL T/O SHIFT. PT CURRENTLY SLEEPING IN NO DISTRESS. CALL LIGHT IN REACH.
[2021-05-31 09:39] LABS: SARS-Cov-2 (COVID-19) PCR, MMC NEGATIVE (NEGATIVE)
[2021-05-31] MEDS ORDERED: CLON.3 PO (13:15)
[2021-05-31] MEDS ORDERED: LACT10SY PO (13:16)
--- NOTE | 2021-05-31 14:36 | NUR ---
DISCHARGE NOTE PATIENT DISCHARGED TO [facility]. PATIENT ALERT AND ORIENTED THIS SHIFT. PATIENT DOWN TO DIALYSIS YESTERDAY. PATIENT CALM AND COOPERATIVE WITH CARE THROUGHOUT THIS SHIFT. IV REMOVED PRIOR TO DISCHARGE. PATIENT BELONGINGS WITH PATIENT UPON DISCHARGE. REPORT CALLED TO [facility] NURSE.
[2021-06-07] MEDS ORDERED: AURYXIA210 MG PO (06:49)
[2021-06-07] MEDS ORDERED: BASAGLAR K100 UNIT/1 SC (06:50)
[2021-06-07] MEDS ORDERED: VENL37.5 PO ×2 (06:50→07:06)
[2021-06-07] MEDS ORDERED: MIRALAX17 G3 PO (06:51)
[2021-06-07] MEDS ORDERED: ENOX40I SC (07:03)
[2021-06-07] MEDS ORDERED: FURO80 PO (07:05)
[2021-06-18] MEDS ORDERED: LABE100 PO (16:28)
== END 2021-05-31 14:31 ==
LOC: ER 05:33 → ERHOLD 05:34 → MEDS 05:34 → ERHOLD 09:02 → PCU 09:02 → ER 09:02 → MEDS 09:02 → PCU 14:11 → ERHOLD 14:11 → MEDS 21:20 → PCU 21:20 → MEDS 05-31 14:31
PROVIDERS: Emergency Medicine; Family Medicine; Internal Medicine Nephrology; ADMIT Internal Medicine
DX: I16.0 Hypertensive urgency (principal); E87.6 Hypokalemia; E88.09 Other disorders of plasma-protein metabolism, not elsewhere classified; E11.22 Type 2 diabetes mellitus with diabetic chronic kidney disease; I13.11 Hypertensive heart and chronic kidney disease without heart failure, with stage 5 chronic kidney disease, or end stage renal disease; N18.6 End stage renal disease; E78.5 Hyperlipidemia, unspecified; E11.21 Type 2 diabetes mellitus with diabetic nephropathy; R07.89 Other chest pain; E11.40 Type 2 diabetes mellitus with diabetic neuropathy, unspecified; K21.9 Gastro-esophageal reflux disease without esophagitis; Z20.822 Contact with and (suspected) exposure to COVID-19; R53.1 Weakness; E03.9 Hypothyroidism, unspecified; F41.9 Anxiety disorder, unspecified; F32.9 Major depressive disorder, single episode, unspecified; D64.9 Anemia, unspecified; E83.42 Hypomagnesemia; Z79.4 Long term (current) use of insulin; Z86.73 Personal history of transient ischemic attack (TIA), and cerebral infarction without residual deficits; Z94.0 Kidney transplant status; Z99.2 Dependence on renal dialysis
CPT/HCPCS: 36415; 71045; 80053; 80061; 80069; 82530; 82947; 83036; 83735; 84100; 84132; 84443; 84484; 84550; 85014; 85018; 85025; 93005; 93010; 93975; 96372; 96374; 96375; 97112; 97161; 97166; 97530; 99285-25; A9270; G0257; G0378; J0360; J0881; J1650; J3010; J7060; J7507; J7512; Q0177; U0004

== ENCOUNTER 2021-06-03 01:43 | Emergency (ER) | payer BC ==
[~2021-06-03] VITALS: Ht 188 cm; Wt 97.5 kg
[~2021-06-03 01:43] MED LIST changes: +ATOR80 PO; +BISA10S PR; +ENOX40I SC; +FOLI1 PO; +LACT10SY PO; +MELA3 PO; +MULTIPLE VITAM1 EACH PO
[2021-06-03 02:17] LABS: BASOPHILS ABSOLUTE AUTO 0.02 K/mm3 (0.00-0.23); BASOPHILS PERCENT AUTO 0 % (0-2); EOSINOPHILS ABSOLUTE AUTO 0.25 K/mm3 (0.00-0.68); EOSINOPHILS PERCENT AUTO 5 % (0-6); Hematocrit 25.8 % (37.0-53.0); Hemoglobin 8.8 g/dL (13.5-17.5); IMMATURE GRAN ABSOLUTE AUTO 0.02 K/mm3 (0.00-0.10); IMMATURE GRAN PERCENT AUTO 0 % (0-1); LYMPHOCYTES ABSOLUTE AUTO 1.36 K/mm3 (0.84-5.20); LYMPHOCYTES PERCENT AUTO 27 % (21-46); MONOCYTES ABSOLUTE AUTO 0.77 K/mm3 (0.16-1.47); MONOCYTES PERCENT AUTO 15 % (4-13); Mean Corpuscular HGB 32.5 pg (26.0-34.0); Mean Corpuscular HGB Conc 34.1 g/dL (31.5-36.5); Mean Corpuscular Volume 95 fL (80-100); Mean Platelet Volume 10.3 fL (9.1-12.4); NEUTROPHILS ABSOLUTE AUTO 2.67 K/mm3 (1.96-9.15); NEUTROPHILS PERCENT AUTO 53 % (41-73); Platelet Count 186 K/mm3 (150-400); RDW Standard Deviation 45.2 fL (35.1-46.3); Red Blood Cell Count 2.71 M/mm3 (4.30-5.90); White Blood Cell Count 5.09 K/mm3 (4.00-11.30)
[2021-06-03 02:37] LABS: Alanine Aminotransfer (ALT/SGP 11 U/L (12-78); Albumin, Blood 2.6 g/dL (3.4-5.0); Albumin/Globulin Ratio 0.7 (0.8-1.8); Alk Phos 63 U/L (50-136); Anion Gap 7 mmol/L (6-16); Aspartate Aminotrans (AST/SGOT 13 U/L (12-37); Bilirubin, Total 0.5 mg/dL (0.1-1.0); Blood Urea Nitrogen 38 mg/dL (8-24); Bun/Creatinine Ratio 8.8 (12.0-20.0); CO2, Blood 33 mmol/L (21-32); Chloride, Blood 95 mmol/L (98-108); Creatinine, Blood 4.34 mg/dL (0.60-1.20); Globulin, Blood 3.9 g/dL (2.2-4.0); Glomerular Filtration Rate 15 (60-); Glucose, Blood 105 mg/dL (70-99); Magnesium, Blood 2.1 mg/dL (1.6-2.4); Potassium, Blood 3.9 mmol/L (3.5-5.5); Sodium, Blood 135 mmol/L (136-145); Total Protein, Blood 6.5 g/dL (6.4-8.2); Troponin I <0.015 ng/mL (0.000-0.040)
[2021-06-07] MEDS ORDERED: AURYXIA210 MG PO (06:49)
[2021-06-07] MEDS ORDERED: VENL37.5 PO ×2 (06:50→07:06)
[2021-06-07] MEDS ORDERED: BASAGLAR K100 UNIT/1 SC (06:50)
[2021-06-07] MEDS ORDERED: MIRALAX17 G3 PO (06:51)
[2021-06-07] MEDS ORDERED: ENOX40I SC (07:03)
[2021-06-07] MEDS ORDERED: FURO80 PO (07:05)
[2021-06-18] MEDS ORDERED: LABE100 PO (16:28)
== END 2021-06-03 06:00 | disposition home or self-care (01) ==
LOC: ER 01:43
PROVIDERS: Emergency Medicine
DX: I16.0 Hypertensive urgency (principal); I12.0 Hypertensive chronic kidney disease with stage 5 chronic kidney disease or end stage renal disease; N18.6 End stage renal disease; Z99.2 Dependence on renal dialysis; E11.40 Type 2 diabetes mellitus with diabetic neuropathy, unspecified; Z79.4 Long term (current) use of insulin; Z79.82 Long term (current) use of aspirin
CPT/HCPCS: 80053; 83735; 83880; 84484; 85025; 93005; 93010; 96374; 96375; 99283-25; A9270; J0360; J1170

== ENCOUNTER 2021-06-07 07:14 | Day surgery (SDC) | payer BC ==
[~2021-06-07] VITALS: Ht 190.5 cm; Wt 80.0 kg
[~2021-06-07 07:14] MED LIST changes: +MIRALAX17 G3 PO; +VENL37.5 PO
--- NOTE | 2021-06-07 09:51 | NUR ---
PT BACK TO RECOVERY RM/ SUPINE WITH R FEMORAL SITE. ANGIOSEAL IN PLACE. NO BLEEDING OR HEMATOMA NOTED. PT BP DECREASED TO 178/78, HR 83, 99% w/ 2 L NC. PT RESTING COMFORTABLY. WILL CONTINUE TO MONITOR. DR BARBOSA IS TO CALL PT S/O , SUREKHA REGARDING PLAN OF CARE. CALL LIGHT WITHIN REACH.
--- NOTE | 2021-06-07 10:00 | NUR ---
PER DR BARBOSA, PT GIVEN HOME BLOOD PRESSURE PO MEDICATIONS. TOLERATES WELL. R FEM SITE REMAINS CLEAR. NO BLEEDING OR HEMATOMA NOTED.
--- NOTE | 2021-06-07 10:59 | NUR ---
REPORT GIVEN TO SATYA HEIN WITH [facility]. PT R FEMORAL SITE REMAINS CLEAR. NO BLEEDING OR HEMATOMA NOTED. VSS. CALL LIGHT WITHIN REACH.
--- NOTE | 2021-06-07 11:07 | NUR ---
TRINI JEAN WILL BE HERE FOR RETURN RIDE TO [facility] AT 1200.
--- NOTE | 2021-06-07 11:25 | NUR ---
DR BARBOSA IN ROOM DISCUSSING PLAN OF CARE WITH PATIENT. R FEM SITE REMAINS CLEAR. VSS.
--- NOTE | 2021-06-07 11:54 | NUR ---
PT VERBALIZES UNDERSTANDING WRITTEN AND VERBAL ORDERS. PT ASSISTED WITH DRESSING SELF AND ASSISTED INTO WHEELCHAIR. TOLERATES WELL. VSS. PT IV DC'.CATH INTACT. PRESSURE DSG IN PLACE. NO BLEEDING NOTED. R FEM SITE REMAINS CLEAR. PT AWAITING TRANSPORT BACK TO [facility]
--- NOTE | 2021-06-07 12:05 | NUR ---
PT DC BACK TO [facility] BY WC BY [facility] PERSONNEL. TOELRATES WELL.
[2021-06-18] MEDS ORDERED: LABE100 PO (16:28)
== END 2021-06-07 14:01 | disposition home or self-care (01) ==
LOC: MHTC 07:14
DX: I70.1 Atherosclerosis of renal artery (principal); I12.0 Hypertensive chronic kidney disease with stage 5 chronic kidney disease or end stage renal disease; N18.6 End stage renal disease; E11.22 Type 2 diabetes mellitus with diabetic chronic kidney disease; E78.5 Hyperlipidemia, unspecified; K21.9 Gastro-esophageal reflux disease without esophagitis; Z79.82 Long term (current) use of aspirin; Z79.899 Other long term (current) drug therapy
CPT/HCPCS: 76937; 82947; 99152; 99153; A9270; C1760; C1769; C1887; C1894; J0360; J1644; J2250; J3010; J7030; J7050; J7512; Q9967

== ENCOUNTER 2021-06-13 20:36 | Inpatient (IN) | payer BC ==
[~2021-06-13] VITALS: Ht 190.5 cm; Wt 81.3 kg
[2021-06-13 21:12] LABS: BASOPHILS ABSOLUTE AUTO 0.03 K/mm3 (0.00-0.23); BASOPHILS PERCENT AUTO 1 % (0-2); EOSINOPHILS ABSOLUTE AUTO 0.22 K/mm3 (0.00-0.68); EOSINOPHILS PERCENT AUTO 4 % (0-6); Hematocrit 22.8 % (37.0-53.0); Hemoglobin 7.8 g/dL (13.5-17.5); IMMATURE GRAN ABSOLUTE AUTO 0.03 K/mm3 (0.00-0.10); IMMATURE GRAN PERCENT AUTO 1 % (0-1); LYMPHOCYTES ABSOLUTE AUTO 1.12 K/mm3 (0.84-5.20); LYMPHOCYTES PERCENT AUTO 20 % (21-46); MONOCYTES ABSOLUTE AUTO 0.76 K/mm3 (0.16-1.47); MONOCYTES PERCENT AUTO 14 % (4-13); Mean Corpuscular HGB 32.5 pg (26.0-34.0); Mean Corpuscular HGB Conc 34.2 g/dL (31.5-36.5); Mean Corpuscular Volume 95 fL (80-100); Mean Platelet Volume 10.1 fL (9.1-12.4); NEUTROPHILS ABSOLUTE AUTO 3.48 K/mm3 (1.96-9.15); NEUTROPHILS PERCENT AUTO 62 % (41-73); Platelet Count 228 K/mm3 (150-400); RDW Coefficient Variation 13.6 % (11.7-14.2); RDW Standard Deviation 47.5 fL (35.1-46.3); White Blood Cell Count 5.64 K/mm3 (4.00-11.30)
[2021-06-13 21:36] LABS: Albumin, Blood 2.7 g/dL (3.4-5.0); Albumin/Globulin Ratio 0.7 (0.8-1.8); Bilirubin, Total 0.5 mg/dL (0.1-1.0); Bun/Creatinine Ratio 6.4 (12.0-20.0); Creatinine, Blood 2.18 mg/dL (0.60-1.20); Globulin, Blood 3.9 g/dL (2.2-4.0); Total Protein, Blood 6.6 g/dL (6.4-8.2)
[2021-06-13 22:36] LABS: International Normalized Ratio 1.22
[2021-06-14] MEDS ORDERED: LACT10SY PO (01:40)
[2021-06-14 01:47] LABS: SARS-Cov-2 (COVID-19) PCR, MMC NEGATIVE (NEGATIVE)
[2021-06-14 02:02] LABS: Thyroid Stimulating Hormone 9.75 uIU/mL (0.360-4.800)
[2021-06-14] MEDS ORDERED: MELA3 PO (02:11)
[2021-06-14] MEDS ORDERED: ASPI81CH PO (02:13)
[2021-06-14] MEDS ORDERED: ATORVASTATIN CA80 M1 PO (02:14)
[2021-06-14] MEDS ORDERED: CALCIUM ACETAT667 MG PO (02:15)
[2021-06-14] MEDS ORDERED: CATAPRES-TTS 31 EAC2 TD (02:16)
[2021-06-14] MEDS ORDERED: CLOP75 PO (02:17)
[2021-06-14] MEDS ORDERED: DEPAKOTE500 M1 PO (02:18)
[2021-06-14] MEDS ORDERED: Colace100 MG PO (02:19)
[2021-06-14] MEDS ORDERED: FERROUS SULFATE PO (02:21)
[2021-06-14] MEDS ORDERED: FOLI1 PO (02:22)
[2021-06-14] MEDS ORDERED: FURO80 PO ×2 (02:23→02:24)
[2021-06-14] MEDS ORDERED: HYDRA50 PO (02:25)
[2021-06-14] MEDS ORDERED: Hydroxyzine HCl25 MG PO (02:26)
[2021-06-14] MEDS ORDERED: ISOSORBIDE MONO60 MG PO (02:27)
[2021-06-14] MEDS ORDERED: LABE200 PO (02:29)
[2021-06-14] MEDS ORDERED: ENULOSE PR (02:30)
[2021-06-14] MEDS ORDERED: EUTHYROX50 MCG PO (02:31)
[2021-06-14] MEDS ORDERED: MINO10 PO (02:32)
[2021-06-14] MEDS ORDERED: OMEP20ER PO (02:33)
[2021-06-14] MEDS ORDERED: Miralax PO (02:35)
[2021-06-14] MEDS ORDERED: PRED5 PO (02:36)
[2021-06-14] MEDS ORDERED: PROGRAF1 M1 PO (02:37)
[2021-06-14] MEDS ORDERED: Hair, Skin & N1 EACH PO (02:38)
[2021-06-14] MEDS ORDERED: Effexor Xr37.5 MG PO (02:39)
[2021-06-14] MEDS ORDERED: Vitamin D PO (02:41)
[2021-06-14 06:43] LABS: BASOPHILS ABSOLUTE AUTO 0.02 K/mm3 (0.00-0.23); BASOPHILS PERCENT AUTO 0 % (0-2); EOSINOPHILS ABSOLUTE AUTO 0.26 K/mm3 (0.00-0.68); EOSINOPHILS PERCENT AUTO 4 % (0-6); Hematocrit 25.4 % (37.0-53.0); Hemoglobin 8.5 g/dL (13.5-17.5); IMMATURE GRAN ABSOLUTE AUTO 0.03 K/mm3 (0.00-0.10); IMMATURE GRAN PERCENT AUTO 1 % (0-1); LYMPHOCYTES PERCENT AUTO 21 % (21-46); MONOCYTES ABSOLUTE AUTO 0.77 K/mm3 (0.16-1.47); MONOCYTES PERCENT AUTO 12 % (4-13); Mean Corpuscular HGB 32.4 pg (26.0-34.0); Mean Corpuscular HGB Conc 33.5 g/dL (31.5-36.5); Mean Corpuscular Volume 97 fL (80-100); Mean Platelet Volume 10.5 fL (9.1-12.4); NEUTROPHILS ABSOLUTE AUTO 3.95 K/mm3 (1.96-9.15); NEUTROPHILS PERCENT AUTO 62 % (41-73); Platelet Count 220 K/mm3 (150-400); RDW Coefficient Variation 13.7 % (11.7-14.2); RDW Standard Deviation 48.6 fL (35.1-46.3); Red Blood Cell Count 2.62 M/mm3 (4.30-5.90); White Blood Cell Count 6.33 K/mm3 (4.00-11.30)
[2021-06-14 07:20] LABS: Albumin, Blood 2.8 g/dL (3.4-5.0); Albumin/Globulin Ratio 0.7 (0.8-1.8); Bilirubin, Total 0.6 mg/dL (0.1-1.0); Bun/Creatinine Ratio 5.9 (12.0-20.0); Calcium, Blood 9.2 mg/dL (8.5-10.1); Creatinine, Blood 2.88 mg/dL (0.60-1.20); Globulin, Blood 4.1 g/dL (2.2-4.0); Potassium, Blood 2.7 mmol/L (3.5-5.5); Total Protein, Blood 6.9 g/dL (6.4-8.2)
[2021-06-14 07:26] LABS: Phosphorus, Blood 0.8 mg/dL (2.5-4.9)
--- NOTE | 2021-06-14 10:30 | NUR ---
REPORT GIVEN TO COREY PT TO GO TO [facility] AFTER DIALYSIS, MED NO TELE
--- NOTE | 2021-06-14 13:56 | NUR ---
RECEIVED REPORT FROM ROME DONALDSON. PT WAS GETTING DIALYSIS AT TIME OF REPORT. RECEIVED CALL FROM SLURRY CONTROL OPERATOR HELPER THAT PT RECEIVED PROCEDURE IN DIALYSIS ROOM BY DR. BARBOSA. THIS RN ALSO RECEIVED CALL FROM SCREENING REPRESENTATIVE NATHANIEL, CLOT FOUND IN COMMON FEMORAL ARTERY IN R LEG, NOT OCCLUDING. RESULTS CALLED TO DR. JACOBSEN. RECEIVED PT FROM DIALYSIS TO ROOM 412 AT 1300. PT GIVEN LUNCH TRAY, MEDICATIONS AND FULL BED BATH WITH GOWN CHANGE. (SUREKHA) WAS UPDATED WITH ROOM CHANGE. PT RESTING IN BED AT THIS TIME. CALL LIGHT WITHIN REACH, BED LOCKED AND IN LOW POSITION. PT'S CELL PHONE WITHIN REACH. WILL CONTINUE TO MONITOR.
--- NOTE | 2021-06-14 14:14 | NUR ---
L ARM FISTULA POSITIVE BRUIT AND THRILL UPON ASSESSMENT.
--- NOTE | 2021-06-14 18:01 | NUR ---
PT RESTING IN BED NOW. PT ATE DINNER AND RESTED AFTER DIALYSIS TODAY. PT REPORTS NO PAIN OR NAUSEA. PLAN TO WORK WITH PT/OT TOMORROW. PLAN TO D/C BACK TO [facility] ONCE MEDICALLY STABLE. BED LOCKED AND IN LOW POSITION, SIDE PADDING ON FOR SAFETY. CALL LIGHT WITHIN REACH. WILL CONTINUE TO MONITOR FOR CHANGES AND WILL GIVE REPORT TO INSURANCE AND FINANCIAL SERVICES AGENT RN.
--- NOTE | 2021-06-14 21:54 | NUR ---
PATIENT RESTING QUIETLY LISTENING TO MUSIC ON HIS PHONE. CALL LIGHT WITHIN REACH.
--- NOTE | 2021-06-14 23:32 | NUR ---
PATIENT RESTING QUIETLY,CALL LIGHT WITHIN REACH
--- NOTE | 2021-06-15 01:35 | NUR ---
SLEEPING AT THIS TIME, APPEARS COMFORTABLE
--- NOTE | 2021-06-15 03:40 | NUR ---
PATIENT AWAKE ASKING IF BREAKFAST TRAY HAS BEEN RETURNED. RN INFORMED PATIENT THAT IT IS 0330 AND THAT BREAKFAST ISN'T UNTIL 0923-0800. RN ASKED IF PATIENT WOULD LIKE A SNACK, PATIENT IS UNDECIDED AT THIS TIME. RN INSTRUCTED PATIENT TO LET STAFF KNOW IF HE WOULD LIKE A SNACK. CALL LIGHT WITHIN REACH.
--- NOTE | 2021-06-15 04:20 | NUR ---
PATIENTS BP ELEVATED AT 234/116. RN ATTEMPT TO CONTACT DR. MCKEE TWICE BUT THE VOICEMAIL IS FULL AND RN HAS NOT RECEIVED A CALL BACK. RN WILL CONTINUE TO TRY AND REACH
--- NOTE | 2021-06-15 05:11 | NUR ---
RN SPOKE WITH PATIENT REGARDING THE BLOOD CLOT IN HIS RIGHT GROIN, PATIENT WANTED TO KNOW WHAT WAS GOING TO BE DONE ABOUT IT. RN LET PATIENT KNOW THAT AT THIS TIME SHE DID NOT HAVE ANY ORDERS REGARDING THE BLOOD CLOT AND THAT THERE IS THE POSSIBILTY OF GETTING NEW ORDERS IN THE MORNING. PATIENT AND RN ALSO DISCUSSED PATIENTS BP LEVELS AND PATIENT STATED THAT HIS BP IS ALWAYS ELEVATED. RN ASKED WHAT THEY USUALLY RUN AND HE STATED LIKE THEY ARE NOW. RN SAID THAT SHE HAD A CALL OUT TO THE HOSPITALIST REGARDING HIS BP AND PATIENT STATED THAT DR. BENEDICT PRESCRIBES HIS BP MEDS AND THAT HE DOES NOT WANT ANY OTHER DOCTORS TO CHANGE THEM. RN SAID THAT SHE WOULD ATTEMPT TO SPEAK WITH DR. BENEDICT WHEN HE COMES IN THIS MORNING. CALL LIGHT WITHIN REACH.
--- NOTE | 2021-06-15 06:10 | NUR ---
PATIENT REFUSED TO TAKE LIQUID FERROUS SULFATE OR TO WEAR HIS SCD'S. OTHERWISE HE SLEPT THROUGHOUT THE NIGHT. UPON AWAKENING AT 0330 PATIENT WAS INTERESTED IN GETTING HIS BREAKFAST TRAY, RN INFORMED HIM THAT BREAKFAST WAS AROUND [id number]. PATIENT ALSO HAD QUESTIONS REGARDING HIS DVT. RN EXPLAINED MUCH POSSIBLE AND ENCOURAGED PATIENT TO SPEAK WITH WHEN THEY ROUNDED ON HIM. PATIENT CONTINUES TO HAVE ELEVATED BP DESPITE RECEIVING ORAL BP MEDS. PATIENT STATES THAT THIS IS NORMAL FOR HIM. RN WILL ATTEMPT TO SPEAK WITH DR. BENEDICT WHEN HE ROUNDS ON PATIENT. CALL LIGHT HAS BEEN WITHIN REACH THROUGHT NIGHT.
[2021-06-15 06:22] LABS: Hemoglobin 8.3 g/dL (13.5-17.5)
[2021-06-15 07:03] LABS: Albumin, Blood 2.8 g/dL (3.4-5.0); Anion Gap 4 mmol/L (6-16); Blood Urea Nitrogen 26 mg/dL (8-24); CO2, Blood 35 mmol/L (21-32); Calcium, Blood 9.8 mg/dL (8.5-10.1); Chloride, Blood 98 mmol/L (98-108); Creatinine, Blood 3.24 mg/dL (0.60-1.20); Glomerular Filtration Rate 21 (60-); Glucose, Blood 100 mg/dL (70-99); Phosphorus, Blood 1.5 mg/dL (2.5-4.9); Potassium, Blood 3.7 mmol/L (3.5-5.5); Sodium, Blood 137 mmol/L (136-145)
--- NOTE | 2021-06-15 16:20 | NUR ---
PT HAS A VERY FLAT AFFECT THIS SHIFT. PRESENTS HIMSELF SUPERIOR TO OTHERS AND FREQUENTLY BECOMES CONDESENDING TO STAFF. JUST CALLED TO STATE THAT PT CALLED HER AND REQUESTED THAT SHE BRING HIM FOOD DISPITE HIM BEING ON A RENAL DIET. PT WAS IN TO SEE PT EARLIER TODAY. PT HAS HAD VERY ELEVATED BP ON MY SHIFT. DR. BENEDICT IS AWARE AND ORDERED CATAPRESS PATCH. PHARMACY INQUIRED IF PT ALREADY HAD A PATCH ON, THEY SAW AN ORDER IN THE COMPUTER. PT STATES THAT HE REFUSED IT BEFORE AND HE WILL NOT ALLOW A PATCH TO BE PUT ON. PT HAS REFUSED SEVERAL MEDICATIONS ON MY SHIFT. SEE MAR FOR DETAILS. MA ASSISTED PT WITH CHANGING HIS CLOTHING. PT USING A TABLET TO WATCH MOVIES THIS AFTERNOON WHICH SEEMED TO DECREASE THE FREQUENCY THAT HE IS ON THE CALL [place] SYSTEM.
--- NOTE | 2021-06-15 23:09 | NUR ---
PATIENT RESTING QUIETLY, CALL LIGHT WITHIN REACH. HEPARING DRIP GOING, PATIENT TOLERATING IT WELL.
--- NOTE | 2021-06-16 00:21 | NUR ---
LAB UP TO DRAW BLOOD, PATIENT APPEARS TO BE UNHAPPY ABOUT THIS. CALL LIGHT WITHIN REACH.
--- NOTE | 2021-06-16 01:49 | NUR ---
RECEIVED CALL FROM PHARMACY REGARDING DOSING CHANGE FOR HEPARIN DRIP. HEPARIN INCREASED TO 27.5ML/HR. RN ADJUSTED IV PUMP ACCORDINGLY. PATIENT RESTING QUIETLY/SNORING. CALL LIGHT WITHIN REACH.
--- NOTE | 2021-06-16 05:05 | NUR ---
PATIENT RESTED QUIETLY THROUGHOUT NIGHT. TOLERATING HEPARIN DRIP WELL. HEPARIN TITRATION WAS INCREASED BY PHARMACY AROUND 0130. PATIENT HAS NOT URINATED THIS SHIFT. CALL LIGHT HAS BEEN WITHIN REACH THROUGHT NIGHT.
[2021-06-16 10:26] LABS: Hematocrit 20.5 % (37.0-53.0)
--- NOTE | 2021-06-16 10:34 | NUR ---
PT GIVEN MORNING MEDICATIONS. OF THOSE MEDS, HE REFUSED HIS: LIQUID FERROUS SULFATE AND LACTULOS. HOME MEDICATION- MINOXIDIL, PT DOES NOT HAVE THIS MEDICATION. YESTERDAY HE REFUSED HIS CATAPRES PATCH. PT WAS TAKEN TO DIALYSIS APPROX 9:15. HE WAS GIVEN ZOFRAN IV- IN ORSC PRIOR TO GOING TO UNIT. BENADRYL WAS NOT AVAILABLE PRIOR TO TRANSPORT, SO MED WAS TAKEN TO UNIT FOR NURSES THERE TO GIVE. THEY STATE TREATMENT SHOULD LAST APPROX 2 1/2 HOURS. I WILL ASK PT IF HE WANTS PRN MIRALAX WHEN HE RETURNS HIS LAST BM WAS RECORDED ON 06/13. PT ATE VERY LITTLE OF HIS BREAKFAST. HE HAD A MUFFIN AND COFFEE.
[2021-06-16 10:44] LABS: Platelet Count 196 K/mm3 (150-400)
[2021-06-16 10:47] LABS: Albumin, Blood 2.5 g/dL (3.4-5.0); Anion Gap 5 mmol/L (6-16); Blood Urea Nitrogen 40 mg/dL (8-24); Bun/Creatinine Ratio 8.3 (12.0-20.0); CO2, Blood 32 mmol/L (21-32); Calcium, Blood 8.7 mg/dL (8.5-10.1); Chloride, Blood 95 mmol/L (98-108); Creatinine, Blood 4.84 mg/dL (0.60-1.20); Glomerular Filtration Rate 13 (60-); Glucose, Blood 154 mg/dL (70-99); Magnesium, Blood 1.9 mg/dL (1.6-2.4); Phosphorus, Blood 2.8 mg/dL (2.5-4.9); Potassium, Blood 3.7 mmol/L (3.5-5.5); Sodium, Blood 132 mmol/L (136-145)
--- NOTE | 2021-06-16 20:01 | NUR ---
RECEIVED CALL FROM PHARMACY, HEPARIN HAS BEEN INCREASED TO 20 U/MG/KG FOR A TOTAL OF 34.2ML/HR. PATIENT TOLERATING HEPARIN DRIP WELL.
--- NOTE | 2021-06-17 00:31 | NUR ---
PATIENT UP TO BEDSIDE COMMODE. URINATED APPROXIMATELY 100ML YELLOW URINE AND ALSO HAD A DIARRHEA BOWEL MOVEMENT. RN IN TO GIVE 0000 CATAPRES. PATIENT VERY COOPERATIVE, RN HELPED PATIENT LAY DOWN AND COVERED PATIENT WITH BLANKET. CALL LIGHT WITHIN REACH.
--- NOTE | 2021-06-17 03:38 | NUR ---
PATIENT C/O BACK DISCOMFORT, MA OFFERED WARM PACKS TO SEE IF THIS WOULD HELP. RN LOOKED AT ORDERS AND SAW THAT K-PAD WAS ON ORDERS. CALLED SURGICAL FLOOR TO SEE IF THEY HAD THE DISPOSABLE PAD THAT CONNECTED TO THE PUMP. SURGICAL FLOOR SENT PAD VIA TUBE SYSTEM. K-PAD PLACED UNDER PATIENT IN LOWER BACK REGION. PATIENT INSTRUCTED TO LET STAFF KNOW IF HE WANTED IT TURNED OFF AT ANY TIME. PATIENT VERBALIZED UNDERSTANDING. CALL LIGHT WITHIN REACH.
--- NOTE | 2021-06-17 04:20 | NUR ---
PATIENT UNABLE TO SLEEP, RN ASKED IF HE WOULD LIKE TO SIT IN RECLINER, PATIENT STATED YES. PATIENT HELPED TO RECLINER BY RN. GIVEN WARM BLANKETS AND IPAD TO WATCH TV ON. BEDDING CHANGED, CALL LIGHT WITHIN REACH.
[2021-06-17 04:23] LABS: BASOPHILS ABSOLUTE AUTO 0.04 K/mm3 (0.00-0.23); BASOPHILS PERCENT AUTO 1 % (0-2); EOSINOPHILS ABSOLUTE AUTO 0.33 K/mm3 (0.00-0.68); EOSINOPHILS PERCENT AUTO 5 % (0-6); Hematocrit 22.2 % (37.0-53.0); Hemoglobin 7.4 g/dL (13.5-17.5); IMMATURE GRAN ABSOLUTE AUTO 0.03 K/mm3 (0.00-0.10); IMMATURE GRAN PERCENT AUTO 0 % (0-1); LYMPHOCYTES ABSOLUTE AUTO 1.84 K/mm3 (0.84-5.20); LYMPHOCYTES PERCENT AUTO 26 % (21-46); MONOCYTES ABSOLUTE AUTO 0.81 K/mm3 (0.16-1.47); MONOCYTES PERCENT AUTO 12 % (4-13); Mean Corpuscular HGB 31.9 pg (26.0-34.0); Mean Corpuscular HGB Conc 33.3 g/dL (31.5-36.5); Mean Corpuscular Volume 96 fL (80-100); Mean Platelet Volume 10.5 fL (9.1-12.4); NEUTROPHILS ABSOLUTE AUTO 3.93 K/mm3 (1.96-9.15); NEUTROPHILS PERCENT AUTO 56 % (41-73); Platelet Count 203 K/mm3 (150-400); RDW Coefficient Variation 14.6 % (11.7-14.2); RDW Standard Deviation 50.5 fL (35.1-46.3); Red Blood Cell Count 2.32 M/mm3 (4.30-5.90); White Blood Cell Count 6.98 K/mm3 (4.00-11.30)
[2021-06-17 04:49] LABS: Albumin, Blood 2.7 g/dL (3.4-5.0); Anion Gap 4 mmol/L (6-16); Blood Urea Nitrogen 28 mg/dL (8-24); Bun/Creatinine Ratio 7.3 (12.0-20.0); CO2, Blood 33 mmol/L (21-32); Calcium, Blood 9.6 mg/dL (8.5-10.1); Chloride, Blood 98 mmol/L (98-108); Creatinine, Blood 3.86 mg/dL (0.60-1.20); Glomerular Filtration Rate 17 (60-); Glucose, Blood 71 mg/dL (70-99); Magnesium, Blood 2.2 mg/dL (1.6-2.4); Phosphorus, Blood 2.3 mg/dL (2.5-4.9); Potassium, Blood 3.9 mmol/L (3.5-5.5); Sodium, Blood 135 mmol/L (136-145)
--- NOTE | 2021-06-17 05:08 | NUR ---
PATIENT REQUESTED TO GO BACK TO BED, 1-2 PERSON ASSIST. CALL LIGHT WITHIN REACH.
--- NOTE | 2021-06-17 05:53 | NUR ---
PATIENT HAVING DIFFICULTY RESTING TONIGHT, SECURITY INSTALLER LIGHT MULITPLE TIMES. PATIENT C/O BACK DISCOMFORT, K-PAD PLACED TO HELP. PATIENT UP TO RECLINER FOR CHANGE OF POSITION. REMAINED IN RECLINER FOR APPROXIMATELY 1HR AND THEN REQUESTED TO GO BACK TO BED. PATIENT VERY UNCOMFORTABLE IN BED, RN HELPED PT TO SIT ON EDGE OF BED. PATIENT STATED THAT HE WOULD LIKE TO WALK AROUND, RN DISCOURAGED PATIENT FROM TRYING, HE IS VERY UNSTEADY ON FEET AND NEEDS 1-2 PERSON ASSIST. HEPARIN CONTINUES AT 32.4ML/HR. CALL LIGHT WITHIN REACH.
--- NOTE | 2021-06-17 07:11 | NUR ---
CHANGE OF SHIFT REPORT GIVEN FROM PMRN 0645. PT CURRENTLY RESTING UPRIGHT IN RECLINER CHAIR. END NOTE ORSC.RDS.
--- NOTE | 2021-06-17 17:42 | NUR ---
PT WAS SITTING ON THE COMMODE WHEN I HAD HIM LEAN FORWARD TO WIPE WITH WARM WIPES. WHEN WIPED THERE WAS STOOL IN HIS RECTUM AND A SMALL AMOUNT OF BLOOD ON THE FIRST WIPE. I ENCOURAGED HIM TO SIT BACK DOWN ON THE COMMODE TO COMPLETELY VOID. RN WAS NOTIFIED. PT STOOD UP AND WAS WIPED WHILE RN HELD THE PATIENT UPRIGHT. NO BLOOD WAS NOTED ON THE WIPES. PT WAS PUT INTO A BRIEF AND BACK IN BED.
--- NOTE | 2021-06-17 18:56 | NUR ---
CHANGE OF SHIFT REPORT GIVE TO PMRN SEBAS. PT RESTING COMFORTABLY IN BED AT LOWEST POSITION IN CLEAN ROOM CLEAR OF CLUTTER. IV RUNNING SMOOTHLY IV SITE WNL PATENT AND CLEAN. END NOTE ORSC.RDS.
--- NOTE | 2021-06-17 21:23 | NUR ---
MINOXIDIL NOT GIVEN B/C PHARMACY DOESN'T CARRY IT. PT WILL CALL HIS IN THE MORNING TO SEE IF SHE CAN BRING IT IN.
--- NOTE | 2021-06-18 00:01 | NUR ---
FISTULA DRESSING CHANGED USING PRESSURE DRESSING B/C ORIGINAL DRESSING WAS LEAKING BLOOD. CLEANED PT UP AND CHANGED GOWN AND URBANO. ACCESSED IV IN RFA. NO PREVIOUS DOCUMENTATION EXISTS FOR RFA IV.
[2021-06-18 04:25] LABS: Hematocrit 21.6 % (37.0-53.0); Hemoglobin 7.3 g/dL (13.5-17.5)
[2021-06-18 04:45] LABS: Albumin, Blood 2.6 g/dL (3.4-5.0); Anion Gap 7 mmol/L (6-16); Blood Urea Nitrogen 38 mg/dL (8-24); Bun/Creatinine Ratio 7.3 (12.0-20.0); CO2, Blood 30 mmol/L (21-32); Chloride, Blood 96 mmol/L (98-108); Creatinine, Blood 5.22 mg/dL (0.60-1.20); Glomerular Filtration Rate 12 (60-); Glucose, Blood 58 mg/dL (70-99); Magnesium, Blood 2.1 mg/dL (1.6-2.4); Phosphorus, Blood 2.7 mg/dL (2.5-4.9); Potassium, Blood 3.9 mmol/L (3.5-5.5); Sodium, Blood 133 mmol/L (136-145)
--- NOTE | 2021-06-18 06:27 | NUR ---
PT LAYING IN BED AT LOWEST POSITION WITH CALL LIGHT NEXT TO HIM. NO ACUTE CHANGES IN VITALS DURING SHIFT.
--- NOTE | 2021-06-18 10:54 | NUR ---
UPON ARRIVAL THIS AM PT. COMPLAINS OF SOB WITH A BLOOD SUGAR OF 58. I PLACED PATIENT ON 2 LITERS NC AND OXYGEN SATURATION ONLY INCREASED TO 85 FROM THERE I INCREASED TO 3 LITERS WHICH PUT HIS OXYGEN AT 89 FROM THERE TO 4 LITERS WHICH PUT HIM AT 91 THEN TO 4.5 WHICH GOT HIM UP TO 94%. AFTER 4 OZ ORANGE JUICE HIS BLOOD SUGAR CAME UP TO 69 AND PATIENT WAS GIVEN MORE ORANGE JUICE AND SOME YANDEL MIST WHICH BROUGHT HIS SUAGR UP TO 92. A COVID TEST WAS ALSO REQUESTED A RULE OUT. A CALL WAS PLACED TO DR. KOHLER WHO ADVISED TO CONTINUE TO WITH THE ORANGE JUICE AND MONITOR VITALS--PATIENTS BP WAS APPROXIMATELY 230- SYSTOLIC AND 150 DIASTOLIC. HE WAS GIVEN HIS SCHEDULED DOSES OF MORNING BP MEDS WHICH WERE OKAY'D BY THE DIALYSIS NURSE. WE DID NOT HAVE A RESULT OF COVID BUT WERE ADVISED TO BRING PATIENT TO DIALYSIS WHERE THEY WOULD KEEP HIM IN IDOLATION UNTIL RESULT RECEIPT. FOLLOWING THE ABOVE INTERVENTIONS PATIENT WAS RESTING IN BED WITH EYES CLOSED UNTIL WE TRANSPORTED HIM TO DIALYSIS.
[2021-06-18 11:28] LABS: SARS-Cov-2 (COVID-19) PCR, MMC NEGATIVE (NEGATIVE)
[2021-06-18] MEDS ORDERED: HYDR100 PO ×2 (16:27→16:30)
[2021-06-18] MEDS ORDERED: LABE100 PO ×2 (16:28)
[2021-06-18] MEDS ORDERED: XARELTO15 MG PO (16:50)
[2021-06-18] MEDS ORDERED: XARELTO20 MG PO (16:50)
== END 2021-06-18 17:00 | disposition home or self-care (01) | DRG 919 ==
LOC: ER 20:36 → ORSCIP 06-14 01:40 → PCU 06-14 01:40 → ERHOLD 06-14 01:40 → PCU 06-14 05:21 → ORSCIP 06-14 12:09
PROVIDERS: Family Medicine; Internal Medicine Nephrology; Pharmacist; Physician Assistant; ADMIT Hospitalist
PROC: 5A1D70Z Performance of Urinary Filtration, Intermittent, Less than 6 Hours Per Day (ICD-10-PCS; principal; 2021-06-18)
DX: L76.32 Postprocedural hematoma of skin and subcutaneous tissue following other procedure (principal); N18.6 End stage renal disease; T81.72XA Complication of vein following a procedure, not elsewhere classified, initial encounter; I82.411 Acute embolism and thrombosis of right femoral vein; T81.718A Complication of other artery following a procedure, not elsewhere classified, initial encounter; N25.81 Secondary hyperparathyroidism of renal origin; T86.12 Kidney transplant failure; N02.8 Recurrent and persistent hematuria with other morphologic changes; E87.1 Hypo-osmolality and hyponatremia; Z20.822 Contact with and (suspected) exposure to COVID-19; E87.6 Hypokalemia; I72.4 Aneurysm of artery of lower extremity; I16.0 Hypertensive urgency; E88.09 Other disorders of plasma-protein metabolism, not elsewhere classified; E86.9 Volume depletion, unspecified; E11.22 Type 2 diabetes mellitus with diabetic chronic kidney disease; K59.00 Constipation, unspecified; D63.1 Anemia in chronic kidney disease; M54.5 Low back pain; G89.29 Other chronic pain; D50.9 Iron deficiency anemia, unspecified; E03.9 Hypothyroidism, unspecified; E83.39 Other disorders of phosphorus metabolism; I10 Essential (primary) hypertension; F41.8 Other specified anxiety disorders; E11.40 Type 2 diabetes mellitus with diabetic neuropathy, unspecified; G40.909 Epilepsy, unspecified, not intractable, without status epilepticus; K21.9 Gastro-esophageal reflux disease without esophagitis; E78.5 Hyperlipidemia, unspecified; Z99.2 Dependence on renal dialysis; Z79.82 Long term (current) use of aspirin; Z79.4 Long term (current) use of insulin; Z79.899 Other long term (current) drug therapy; Z79.02 Long term (current) use of antithrombotics/antiplatelets; Z86.73 Personal history of transient ischemic attack (TIA), and cerebral infarction without residual deficits
CPT/HCPCS: 36415; 73706; 80053; 80069; 82947; 83036; 83735; 84100; 84443; 85014; 85018; 85025; 85049; 85610; 85730; 93926; 93971; 96374; 97162; 97166; 97530; 99285-25; A9270; J0360; J0881; J1170; J1644; J2405; J3010; J3480; J7050; J7060; J7507; J7512; Q9967; U0004

== ENCOUNTER → 2021-07-26 | Outpatient (CLI) | payer BC ==
[~2021-07-26] MED LIST changes: +ASPI81CH PO; +ATORVASTATIN CA80 M1 PO; +CALCIUM ACETAT667 MG PO; +CATAPRES-TTS 31 EAC2 TD; +Colace100 MG PO; +DEPAKOTE500 M1 PO; +ENULOSE PR; +EUTHYROX50 MCG PO; +Effexor Xr37.5 MG PO; +FERROUS SULFATE PO; +Hair, Skin & N1 EACH PO; +Hydroxyzine HCl25 MG PO; +Miralax PO; +PROGRAF1 M1 PO; +Vitamin D PO; +XARELTO15 MG PO; +XARELTO20 MG PO
== END | disposition home or self-care (01) ==
LOC: LAB SHORT 15:51 → LAB 15:51
DX: N39.9 Disorder of urinary system, unspecified (principal)
CPT/HCPCS: 87086

== ENCOUNTER 2021-08-03 15:19 | Inpatient (IN) | payer BC ==
[~2021-08-03] VITALS: Ht 188 cm; Wt 87.7 kg
[2021-08-03 15:57] LABS: BASOPHILS ABSOLUTE AUTO 0.05 K/mm3 (0.00-0.23); BASOPHILS PERCENT AUTO 1 % (0-2); EOSINOPHILS ABSOLUTE AUTO 0.11 K/mm3 (0.00-0.68); EOSINOPHILS PERCENT AUTO 2 % (0-6); Hematocrit 37.1 % (37.0-53.0); Hemoglobin 12.3 g/dL (13.5-17.5); IMMATURE GRAN ABSOLUTE AUTO 0.05 K/mm3 (0.00-0.10); IMMATURE GRAN PERCENT AUTO 1 % (0-1); LYMPHOCYTES PERCENT AUTO 17 % (21-46); MONOCYTES ABSOLUTE AUTO 0.38 K/mm3 (0.16-1.47); MONOCYTES PERCENT AUTO 8 % (4-13); Mean Corpuscular HGB Conc 33.2 g/dL (31.5-36.5); Mean Corpuscular Volume 109 fL (80-100); Mean Platelet Volume 9.8 fL (9.1-12.4); NEUTROPHILS PERCENT AUTO 70 % (41-73); Platelet Count 225 K/mm3 (150-400); RDW Coefficient Variation 13.5 % (11.7-14.2); Red Blood Cell Count 3.42 M/mm3 (4.30-5.90); White Blood Cell Count 4.59 K/mm3 (4.00-11.30)
[2021-08-03 17:08] LABS: Albumin, Blood 3.1 g/dL (3.4-5.0); Albumin/Globulin Ratio 0.8 (0.8-1.8); Bilirubin, Total 0.7 mg/dL (0.1-1.0); Bun/Creatinine Ratio 10.7 (12.0-20.0); Calcium, Blood 9.6 mg/dL (8.5-10.1); Creatinine, Blood 11.6 mg/dL (0.60-1.20); Globulin, Blood 3.9 g/dL (2.2-4.0); Potassium, Blood 6.6 mmol/L (3.5-5.5)
--- NOTE | 2021-08-03 23:07 | NUR ---
URGENT DIALYSIS ORDERED BY DR BENEDICT FOR PATIENT ADMITTED TO PCU VIA ER WITH K+ 6.6 AFTER STAFF AT OUTPATIENT DIALYSIS CLINIC UNABLE TO ACCESS ELYPSIS TYPE AV FISTULA. MACHINE STRUNG, PRIMED, TESTED AND RECIRCED PER RX. ATTEMPT WAS MADE TO ACCESS PATIENT'S NIKKI AVF USING TOURNIQUET AND 17GA 5/8" FISTULA NEEDLES INDICATED FOR ELYPSIS TYPE ACCESS. UNABLE TO ASPIRATE EITHER CANNULATION SITE. NO BLOOD RETURN OTHER THAN CLOT FRAGMENTS. DR BENEDICT CALLED AND INFORMED. ORDER RECEIVED FOR STAT K+ AND CONSULT PLACED FOR VASCULAR CONSULT AND PERMCATH PLACEMENT TOMORROW SATURNINO
[2021-08-04 00:05] LABS: Influenza A, PCR NEGATIVE (NEGATIVE); Influenza B, PCR NEGATIVE (NEGATIVE); Resp Syncytial Virus, PCR NEGATIVE (NEGATIVE); SARS-Cov-2 (COVID-19) PCR, MMC NEGATIVE (NEGATIVE)
[2021-08-04 03:38] LABS: BASOPHILS ABSOLUTE AUTO 0.04 K/mm3 (0.00-0.23); BASOPHILS PERCENT AUTO 1 % (0-2); EOSINOPHILS ABSOLUTE AUTO 0.15 K/mm3 (0.00-0.68); EOSINOPHILS PERCENT AUTO 3 % (0-6); Hematocrit 33.5 % (37.0-53.0); Hemoglobin 11.3 g/dL (13.5-17.5); IMMATURE GRAN ABSOLUTE AUTO 0.02 K/mm3 (0.00-0.10); IMMATURE GRAN PERCENT AUTO 0 % (0-1); LYMPHOCYTES ABSOLUTE AUTO 1.36 K/mm3 (0.84-5.20); LYMPHOCYTES PERCENT AUTO 28 % (21-46); MONOCYTES ABSOLUTE AUTO 0.62 K/mm3 (0.16-1.47); MONOCYTES PERCENT AUTO 13 % (4-13); Mean Corpuscular HGB 36.3 pg (26.0-34.0); Mean Corpuscular HGB Conc 33.7 g/dL (31.5-36.5); Mean Corpuscular Volume 108 fL (80-100); Mean Platelet Volume 10.2 fL (9.1-12.4); NEUTROPHILS ABSOLUTE AUTO 2.76 K/mm3 (1.96-9.15); NEUTROPHILS PERCENT AUTO 56 % (41-73); Platelet Count 216 K/mm3 (150-400); RDW Coefficient Variation 13.6 % (11.7-14.2); RDW Standard Deviation 54.2 fL (35.1-46.3); Red Blood Cell Count 3.11 M/mm3 (4.30-5.90); White Blood Cell Count 4.95 K/mm3 (4.00-11.30)
[2021-08-04 04:03] LABS: Magnesium, Blood 3.3 mg/dL (1.6-2.4)
[2021-08-04 04:09] LABS: Albumin, Blood 3.1 g/dL (3.4-5.0); Anion Gap 13 mmol/L (6-16); Blood Urea Nitrogen 122 mg/dL (8-24); Bun/Creatinine Ratio 10.3 (12.0-20.0); CO2, Blood 25 mmol/L (21-32); Calcium, Blood 9.8 mg/dL (8.5-10.1); Chloride, Blood 96 mmol/L (98-108); Glomerular Filtration Rate 5 (60-); Glucose, Blood 101 mg/dL (70-99); Phosphorus, Blood 5.4 mg/dL (2.5-4.9); Potassium, Blood 5.9 mmol/L (3.5-5.5); Sodium, Blood 134 mmol/L (136-145)
--- NOTE | 2021-08-04 06:13 | NUR ---
SHIFT SUMMARY ASSUMED CARE OF PT AT 2230. PT IS A/OX4. PT HAS A PREVIOUS STROKE AND HAS SLIGHT R SIDED DEFICITS. HEART SOUNDS REGULAR, LUNG SOUNDS CLEAR. PT WAS A 1P ASSSIT WITH WALKER. PT HAS CLEAR YELLOW URINE. PT HAS A FISTULA IN HIS L ARM. DIALYSIS NURSE ATTEMPTED TO START DIALYSIS LAST NIGHT BUT WAS UNSUCCESSFUL. NURSE STATES THAT HE THINKS ITS CLOTTED OFF AND IS ONLY GETTING CLOTS WHEN ATTEMPTING TO DRAW. NURSE CALLED DR BENEDICT WHO SAID TO GET A SODER CONSULT FOR A PERMACATH IN THE AM. PT HAS BEEN NPO SINCE MIDNIGHT. STAT POTASSIUM WAS ALSO ORDERED AND CAME BACK 6.1., DR BENEDICT ORDERED SODIUM BICARB PUSH AND LOKELMA AND BROUGHT DOWN POTASSIUM TO 5.9. PT HAS HAD ELEVATED BP THIS AM 197 SYSTOLIC. ON MORNING BP MEDICATATION, CATAPRES WAS GIVEN AND BROUGHT BP DOWN TO 187 SYSTOLIC.
--- NOTE | 2021-08-04 07:14 | NUR ---
PT MOVED TO PCU FROM [facility] THIS AM DUE TO CARDIAC IRREGULARITY. OVERNIGHT CCPD COMPLETE. PT DISCONNECTED AND CAPPED. EXIT SITE CARE DONE. NEW STERILE DRESSING APPLIED WITH STRAIN RELIEFS. DR BENEDICT CONSULTED FOR ORDERS / PLAN OF CARE.
--- NOTE | 2021-08-04 12:11 | NUR ---
PATIENT LEFT WITH RN WITHOUT INCIDENT OR S/S CARDIOPULMONARY DISTRESS OBSERVED OR NOTED VIA STRETCHER TO PROCEDURE.
--- NOTE | 2021-08-04 22:51 | NUR ---
DR. DIAZ NOTIFIED THAT PATIENT'S PERMACATH SITE CONTINIOUSLY OOZING. ESSENCE Pandya RN CHANGED DRESSING THIS SHIFT. UPDATED THAT IT HAD BEEN CHANGED 3 TIMES SINCE PATIENT'S ARRIVAL BACK TO UNIT. ORDERS TO CHANGE DRESSING NEEDED AND CALL IF BLEEDING GETS WORSE; WILL SLOW DOWN BUT RELATED TO [place]. DR. DIAZ WILL ADDRESS IN AM.
--- NOTE | 2021-08-05 00:17 | NUR ---
CALLED DR BURT REGARDING PT PAIN -07/21 AND HTN. ORDERS OF HYDRALAZINE 10-20MG Q8 PRN (SYSTOLIC <180); FENTANYL 25 Q8 PRN.
[2021-08-05 04:04] LABS: BASOPHILS ABSOLUTE AUTO 0.05 K/mm3 (0.00-0.23); BASOPHILS PERCENT AUTO 1 % (0-2); EOSINOPHILS ABSOLUTE AUTO 0.12 K/mm3 (0.00-0.68); EOSINOPHILS PERCENT AUTO 2 % (0-6); Hematocrit 34.8 % (37.0-53.0); Hemoglobin 11.6 g/dL (13.5-17.5); IMMATURE GRAN ABSOLUTE AUTO 0.01 K/mm3 (0.00-0.10); IMMATURE GRAN PERCENT AUTO 0 % (0-1); LYMPHOCYTES ABSOLUTE AUTO 1.27 K/mm3 (0.84-5.20); LYMPHOCYTES PERCENT AUTO 25 % (21-46); MONOCYTES ABSOLUTE AUTO 0.69 K/mm3 (0.16-1.47); MONOCYTES PERCENT AUTO 14 % (4-13); Mean Corpuscular HGB Conc 33.3 g/dL (31.5-36.5); Mean Corpuscular Volume 108 fL (80-100); Mean Platelet Volume 10.3 fL (9.1-12.4); NEUTROPHILS ABSOLUTE AUTO 2.95 K/mm3 (1.96-9.15); NEUTROPHILS PERCENT AUTO 58 % (41-73); Platelet Count 209 K/mm3 (150-400); RDW Coefficient Variation 13.2 % (11.7-14.2); RDW Standard Deviation 52.7 fL (35.1-46.3); Red Blood Cell Count 3.22 M/mm3 (4.30-5.90); White Blood Cell Count 5.09 K/mm3 (4.00-11.30)
[2021-08-05 04:27] LABS: Albumin/Globulin Ratio 0.8 (0.8-1.8); Bilirubin, Direct 0.2 mg/dL (0.0-0.3); Bilirubin, Indirect 0.5 mg/dL (0.1-0.7); Bilirubin, Total 0.7 mg/dL (0.1-1.0); Calcium, Blood 9.4 mg/dL (8.5-10.1); Globulin, Blood 3.7 g/dL (2.2-4.0); Magnesium, Blood 2.8 mg/dL (1.6-2.4); Phosphorus, Blood 5.1 mg/dL (2.5-4.9); Potassium, Blood 4.7 mmol/L (3.5-5.5); Total Protein, Blood 6.7 g/dL (6.4-8.2)
[2021-08-05 04:29] LABS: Bun/Creatinine Ratio 8.6 (12.0-20.0); Creatinine, Blood 8.56 mg/dL (0.60-1.20)
--- NOTE | 2021-08-05 05:33 | NUR ---
SHIFT SUMMARY PT IS ALERT AND ORIENTED X4. PT HAS PAINFUL T/O THE NIGHT AND HAS HAD OOZING OUT OF SURGICAL SITE. PT BP HAS BEEN ELEVATED AND WAS MEDICATED PER EMAR. PT DENIES CARDIAC CHEST PAIN OR PRESSURE. PT IS ON ROOM AIR AND DENIES SOB. PT REQUESTED SCD'S TAKEN OFF. CONSULT WAS CALLED IN REQUESTED BY DR BENEDICT. PT'S CREAT WAS 8.56 BUT TRENDING DOWN. CALL LIGHT IS WITHIN REACH. WILL CONTINUE TO MONITOR.
--- NOTE | 2021-08-05 18:00 | NUR ---
SHIFT SUMMARY 1300 RECEIVED PT TO RM 344 VIA BED FROM DIALYSIS. PT TX'D TO DIALYSIS FROM PCU 10. PT ADMITTED FOR HYPERKALEMIA D/T L ARM FISTULA NOT FUNCTIONING. PERMA CATH PLACED TO [facility] FOR DIALYSIS. SITE LEAKING FROM ONE OF THE STITCHES. PER REPORT FROM BEHAVIORAL SCIENCE CHAIR, STITCH REMOVED BY DURABILITY ENGINEER BRIGETTE, PER DR CHAUHAN ORDERS. PACKING AND DRSG APPLIED WELL PRESSURE AND SANDBAG. DRSG STILL LEAKING WHEN COMING TO 344. ICE BAG AND SANDBAG APPLIED. PT INSTRUCTED TO KEEP R ARM FROM MOVING AROUND DESTABLIZING CLOT. LEAKING SLOWED/STOPPED BRIEFLY. PT WANTING CLEANED UP. SOILED DRSG REMOVED. SKIN CLEANED AND NEW DRSG PLACED. LINENS CHANGED WELL. PT FEELING BETTER AFTER SITE AND DRSG CLEAN. SITTING UP EATING DINNER AT THIS TIME. NO C/O. CALL LT IN REACH. IN TO VISIT THIS AFTERNOON, JUST LEAVING.
--- NOTE | 2021-08-05 21:32 | NUR ---
PERMA CATH BANDAGE TO RIGHT CHEST WALL REINFORCED WITH 4X4'S AND NEW CLEAR TRANSPARENT DRESSING PLACED. DID NOT REMOVE 4X4'S. ADDED PRESSURE DRSG OF 2X2'S AND FOAM TAPE PLACED ON TOP ON TRANSPARENT DRESSING. NO OOZING NOTED AT THIS TIME. VSS. H&H STABLE.
--- NOTE | 2021-08-06 06:02 | NUR ---
VITAL SIGNS STABLE, NO COMPLAINTS OF PAIN. A+OX4. DRESSING OF THE RIGHT PERMA CATH HAD TO BE REINFORCED BY CHARGE TAVARES 2X THIS SHIFT. BLOOD IS SEEN COMING FROM DRESSING EVEN AFTER 2LB SAND BAG HAS BEEN PLACED. NO COMPLAINTS OF WEAKNESS OR SOB. MORNING LABS RESULTS PENDING. SAFETY MEASURES IN PLACE. WILL CONTINUE TO MONITOR UNTIL CARE IS ASSUMED BY NEXT SHIFT
[2021-08-06 06:23] LABS: BASOPHILS ABSOLUTE AUTO 0.04 K/mm3 (0.00-0.23); BASOPHILS PERCENT AUTO 1 % (0-2); EOSINOPHILS ABSOLUTE AUTO 0.17 K/mm3 (0.00-0.68); EOSINOPHILS PERCENT AUTO 3 % (0-6); Hematocrit 31.5 % (37.0-53.0); Hemoglobin 10.5 g/dL (13.5-17.5); IMMATURE GRAN ABSOLUTE AUTO 0.02 K/mm3 (0.00-0.10); IMMATURE GRAN PERCENT AUTO 0 % (0-1); LYMPHOCYTES ABSOLUTE AUTO 1.33 K/mm3 (0.84-5.20); LYMPHOCYTES PERCENT AUTO 24 % (21-46); MONOCYTES PERCENT AUTO 16 % (4-13); Mean Corpuscular HGB 35.7 pg (26.0-34.0); Mean Corpuscular HGB Conc 33.3 g/dL (31.5-36.5); Mean Corpuscular Volume 107 fL (80-100); Mean Platelet Volume 10.1 fL (9.1-12.4); NEUTROPHILS ABSOLUTE AUTO 3.11 K/mm3 (1.96-9.15); NEUTROPHILS PERCENT AUTO 56 % (41-73); Platelet Count 200 K/mm3 (150-400); RDW Coefficient Variation 12.8 % (11.7-14.2); RDW Standard Deviation 50.3 fL (35.1-46.3); Red Blood Cell Count 2.94 M/mm3 (4.30-5.90); White Blood Cell Count 5.57 K/mm3 (4.00-11.30)
[2021-08-06 06:42] LABS: Albumin, Blood 2.8 g/dL (3.4-5.0); Anion Gap 7 mmol/L (6-16); Blood Urea Nitrogen 49 mg/dL (8-24); Bun/Creatinine Ratio 7.1 (12.0-20.0); CO2, Blood 31 mmol/L (21-32); Calcium, Blood 9.6 mg/dL (8.5-10.1); Chloride, Blood 99 mmol/L (98-108); Creatinine, Blood 6.94 mg/dL (0.60-1.20); Glomerular Filtration Rate 9 (60-); Glucose, Blood 99 mg/dL (70-99); Magnesium, Blood 2.5 mg/dL (1.6-2.4); Phosphorus, Blood 5.9 mg/dL (2.5-4.9); Potassium, Blood 4.1 mmol/L (3.5-5.5); Sodium, Blood 137 mmol/L (136-145)
[2021-08-06] MEDS ORDERED: Isosorbide Mono30 MG PO (15:33)
[2021-08-06] MEDS ORDERED: Acetaminophen650 M1 PO (15:34)
[2021-08-06] MEDS ORDERED: ELIQUIS5 M2 PO (15:35)
[2021-08-06] MEDS ORDERED: ONDA4ODT MM (15:36)
--- NOTE | 2021-08-06 16:28 | NUR ---
PT AWAKE, RESTING QUIETLY AT START OF SHIFT. DR DIAZ HERE DURING SHIFT REPORT TO ASSESS LEAKING AROUND PERMA CATH. DRESSING REMOVED FROM SITE AND AREA CLEANED WELL BY DR DIAZ. PACKING APPLIED TO SITE AND PRESSURE HELD FOR AT LEAST [address] DIAZ. NEW DRSG APPLIED AND SECURED WITH PRESSURE TAPE BY DR DIAZ. PT INSTRUCTED TO KEEP R ARM STILL. PT MOVING IT AROUND WANTING TO DRINK COFFEE. PRESSURE TAPE STARTED COMING LOOSE. ADDITIONAL TAPE PLACED OVER DRSG, WHICH DID REMAIN INTACT ALL DAY. NO FURTHER LEAKING NOTED ALL DAY TO PRESENT. DR RIVAS IN TO SEE PT, DISCUSSED PLAN OF CARE. HEPARIN HELD AND SCD'S PLACED. DR MCLEOD HERE TO SEE PT A LITTLE LATER; NEW ORDERS PLACED. PT TO D/C TO HOME AND F/U WITH DR MCLEOD. PT TO START ELIQUIS TODAY AND HAVE U/S OF L ARM FISTULA ON THURSDAY AT 10:30. PT THEN TO SEE DR MCLEOD ON TO DISCUSS RESULTS. PT TO F/U AT [facility] ON FOR DIALYSIS, WHICH IS HIS NORMAL DIALYSIS DAY. MEDS FAXED TO [facility], PER PT REQUEST. D/C INSTRUCTIONS DISCUSSED WITH PT AND LATER WITH ; VERBALIZED UNDERSTANDING. HERE TO PICK PT UP AND ASSISTED HIM WITH GETTING DRESSED. PT ABLE TO TX TO W/C AND ASSISTED OUT TO 'S CAR. PT PLEASANT AND CO-OP.
--- NOTE | 2021-08-06 16:32 | NUR ---
08/06/21 1632 Ximena Rocha VERIFICATIONS: EDIT CHART.
== END 2021-08-06 16:48 | disposition home health service (06) | DRG 314 ==
LOC: ER 15:19 → PCU 15:20 → MEDS 20:25 → ER 20:25 → PCU 20:30 → MEDS 08-04 16:30 → PCU 08-04 16:30 → MEDS 08-05 13:00
PROVIDERS: Internal Medicine Nephrology; Physician Assistant; Surgery; ADMIT Internal Medicine
PROC: 02HV33Z Insertion of Infusion Device into Superior Vena Cava, Percutaneous Approach (ICD-10-PCS; 2021-08-04)
PROC: B5181ZA Fluoroscopy of Superior Vena Cava using Low Osmolar Contrast, Guidance (ICD-10-PCS; 2021-08-04)
PROC: 5A1D70Z Performance of Urinary Filtration, Intermittent, Less than 6 Hours Per Day (ICD-10-PCS; 2021-08-04)
PROC: 0JH63XZ Insertion of Tunneled Vascular Access Device into Chest Subcutaneous Tissue and Fascia, Percutaneous Approach (ICD-10-PCS; principal; 2021-08-04 13:45)
DX: T82.591A Other mechanical complication of surgically created arteriovenous shunt, initial encounter (principal); N18.6 End stage renal disease; N25.81 Secondary hyperparathyroidism of renal origin; I13.2 Hypertensive heart and chronic kidney disease with heart failure and with stage 5 chronic kidney disease, or end stage renal disease; E87.1 Hypo-osmolality and hyponatremia; E87.2 Acidosis; T86.12 Kidney transplant failure; Y83.8 Other surgical procedures as the cause of abnormal reaction of the patient, or of later complication, without mention of misadventure at the time of the procedure; E87.5 Hyperkalemia; E78.5 Hyperlipidemia, unspecified; G40.909 Epilepsy, unspecified, not intractable, without status epilepticus; E11.22 Type 2 diabetes mellitus with diabetic chronic kidney disease; Z20.822 Contact with and (suspected) exposure to COVID-19; E11.42 Type 2 diabetes mellitus with diabetic polyneuropathy; K21.9 Gastro-esophageal reflux disease without esophagitis; D50.9 Iron deficiency anemia, unspecified; E11.21 Type 2 diabetes mellitus with diabetic nephropathy; I50.9 Heart failure, unspecified; E88.09 Other disorders of plasma-protein metabolism, not elsewhere classified; F32.A Depression, unspecified; E83.39 Other disorders of phosphorus metabolism; Y83.0 Surgical operation with transplant of whole organ as the cause of abnormal reaction of the patient, or of later complication, without mention of misadventure at the time of the procedure; D63.1 Anemia in chronic kidney disease; Z79.4 Long term (current) use of insulin; Z79.899 Other long term (current) drug therapy; Z79.52 Long term (current) use of systemic steroids; Z79.02 Long term (current) use of antithrombotics/antiplatelets; Z79.01 Long term (current) use of anticoagulants; Z79.82 Long term (current) use of aspirin; Z91.15 Patient's noncompliance with renal dialysis; Z99.2 Dependence on renal dialysis; Z86.73 Personal history of transient ischemic attack (TIA), and cerebral infarction without residual deficits
CPT/HCPCS: 0241U; 36415; 71045; 80053; 80069; 82248; 82947; 83735; 83880; 84100; 84132; 84484; 85025; 93005; 93010; 93931; 96365; 96372; 96375; 96376; 99285-25; A9270; C1750; G0378; J0360; J0610; J0690; J1644; J1815; J2250; J2405; J2704; J3010; J7030; J7507; J7512

== ENCOUNTER 2021-08-07 06:15 | Emergency (ER) | payer BC ==
[~2021-08-07] VITALS: Ht 188 cm; Wt 104.3 kg
[~2021-08-07 06:15] MED LIST changes: +Acetaminophen650 M1 PO; +ELIQUIS5 M2 PO
== END 2021-08-07 07:38 | disposition home or self-care (01) ==
LOC: ER 06:15
DX: L76.22 Postprocedural hemorrhage of skin and subcutaneous tissue following other procedure (principal); K21.9 Gastro-esophageal reflux disease without esophagitis; E11.40 Type 2 diabetes mellitus with diabetic neuropathy, unspecified; Z79.899 Other long term (current) drug therapy; E11.22 Type 2 diabetes mellitus with diabetic chronic kidney disease; N18.9 Chronic kidney disease, unspecified; D63.1 Anemia in chronic kidney disease
CPT/HCPCS: 99283

== ENCOUNTER 2021-09-04 06:36 | Day surgery (SDC) | payer BC, MEDICARE ==
[~2021-09-04] VITALS: Ht 188 cm; Wt 87.0 kg
[~2021-09-04 06:36] MED LIST changes: +HUMULIN R500 UNIT/1 SQ; +LORCET 5-325 M1 EACH PO
--- NOTE | 2021-09-04 10:30 | NUR ---
[facility]. asleep, but awakens to verbal stimuli. January RT tech holding pressure to left arm site. cloth dot intact to left upper arm site. TR band in place with 10 cc air to left radial artery. O2 at 2l/nc placed.
--- NOTE | 2021-09-04 10:39 | NUR ---
slight pressure dressing placed to left arm site by January RT tech.
--- NOTE | 2021-09-04 11:00 | NUR ---
pessure dressing removed from left arm site. still oozing blood. slight manual pressure held for 10 minutes. pressure dressing with gauze and elastoplast tape placed.
--- NOTE | 2021-09-04 12:40 | NUR ---
continuing to remove 1-2 cc air from TR band. site remains soft and nontender. no hematoma no bleeding. pressure dressing to left arm site dry and intact.
--- NOTE | 2021-09-04 13:00 | NUR ---
all aire removeed from left TR band. site soft and nontender. no bleeding. no hematoma
--- NOTE | 2021-09-04 13:45 | NUR ---
SITE ASSESSED PRIOR TO DISCHARGE. OOZING CONTINUES. REDRESSED AND COBAN APPLIED.
--- NOTE | 2021-09-04 14:05 | NUR ---
SITE EVALUATED BY Reta WHITT RN. CONTINUES TO OOZE. REDRESSED AND DR. GARSIA TEXTED WITH INFORMATION.
--- NOTE | 2021-09-04 15:00 | NUR ---
PATIENT AND VERBALIZED UNDERSTANDING OF DISCHARGE INSTRUCTIONS AND PRECAUTIONS. TR BAND REMOVED BY GURVINDER PETER. LEFT WRIST BOARD IN PLACE. PRESSURE DRESSING APPLIED BY GURVINDER PETER TO LEFT ARM SITE. DRESSING D&I AT THIS TIME. PATIENT REFUSED A SUTURE TO THE SITE BY DR GARSIA. I CONFIRMED WITH DR GARSIA THAT PATIENT IS OK TO BE DISCHARGED AND THAT THE STATES THAT SHE IS COMFORTABLE WITH MANAGING THE PRESSURE DRESSING. SHE WILL CALL IF ANY CONCERNS. PATIENT DISCHARGED VIA WHEELCHAIR TO CAR. DRIVING PATIENT TO [employer].
== END 2021-09-04 14:50 | disposition home or self-care (01) ==
LOC: MHTC 06:36
DX: T82.868A Thrombosis due to vascular prosthetic devices, implants and grafts, initial encounter (principal); I12.0 Hypertensive chronic kidney disease with stage 5 chronic kidney disease or end stage renal disease; N18.6 End stage renal disease; E11.22 Type 2 diabetes mellitus with diabetic chronic kidney disease; E11.40 Type 2 diabetes mellitus with diabetic neuropathy, unspecified; E78.5 Hyperlipidemia, unspecified; J45.909 Unspecified asthma, uncomplicated; K21.9 Gastro-esophageal reflux disease without esophagitis; Z94.0 Kidney transplant status; Y84.1 Kidney dialysis as the cause of abnormal reaction of the patient, or of later complication, without mention of misadventure at the time of the procedure; Z95.820 Peripheral vascular angioplasty status with implants and grafts; Z99.2 Dependence on renal dialysis; Z79.4 Long term (current) use of insulin
CPT/HCPCS: 76937; 82947; 99152; 99153; C1725; C1769; C1887; C1894; J1644; J2250; J2997; J3010; J7030; Q9967

== ENCOUNTER 2021-09-04 19:29 | Emergency (ER) | payer BC, MEDICARE ==
[~2021-09-04] VITALS: Ht 188 cm; Wt 82.0 kg
[2021-09-04 20:21] LABS: BASOPHILS ABSOLUTE AUTO 0.04 K/mm3 (0.00-0.23); BASOPHILS PERCENT AUTO 1 % (0-2); EOSINOPHILS ABSOLUTE AUTO 0.11 K/mm3 (0.00-0.68); EOSINOPHILS PERCENT AUTO 2 % (0-6); Hematocrit 39.8 % (37.0-53.0); Hemoglobin 13.5 g/dL (13.5-17.5); IMMATURE GRAN ABSOLUTE AUTO 0.04 K/mm3 (0.00-0.10); IMMATURE GRAN PERCENT AUTO 1 % (0-1); LYMPHOCYTES ABSOLUTE AUTO 1.45 K/mm3 (0.84-5.20); LYMPHOCYTES PERCENT AUTO 20 % (21-46); MONOCYTES ABSOLUTE AUTO 0.94 K/mm3 (0.16-1.47); MONOCYTES PERCENT AUTO 13 % (4-13); Mean Corpuscular HGB 35.2 pg (26.0-34.0); Mean Corpuscular HGB Conc 33.9 g/dL (31.5-36.5); Mean Corpuscular Volume 104 fL (80-100); Mean Platelet Volume 9.8 fL (9.1-12.4); NEUTROPHILS ABSOLUTE AUTO 4.63 K/mm3 (1.96-9.15); NEUTROPHILS PERCENT AUTO 64 % (41-73); Platelet Count 296 K/mm3 (150-400); RDW Standard Deviation 53.1 fL (35.1-46.3); Red Blood Cell Count 3.84 M/mm3 (4.30-5.90); White Blood Cell Count 7.21 K/mm3 (4.00-11.30)
[2021-09-04 20:44] LABS: Albumin, Blood 3.1 g/dL (3.4-5.0); Albumin/Globulin Ratio 0.8 (0.8-1.8); Bilirubin, Total 0.4 mg/dL (0.1-1.0); Bun/Creatinine Ratio 13.3 (12.0-20.0); Calcium, Blood 8.4 mg/dL (8.5-10.1); Creatinine, Blood 3.54 mg/dL (0.60-1.20); Total Protein, Blood 7.1 g/dL (6.4-8.2)
== END 2021-09-04 22:06 | disposition home or self-care (01) ==
LOC: ER 19:29
PROVIDERS: Physician Assistant
DX: T82.838A Hemorrhage due to vascular prosthetic devices, implants and grafts, initial encounter (principal); I12.0 Hypertensive chronic kidney disease with stage 5 chronic kidney disease or end stage renal disease; E11.22 Type 2 diabetes mellitus with diabetic chronic kidney disease; N18.6 End stage renal disease; D63.1 Anemia in chronic kidney disease; E11.40 Type 2 diabetes mellitus with diabetic neuropathy, unspecified; K21.9 Gastro-esophageal reflux disease without esophagitis; Z99.2 Dependence on renal dialysis; Z79.82 Long term (current) use of aspirin; Z79.899 Other long term (current) drug therapy; Z79.52 Long term (current) use of systemic steroids; Z79.4 Long term (current) use of insulin
CPT/HCPCS: 36415; 80053; 85025; 86850; 86900; 86901

== ENCOUNTER → 2021-10-18 | Outpatient (CLI) | payer BC, MEDICARE | END | disposition home or self-care (01) | LOC: LAB SHORT 15:02 | DX: L02.91 Cutaneous abscess, unspecified (principal) | CPT/HCPCS: 87081 ==

== ENCOUNTER 2021-10-28 08:34 | Day surgery (SDC) | payer BC, MEDICARE ==
[~2021-10-28] VITALS: Ht 188 cm; Wt 91.0 kg
--- NOTE | 2021-10-28 15:54 | NUR ---
PT IV DC'D INTACT, TR BAND REMOVED, DRESSING AND SPLINT PLACED, PT DRESSED AND DC'D BY WC WITH DRIVING PT HOME
== END 2021-10-28 16:00 | disposition home or self-care (01) ==
LOC: MHTC 08:34
DX: T82.858A Stenosis of other vascular prosthetic devices, implants and grafts, initial encounter (principal); T82.868A Thrombosis due to vascular prosthetic devices, implants and grafts, initial encounter; Y83.2 Surgical operation with anastomosis, bypass or graft as the cause of abnormal reaction of the patient, or of later complication, without mention of misadventure at the time of the procedure; I12.0 Hypertensive chronic kidney disease with stage 5 chronic kidney disease or end stage renal disease; E11.22 Type 2 diabetes mellitus with diabetic chronic kidney disease; N18.6 End stage renal disease; Z99.2 Dependence on renal dialysis; K21.9 Gastro-esophageal reflux disease without esophagitis; J45.909 Unspecified asthma, uncomplicated; Z79.01 Long term (current) use of anticoagulants; Z79.82 Long term (current) use of aspirin
CPT/HCPCS: 76937; 82947; C1725; C1769; C1887; C1894; J1644; J2250; J2405; J2704; J3010; J7030; J7040; J7050; Q9967

== ENCOUNTER → 2021-11-12 | Outpatient (CLI) | payer BC, MEDICARE | END | disposition home or self-care (01) | LOC: LAB SHORT 07:30 → LAB 07:30 | DX: R31.9 Hematuria, unspecified (principal) | CPT/HCPCS: 87077; 87086 ==

== ENCOUNTER → 2021-11-22 | Outpatient (CLI) | payer BC, MEDICARE | LOC: LAB 07:00 → LAB SHORT 07:00 | DX: R31.9 Hematuria, unspecified (principal) | CPT/HCPCS: 87086 ==

== ENCOUNTER 2021-12-03 01:36 | Emergency (ER) | payer BC, MEDICARE ==
[~2021-12-03] VITALS: Ht 188 cm; Wt 129.3 kg
== END 2021-12-03 06:23 | disposition home or self-care (01) ==
LOC: ER 01:36
DX: R51.9 Headache, unspecified (principal); E11.22 Type 2 diabetes mellitus with diabetic chronic kidney disease; I12.0 Hypertensive chronic kidney disease with stage 5 chronic kidney disease or end stage renal disease; N18.6 End stage renal disease; E11.40 Type 2 diabetes mellitus with diabetic neuropathy, unspecified; K21.9 Gastro-esophageal reflux disease without esophagitis; Z99.2 Dependence on renal dialysis; Z86.73 Personal history of transient ischemic attack (TIA), and cerebral infarction without residual deficits; Z79.01 Long term (current) use of anticoagulants; Z79.82 Long term (current) use of aspirin; Z79.899 Other long term (current) drug therapy; Z79.4 Long term (current) use of insulin; Z91.09 Other allergy status, other than to drugs and biological substances
CPT/HCPCS: 96374; 96375; 99283-25; A9270; J0780; J1100; J3010

== ENCOUNTER 2021-12-06 23:18 | Emergency (ER) | payer BC, MEDICARE ==
[~2021-12-06] VITALS: Ht 157.5 cm; Wt 79.4 kg
[2021-12-06 23:37] LABS: BASOPHILS ABSOLUTE AUTO 0.04 K/mm3 (0.00-0.23); BASOPHILS PERCENT AUTO 1 % (0-2); EOSINOPHILS PERCENT AUTO 5 % (0-6); Hematocrit 35.1 % (37.0-53.0); Hemoglobin 11.4 g/dL (13.5-17.5); IMMATURE GRAN ABSOLUTE AUTO 0.02 K/mm3 (0.00-0.10); IMMATURE GRAN PERCENT AUTO 0 % (0-1); LYMPHOCYTES ABSOLUTE AUTO 1.26 K/mm3 (0.84-5.20); LYMPHOCYTES PERCENT AUTO 19 % (21-46); MONOCYTES ABSOLUTE AUTO 0.87 K/mm3 (0.16-1.47); MONOCYTES PERCENT AUTO 13 % (4-13); Mean Corpuscular HGB 34.4 pg (26.0-34.0); Mean Corpuscular HGB Conc 32.5 g/dL (31.5-36.5); Mean Corpuscular Volume 106 fL (80-100); Mean Platelet Volume 10.1 fL (9.1-12.4); NEUTROPHILS ABSOLUTE AUTO 4.04 K/mm3 (1.96-9.15); NEUTROPHILS PERCENT AUTO 62 % (41-73); Platelet Count 224 K/mm3 (150-400); RDW Standard Deviation 63.4 fL (35.1-46.3); Red Blood Cell Count 3.31 M/mm3 (4.30-5.90); White Blood Cell Count 6.53 K/mm3 (4.00-11.30)
[2021-12-06 23:49] LABS: Albumin, Blood 3.3 g/dL (3.4-5.0); Albumin/Globulin Ratio 0.8 (0.8-1.8); Bilirubin, Total 0.8 mg/dL (0.1-1.0); Bun/Creatinine Ratio 7.9 (12.0-20.0); Calcium, Blood 9.6 mg/dL (8.5-10.1); Creatinine, Blood 6.24 mg/dL (0.60-1.20); Potassium, Blood 3.3 mmol/L (3.5-5.5); Total Protein, Blood 7.3 g/dL (6.4-8.2)
[2021-12-07] MEDS ORDERED: PROM25 PO (04:28)
== END 2021-12-07 05:46 | disposition home or self-care (01) ==
LOC: ER 23:18
PROVIDERS: Student in an Organized Health Care Education/Training Program
DX: R51.9 Headache, unspecified (principal); I12.0 Hypertensive chronic kidney disease with stage 5 chronic kidney disease or end stage renal disease; N18.6 End stage renal disease; R11.2 Nausea with vomiting, unspecified; E11.40 Type 2 diabetes mellitus with diabetic neuropathy, unspecified; E11.22 Type 2 diabetes mellitus with diabetic chronic kidney disease; K21.9 Gastro-esophageal reflux disease without esophagitis; Z99.2 Dependence on renal dialysis; Z86.73 Personal history of transient ischemic attack (TIA), and cerebral infarction without residual deficits; Z79.82 Long term (current) use of aspirin; Z79.4 Long term (current) use of insulin; Z79.899 Other long term (current) drug therapy; Z91.09 Other allergy status, other than to drugs and biological substances
CPT/HCPCS: 80053; 84484; 85025; 93005; 93010; 96374; 96375; 96376; 99284-25; A9270; J1100; J1200; J1790; J7030

== ENCOUNTER 2021-12-11 10:45 | Day surgery (SDC) | payer BC, MEDICARE ==
[~2021-12-11] VITALS: Ht 188 cm; Wt 86.0 kg
[~2021-12-11 10:45] MED LIST changes: +PROM25 PO
[2021-12-11] MEDS ORDERED: DIVA500ER PO (11:14)
[2021-12-11] MEDS ORDERED: LEVEMIR100 UNIT/1 SQ (11:17)
[2021-12-11] MEDS ORDERED: TIZA4 PO (11:26)
--- NOTE | 2021-12-11 15:21 | NUR ---
3mL AIR RELEASED FROM TR BAND. NO BLEEDING, OOZING OR HEMATOMA NOTED. PT IS AOX4. DENIES ANY PAIN. THRILL FELT IN PTS FISTULA. VSS/ WILL CONTINUE TO MONITOR.
--- NOTE | 2021-12-11 15:30 | NUR ---
ALL AIR RELEASED FROM TR BAND. NO BLEEDING, OOZING OR HEMATOMA NOTED. WILL CONTINUE TO MONITOR.
--- NOTE | 2021-12-11 16:30 | NUR ---
PT DRESSED SELF WITH ASSISTANCE FROM . TR BAND REMOVED FROM RRAD ACCESS SITE WITH NO BLEEDING, OOZING OR HEMATOMA NOTED. SITE CLEANED, CLOTH DOT DRESSING APPLIED ANDWHITE BOARD PLACED BACK ON R WRIST. VSS. PT AND BOTH STATE THEIR UNDERSTANDING OF DC AND SITE CARE INSTRUCTIONS AND BOTH DENY ANY QUESTIONS OR CONCERNS UPON DC. IV DCD WITH CATH INTACT. PT TAKEN TO EXIT VIA WHEELCHAIR WHERE WAS WAITING WITH VEHICLE.
== END 2021-12-11 16:35 | disposition home or self-care (01) ==
LOC: MHTC 10:45
DX: T82.858A Stenosis of other vascular prosthetic devices, implants and grafts, initial encounter (principal); I12.0 Hypertensive chronic kidney disease with stage 5 chronic kidney disease or end stage renal disease; E11.22 Type 2 diabetes mellitus with diabetic chronic kidney disease; N18.6 End stage renal disease; K21.9 Gastro-esophageal reflux disease without esophagitis; Z94.0 Kidney transplant status; Z88.8 Allergy status to other drugs, medicaments and biological substances; Z79.4 Long term (current) use of insulin; Y84.1 Kidney dialysis as the cause of abnormal reaction of the patient, or of later complication, without mention of misadventure at the time of the procedure
CPT/HCPCS: 76937; C1725; C1769; C1887; C1894; J1644; J2250; J2704; J3010; J7030; Q9967

== ENCOUNTER 2022-01-02 18:51 | Emergency (ER) | payer BC, MEDICARE ==
[~2022-01-02] VITALS: Ht 180.3 cm; Wt 90.7 kg
[~2022-01-02 18:51] MED LIST changes: +LEVEMIR100 UNIT/1 SQ; +TIZA4 PO
[2022-01-02 19:27] LABS: BASOPHILS ABSOLUTE AUTO 0.02 K/mm3 (0.00-0.23); BASOPHILS PERCENT AUTO 0 % (0-2); EOSINOPHILS ABSOLUTE AUTO 0.08 K/mm3 (0.00-0.68); EOSINOPHILS PERCENT AUTO 1 % (0-6); Hematocrit 37.6 % (37.0-53.0); Hemoglobin 12.5 g/dL (13.5-17.5); IMMATURE GRAN ABSOLUTE AUTO 0.08 K/mm3 (0.00-0.10); IMMATURE GRAN PERCENT AUTO 1 % (0-1); LYMPHOCYTES ABSOLUTE AUTO 0.87 K/mm3 (0.84-5.20); LYMPHOCYTES PERCENT AUTO 9 % (21-46); MONOCYTES ABSOLUTE AUTO 0.99 K/mm3 (0.16-1.47); MONOCYTES PERCENT AUTO 11 % (4-13); Mean Corpuscular HGB 34.2 pg (26.0-34.0); Mean Corpuscular HGB Conc 33.2 g/dL (31.5-36.5); Mean Corpuscular Volume 103 fL (80-100); Mean Platelet Volume 9.5 fL (9.1-12.4); NEUTROPHILS ABSOLUTE AUTO 7.29 K/mm3 (1.96-9.15); NEUTROPHILS PERCENT AUTO 78 % (41-73); Platelet Count 240 K/mm3 (150-400); RDW Standard Deviation 52.7 fL (35.1-46.3); Red Blood Cell Count 3.65 M/mm3 (4.30-5.90); White Blood Cell Count 9.33 K/mm3 (4.00-11.30)
[2022-01-02 19:51] LABS: Albumin, Blood 2.8 g/dL (3.4-5.0); Albumin/Globulin Ratio 0.6 (0.8-1.8); Bilirubin, Total 0.8 mg/dL (0.1-1.0); Bun/Creatinine Ratio 9.1 (12.0-20.0); Calcium, Blood 9.2 mg/dL (8.5-10.1); Creatinine, Blood 5.26 mg/dL (0.60-1.20); Globulin, Blood 4.4 g/dL (2.2-4.0); Potassium, Blood 3.3 mmol/L (3.5-5.5); Total Protein, Blood 7.2 g/dL (6.4-8.2)
[2022-01-02 20:08] LABS: Valproic Acid 35.7 ug/mL (50.0-100.0)
[2022-01-02] MEDS ORDERED: FURO80 PO (20:10)
[2022-01-02] MEDS ORDERED: HUMULIN R100 UNIT/2 SC (20:14)
== END 2022-01-03 01:30 | disposition home or self-care (01) ==
LOC: ER 18:51
PROVIDERS: Emergency Medicine
DX: R56.9 Unspecified convulsions (principal); I12.0 Hypertensive chronic kidney disease with stage 5 chronic kidney disease or end stage renal disease; E11.22 Type 2 diabetes mellitus with diabetic chronic kidney disease; E11.40 Type 2 diabetes mellitus with diabetic neuropathy, unspecified; D63.1 Anemia in chronic kidney disease; K21.9 Gastro-esophageal reflux disease without esophagitis; Z99.2 Dependence on renal dialysis; Z86.73 Personal history of transient ischemic attack (TIA), and cerebral infarction without residual deficits; Z79.82 Long term (current) use of aspirin; Z79.4 Long term (current) use of insulin; Z79.899 Other long term (current) drug therapy
CPT/HCPCS: 36415; 70450; 71045; 80053; 80164; 82947; 83605; 85025; 87040; 87077; 87186; 93005; 93010; 96365; 96375; 99285-25; A9270; J2060

== ENCOUNTER 2022-01-03 16:28 | Inpatient (IN) | payer BC, MEDICARE ==
[~2022-01-03] VITALS: Ht 188 cm; Wt 83.9 kg
[~2022-01-03 16:28] MED LIST changes: +HUMULIN R100 UNIT/2 SC
[2022-01-03 17:48] LABS: BASOPHILS ABSOLUTE AUTO 0.03 K/mm3 (0.00-0.23); BASOPHILS PERCENT AUTO 0 % (0-2); EOSINOPHILS ABSOLUTE AUTO 0.04 K/mm3 (0.00-0.68); EOSINOPHILS PERCENT AUTO 1 % (0-6); Hematocrit 37.6 % (37.0-53.0); Hemoglobin 12.1 g/dL (13.5-17.5); IMMATURE GRAN ABSOLUTE AUTO 0.08 K/mm3 (0.00-0.10); IMMATURE GRAN PERCENT AUTO 1 % (0-1); LYMPHOCYTES ABSOLUTE AUTO 1.13 K/mm3 (0.84-5.20); LYMPHOCYTES PERCENT AUTO 14 % (21-46); MONOCYTES ABSOLUTE AUTO 0.71 K/mm3 (0.16-1.47); MONOCYTES PERCENT AUTO 9 % (4-13); Mean Corpuscular HGB 33.5 pg (26.0-34.0); Mean Corpuscular HGB Conc 32.2 g/dL (31.5-36.5); Mean Corpuscular Volume 104 fL (80-100); Mean Platelet Volume 10.1 fL (9.1-12.4); NEUTROPHILS ABSOLUTE AUTO 6.19 K/mm3 (1.96-9.15); NEUTROPHILS PERCENT AUTO 76 % (41-73); Platelet Count 233 K/mm3 (150-400); RDW Coefficient Variation 13.8 % (11.7-14.2); Red Blood Cell Count 3.61 M/mm3 (4.30-5.90); White Blood Cell Count 8.18 K/mm3 (4.00-11.30)
[2022-01-03 18:07] LABS: Albumin, Blood 2.9 g/dL (3.4-5.0); Albumin/Globulin Ratio 0.6 (0.8-1.8); Bilirubin, Total 0.9 mg/dL (0.1-1.0); Bun/Creatinine Ratio 8.7 (12.0-20.0); Creatinine, Blood 7.51 mg/dL (0.60-1.20); Globulin, Blood 4.5 g/dL (2.2-4.0); Potassium, Blood 3.9 mmol/L (3.5-5.5); Total Protein, Blood 7.4 g/dL (6.4-8.2)
[2022-01-04 05:07] LABS: Bun/Creatinine Ratio 8.8 (12.0-20.0); Calcium, Blood 9.7 mg/dL (8.5-10.1); Creatinine, Blood 7.93 mg/dL (0.60-1.20); Potassium, Blood 3.4 mmol/L (3.5-5.5)
--- NOTE | 2022-01-04 05:23 | NUR ---
Patient came in to ER today after being called back for a positive blood culture. He is a dialysis patient that have a Tessio catheter that needs to be removed. Patient has a functioning AV-Fistula on the left upper arm. Since he came in, we are trying to have his B/P under control. Last order is for Hydralazine. He is alert and oriented, confuse at time. He is breathing at room air, unlabored. Uses walker at baseline. He denies pain and disconfort at this timne. He is receiving N/S @ 100 ML/HR. We are monitoring patient closely for any acute changes.
[2022-01-04 12:36] LABS: Vancomycin, Random 12.7 ug/mL
--- NOTE | 2022-01-04 17:35 | NUR ---
SUMMARY- PT A/O X3-4- FORGETFULNESS- KNOWS LIMITS, USES CALL LIGHT. GETS UP 1 SBA WALKER, GOOD STRENGTH, OCC MIS-STEP, TO BATHROOM. HAD BM TODAY. ANURIC- DIALYSIS TODAY PULLED OFF 1100ML. PT TOLERATING PO INTAKE FOOD AND FLUIDS. ECHO DONE AT BEDSIDE TODAY. CONT VANC IV. BLOOD SUGARS STABLE. JONAS AT THE BEDSIDE MOST OF THE DAY. INVOLVED IN CARE.
[2022-01-05 05:05] LABS: Hematocrit 36.6 % (37.0-53.0)
[2022-01-05 05:23] LABS: Albumin, Blood 2.8 g/dL (3.4-5.0); Anion Gap 8 mmol/L (6-16); Blood Urea Nitrogen 39 mg/dL (8-24); Bun/Creatinine Ratio 6.6 (12.0-20.0); CO2, Blood 32 mmol/L (21-32); Calcium, Blood 9.6 mg/dL (8.5-10.1); Chloride, Blood 95 mmol/L (98-108); Creatinine, Blood 5.93 mg/dL (0.60-1.20); Glomerular Filtration Rate 11 (60-); Glucose, Blood 128 mg/dL (70-99); Magnesium, Blood 2.2 mg/dL (1.6-2.4); Phosphorus, Blood 1.5 mg/dL (2.5-4.9); Potassium, Blood 4.1 mmol/L (3.5-5.5); Sodium, Blood 135 mmol/L (136-145)
--- NOTE | 2022-01-05 05:35 | NUR ---
SHIFT SUMMARY RECEIVED CRITICAL LABS BLOOD GRAM POSITIVE COCCI X [address] BENEDICT DOING HIS ROUNGS MADE AWARE NO NEW ORDER AT THIS MOMENT PERCATH TO BE REMOVED SCHEDUEL.B/P ELEVATED SCHEDKIMO HTN SCHEDUEL MEDICATION ADMIN WITH RELIFE 0000 BLOOD PRESSURE STILL EVELATED KRISTIN CLONIDE 2 TABS ADMIN PT STATED THAT MY BASELINE MANUAL B/P OBTAIN 1 HR AFTER CLONIDINE ADM 0400 POLLO BLOOD PRESSURE OBTAIN B/P IS ELEVATED HYDRALIZINE 10MG ADM PRN
[2022-01-05 10:45] LABS: Vancomycin, Random 23.3 ug/mL
--- NOTE | 2022-01-05 16:23 | NUR ---
SUMMARY- PT WITH POSITIVE BLOOD CULTURES. PLAN FOR DR GOMES TO REMOVE THE PERMACATH AT THE BEDSIDE. CAME AT LUNCH TIME AND STATES HE WOULD BE BACK BUT HAVE NOT SEEN HIM YET. PLAN TO DO BLOOD CULTURES AFTER CATH TAKEN OUT AND CULTURE TIP. MAY BE ABLE TO GO HOME STILL THIS HANNAH. PT HAS BEEN UP TO BATHROOM X3 TODAY. HAD A SHOWER. AT BEDSIDE MOST OF THE DAY, VERY SUPPORTIVE AND ACTIVE IN PT CARE.
--- NOTE | 2022-01-05 19:26 | NUR ---
DR GOMES AT PT BEDSIDE 1655 AND BRAD GONZALES'Radha. RN INSTRUCTED TO HOLD PRESURE TO SITE OF INSERTION AT R NECK FOR 5 MIN, LELD PRESURE FOR 15 MINUTES AND SATURATED 2 2X2 GAUZE, CHANGED GAUZE AND MONTITORED SITE CLOSELY. PT S BP REMAINS ELEVATED EVEN AFTER [address] LANGE AWARE OF BP AT 1826 OF 209/113- HR OF 64 AND PT A BIT CLAMMY BUT AFIBRILE. INSTRUCTED TO DEFER TO DR BENEDICT FOR FURTHER BP CONCERNS. ADMINISTERED HYDRALIZINE 20MG AT 1920 ONCE IT ARRIVED FROM PHARMACY. REPORT GIVEN TO NOC RN. SHE WILL F/U WITH BP. PT STAYING OVERNIGHT-
[2022-01-06 04:36] LABS: Hematocrit 33.5 % (37.0-53.0); Hemoglobin 10.7 g/dL (13.5-17.5)
--- NOTE | 2022-01-06 04:49 | NUR ---
SHIFT SUMMARY PATIENT REMAIN ALERT AND ORIENTED X4 ABLE TO VOICE NEED POST PERMCATH REMOVE DENIES PAIN NO BLEEDING NOTED TO THE SITE DRESSING CLEAN DRY AND INTACT .B/P WITHIN NORMAL RANGE AT THE BEGGINING OF SHIFT AND ELEVATED AT 4AM PRN LBETALOL ADM PT C/O HEADACHE TYLENOL PRN ADM WITH RELIEF.NO ACUTE CHANGE AT THIS MOMENT
[2022-01-06 05:29] LABS: Albumin, Blood 2.5 g/dL (3.4-5.0); Anion Gap 11 mmol/L (6-16); Blood Urea Nitrogen 54 mg/dL (8-24); Bun/Creatinine Ratio 7.1 (12.0-20.0); CO2, Blood 29 mmol/L (21-32); Calcium, Blood 9.1 mg/dL (8.5-10.1); Chloride, Blood 92 mmol/L (98-108); Glomerular Filtration Rate 8 (60-); Glucose, Blood 101 mg/dL (70-99); Magnesium, Blood 2.3 mg/dL (1.6-2.4); Phosphorus, Blood 3.8 mg/dL (2.5-4.9); Sodium, Blood 132 mmol/L (136-145)
--- NOTE | 2022-01-06 13:02 | NUR ---
CALLED [facility]- PT HAS DC ORDER FOR IV VANCO 3X A WEEK WITH DIALYSIS. SPOKE TO ROME TORRES, SHE IS AWARE AND WILL CONFIRM THE ORDER WITH DR BENEDICT, IS THEIR POLICY.
[2022-01-06] MEDS ORDERED: CATAPRES0.2 M1 PO (13:59)
[2022-01-06] MEDS ORDERED: AMLO5 PO (14:21)
--- NOTE | 2022-01-06 15:06 | NUR ---
DISCHARGE NOTE- PT AND SPOUSE WERE GIVEN VERBAL AND WRITTEN DISCHARGE INSTRUCTIONS, AND ACKNOWLEDGED UNDERSTANDING OF THEM. PT MEDS FAXED TO [facility] PER SPOUSE'S REQUEST. CALLED [facility] ABOUT THE ONGOING ABX WITH DDIALYSIS THEY ARE AWARE OF THE ORDER. PPT MEDICATED WITH 1400 MEDS PRIOR TO DISCHARGE. NO S&S OF DISTRESS NOTE AT THE TIME OF DISCHARGE. PT IV DC'D AND TELE DC'D, PT ESCORTED OUT TO PT ENTRANCE VIA WC BY THE JAVA MANAGER. NO FURTHER QUESTIONS AT THE TIME OFF DISCHARGE.
== END 2022-01-06 14:58 | disposition home or self-care (01) | DRG 314 ==
LOC: ER 16:28 → MEDS 23:38
PROVIDERS: Internal Medicine Nephrology; Physician Assistant; ADMIT Hospitalist
PROC: 5A1D70Z Performance of Urinary Filtration, Intermittent, Less than 6 Hours Per Day (ICD-10-PCS; 2022-01-04)
PROC: 05PYX3Z Removal of Infusion Device from Upper Vein, External Approach (ICD-10-PCS; principal; 2022-01-05)
DX: T82.7XXA Infection and inflammatory reaction due to other cardiac and vascular devices, implants and grafts, initial encounter (principal); A41.81 Sepsis due to Enterococcus; N18.6 End stage renal disease; E87.1 Hypo-osmolality and hyponatremia; I12.0 Hypertensive chronic kidney disease with stage 5 chronic kidney disease or end stage renal disease; T86.11 Kidney transplant rejection; E87.6 Hypokalemia; E83.39 Other disorders of phosphorus metabolism; K21.9 Gastro-esophageal reflux disease without esophagitis; E03.9 Hypothyroidism, unspecified; E11.22 Type 2 diabetes mellitus with diabetic chronic kidney disease; D63.1 Anemia in chronic kidney disease; G40.909 Epilepsy, unspecified, not intractable, without status epilepticus; Z28.21 Immunization not carried out because of patient refusal; Z99.2 Dependence on renal dialysis; Z79.4 Long term (current) use of insulin; Z79.899 Other long term (current) drug therapy; Z86.14 Personal history of Methicillin resistant Staphylococcus aureus infection; Z86.73 Personal history of transient ischemic attack (TIA), and cerebral infarction without residual deficits; Z98.890 Other specified postprocedural states; Z79.82 Long term (current) use of aspirin; Z79.02 Long term (current) use of antithrombotics/antiplatelets; Z79.52 Long term (current) use of systemic steroids; Y71.2 Prosthetic and other implants, materials and accessory cardiovascular devices associated with adverse incidents; Y83.8 Other surgical procedures as the cause of abnormal reaction of the patient, or of later complication, without mention of misadventure at the time of the procedure
CPT/HCPCS: 36415; 80048; 80053; 80069; 80202; 82947; 83605; 83735; 85014; 85018; 85025; 87040; 87070; 87077; 87186; 93306; 96365; 99284-25; A9270; J0360; J1644; J1815; J2405; J3370; J7030; J7050; J7507; J7512

== ENCOUNTER 2022-01-25 23:25 | Inpatient (IN) | payer BC, MEDICARE ==
[~2022-01-25] VITALS: Ht 188 cm; Wt 82.9 kg
[~2022-01-25 23:25] MED LIST changes: +CATAPRES0.2 M1 PO
[2022-01-26 02:02] LABS: Albumin, Blood 3.5 g/dL (3.4-5.0); Albumin/Globulin Ratio 0.8 (0.8-1.8); Bilirubin, Total 0.8 mg/dL (0.1-1.0); Calcium, Blood 9.7 mg/dL (8.5-10.1); Creatinine, Blood 3.74 mg/dL (0.60-1.20); Globulin, Blood 4.4 g/dL (2.2-4.0); Potassium, Blood 3.2 mmol/L (3.5-5.5); Total Protein, Blood 7.9 g/dL (6.4-8.2)
[2022-01-26 02:05] LABS: BASOPHILS ABSOLUTE AUTO 0.04 K/mm3 (0.00-0.23); BASOPHILS PERCENT AUTO 1 % (0-2); EOSINOPHILS ABSOLUTE AUTO 0.23 K/mm3 (0.00-0.68); EOSINOPHILS PERCENT AUTO 4 % (0-6); Hematocrit 40.1 % (37.0-53.0); Hemoglobin 13.4 g/dL (13.5-17.5); IMMATURE GRAN ABSOLUTE AUTO 0.04 K/mm3 (0.00-0.10); IMMATURE GRAN PERCENT AUTO 1 % (0-1); LYMPHOCYTES ABSOLUTE AUTO 1.35 K/mm3 (0.84-5.20); LYMPHOCYTES PERCENT AUTO 22 % (21-46); MONOCYTES ABSOLUTE AUTO 0.76 K/mm3 (0.16-1.47); MONOCYTES PERCENT AUTO 13 % (4-13); Mean Corpuscular HGB 33.8 pg (26.0-34.0); Mean Corpuscular HGB Conc 33.4 g/dL (31.5-36.5); Mean Corpuscular Volume 101 fL (80-100); Mean Platelet Volume 9.9 fL (9.1-12.4); NEUTROPHILS ABSOLUTE AUTO 3.63 K/mm3 (1.96-9.15); NEUTROPHILS PERCENT AUTO 60 % (41-73); Platelet Count 208 K/mm3 (150-400); RDW Coefficient Variation 14.6 % (11.7-14.2); RDW Standard Deviation 53.6 fL (35.1-46.3); Red Blood Cell Count 3.97 M/mm3 (4.30-5.90); White Blood Cell Count 6.05 K/mm3 (4.00-11.30)
--- NOTE | 2022-01-26 07:10 | NUR ---
TOOK OVER CARE OF PT AT 0700, PT HYPERTENSIVE, SEE VITALS, NITRO DRIP RUNNING AT 55MCG/HR
--- NOTE | 2022-01-26 07:15 | NUR ---
Arrived to ICU from ER, blood pressure very elevated, nitro drip running at 5 mcg. will titrate up per protocol. complains of horrible headache, rating at 10/10. tylenol given per eMAR. 2nd iv site started. consent for blood refusal signed. unable to answer admit questions due to headache, can not concentrate. Will pass on in report admission items that need to be completed
--- NOTE | 2022-01-26 07:36 | NUR ---
ATTEMPTED TO NOTIFY DR. PIERSON OF PT'S BP AND PAIN, NO ANSWER AT THIS TIME.
--- NOTE | 2022-01-26 10:30 | NUR ---
VINE FRUIT FARMING SUPERVISOR AT BEDSIDE, SETTING UP TREATMENT
--- NOTE | 2022-01-26 16:35 | NUR ---
SUMMARY NEURO: PT AT BASELINE. HX OF CVA WITH LEFT SIDED WEAKNESS AND DECREASED SENSATION. GROSS MOTOR MOVEMENT PRESENT ON LEFT SIDE. AT BASELINE NEUROPATHY AND TREMORS. PT IS A/O X3, BUT IS BASELINE FORGETFUL OF DATES SINCE CVA. USES WALKER WITH +2 ASSIST AND BEDSIDE COMMODE. LUNGS: WNL ON RA CARDIAC: 1*HB, ON 35MCG/MIN OF NITRO, PRN LABATOLOL AND HYDRALAZINE GIVEN- SEE DEC. GI;WNL, LARGE FORMED BM TODAY ; OLGURIA AT BASELINE, AV FISTULA IN LUE. REGULAR HD SCHEDULE THU, , SAT. PT WAS DIALYZED THURSDAY AND TODAY WITH 4K BATH, 20MEQ IV K ALSO REPLACED.
--- NOTE | 2022-01-26 17:19 | NUR ---
NITRO DRIP OFF
--- NOTE | 2022-01-26 20:05 | NUR ---
ASSUMED CARE AT 1900 PATIENT IS ALERT AND ORIENTED X3, ABLE TO STATE SELF, YEAR, AND PLACE. SLOW TO RESPOND AND HAS TROUBLE WITH THE DATE AND NUMBERS, PATIENT AND STATE THIS IS HIS BASELINE D/T HX OF CVA, LEFT SIDED WEAKNESS WITH AMBULATION, FOOT MITER OPERATOR STRENGTH APPEARS EQUAL, PATIENT MOVES ALL EXTRMETIES AND IS A STAND PIVOT TO [facility] [place]. 02 SATS >93% ON RA, LS CLEAR T/O. BP HYPERTENSIVE WITH SYSTOLIC 140s-150s, WILL MEDICATED PRN PER EMAR, NITRO DRIP OFF. HR SR @70s, PATIENT DENIES CP/PRESSURE. PATIENT STATES HE PRODUCES MINIMAL URINE AT BASELINE CURRENTLY A DIALYSIS PATIENT, WILL DO BLADDER SCAN PER ORDERS. SKIN C/D/I. SEE SHIFT ASSESSMENT FOR MORE DETAIL.
[2022-01-27 03:33] LABS: BASOPHILS ABSOLUTE AUTO 0.05 K/mm3 (0.00-0.23); BASOPHILS PERCENT AUTO 1 % (0-2); EOSINOPHILS ABSOLUTE AUTO 0.32 K/mm3 (0.00-0.68); EOSINOPHILS PERCENT AUTO 4 % (0-6); Hematocrit 41.5 % (37.0-53.0); Hemoglobin 13.4 g/dL (13.5-17.5); IMMATURE GRAN ABSOLUTE AUTO 0.04 K/mm3 (0.00-0.10); IMMATURE GRAN PERCENT AUTO 1 % (0-1); LYMPHOCYTES ABSOLUTE AUTO 1.79 K/mm3 (0.84-5.20); LYMPHOCYTES PERCENT AUTO 24 % (21-46); MONOCYTES ABSOLUTE AUTO 0.82 K/mm3 (0.16-1.47); MONOCYTES PERCENT AUTO 11 % (4-13); Mean Corpuscular HGB 33.9 pg (26.0-34.0); Mean Corpuscular HGB Conc 32.3 g/dL (31.5-36.5); Mean Corpuscular Volume 105 fL (80-100); NEUTROPHILS ABSOLUTE AUTO 4.51 K/mm3 (1.96-9.15); NEUTROPHILS PERCENT AUTO 60 % (41-73); Platelet Count 211 K/mm3 (150-400); RDW Coefficient Variation 15.5 % (11.7-14.2); RDW Standard Deviation 59.3 fL (35.1-46.3); Red Blood Cell Count 3.95 M/mm3 (4.30-5.90); White Blood Cell Count 7.53 K/mm3 (4.00-11.30)
[2022-01-27 03:53] LABS: Albumin, Blood 3.1 g/dL (3.4-5.0); Albumin/Globulin Ratio 0.8 (0.8-1.8); Bilirubin, Total 0.8 mg/dL (0.1-1.0); Bun/Creatinine Ratio 6.2 (12.0-20.0); Calcium, Blood 9.7 mg/dL (8.5-10.1); Creatinine, Blood 5.01 mg/dL (0.60-1.20); Globulin, Blood 3.9 g/dL (2.2-4.0); Magnesium, Blood 2.3 mg/dL (1.6-2.4); Phosphorus, Blood 2.4 mg/dL (2.5-4.9); Potassium, Blood 3.4 mmol/L (3.5-5.5)
--- NOTE | 2022-01-27 05:58 | NUR ---
SHIFT SUMMARY PATIENT IS ALERT AND ORIENTED X3, SOME CONFUSION PRESENT AT BASELINE DUE TO HX OF CVA, LEFT SIDED WEAKNESS ALSO PRESENT AT BASELINE. 02 SATS >93% ON RA, LS CLEAR. HR SR 60s-80S. BP HYPERTENSIVE, MEDICATED PER EMAR, SYSTOLICS RANGING FROM 140s-180s. DR. BENEDICT AWARE OF HIGH BP, STATES HE WILL ADDRESS BLOOD PRESSURE THIS AM. BLADDER SCAN DONE AT START OF SHIFT, 13 MLS PRESENT, OLIGURIC AT BASELINE. PATIENT ALLOWED ME TO REPOSITION HIM A COUPLE TIMES THEN REFUSED STATING HE WAS COMFORTABLE AND WANTED TO BE LEFT ALONE TO SLEEP. PATIENT SLEPT MOST THE NIGHT. DR. BENEDICT AWARE OF LABS, SEE EMAR FOR ELECTROLYTE REPLACEMENT. CALL LIGHT IN REACH.
--- NOTE | 2022-01-27 08:00 | NUR ---
INITIAL ASSESSMENT PATIENT ALERT AND ORIENTED. PATIENT CALM , COOPERATIVE. FLAT AFFECT NOTED. FAINT TREMORS NOTED. SLIGHTLY WEAKER ON L SIDE THAN R; HISTORY OF CVA. 2 PERSON ASSIST WITH WALKER TO [facility] [place]. PATIENT HAS TEMP OF 99.5 DEGREES FAHRENHEIT. PATIENT GIVEN PRN TYLENOL FOR COMPLAINTS OF HEADACHE. RESP WNL. PATIENT SATTING 90% AND GREATER ON RA. PATIENT IN SR, HR 70S TO 80S. SBP 180S TO 190S. PATIENT GIVEN ALL AM BP MEDS. PATIENT COMPLAINS OF CHRONIC CONSTIPATION AND STATES THAT HE HAD BM YESTERDAY THAT WAS VERY HARD. PATIENT ON ADA/ 2 G LOW SODIUM DIET. PATIENT OLIGURIC. DIALYSIS PATIENT. PATIENT HAS FISTULA TO L ARM. BED LOW, CALL LIGHT IN REACH. WILL CONTINUE TO MONITOR PATIENT FREQUENTLY THROUGHOUT SHIFT.
--- NOTE | 2022-01-27 09:00 | NUR ---
DR. SIGALA INFORMED THAT PATIENT COMPLAINING OF HARD STOOLS AND CHRONIC CONSTIPATION. INFORMED THAT PATIENT REPORTS HE IS ON STOOL SOFTENERS AT HOME AND THAT HE CURRENTLY DOES NOT HAVE ANY ORDERED. STATED HE WOULD WRITE ORDERS.
--- NOTE | 2022-01-27 12:05 | NUR ---
PATIENT HAS TEMP OF 99.2 DEGREES FAHRENHEIT. HR 70S TO 80S. SBP 130S TO 140S. BLOOD SUGAR 216; COVERAGE GIVEN. NO OTHER CHANGES TO NOTE ON AT THIS TIME. NO COMPLAINTS OF PAIN. PATIENT STATES HEADACHE IS MUCH BETTER.
--- NOTE | 2022-01-27 12:14 | NUR ---
DR. SIGALA INFORMED THAT PATIENT APPEARS TO BE ON PROGRAF, PREDNISONE AND PHOSLO AT HOME AND THAT THEY ARE NOT ORDERED HERE. INFORMED THAT MEDS ARE ON MED REC CURRENTLY. STATED HE WOULD WRITE ORDERS.
--- NOTE | 2022-01-27 17:09 | NUR ---
PATIENT AFEBRILE. HR IN THE 60S. SBP IN THE 190S. PRN LABETALOL GIVEN. BLOOD SUGAR 89; NO COVERAGE INDICATED. NO COMPLAINTS OF PAIN. NO OTHER ACUTE CHANGES TO NOTE ON AT THIS TIME. WILL CONTINUE TO MONITOR.
--- NOTE | 2022-01-27 18:47 | NUR ---
SHIFT SUMMARY PATIENT REMAINED ALERT AND ORIENTED. PATIENT REMAINED 2 PERSON ASSIST WITH WALKER. PATIENT WEAK AND SLIGHTLY TREMULOUS. PATIENT REMAINED SATTING HIGH 90S ON RA. PATIENT REMAINED IN SR, HR 60S TO 80S. SBP 130S TO 190S. PATIENT GIVEN PRN LABETOLOL OT AND PRN HYDRALAZINE OT. NO BM THIS SHIFT. STOOL SOFTENERS ADDED TO EMAR THIS SHIFT. PATIENT DID NOT VOID THIS SHIFT. NO DIALYSIS TODAY. NO CHANGES TO SKIN NOTED. PATIENT ALLOWED NURSE TO HELP REPOSITION ONLY SOME OF THE TIME. IVS SALINE LOCKED. PATIENT RECEIVED SODIUM PHOS REPLACEMENT TODAY. BLOOD SUGAR RANGED FROM 89 TO 216. AT BEDSIDE. NO COMPLAINTS AT THIS TIME. REPORT WILL BE GIVEN TO ASSUMING SKIVER WELT END NURSE SHORTLY.
--- NOTE | 2022-01-28 01:48 | NUR ---
UPDATE PHSYICIAN NOTIFIED OF PT'S HYPERTENSIVE AT 187/92 AFTER PRN HYPERTENSIVE MEDICATIONS GIVEN, SEE EMAR. ORDERS FOR 10 MG HYDRALAZINE TO BE GIVEN NOW. IF BP STILL HYPERTENSIVE ORDERS FOR NITRO GTT.
--- NOTE | 2022-01-28 05:43 | NUR ---
SHIFT SUMMARY PT ALERT AND ORIENTED X 3. CONFUSED WITH DATE AT TIMES. SLOW TO RESPOND. L SIDED WEAKNESS D/T HX OF CVA, SEE EHR. HR STABLE. BP HYPERTENSIVE. PHYSICIAN NOTIFIED DURING SHIFT, ORDERS PROVIDED FOR ONE TIME DOSE OF HYDRALAZINE. PT HAD DECREASE IN BP, SEE EHR. PT'S SYSTOLIC BP INCREASED TO OVER 200. PHYSICIAN NOTIFIED. ORDERS FOR NITRO GTT. TAPE KELLER OPERATOR ASSISTED THIS RN WITH NITRO GTT. NITRO GTT CURRENTLY AT 35 MCG/MIN. PT NOW ICU STATUS. PHYSICIAN ORDER TO TITRATE FOR SBP AT 150-160. VS Q 15 MIN. OXYGEN SATURATION MAINTAINED ABOVE 96% ON RA. NO CP OR PRESSURE. PT REPORTS GODFREY, MEDICATED SEE EMAR. PT ABLE TO TURN SELF IN BED NEEDED. WILL CONT TO MONITOR UNTIL REPORT GIVEN TO DAYSHIFT RN.
--- NOTE | 2022-01-28 07:45 | NUR ---
INITIAL ASSESSMENT: Patient is awake lying in bed. He is alert and oriented to self and place. He has trouble with the date. He has some left sided weakness from a previous CVA. LEONARDO. Left facial droop noted with smile. He is C/O 10/10 GODFREY, medicated with [place] for pain. HRR, Sr in the 70s. He has been hypertensive and was restarted back on Nitro gtt last night, it is currently running at 50mcg/hr, systolic still in the [id number] increased to 55mcg/min. BT hypoactive, abd non-tender to light palpation he states he is chronically constipated but states he was able to have a BM yesterday. PPP. Patient given am meds with a sip of water, no difficulty swallowing noted. Patient denies other needs at this time, call light in reach. WCTM.
--- NOTE | 2022-01-28 13:40 | NUR ---
UPDATE: Call placed to Dr. Mcdaniels to notify him of blood pressure and the nitro gtt continues to infuse at 70mcg/min. See new orders. Procardia and extra Labetalol dose given. Lissette called and she will bring in patients Minoxidil when she comes back this evening. I will attempt to titrate Nitro gtt down after new meds on board.
--- NOTE | 2022-01-28 15:55 | NUR ---
Update: Nitro gtt titrated down and is now off. Blood pressure is 153/85. Patient is resting with his eyes closed on his left side. Call light in reach, TM.
--- NOTE | 2022-01-28 17:27 | NUR ---
Summary: Patient is here with Hypertensive urgency. He is alert and oriented to self, place at times, and family. He has a history of CVA with chronic left sided deficits. He has a notable left facial droop with smile. He has tremors that are chroinc-mostly present with movement. He C/O severe GODFREY today while on the Nitro gtt, he was medicated with Tylenol, [place], and Fentayl with the lowest pain level rating at a 5/10. He has been SR in the 70s T/O the shift. At the beginning of the shift he was on Nitro gtt starting at 50 mcg/min, this was titrated up to 70 mcg/min. In the afternoon I called Dr. Mcdaniels to obtain orders for BP meds-see orders. I was able to titrate the Nitro gtt down and off, SBP currently at 140. BT+. He had hemodialysis today with 1700 cc removed. He has been oliguric, with one void this shift of 200cc urine. He is a 2 person assist with a walker to the chair or BSC. Currently he is sitting up in the chair eating dinner and visiting with his . Will report to oncoming RN.
--- NOTE | 2022-01-29 | NUR ---
PT C/O WET COUGHING AND SOME CHEST TIGHTNESS. LS CLEAR, SPO2 100% on RA. DR BENEDICT IS NOTIFIED AND LASIX IS ORDERED FOR NON-DIALYSIS DAYS. PT IS ENCOURAGED TO DB &C AND CALL IF ANY CHANGES.
[2022-01-29 03:26] LABS: Hematocrit 37.3 % (37.0-53.0); Hemoglobin 12.2 g/dL (13.5-17.5)
[2022-01-29 03:54] LABS: Anion Gap 7 mmol/L (6-16); Blood Urea Nitrogen 41 mg/dL (8-24); Bun/Creatinine Ratio 6.9 (12.0-20.0); CO2, Blood 32 mmol/L (21-32); Calcium, Blood 8.8 mg/dL (8.5-10.1); Chloride, Blood 98 mmol/L (98-108); Creatinine, Blood 5.97 mg/dL (0.60-1.20); Glomerular Filtration Rate 10 (60-); Glucose, Blood 118 mg/dL (70-99); Magnesium, Blood 2.3 mg/dL (1.6-2.4); Phosphorus, Blood 4.4 mg/dL (2.5-4.9); Potassium, Blood 4.1 mmol/L (3.5-5.5); Sodium, Blood 137 mmol/L (136-145)
--- NOTE | 2022-01-29 06:02 | NUR ---
PT SLEEPS SOUNDLY FOR APPROX 5 HOURS. PRN HYDRALAZINE GIVEN X 1 FOR SBP>170. H/A RESOLVED WITHOUT MEDICATION LAST NIGHT. PT WAS C/O WET COUGH DURING THE NIGHT, BUT STATES IT IS BETTER THIS MORNING. ENCOURAGED DB&C. NO OTHER SIGNIFICANT CHANGES TO REPORT. WILL CONTINUE TO MONITOR AND REPORT TO ONCOMING SHIFT.
--- NOTE | 2022-01-29 08:51 | NUR ---
AM NOTE ASSUMED CARE OF PT AT 0700. PT AWAKE AND ORIENTED TIMES FOUR THIS AM. PT UP AND SITTING IN CHAIR UPON MY ARRIVAL. PT'S SBP IN THE 180'S PRIOR TO AM MED ADMINISTRATION. O2 STATS ARE AT 100% ON RA , HR IS IN THE 70'S. PT MORNING CBG AT 130 AND NO INSULIN COVERAGE NEEDED. DR. SIGALA IN ROOM THIS MORNING TO TALK WITH PT ABOUT UPDATES AND POTENTIONAL TO GO HOME; DR. BENEDICT STATES THAT " IF PT FEELS LIKE GOING HOME THEN THAT IS FINE WITH HIM." PT WOULD LIKE TO WAIT AND SEE HOW HE FEELS LATER THIS AFTERNOON BEFORE HE DECIDEDS ABOUT GOING HOME. TALKED WITH PT ABOUT OT/PT REFERAL AND HE STATED THAT HE AHS PT REGIMENE ESTABLISHED AT HOME. WILL CONTINUE TO MONITOR PT THIS SHIFT.
[2022-01-29] MEDS ORDERED: NIFE60ER PO (12:51)
--- NOTE | 2022-01-29 13:23 | NUR ---
PT UPDATE.... PT IS TO D/C HOME, THE PT'S VS STABLE. THE PT WAS HYPERTENSIVE THIS AM BUT WAS GIVEN ORDERED PO MEDICATIONS AND HIS BP IMPROVED GREATLY. THE PT CONTINUES ON RA WITH O2 SATS >90%. NO OTHER ACUTE CHANGES NOTED. [facility]. THE PT'S NOTIFIED OF HIS D/C HOME. ALL OF PT'S BELONGINGS PACKED AND SENT WITH THE PT. PER DR. BENEDICT THE PT IS TO GET DIALYSIS TOMORROW WHICH IS HIS NORMAL DAY. PT IS AWARE OF THIS.
--- NOTE | 2022-01-29 14:36 | NUR ---
PT D/C HOME PT D/C HOME WITH . ALL PT'S BELONGINGS PACKED AND SENT WITH THE PT. IVs REMOVED WNL. PT ESCORTED TO THE DOORS VIA W/C.
== END 2022-01-29 15:47 | disposition home or self-care (01) | DRG 304 ==
LOC: ER 23:25 → ICUW 23:26 → ICUE 23:26
PROVIDERS: Internal Medicine Nephrology; Student in an Organized Health Care Education/Training Program; ADMIT Internal Medicine
DX: I16.1 Hypertensive emergency (principal); N18.6 End stage renal disease; T86.19 Other complication of kidney transplant; N02.8 Recurrent and persistent hematuria with other morphologic changes; N25.81 Secondary hyperparathyroidism of renal origin; E11.22 Type 2 diabetes mellitus with diabetic chronic kidney disease; Z86.73 Personal history of transient ischemic attack (TIA), and cerebral infarction without residual deficits; G40.909 Epilepsy, unspecified, not intractable, without status epilepticus; E64.9 Sequelae of unspecified nutritional deficiency; I50.9 Heart failure, unspecified; I13.2 Hypertensive heart and chronic kidney disease with heart failure and with stage 5 chronic kidney disease, or end stage renal disease; Z98.890 Other specified postprocedural states; E87.6 Hypokalemia
CPT/HCPCS: 36415; 70450; 80053; 80069; 82947; 83735; 84100; 84132; 85014; 85018; 85025; 93005; 93010; 94760; 96365; 96372; 96375; 96376; 99285-25; A9270; G0378; J0360; J1644; J2405; J2550; J3010; J3480; J7060; J7507; J7512

== ENCOUNTER 2022-02-19 14:15 | Observation (INO) | payer BC, MEDICARE ==
[~2022-02-19] VITALS: Ht 188 cm; Wt 86.5 kg
[~2022-02-19 14:15] MED LIST changes: +NIFE60ER PO
[2022-02-19 14:41] LABS: BASOPHILS ABSOLUTE AUTO 0.09 K/mm3 (0.00-0.23); BASOPHILS PERCENT AUTO 1 % (0-2); EOSINOPHILS ABSOLUTE AUTO 0.38 K/mm3 (0.00-0.68); EOSINOPHILS PERCENT AUTO 4 % (0-6); Hematocrit 41.6 % (37.0-53.0); Hemoglobin 13.8 g/dL (13.5-17.5); IMMATURE GRAN ABSOLUTE AUTO 0.04 K/mm3 (0.00-0.10); IMMATURE GRAN PERCENT AUTO 0 % (0-1); LYMPHOCYTES PERCENT AUTO 13 % (21-46); MONOCYTES ABSOLUTE AUTO 0.99 K/mm3 (0.16-1.47); MONOCYTES PERCENT AUTO 10 % (4-13); Mean Corpuscular HGB 33.8 pg (26.0-34.0); Mean Corpuscular HGB Conc 33.2 g/dL (31.5-36.5); Mean Corpuscular Volume 102 fL (80-100); Mean Platelet Volume 9.9 fL (9.1-12.4); NEUTROPHILS ABSOLUTE AUTO 6.93 K/mm3 (1.96-9.15); NEUTROPHILS PERCENT AUTO 71 % (41-73); Platelet Count 243 K/mm3 (150-400); RDW Coefficient Variation 14.6 % (11.7-14.2); RDW Standard Deviation 54.6 fL (35.1-46.3); Red Blood Cell Count 4.08 M/mm3 (4.30-5.90); White Blood Cell Count 9.73 K/mm3 (4.00-11.30)
[2022-02-19 14:58] LABS: Alanine Aminotransfer (ALT/SGP 22 U/L (12-78); Albumin, Blood 3.5 g/dL (3.4-5.0); Albumin/Globulin Ratio 0.9 (0.8-1.8); Alk Phos 94 U/L (50-136); Anion Gap 9 mmol/L (6-16); Aspartate Aminotrans (AST/SGOT 35 U/L (12-37); Bilirubin, Total 0.9 mg/dL (0.1-1.0); Blood Urea Nitrogen 52 mg/dL (8-24); Bun/Creatinine Ratio 8.7 (12.0-20.0); CO2, Blood 35 mmol/L (21-32); Chloride, Blood 91 mmol/L (98-108); Creatinine, Blood 5.95 mg/dL (0.60-1.20); Globulin, Blood 4.1 g/dL (2.2-4.0); Glomerular Filtration Rate 11 (60-); Glucose, Blood 69 mg/dL (70-99); Potassium, Blood 4.1 mmol/L (3.5-5.5); Sodium, Blood 135 mmol/L (136-145); Total Protein, Blood 7.6 g/dL (6.4-8.2); Valproic Acid 42.7 ug/mL (50.0-100.0)
[2022-02-19] MEDS ORDERED: PROM25 PO (17:43)
--- NOTE | 2022-02-20 06:25 | NUR ---
SHIFT SUMMARY PT NEW ED ADMIT THIS EVENING. ESRD PT ON DIALYSIS. PT REPORTS THAT HE HAD DIALYSIS YESTERDAY. FISTULA TO NIKKI. NO SEIZURE ACTIVITY THIS EVENING. SEIZURE PADS IN PLACE. TELEMETRY SR IN THE 70'S. PT HAS A HX OF CVA WITH LEFT SIDED DEFECITS. PT SLOW TO RESPOND. HAS DIFFICULTY FOLLOWING COMMANDS AT TIMES. PT OCCASSIONALLY REFUSES CARE. ANXIOUS THIS EVENING. REPORTING PAIN IN R ARM, THEN IN BACK THIS AM. MEDICATED X 1 WITH ULTRAM 50 MG. PT AWAKE UNTIL LATE IN THE SHIFT. ONLY SLEEPING FOR A FEW HOURS THIS EVENING. PT REMAINS HYPERTENSIVE, IMPROVING FROM SYSTOLIC IN THE 200'S TO THE 160'S. PT DENIED ANY NAUSEA THIS EVENING. SWALLOWED PILLS WELL WHOLE WITH WATER. CBG 67 WITH MIDNIGHT CHECK. PT ABLE TO EAT A COUPLE JELLO CUPS IMPROVING TO 102 AND REMAINING STABLE THIS AM AT 98. ASIDE FROM HTN, VITAL SIGNS STABLE.
[2022-02-20 06:57] LABS: BASOPHILS ABSOLUTE AUTO 0.05 K/mm3 (0.00-0.23); BASOPHILS PERCENT AUTO 1 % (0-2); EOSINOPHILS ABSOLUTE AUTO 0.29 K/mm3 (0.00-0.68); EOSINOPHILS PERCENT AUTO 4 % (0-6); Hemoglobin 13.6 g/dL (13.5-17.5); IMMATURE GRAN ABSOLUTE AUTO 0.02 K/mm3 (0.00-0.10); IMMATURE GRAN PERCENT AUTO 0 % (0-1); LYMPHOCYTES ABSOLUTE AUTO 1.86 K/mm3 (0.84-5.20); LYMPHOCYTES PERCENT AUTO 28 % (21-46); MONOCYTES ABSOLUTE AUTO 0.95 K/mm3 (0.16-1.47); MONOCYTES PERCENT AUTO 14 % (4-13); Mean Corpuscular HGB 33.8 pg (26.0-34.0); Mean Corpuscular HGB Conc 33.2 g/dL (31.5-36.5); Mean Corpuscular Volume 102 fL (80-100); Mean Platelet Volume 10.3 fL (9.1-12.4); NEUTROPHILS ABSOLUTE AUTO 3.54 K/mm3 (1.96-9.15); NEUTROPHILS PERCENT AUTO 53 % (41-73); Platelet Count 232 K/mm3 (150-400); RDW Coefficient Variation 14.6 % (11.7-14.2); RDW Standard Deviation 55.7 fL (35.1-46.3); Red Blood Cell Count 4.02 M/mm3 (4.30-5.90); White Blood Cell Count 6.71 K/mm3 (4.00-11.30)
[2022-02-20 07:19] LABS: Albumin, Blood 3.2 g/dL (3.4-5.0); Anion Gap 7 mmol/L (6-16); Blood Urea Nitrogen 68 mg/dL (8-24); CO2, Blood 33 mmol/L (21-32); Calcium, Blood 9.7 mg/dL (8.5-10.1); Chloride, Blood 91 mmol/L (98-108); Creatinine, Blood 7.55 mg/dL (0.60-1.20); Glomerular Filtration Rate 9 (60-); Glucose, Blood 89 mg/dL (70-99); Magnesium, Blood 2.7 mg/dL (1.6-2.4); Phosphorus, Blood 3.7 mg/dL (2.5-4.9); Potassium, Blood 3.6 mmol/L (3.5-5.5); Sodium, Blood 131 mmol/L (136-145)
--- NOTE | 2022-02-20 10:11 | NUR ---
AM NOTE: PATIENT ALERT AND ORIENTED X4. AT TIMES SLOW TO RESPOND. OVERALL WEAK. PERRLA, WEARING GLASSES. LEFT SIDED WEAKNESS AND BASELINE TREMOR. PATIENT COMPLAINS OF BACK SORENESS. NEEDING HELP REPOSITIONING IN BED. ON ROOM AIR, LUNGS SOUNDING CLEAR. TELE SHOWING SINUS RHYTHM WITH HR 70-80'S. DENIES CHEST PAIN/PRESSURE. ELEVATED BP THIS AM WITH SYSTOLIC IN 200'S. MORN MEDS GIVEN AND DIALYSIS THIS AM. FISTULA TO NIKKI. DENIES ABDOMINAL PAIN/NAUSEA THIS AM. STATES NAUSEA COMES AND GOES. TOELRATING CLEAR LIQUID DIET. EATING PUDDING AND JELLOS THIS AM. SWALLOWING PILLS WHOLE WITH WATER. CALL LIGHT IN REACH. AT DIALYSIS AT THIS TIME. WILL CONTINUE TO MONITOR.
[2022-02-20] MEDS ORDERED: ACET325 PO (16:21)
--- NOTE | 2022-02-20 17:20 | NUR ---
DISCHARGE: NO ACUTE CHANGES, SEE PREVIOUS NOTES. PATIENT BP STABLE. DIALYSIS TODAY. UP TO CHAIR FOR MEALS. RESPIRATORY AND CARDIAC REMAINED WNL. NEURO AT BASELINE. NO NEW MEDICATIONS ON DISCHARGE. EDUCATION PROVIDED ON FOLLOW UP APPOINTMENTS. AT BEDISDE. IV TAKEN OUT. PATIENT LEFT UNIT WITH ALL PERSONAL BELONGINGS VIA WHEELCHAIR.
== END 2022-02-20 17:06 | disposition home or self-care (01) ==
LOC: ER 14:15 → PCU 14:16
PROVIDERS: Emergency Medicine; ADMIT Internal Medicine
DX: G40.909 Epilepsy, unspecified, not intractable, without status epilepticus (principal); R11.2 Nausea with vomiting, unspecified; I16.1 Hypertensive emergency; I13.2 Hypertensive heart and chronic kidney disease with heart failure and with stage 5 chronic kidney disease, or end stage renal disease; E11.22 Type 2 diabetes mellitus with diabetic chronic kidney disease; I50.9 Heart failure, unspecified; N18.6 End stage renal disease; E88.09 Other disorders of plasma-protein metabolism, not elsewhere classified; Z86.73 Personal history of transient ischemic attack (TIA), and cerebral infarction without residual deficits; E11.40 Type 2 diabetes mellitus with diabetic neuropathy, unspecified; D64.9 Anemia, unspecified; K21.9 Gastro-esophageal reflux disease without esophagitis; E87.70 Fluid overload, unspecified; E87.1 Hypo-osmolality and hyponatremia; Z99.2 Dependence on renal dialysis; Z94.0 Kidney transplant status; Z79.4 Long term (current) use of insulin
CPT/HCPCS: 36415; 70450; 80053; 80069; 80164; 82947; 83735; 85025; 93005; 93010; 96374; 96375; 99285-25; A9270; C9113; G0257; J0360; J1790; J1815; J2405; J2550; J7507; J7512

== ENCOUNTER 2022-03-04 06:50 | Emergency (ER) | payer BC, MEDICARE ==
[~2022-03-04] VITALS: Ht 188 cm; Wt 86.2 kg
[2022-03-04 08:29] LABS: BASOPHILS ABSOLUTE AUTO 0.05 K/mm3 (0.00-0.23); BASOPHILS PERCENT AUTO 1 % (0-2); EOSINOPHILS ABSOLUTE AUTO 0.14 K/mm3 (0.00-0.68); EOSINOPHILS PERCENT AUTO 2 % (0-6); Hematocrit 40.6 % (37.0-53.0); Hemoglobin 13.6 g/dL (13.5-17.5); IMMATURE GRAN ABSOLUTE AUTO 0.03 K/mm3 (0.00-0.10); IMMATURE GRAN PERCENT AUTO 1 % (0-1); LYMPHOCYTES PERCENT AUTO 18 % (21-46); MONOCYTES ABSOLUTE AUTO 0.47 K/mm3 (0.16-1.47); MONOCYTES PERCENT AUTO 8 % (4-13); Mean Corpuscular HGB 34.1 pg (26.0-34.0); Mean Corpuscular HGB Conc 33.5 g/dL (31.5-36.5); Mean Corpuscular Volume 102 fL (80-100); Mean Platelet Volume 9.6 fL (9.1-12.4); NEUTROPHILS ABSOLUTE AUTO 4.29 K/mm3 (1.96-9.15); NEUTROPHILS PERCENT AUTO 71 % (41-73); Platelet Count 237 K/mm3 (150-400); RDW Coefficient Variation 14.3 % (11.7-14.2); Red Blood Cell Count 3.99 M/mm3 (4.30-5.90); White Blood Cell Count 6.08 K/mm3 (4.00-11.30)
[2022-03-04 08:58] LABS: Albumin, Blood 3.5 g/dL (3.4-5.0); Albumin/Globulin Ratio 0.8 (0.8-1.8); Bilirubin, Total 0.9 mg/dL (0.1-1.0); Bun/Creatinine Ratio 9.8 (12.0-20.0); Calcium, Blood 9.9 mg/dL (8.5-10.1); Creatinine, Blood 8.89 mg/dL (0.60-1.20); Globulin, Blood 4.2 g/dL (2.2-4.0); Potassium, Blood 4.7 mmol/L (3.5-5.5); Total Protein, Blood 7.7 g/dL (6.4-8.2)
== END 2022-03-04 12:00 | disposition home or self-care (01) ==
LOC: ER 06:50
PROVIDERS: Family Medicine
DX: I16.0 Hypertensive urgency (principal); I12.0 Hypertensive chronic kidney disease with stage 5 chronic kidney disease or end stage renal disease; N18.6 End stage renal disease; K59.00 Constipation, unspecified; E11.22 Type 2 diabetes mellitus with diabetic chronic kidney disease; G40.909 Epilepsy, unspecified, not intractable, without status epilepticus; Z99.2 Dependence on renal dialysis
CPT/HCPCS: 80053; 83690; 85025; 93005; 93010; J0360; J1200; J2765

== ENCOUNTER 2022-03-11 03:06 | Observation (INO) | payer BC, MEDICARE ==
[~2022-03-11] VITALS: Ht 188 cm; Wt 89.0 kg
[2022-03-11 04:23] LABS: BASOPHILS ABSOLUTE AUTO 0.05 K/mm3 (0.00-0.23); BASOPHILS PERCENT AUTO 1 % (0-2); EOSINOPHILS ABSOLUTE AUTO 0.46 K/mm3 (0.00-0.68); EOSINOPHILS PERCENT AUTO 5 % (0-6); Hematocrit 34.1 % (37.0-53.0); Hemoglobin 11.2 g/dL (13.5-17.5); IMMATURE GRAN ABSOLUTE AUTO 0.06 K/mm3 (0.00-0.10); IMMATURE GRAN PERCENT AUTO 1 % (0-1); LYMPHOCYTES ABSOLUTE AUTO 1.58 K/mm3 (0.84-5.20); LYMPHOCYTES PERCENT AUTO 18 % (21-46); MONOCYTES ABSOLUTE AUTO 0.74 K/mm3 (0.16-1.47); MONOCYTES PERCENT AUTO 8 % (4-13); Mean Corpuscular HGB 34.1 pg (26.0-34.0); Mean Corpuscular HGB Conc 32.8 g/dL (31.5-36.5); Mean Corpuscular Volume 104 fL (80-100); Mean Platelet Volume 10.1 fL (9.1-12.4); NEUTROPHILS ABSOLUTE AUTO 5.91 K/mm3 (1.96-9.15); NEUTROPHILS PERCENT AUTO 67 % (41-73); Platelet Count 204 K/mm3 (150-400); RDW Coefficient Variation 13.9 % (11.7-14.2); RDW Standard Deviation 53.4 fL (35.1-46.3); Red Blood Cell Count 3.28 M/mm3 (4.30-5.90)
[2022-03-11 04:33] LABS: Albumin/Globulin Ratio 0.9 (0.8-1.8); Bilirubin, Total 0.6 mg/dL (0.1-1.0); Bun/Creatinine Ratio 13.3 (12.0-20.0); Calcium, Blood 9.1 mg/dL (8.5-10.1); Creatinine, Blood 7.23 mg/dL (0.60-1.20); Globulin, Blood 3.5 g/dL (2.2-4.0); Potassium, Blood 4.2 mmol/L (3.5-5.5); Total Protein, Blood 6.5 g/dL (6.4-8.2)
[2022-03-12 04:02] LABS: BASOPHILS ABSOLUTE AUTO 0.02 K/mm3 (0.00-0.23); BASOPHILS PERCENT AUTO 0 % (0-2); EOSINOPHILS PERCENT AUTO 0 % (0-6); Hematocrit 36.4 % (37.0-53.0); Hemoglobin 12.2 g/dL (13.5-17.5); IMMATURE GRAN ABSOLUTE AUTO 0.06 K/mm3 (0.00-0.10); IMMATURE GRAN PERCENT AUTO 1 % (0-1); LYMPHOCYTES ABSOLUTE AUTO 1.12 K/mm3 (0.84-5.20); LYMPHOCYTES PERCENT AUTO 10 % (21-46); MONOCYTES ABSOLUTE AUTO 1.27 K/mm3 (0.16-1.47); MONOCYTES PERCENT AUTO 12 % (4-13); Mean Corpuscular HGB 34.4 pg (26.0-34.0); Mean Corpuscular HGB Conc 33.5 g/dL (31.5-36.5); Mean Corpuscular Volume 103 fL (80-100); Mean Platelet Volume 10.4 fL (9.1-12.4); NEUTROPHILS ABSOLUTE AUTO 8.46 K/mm3 (1.96-9.15); NEUTROPHILS PERCENT AUTO 78 % (41-73); Platelet Count 205 K/mm3 (150-400); RDW Coefficient Variation 14.3 % (11.7-14.2); RDW Standard Deviation 54.7 fL (35.1-46.3); Red Blood Cell Count 3.55 M/mm3 (4.30-5.90); White Blood Cell Count 10.93 K/mm3 (4.00-11.30)
[2022-03-12 04:20] LABS: Albumin, Blood 3.1 g/dL (3.4-5.0); Albumin/Globulin Ratio 0.7 (0.8-1.8); Bilirubin, Total 0.7 mg/dL (0.1-1.0); Bun/Creatinine Ratio 10.5 (12.0-20.0); Creatinine, Blood 6.28 mg/dL (0.60-1.20); Globulin, Blood 4.3 g/dL (2.2-4.0); Potassium, Blood 4.6 mmol/L (3.5-5.5); Total Protein, Blood 7.4 g/dL (6.4-8.2)
[2022-03-13 04:25] LABS: Hemoglobin 11.1 g/dL (13.5-17.5)
[2022-03-13 04:40] LABS: Albumin, Blood 2.7 g/dL (3.4-5.0); Anion Gap 15 mmol/L (6-16); Blood Urea Nitrogen 93 mg/dL (8-24); Bun/Creatinine Ratio 11.7 (12.0-20.0); CO2, Blood 26 mmol/L (21-32); Calcium, Blood 9.6 mg/dL (8.5-10.1); Chloride, Blood 89 mmol/L (98-108); Creatinine, Blood 7.98 mg/dL (0.60-1.20); Glomerular Filtration Rate 8 (60-); Glucose, Blood 145 mg/dL (70-99); Magnesium, Blood 2.7 mg/dL (1.6-2.4); Phosphorus, Blood 3.7 mg/dL (2.5-4.9); Potassium, Blood 4.6 mmol/L (3.5-5.5); Sodium, Blood 130 mmol/L (136-145)
[2022-03-13] MEDS ORDERED: COLCHICINE0.6 MG PO (12:16)
== END 2022-03-13 13:56 | disposition home or self-care (01) ==
LOC: ER 03:06 → PCU 08:44
PROVIDERS: Internal Medicine Nephrology; Nurse Practitioner Acute Care; Student in an Organized Health Care Education/Training Program; ADMIT Internal Medicine
DX: I30.9 Acute pericarditis, unspecified (principal); I16.0 Hypertensive urgency; E87.70 Fluid overload, unspecified; D50.9 Iron deficiency anemia, unspecified; R60.0 Localized edema; I13.2 Hypertensive heart and chronic kidney disease with heart failure and with stage 5 chronic kidney disease, or end stage renal disease; I50.9 Heart failure, unspecified; N18.6 End stage renal disease; E11.22 Type 2 diabetes mellitus with diabetic chronic kidney disease; D63.1 Anemia in chronic kidney disease; J44.9 Chronic obstructive pulmonary disease, unspecified; K21.9 Gastro-esophageal reflux disease without esophagitis; G40.909 Epilepsy, unspecified, not intractable, without status epilepticus; N25.81 Secondary hyperparathyroidism of renal origin; E11.40 Type 2 diabetes mellitus with diabetic neuropathy, unspecified; Z94.0 Kidney transplant status; Z79.4 Long term (current) use of insulin; Z79.82 Long term (current) use of aspirin; Z79.899 Other long term (current) drug therapy
CPT/HCPCS: 36415; 71046; 71260; 80053; 80069; 82947; 83735; 84484; 85014; 85018; 85025; 85651; 86140; 93005; 93010; 93308; 93321; 96374; 96375; 96376; 99285-25; A9270; C9113; G0257; G0378; J0360; J1815; J1885; J1940; J2270; J3010; J7507; J7512; Q9967

== ENCOUNTER 2022-03-20 11:00 | Inpatient (IN) | payer BC, MEDICARE ==
[~2022-03-20] VITALS: Ht 188 cm; Wt 79.5 kg
[~2022-03-20 11:00] MED LIST changes: +COLCHICINE0.6 MG PO
[2022-03-20 11:27] LABS: BASOPHILS ABSOLUTE AUTO 0.03 K/mm3 (0.00-0.23); BASOPHILS PERCENT AUTO 0 % (0-2); EOSINOPHILS ABSOLUTE AUTO 0.16 K/mm3 (0.00-0.68); EOSINOPHILS PERCENT AUTO 2 % (0-6); Hemoglobin 9.5 g/dL (13.5-17.5); IMMATURE GRAN ABSOLUTE AUTO 0.13 K/mm3 (0.00-0.10); IMMATURE GRAN PERCENT AUTO 1 % (0-1); LYMPHOCYTES ABSOLUTE AUTO 1.15 K/mm3 (0.84-5.20); LYMPHOCYTES PERCENT AUTO 11 % (21-46); MONOCYTES ABSOLUTE AUTO 0.87 K/mm3 (0.16-1.47); MONOCYTES PERCENT AUTO 8 % (4-13); Mean Corpuscular HGB 34.7 pg (26.0-34.0); Mean Corpuscular HGB Conc 32.8 g/dL (31.5-36.5); Mean Corpuscular Volume 106 fL (80-100); Mean Platelet Volume 10.4 fL (9.1-12.4); NEUTROPHILS PERCENT AUTO 77 % (41-73); Platelet Count 248 K/mm3 (150-400); RDW Coefficient Variation 13.9 % (11.7-14.2); RDW Standard Deviation 53.7 fL (35.1-46.3); Red Blood Cell Count 2.74 M/mm3 (4.30-5.90); White Blood Cell Count 10.34 K/mm3 (4.00-11.30)
[2022-03-20 11:43] LABS: Albumin, Blood 2.6 g/dL (3.4-5.0); Albumin/Globulin Ratio 0.7 (0.8-1.8); Bilirubin, Total 0.6 mg/dL (0.1-1.0); Bun/Creatinine Ratio 10.2 (12.0-20.0); Creatinine, Blood 7.19 mg/dL (0.60-1.20); Globulin, Blood 3.8 g/dL (2.2-4.0); Potassium, Blood 4.4 mmol/L (3.5-5.5); Total Protein, Blood 6.4 g/dL (6.4-8.2)
--- NOTE | 2022-03-20 16:30 | NUR ---
PATIENT ARRIVED FROM ER, TRANSFERRED TO BED FROM [facility] W/ 4 STAFF MEMBERS AND SLIDER SHEET. HYPERTENSIVE, OTHER VITAL SIGNS WNL. PATIENT REPORTS 9/10 PAIN TO L HIP, PLAN TO MEDICATE PER EMAR.
--- NOTE | 2022-03-20 17:30 | NUR ---
AFTER GIVING DILAUDID AND VALIUM ABOUT 20 MINUTES APART, PATIENT DE SATTED TO MID 70'S AND HEART RATE DROPPED TO LOW 40'S, WAS HEAVILY SLEEPING AND SNORING. PATIENT AWOKE TO STERNAL RUB ONLY AND ROME RICKS GAVE NARCAN TO REVERSE MEDICATION. PATIENT WAS THEN ABLE TO RESPOND TO US APPROP. AND WAKE UP APPROP. DR RODRIGUEZ NOTIFIED AND DC'D VALIUM.
--- NOTE | 2022-03-20 17:55 | NUR ---
WASTED 5MG (1ML) VALIUM FROM PHARMACY WITH JO ANN RICKS RN
--- NOTE | 2022-03-20 19:50 | NUR ---
SHIFT SUMMARY PATIENT REMAINS HYPERTENSIVE, GAVE CLONIDINE PER EMAR. REPORTS PAIN TO BE TOLERABLE AFTER MEDICATION. PATIENT VERY SLEEPY AND RESTING IN BED. IS AT BEDSIDE. WILL BE NPO AT MIDNIGHT, PLAN FOR SURGERY TMMRW, DR TREVINO CONSULTED. DR BENEDICT CONSULTED FOR CONTINUATION OF DIALYSIS. WILL REPORT TO ONCOMING RN.
[2022-03-21 04:53] LABS: Mean Corpuscular HGB 34.4 pg (26.0-34.0); Mean Corpuscular HGB Conc 32.3 g/dL (31.5-36.5); Mean Corpuscular Volume 107 fL (80-100); Mean Platelet Volume 10.5 fL (9.1-12.4); Platelet Count 296 K/mm3 (150-400); RDW Coefficient Variation 14.3 % (11.7-14.2); RDW Standard Deviation 55.8 fL (35.1-46.3); Red Blood Cell Count 2.91 M/mm3 (4.30-5.90); White Blood Cell Count 8.21 K/mm3 (4.00-11.30)
[2022-03-21 05:11] LABS: Albumin, Blood 2.9 g/dL (3.4-5.0); Albumin/Globulin Ratio 0.7 (0.8-1.8); Bilirubin, Total 0.7 mg/dL (0.1-1.0); Calcium, Blood 9.4 mg/dL (8.5-10.1); Creatinine, Blood 5.87 mg/dL (0.60-1.20); Globulin, Blood 4.3 g/dL (2.2-4.0); Magnesium, Blood 2.4 mg/dL (1.6-2.4); Potassium, Blood 4.1 mmol/L (3.5-5.5); Total Protein, Blood 7.2 g/dL (6.4-8.2)
--- NOTE | 2022-03-21 05:25 | NUR ---
SUMMARY PT WAS VERY SOMNOLENT AT BEGINNING OF SHIFT. POST DIALYSIS PT BECAME MORE ALERT. PT TX ONCE FOR HIP PAIN. PT REPORTS SEEING SOME HALLUCINATIONS. PT HAS BEEN NPO SINCE 0000 HRS. PT CURRENTLY AWAKE IN NO DISTRESS. CALL LIGHT IN REACH
--- NOTE | 2022-03-21 11:58 | NUR ---
PATIENT LEFT FOR THE OR.
--- NOTE | 2022-03-21 12:10 | NUR ---
PT HAS 20 G IV IN RIGHT WRIST THAT FLUSHES AND FLOWS TO GRAVITY. NO SIGNS OF INFILTRATION OR INFECTION.
--- NOTE | 2022-03-21 13:15 | NUR ---
03/21/22 1315 Conrad Staples 1% LIDOCAINE AND EPINEPHRINE 1:100,000 INJECTED TO LEFT HIP BY MN.NSS 10CC
--- NOTE | 2022-03-21 15:48 | NUR ---
GAVE REPORT TO PCU NURSE WHO IS TAKING OVER CARE FOR PATIENT.
--- NOTE | 2022-03-21 16:50 | NUR ---
ASSUMPTION OF CARE NOTE PT ARRIVED TO PCU AT APPROX. 1545, SUREKHA WAS AT BEDSIDE. REPORT RECIEVED FROM EMILE SMITH RN FROM SURGICAL FLOOR AND WES RN IN PACU. PER REPORT PT WAS COMING TO PCU DUE TO LOW SBP THAT WAS IN 80'S DURING LEFT HIP FX REPAIR PROCEDURE. UPON ARRIVAL TO PCU, SBP 123. PT REPORTED NAUSEA AND PAIN, SEE EMAR. PT REFUSED ARANESP MEDICATION STATING THAT "IT HURT" AND THAT "IT DOESN'T WORK." PT AND FAMILY ORIENTED TO ROOM/UNIT. CALL LIGHT IN REACH, WILL CONTINUE TO MONITOR.
--- NOTE | 2022-03-21 18:20 | NUR ---
SHIFT SUMMARY PT HAS BEEN ALERT AND ORIENTED X 4, HAS BEEN AT BEDSIDE SINCE ARRIVAL TO PCU. VITAL SIGNS STABLE, SO2 >95% VIA ROOM AIR. PT HAS REPORTED 9/10 PAIN IN LEFT HIP, SEE EMAR. LEFT HIP SURGICAL SITE IS COVERED W/ AQUACEL DRESSING, THERE IS SCANT AMOUNT OF BLOOD APPARENT ON DRESSING LESS THAN DIME SIZE. PT DID NOT HAVE APPETITE FOR DINNER AND THERFOR REFUSED CALCIUM ACETATE AT 1700. NO ACUTE CHANGES SINCE ARRIVAL TO PCU. WILL CONTINUE TO MONITOR UNTIL REPORT GIVEN. CALL LIGHT IN REACH.
--- NOTE | 2022-03-21 23:40 | NUR ---
PT HAD EPISODE OF PROKECTILE VOMITING WITHIN MINUTES OF PO INTAKE OF CATAPRES AND DEPAKOTE. PER PT, HE HAS THIS SAME ISSUE AT HOME QUITE FREQUENTLY WHEN TAKING LARGE PILLS ESPECIALLY THE EPAKOTE. HE ADMITS TO SOMETIMES JUST SKIPPING HIS DOSES AT HOME BECAUSE OF THIS. ENCOURAGED PATIENT TO SPEAK WITH HIS PCP REGARDING THIS MATTER DUE TO IMPORTANCE OF NOT SKIPPING HIS ANTI-SEIAURE MEDICATION. PT AGREED. PER MY REQUEST, NAMAN (HATCHERY SUPERVISOR) IS REACHING OUT TO HOSPITALIST TO OBTAIN ORDER FOR IV ANTI-EMETIC AND TO DISCUSS IV ROUTE SUBSTITUTION FOR PO DEPAKOTE. UPATED 0045: IV ZOFRAN ADMINISTERED AND PT DENIES NAUSEA. PO CATAPRESS ADMINISTERED ORDERED. ALSO, PER NAMAN (HATCHERY SUPERVISOR) DR. MCKEE REQUEST PHARMD CONSULT FOR IV ROUTE SUBSTITUTION FOR PO DEPAKOTE. WILL CONTINUE TO FOLLOW FOR NEW ORDERS.
--- NOTE | 2022-03-22 01:00 | NUR ---
MD MCKEE AWARE OF BLOOD PRESSURES 130S-150S/90S-110S IN PATIENT WITH ESRD ON HEMODIALYSIS. PER MD, CONTACT MD FOR SBP GREATER THAN 160.
[2022-03-22 05:01] LABS: Hematocrit 29.4 % (37.0-53.0); Hemoglobin 9.5 g/dL (13.5-17.5); Mean Corpuscular HGB 34.9 pg (26.0-34.0); Mean Corpuscular HGB Conc 32.3 g/dL (31.5-36.5); Mean Corpuscular Volume 108 fL (80-100); Platelet Count 309 K/mm3 (150-400); RDW Coefficient Variation 14.4 % (11.7-14.2); RDW Standard Deviation 56.4 fL (35.1-46.3); Red Blood Cell Count 2.72 M/mm3 (4.30-5.90)
[2022-03-22 05:32] LABS: Anion Gap 14 mmol/L (6-16); Blood Urea Nitrogen 72 mg/dL (8-24); Bun/Creatinine Ratio 9.4 (12.0-20.0); CO2, Blood 28 mmol/L (21-32); Calcium, Blood 9.4 mg/dL (8.5-10.1); Chloride, Blood 92 mmol/L (98-108); Creatinine, Blood 7.64 mg/dL (0.60-1.20); Glomerular Filtration Rate 8 (60-); Glucose, Blood 131 mg/dL (70-99); Magnesium, Blood 2.8 mg/dL (1.6-2.4); Phosphorus, Blood 7.8 mg/dL (2.5-4.9); Potassium, Blood 5.1 mmol/L (3.5-5.5); Sodium, Blood 134 mmol/L (136-145)
--- NOTE | 2022-03-22 06:30 | NUR ---
POST OP DAY 1 FROM LEFT HIP PINNING. PAIN MEDICATIONS ADMINISTERED PRN ORDERED. PT CRIES OUT IN PAIN WITH ANY MOVEMENT OF THE LEFT LEG. ICE APPLIED OFF AND ON THROUGHOUT THE NIGHT. PATIENT ANSWERS ALL MENTATION QUESTIONS CORRECTLY, BUT REQUIRES REDIRECTION AT TIMES REGARDING THE NEED FOR KEEPING MONITORING DEVICES SUCH THE PULSE OXIMETER, TELEMTRY MONITOR AND BLOOD PRESSURE CUFF IN PLACE FOR ASSESSMENT. HE REPEATEDLY PULLED OFF ATTACHED CORDS AND REQUIRED RE-EDUCATION TO THEIR NEED AND IMPORTANCE. PT REPORTS CHRONIC NEUROPATHY TO BILATERAL FEET AND HAS NO FEELING IN EITHER FOOT. AT SOME POINT, UNKNOWN TO THE PATIENT, IT APPEARS THAT HE SCRAPED OR HIT HIS RIGHT 2ND TOE ON SOMETHING. THE CABLE LAYER NOTICED IT WAS BLEEDING AND BROUGHT IT TO MY ATTENTION. THIS HAD TO HAVE OCCURRED SOME TIME BETWEEN 0300 AND 0400 THIS MORNING. CLEANED UP THE SITE AND APPLIED A BANDAID TO THE AFFECTED TOE.
--- NOTE | 2022-03-22 07:58 | NUR ---
ASSUMPTION OF CARE NOTE SPOKE WITH ASSEMBLER GARMENT FORM ESTRADA, PT SCHEDULED FOR 0900 DIALYSIS. SBP 156. WHEN CONSULTED WITH ESTRADA RN ADVISED TO HOLD BP MEDICATION UNTIL AFTER DIALYSIS THEN REASSESS BP. WILL CONTINUE TO MONITOR AND MEDICATE APPROPRIATELY PER ORDERS.
--- NOTE | 2022-03-22 12:01 | NUR ---
MEDICATION NOTE FEOSOL (FERROUS SULFATE) REQUESTED FROM PHARMACY APPROX. 1100, MEDICATION NOW RECIEVED BY THIS NURSE AT 1200.
--- NOTE | 2022-03-22 15:26 | NUR ---
CARE NOTE IS AT BEDSIDE. PT HAS BEEN LETHARGIC FOR MAJORITY OF AFTERNOON. PHYSICAL THERAPY WORKED WITH PT AND WHEN PT STOOD UP AT BEDSIDE, HR INCREASED TO 130 AND BP WAS 181/130 SO THERAPIST STOPPED EVALUATION. THIS NURSE CONSULTED WITH ASSISTANT COMMUNITY DIRECTOR DEVAN SALINAS ABOUT ELEVATED HR AND BP. BP NOW STABLE. WILL CONTINUE TO MONITOR. PT HAS BEEN SLEEPING/AROUSABLE FOR MAJORITY OF AFTERNOON WITH NO FOOD PO INTAKE. HE DENIES FEELINGS OF NAUSEA BUT REPORTS THAT HE "JUST DOESN'T FEEL GOOD." CALL LIGHT IN REACH.
--- NOTE | 2022-03-22 16:34 | NUR ---
BLADDER SCAN PT DENIES URGE TO VOID WELL ANY DISCOMFORT. PER BLADDER SCAN, 0ML RETAINED. WILL CONTINUE TO MONITOR.
--- NOTE | 2022-03-22 18:37 | NUR ---
SHIFT SUMMARY PT ALERT AND ORIENTED TO SELF, FAMILY AND SITUATION BUT NOT DAY. HE WAS LETHARGIC FOR MAJORITY OF SHIFT BUT WOULD WAKE EASILY TO VERBAL STIMULI. BP REMAINED STABLE FOR MAJORITY OF SHIFT WITH EXCEPTION OF WHEN WORKING WITH PHYSICAL THERAPY, SEE PREVIOUS NOTE. PT WILL TAKE O2 OFF WHEN AWAKE BUT WHEN HE FALLS BACK ASLEEP, SPO2 DIPS TO 88%, 1L NC APPLIED TO MAINTAIN O2 ABOVE 90%. PT HR AFLUTTER 99-110'S PER TELE MONITORING. HE HAS DENIED FEELINGS OF CHEST PAIN/PRESSURE. PT REPORTS 9 TO 10/10 PAIN IN LEFT HIP BUT HAS APPEARED COMFORTABLE AND ABLE TO SLEEP FOR MAJORITY OF SHIFT. SEE EMAR FOR PAIN MANAGEMENT. HE HAS NOT VOIDED DURING SHIFT BUT SUREKHA AND THE PT REPORTED THIS IS NOT UNUSUAL FOR HIM. SEE PREVIOUS BLADDER SCAN NOTE. IV IN RIGHT AC IS SALINE LOCKED. DRESSING OVER LEFT HIP PINNING SITE REMAINS DRY/CLEAN WITH NO APPARENT SIGNS OF BLEEDING. HE HAS CONTINUED TO DENY FEELINGS OF NAUSEA DURING SHIFT. THIS NURSE ASKED PT FREQUENTLY IF HE WANTED ANYTHING TO EAT AND DENIED WANTING FOOD. AT APPROX. 1700 THIS NURSE ASKED PT IF HE WANTED TO EAT DINNER AND HE STATED "I WISH YOU GUYS WOULD JUST LEAVE ME ALONE." NO OTHER ACUTE CHANGES NOTED. WILL MONITOR UNTIL REPORT GIVEN. CALL LIGHT IN REACH.
--- NOTE | 2022-03-23 01:45 | NUR ---
CALL TO HOSPITALIST THIS RN CALLS DR HERNANDEZ, NOTIFIES PROVIDER OF PT HR AND NEW PARAMETERS FOR BP MEDS S/T ISSUES WITH HYPOTENSION. PROVIDER NOTIFIED OF PT HAVING DIALYSIS THIS AM. ORDER TO GIVE 0.25 MG OF DIGOXIN IV NOW. THIS RN DISCUSSES PT WITH MANAS MATHIS WELL WHO WILL VERIFY MED.
[2022-03-23 03:58] LABS: Hematocrit 27.1 % (37.0-53.0); Hemoglobin 8.7 g/dL (13.5-17.5)
[2022-03-23 04:23] LABS: Albumin, Blood 2.7 g/dL (3.4-5.0); Anion Gap 11 mmol/L (6-16); Blood Urea Nitrogen 52 mg/dL (8-24); Bun/Creatinine Ratio 8.7 (12.0-20.0); CO2, Blood 30 mmol/L (21-32); Calcium, Blood 8.9 mg/dL (8.5-10.1); Chloride, Blood 95 mmol/L (98-108); Creatinine, Blood 5.97 mg/dL (0.60-1.20); Glomerular Filtration Rate 11 (60-); Glucose, Blood 133 mg/dL (70-99); Magnesium, Blood 2.5 mg/dL (1.6-2.4); Phosphorus, Blood 6.8 mg/dL (2.5-4.9); Potassium, Blood 4.4 mmol/L (3.5-5.5); Sodium, Blood 136 mmol/L (136-145); Valproic Acid 63.6 ug/mL (50.0-100.0)
--- NOTE | 2022-03-23 08:37 | NUR ---
SHIFT SUMMARY PT IS AOX3 BUT APPEARED CONFUSED/DISORIENTED AT TIMES T/O SHIFT WHILE INTERMITTENTLY SLEEPING. PT FREQUENTLY DROWSY AND WOULD FALL ASLEEP WITH THIS RN IN ROOM. 1 L OF 02 VIA NC KEPT ON PT D/T DESATTING INTO 80'S DURING SHORT PERIODS OF APNEA. PT TACHYPNEIC WITH RR IN 20'S T/O SHIFT. HR 110'S-120'S FOR MOST OF SHIFT. WHEN PT SPIKED INTO 130'S THIS RN CALLED HOSPITALIST, ORDER GIVEN FOR DIGOXIN IV. THIS RN HOLDS D/T PT HR RETURNING TO BASELINE FROM START OF SHIFT AND CONCERN FOR GIVING DIGOXIN. PT HR SPIKES AGAIN THIS AM INTO 130'S JUST PRIOR TO SHIFT CHANGE. PT SBP VARIED T/O SHIFT. SBP WAS 115-120'S AND THEN 150'S-160'S, BACK DOWN TO 140'S THIS AM. PT DENIES CP T/O SHIFT. PT BECOMES AGITATED THIS AM AND CONFUSED, STATES HE THOUGHT HIS WAS COMING TO GET HIM AND DIDN'T UNDERSTAND WHY SHE WASN'T HERE YET. THIS RN ASKS PT WHY HE THOUGHT HIS WAS COMING TO GET HIM, PT STATED HE THOUGHT HE WAS GOING HOME BECAUSE HE WAS GETTING BETTER. PT INSISTED ON GETTING UP TO BEDSIDE COMMODE IN THE NIGHT TO ATTEMPT A BM. PT BARELY ABLE TO SIT-UP IN BED. HAD TO BE ASSISTED BY TWO STAFF MEMBERS, WAS ONLY ABLE TO STAND AND WAS NOT ABLE TO SIT TO COMMODE. PT ASSISTED BACK TO BED AND USED BEDPAN. PT FREQUENTLY STATED HIS ACCEPTABLE LEVEL OF PAIN WAS A 10 AND THAT HIS PAIN WAS 10/10 DESPITE INTERVENTIONS. PT TOLD THIS RN DURING THE SHIFT THAT HE WAS DEPRESSED BUT DENIED SI. PT TOLD SPOUSE THIS AM ON THE PHONE THAT HE WANTED TO GO HOME. PHARMACY NOTIFIED THIS RN THAT VALPROIC ACID WAS IN LOW SUPPLY AND THAT IT WOULD BE IDEAL IF PT COULD BE SWITCHED TO PO THERE ARE ONLY 4 VIALS LEFT ONSITE. THIS RN NOTIFIED ONCOMING RN EVELYN.
--- NOTE | 2022-03-23 09:56 | NUR ---
CARE ASSUMPTION THIS RN ASSUMED CARE FROM RAE PETER AT 0700. VSS. TELE AFLUTTER BBB 120-130S. PATIENT IS ALERT AND ORIENTED X3-4. PATIENT STATES HIS USUALLY ANSWERS THE QUESTIONS SINCE HE HAD HIS STROKE AND HANDLES THESE SITUATIONS. LUNG SOUNDS CLEAR. SPO2 >90% ON RA. PATIENT REPORTS NO SHORTNESS OF BREATH. PATIENT REPORTS NO CHEST PAIN/PRESSURE. STRONG RADIAL AND PEDIS PULSES CAP REFILL <3SECONDS. NO EDEMA NOTED. PATIENT ABD SOFT NONTENDER HYPOACTIVE. SKIN HAS BRUSING SCATTERED THROUGHOUT AND LEFT HIP SIT S/P HIP SURGERY WITH BANDAGE IN PLACE. PATIENT REPORTS PAIN WITH MOVEMENT IN HIS LEG RATED AT 6. SEE SHIFT ASSESSMENT FOR FURTHER DETAILS. PATIENT HAD A LARGE BOWEL MOVEMENT AND RECEIVED A BED BATH. MD BURT IN TO SEE PATIENT THIS AM AND DISCUSSED THE PLAN OF CARE WITH THE PATIENT AND ON THE PHONE. PLAN IS TO CONTROL PATIENTS RATE AND MD BURT CHANGED MEDICATIONS NEEDED, TO REBUILD PATIENT STRENGTH AND LOOK INTO A PRISON FACILITY TO HELP WITH THIS. PATIENT DID EXERCISES ON THE WHITE BOARD THIS AM, AND THE GOAL TODAY IS TO SIT IN A CHAIR. IS CURRENTLY AT BEDSIDE. PATIENT REFUSED BREAKFAST. GOT THE PATIENT SOME YOGURT AND SHE STATED HE ATE ABOUT FIVE BITES OF IT. PATIENT REPOSITIONED EVERY TWO HOURS. PATIENT ABLE TO MAKE HIS NEEDS KNOWN AND USES CALL LIGHT APPROPRIATELY. CALL LIGHT WITHIN REACH AND BED IN LOWEST POSITION. WILL CONITNUE TO MONITOR AND PROVIDE CARE. THIS RN SPOKE WITH MD BURT TO CHANGE PATIENT DEPOKATE FROM IV TO PO DUE TO THE SHORTAGE. MD BURT AGREED TO THIS. THIS RN INFORMED PHARMACY AND MEDICATION CHANGE FROM IV TO PO AT THE CORRECT DOSAGE.
--- NOTE | 2022-03-23 17:11 | NUR ---
SHIFT SUMMARY PATIENT NEURO REMAINS INTACT. VSS. TELE AFLUTTER BBB 100-110. SEE VITAL SIGNS SECTION. PATIENT GOT UP TO SIT AT THE SIDE OF THE BED TWICE TODAY. PATIENT AT BEDSIDE. PATIENT HAS HAD MINIMAL INTAKE TODAY. THIS RN AND ENCOURAGED PATIENT INTAKE, AND PATIENT WOULD TAKE A FEW BITES HERE AND THERE. PATIENT USES CALL LIGHT APPROPRIATELY. PATIENT EDUCATED ON MOVEMENT OF LEFT LEG TO INCREASE STRENGTH. NO ACUTE CHANGES. CALL LIGHT WITHIN REACH AND BED IN LOWEST POSITION. WILL CONTINUE TO MONITOR AND PROVIDE CARE UNTIL HAND OFF WITH NEXT SHIFT.
--- NOTE | 2022-03-24 05:32 | NUR ---
SHIFT SUMMARY PT ALERT AND ORIENTED X4. BP HYPERTENSIVE AT TIMES, RELIEVED WITH PRESCRIBED MEDICATIONS. AFEBRILE. HR AFLUTTER W/ BBB 100'S. ON RA SATS OVER 95%. FLAT AFFECT. RESPONDS APPROPRIATELY AND FOLLOWS COMMANDS. WILL FALL ASLEEP AT TIMES WITHIN 5 SECONDS OF ANSWERING A QUESTION WITH RN IN ROOM. Q2 TURNS, REFUSED SOME TURNS T/O THE NIGHT. POOR PO INTAKE. IN BED SLEEPING WITH CALL ALARM AT SIDE, WILL CONTINUE TO MONITOR UNTIL REPORT GIVEN TO [facility]
--- NOTE | 2022-03-24 09:15 | NUR ---
AM NOTE: PATIENT ALERT AND ORIENTED X4. VERY FLAT AND WITHDRAWN. COOPERATIVE WITH CARE. DENIES NUMBNESS/TINGLING. PERRLA, WEARING GLASSES. COMPLAINS OF PAIN TO LEFT HIP, MEDICATED THIS AM. BEDREST AT THIS TIME, WORKING WITH PT/OT. ON ROOM AIR SATING ABOVE 94%. LUNGS SOUNDING CLEAR AND DIM IN BASES. DENIES SOB. TELE SHOWING AFLUTTER WITH HR 100-110'S. DENIES CP/PRESSURE. BP STABLE. HOLDING MORNING BP MEDS TILL AFTER DIALYSIS. TRANSFERRED TO DIALYSIS AT 0900. DENIES ABODMINAL PAIN/NAUSEA. ONE EPISODE OF BOWEL INCONTINENCE THIS AM. TOLERATING PO DIET. MINIMAL URINE OUTPUT. SKIN OVERALL C/D/I. LEFT HIP INCISION X2 WITH AQUACEL IN PLACE. REDNESS TO COCCYX, MEPILEX APPLIED THIS AM AND Q2 TURNING IN PLACE. AT DIALYSIS AT THIS TIME.
--- NOTE | 2022-03-24 12:54 | NUR ---
PATIENT BACK FROM DIALYSIS AT THIS TIME. SLEEPING THROUGHOUT DIALYSIS. BP 98/80 WITH HR 120'S. HELD MORNING BP MEDS DUE TO DIALYSIS. WILL ASSESS FOR AFTERNOON MEDS. SITTING UP EATING LUNCH AT THIS TIME. DENIES PAIN. Q6 BLOOD SUGAR CHECKS. AT BEDSIDE. PLAN TO WORK WITH PT/OT THIS AFTERNOON TO GET PATIENT UP IN RECLINER FOR 4 HOURS TO SIMULATE OUTPATIENT DIALYSIS. REFUSING RIGHT LOWER LEG SCD AT THIS TIME. CALL LIGHT IN REACH. WILL CONTINUE TO MONITOR.
--- NOTE | 2022-03-24 14:43 | NUR ---
ECHO COMPLETED. SCHEDULER CONVEYOR NOTED SHE WAS GOING TO SHOW CMO RESULTS. WAITING FOR CARDIOLOGY CONSULT. DR. MENCHACA AWARE OF CONSULT BY HOSP. ALYSON DRIP STARTED AT THIS TIME AT 5ML/HR. SEE EMAR. BP STABLE. HR 110-120'S. DENIES CHEST PAIN/PRESSURE. PATIENT VERY SLEEPY AT THIS TIME. ABLE TO EAT MOST OF LUNCH. Q2 TURNING AND NEEDED.
--- NOTE | 2022-03-24 15:16 | NUR ---
CALL FROM DR. WADE AT THIS TIME. ORDERS TO STOP CARDIZEM STAT. THIS RN IN ROOM AND STOPPED CARDIZEM SEE EMAR FOR EXACT TIME. VITALS SIGN STABLE. PATIENT SLEEPY. AWAKES TO VERBAL AND TOUCH. STATES HE IS IN PAIN BUT FALLS RIGHT BACK ASLEEP. VITAL SIGNS STABLE. MOST RECENT BP 114/74 AND HR 110-120'S. WAITING FOR CARDIOLOGY CONSULT.
--- NOTE | 2022-03-24 16:04 | NUR ---
DR. MENCHACA IN TO SEE PATIENT. PERICARDIAL EFFUSION THAT NEEDS TO BE EMERGENTLY DRAINED. CALLED. THIS RN AND DR. MENCHACA CONSENT OVER PHONE. IN 10 MIN LATER TO SIGN CONSENT AND BLOOD CONSENT. PATIENT TAKEN TO [facility].
[2022-03-24 19:00] LABS: BASOPHILS ABSOLUTE AUTO 0.02 K/mm3 (0.00-0.23); BASOPHILS PERCENT AUTO 0 % (0-2); EOSINOPHILS ABSOLUTE AUTO 0.13 K/mm3 (0.00-0.68); EOSINOPHILS PERCENT AUTO 2 % (0-6); Hematocrit 25.4 % (37.0-53.0); Hemoglobin 8.2 g/dL (13.5-17.5); IMMATURE GRAN ABSOLUTE AUTO 0.08 K/mm3 (0.00-0.10); IMMATURE GRAN PERCENT AUTO 1 % (0-1); LYMPHOCYTES ABSOLUTE AUTO 0.91 K/mm3 (0.84-5.20); LYMPHOCYTES PERCENT AUTO 14 % (21-46); MONOCYTES ABSOLUTE AUTO 0.74 K/mm3 (0.16-1.47); MONOCYTES PERCENT AUTO 11 % (4-13); Mean Corpuscular HGB 34.9 pg (26.0-34.0); Mean Corpuscular HGB Conc 32.3 g/dL (31.5-36.5); Mean Corpuscular Volume 108 fL (80-100); Mean Platelet Volume 10.9 fL (9.1-12.4); NEUTROPHILS ABSOLUTE AUTO 4.63 K/mm3 (1.96-9.15); NEUTROPHILS PERCENT AUTO 71 % (41-73); Platelet Count 247 K/mm3 (150-400); RDW Coefficient Variation 14.2 % (11.7-14.2); RDW Standard Deviation 55.4 fL (35.1-46.3); Red Blood Cell Count 2.35 M/mm3 (4.30-5.90); White Blood Cell Count 6.51 K/mm3 (4.00-11.30)
--- NOTE | 2022-03-24 19:25 | NUR ---
SHIFT SUMMARY: PATIENT SLEEPING IN BED AT THIS TIME. POST OP VITALS IN PROGRESS. BP ELEVATED, ANALYTICAL MANAGER SPOKE WITH DR. MENCHACA. DR. MENCHACA AWARE OF BP AND NO NEW ORDERS. PERICARDIAL DRAIN IN PLACE. NO CHANGES FROM HEART CENTER TRANSFER. SITE IS C/D/I. NO SIGNS OF BLEEDING OR HEMATOMA. DRAINAGE SUPPLIES AT BEDSIDE. SPOKE WITH DR. MENCHACA, ABOUT NOTIFICATION FOR DRAINAGE AMOUNT. DR. MENCHACA STATED HE DID NOT NEED TO BE NOTIFIED ON AMOUNT OF DRAINAGE, BUT TO NOTIFIY IF PATIENT BECOMES HYPOTENSIVE. PATIENT BRIEFLY WAKES TO VERBAL/TOUCH. TELE CONTINUES TO SHOW AFLUTTER WITH HR 110'S. THIS RN, TO TEACH STERILE DRAINAGE TECHNIQUE PROVIDED BY HEART CENTER RN TO BAND SHOVER RN. BAND SHOVER RN JIMENA, ABLE TO TEACH BACK DRAINAGE METHOD. REMAINS AT BEDSIDE. PATIENT DENIED NEED FOR DINNER AT THIS TIME. ATTENDS IN PLACE. PLACED ON 1L O2 WHILE SLEEPING. CALL LIGHT IN REACH. REPORTED OFF TO ONCOMING ROME HESS.
--- NOTE | 2022-03-25 01:04 | NUR ---
PT UPDATE AROUND MIDNIGHT PT BEGAN C/O OF CP. DRAINED PERICARDIAL DRAIN PER SCHEDULE W/ SUCCESSFUL RELIEF OF CP. 50MLS OUT AT MIDIGHT. PT'S HR GRADUALLY INCREASING FROM 100'S, NOW 130'S DURING SHIFT. CALL PLACED TO BIOFUELS RESEARCH SCIENTIST BERNARDA. MD MENCHACA WITH ORDERS TO INCREASE METOPROLOL, SEE EMAR. CALL PLACED TO MD MCKEE FOR PT'S ANXIETY. MD MCKEE W/ ONE TIME DOSE OF ATIVAN, SEE EMAR.
[2022-03-25 04:10] LABS: BASOPHILS ABSOLUTE AUTO 0.02 K/mm3 (0.00-0.23); BASOPHILS PERCENT AUTO 0 % (0-2); EOSINOPHILS ABSOLUTE AUTO 0.14 K/mm3 (0.00-0.68); EOSINOPHILS PERCENT AUTO 2 % (0-6); Hematocrit 27.3 % (37.0-53.0); Hemoglobin 8.5 g/dL (13.5-17.5); IMMATURE GRAN ABSOLUTE AUTO 0.08 K/mm3 (0.00-0.10); IMMATURE GRAN PERCENT AUTO 1 % (0-1); LYMPHOCYTES ABSOLUTE AUTO 0.89 K/mm3 (0.84-5.20); LYMPHOCYTES PERCENT AUTO 10 % (21-46); MONOCYTES ABSOLUTE AUTO 0.78 K/mm3 (0.16-1.47); MONOCYTES PERCENT AUTO 9 % (4-13); Mean Corpuscular HGB 34.1 pg (26.0-34.0); Mean Corpuscular HGB Conc 31.1 g/dL (31.5-36.5); Mean Corpuscular Volume 110 fL (80-100); Mean Platelet Volume 10.6 fL (9.1-12.4); NEUTROPHILS ABSOLUTE AUTO 6.81 K/mm3 (1.96-9.15); NEUTROPHILS PERCENT AUTO 78 % (41-73); Platelet Count 275 K/mm3 (150-400); RDW Coefficient Variation 13.8 % (11.7-14.2); RDW Standard Deviation 55.1 fL (35.1-46.3); Red Blood Cell Count 2.49 M/mm3 (4.30-5.90); White Blood Cell Count 8.72 K/mm3 (4.00-11.30)
[2022-03-25 04:34] LABS: Albumin, Blood 2.5 g/dL (3.4-5.0); Anion Gap 12 mmol/L (6-16); Blood Urea Nitrogen 45 mg/dL (8-24); Bun/Creatinine Ratio 7.6 (12.0-20.0); CO2, Blood 31 mmol/L (21-32); Calcium, Blood 9.1 mg/dL (8.5-10.1); Chloride, Blood 93 mmol/L (98-108); Creatinine, Blood 5.94 mg/dL (0.60-1.20); Glomerular Filtration Rate 11 (60-); Glucose, Blood 130 mg/dL (70-99); Phosphorus, Blood 4.9 mg/dL (2.5-4.9); Sodium, Blood 136 mmol/L (136-145)
--- NOTE | 2022-03-25 06:24 | NUR ---
SHIFT SUMMARY PT EASILY AWAKENED, DOSED MOST OF NIGHT. SP02>92% ON RA. TELEMETRY SHOWS AFLUTTER, HR 110'S-140'S, SBP ELEVATED. CALL PLACED TO MD MENCHACA, SEE PREVIOUS NOTE. CURRENT HR 120'S. PT HAS PERICARDIAL DRAIN, EMPTIED Q4 PER DEC, SEE CHARTING FOR OUTPUT. IN ROOM FOR FIRST DRAINAGEPT C/O OF 10/10 L HIP PAIN. MEDICATED PER EMAR. ANXIETY THIS SHIFT, MEDICATED PER EMAR, SEE PREVIOUS NOTE. LOWER AQUACEL DRESSING REPLACED, PREVIOUS DRESSING HAD LOST INTEGRITY. NO VOID OR BM THIS SHIFT. PT REPOSITIONED Q2H. SLEPT OFF AND ON DURING NIGHT. MD BENEDICT IN ROOM THIS AM. STATES PT WILL BE GETTING DIALYSIS TODAY. CALL LIGHT IN REACH.
[2022-03-25 07:13] LABS: HBSAG SCREEN Negative (Negative)
--- NOTE | 2022-03-25 07:30 | NUR ---
INITIAL ASSESSMENT: Patient is lying supine in bed, he is very sleepy. He is able to wake up to verbal stimuli, but falls back asleep very quickly. He is oriented. He denies pain at this time. HR IRREG, A-Flutter in the low 100s. He has a pericardial drain with gauze dressing CDI. [address] way stop cock in [address]. Pericardial drain drained using sterile technique, 30 cc bloody fluid drained. LS CTA, Biox 100% on RA. BT+, abd non-tender to light palpation. PPP. Left hip surgical site with aquacel dressing CDI. VSS. Patient is able to sit up and eat breakfast, am meds given with a sip of water. Patient denies other needs at this time. Call light in reach.
--- NOTE | 2022-03-25 12:10 | NUR ---
UPDATE: Patient just came back from dialysis, per health associate 4500 cc removed. Patients blood pressures are a little lower than normal for him. BP on return 116/96. Pt continues to be lethargic, he opens his eyes to verbal stimuli but he cannot stay awake for prolonged periods of time. Pericardial drain drained another 30cc bloody fluid. Patient is able to sit up and eat some lunch. He denies other needs at this time. Call light in reach.
--- NOTE | 2022-03-25 16:30 | NUR ---
Update: Patient continues to be lethargic, he is more disoriented this afternoon. Tell his and myself that he is in the hospital in [place]. He would not participate in a full neuro assessment, asking me to "leave me alone." He denies pain at rest at this time. He is still in flutter in the low 100s. Earlier I gave him a bath, when I placed him back on telemetry he had some ST changes noted on telemetry, EKG done and results sent to Dr. Leary. He ordered a potassium level-this was 4.4. Pt denies CP. Pericardial drain drained, 25 cc bloody fluid removed. BT Hypoactive. Patient has had poor oral intake t/o the shift due to his lethargy. The mentioned his mentation is similar to that of when he has his stroke, notified and Dr. Melo stated she will come down and talk with the .
--- NOTE | 2022-03-25 17:58 | NUR ---
Update: Dr. Willis came to see the , stat head CT ordered and complete. Dr. Leary came to see the patient, no new orders or concerns. Patient is more awake and oriented. to assist him with dinner.
--- NOTE | 2022-03-25 17:59 | NUR ---
Summary: Patient has been lethargic T/O the shift, when I can get him to stay awake for longer periods of time he is more oriented. Toward the end of the shift the came back to see the patient, she was able to communicate with the MD. Stat head CT ordered, awaiting results. MD also ordered blood cx, lactic acid, and other labs. HR Irreg, he continues to be A-Flutter rate has been in the low 100s. After bathing the patient and placing him back on telemetry, there was some ST changes in the chest leads-EKG done counter cutter is aware-potassium level checked 4.4. Blood pressure has been stable t/o the shift. Patient had dialysis with 4.5L removed today. Biox has been 100% on RA. BT+, no BM this shift. Patient is currently resting with his eyes closed with his at the bedside. Will report to oncoming RN.
[2022-03-25 18:44] LABS: C-Reactive Protein, High Sens. >190.000 mg/L (0.000-3.000)
--- NOTE | 2022-03-26 03:26 | NUR ---
PT UPDATE PT HR AND BP ELEVATED, HR 130'S AVG. PT LETHARGIC, DIAPHORETIC. ST ELEVATION INCREASED. EKG DONE W/ LITTLE CHANGES TO PREVIOUS EKG. CALL PLACED TO SEARCH MARKETING ANALYST BERNARDA. MD MENCHACA WITH ORDERS FOR 100 MG PO METOPROLOL ONE TIME TO HELP BP/HR. STATES NOT CONCERNED W/ ST ELEVATION, STATES THAT IS AN INDICATION FOR PERICARDITIS. STATES HR IS LIKELY DUE TO PAIN AND GAVE INSTRUCTIONS TO GIVE PT'S PAIN MEDS.
[2022-03-26 04:35] LABS: BASOPHILS ABSOLUTE AUTO 0.06 K/mm3 (0.00-0.23); BASOPHILS PERCENT AUTO 0 % (0-2); EOSINOPHILS PERCENT AUTO 1 % (0-6); Hematocrit 30.5 % (37.0-53.0); Hemoglobin 9.7 g/dL (13.5-17.5); IMMATURE GRAN ABSOLUTE AUTO 0.11 K/mm3 (0.00-0.10); IMMATURE GRAN PERCENT AUTO 1 % (0-1); LYMPHOCYTES PERCENT AUTO 8 % (21-46); MONOCYTES PERCENT AUTO 9 % (4-13); Mean Corpuscular HGB 34.4 pg (26.0-34.0); Mean Corpuscular HGB Conc 31.8 g/dL (31.5-36.5); Mean Corpuscular Volume 108 fL (80-100); Mean Platelet Volume 10.8 fL (9.1-12.4); NEUTROPHILS ABSOLUTE AUTO 12.31 K/mm3 (1.96-9.15); NEUTROPHILS PERCENT AUTO 81 % (41-73); Platelet Count 386 K/mm3 (150-400); RDW Coefficient Variation 13.8 % (11.7-14.2); RDW Standard Deviation 55.1 fL (35.1-46.3); Red Blood Cell Count 2.82 M/mm3 (4.30-5.90); White Blood Cell Count 15.18 K/mm3 (4.00-11.30)
[2022-03-26 05:06] LABS: Albumin, Blood 2.8 g/dL (3.4-5.0); Anion Gap 13 mmol/L (6-16); Blood Urea Nitrogen 61 mg/dL (8-24); Bun/Creatinine Ratio 7.9 (12.0-20.0); CO2, Blood 29 mmol/L (21-32); Calcium, Blood 9.8 mg/dL (8.5-10.1); Chloride, Blood 91 mmol/L (98-108); Creatinine, Blood 7.69 mg/dL (0.60-1.20); Glomerular Filtration Rate 8 (60-); Glucose, Blood 136 mg/dL (70-99); Phosphorus, Blood 5.3 mg/dL (2.5-4.9); Potassium, Blood 4.6 mmol/L (3.5-5.5); Sodium, Blood 133 mmol/L (136-145)
--- NOTE | 2022-03-26 06:09 | NUR ---
SHIFT SUMMARY PT LETHARGIC, DROWSY. SP02>90% ON RA. BP ELEVATED, HR ELEVATED THIS SHIFT, SEE PREVIOUS NOTE. HR CURRENTLY AT 120'S AVG, FLUTTER. NO URINE OR BM THIS SHIFT. DENIED REPOSITIONING OFTEN. DENIED HALF HIS EVENING PILLS BUT DID AGREE TO TAKE SEIZURE MEDICATION AND BP MED. DID NOT REST WELL DURING NIGHT. CALL LIGHT IN REACH.
--- NOTE | 2022-03-26 08:30 | NUR ---
INITIAL ASSESSMENT: Patient is resting with his eyes closed, he awakens with verbal stimuli. He quickly falls back to sleep. He is able to tell me he is in the hospital, he does not know the date, he knows his birthday. He denies pain at this time. Heart rate continues to be in Atrial Flutter in the one teens. Pericardial drain continues to be in place with a gauze dressing and tegaderm covering, CDI. Drain emptied, 20cc red fluid removed into uresil drainage bag. LS CTA, Biox 99% on RA-patient is having periods of apnea, MD aware. BT+. PPP. Left hip surgical incision with aquacel dressing, CDI. VSS pt afebrle. Call light in reach. Patient taken down to dialysis.
--- NOTE | 2022-03-26 12:00 | NUR ---
Update: Patient arrived back from dialysis, per RN 1500 cc removed. He is more alert after dialysis he is awake with eyes open. VSS. Heart rate is still flutter in the 140s, PO Metoprolol given at this time-AM Meds held for somulence/safety. Pericardial drain emptied 25cc removed. Patient denies other needs at this time. Call light in reach.
--- NOTE | 2022-03-26 13:30 | NUR ---
Update: Patient is lethargic again. When he is not stimulated patient falls asleep and has apnec episodes-oxygen saturations drop down into the high 70s with apnea. Dr. Willis was rounding-she was wittness to one episode. RT called, Bi-Pap at bedside and ABG ordered. I also talked with MD regarding pts nutritional status, per the he has not had a good meal since his admission on night when he fell. Other VSS. Bi-pap in place for apnea.
[2022-03-26 14:25] LABS: PO2 Arterial 70.2 mmHg (80-100); pH Blood Arterial 7.51 (7.35-7.45)
--- NOTE | 2022-03-26 15:00 | NUR ---
Update: Narcan given per MD order, patient is more awake with brow furrowed. He is disoriented. Dr. Bowles at the bedside to evaluate the patient-see new orders. Patient had BM, he placed his hand in it and it is covered with stool. Pt cleaned up. He is awake with repositioning but falls back asleep quickly.
--- NOTE | 2022-03-26 18:43 | NUR ---
Summary: Patient has been lethargic intermittently t/o the shift, with a few alert moments. He does respond to verbal stimuli, but quickly falls back to sleep. HR has been flutter t/o the shift, rates were in the 140s after dialysis. HR came down after pts morning medications and has been running 90s to low 100s this afternoon. Blood pressure has been 130s-160s systolic. Pericardial drain emptied Q4 this shift, with a total of 65cc bloody drainiage removed. LS CTA, Biox is 100% when pt is not having apnea. Patient had periods of apnea this afternoon with oxygen saturations dropping down into the 70s with a good pleth-Dr. Willis was wittness to one apnec period. Dr. Bowles was consulted-see new orders. Pt has Bi-Pap at bedside as needed, he tolerated it well while asleep this afternoon. BT+, patient had 3 formed stools this shift. Patient has had poor PO intake since admission, plan to possibly place dobhoff if patient is not able to have adequate intake. Poor PO intake is due to patient falling asleep too quickly during meal and snack times. Per high man we will look for a transfer facility if we cannot get the pericardial drainage below 50cc for a 24 hour period. Charge nurse started to make calls to other facilities to find availbility-pt is on wait list at [facility] and [facility].
--- NOTE | 2022-03-26 21:37 | NUR ---
RN INFORMED MD MOE PT AMMONIA LEVEL AT BEDSIDE
--- NOTE | 2022-03-27 03:27 | NUR ---
PT SOMNELENT/LETHARGIC AT SHIFT CHANGE. SHIFT PROGRESSED PT ABLE TO HOLD CONVERSATION AND TAKE PO MEDICATION. DRAINED Q4 PERICARDICAL DRIAN W/16 mL AVERAGE BLOODY OUTPUT. Q2 TURNS PT TOLERATED. DENIES PAIN. [facility] CALLED FOR UPDATES AND REPORTED NO OPEN BED YET. WILL CONTINUE TO MONITOR AND CALL PERIODICALLY WITH UPDATES. PT LEFT LE STRENGTH DIMINISHED COMPARED TO RIGHT. PT RESTED OVERNIGHT AND OCCASIONALY TURNED SELF IN BED.
[2022-03-27 04:04] LABS: Hematocrit 27.2 % (37.0-53.0); Hemoglobin 8.7 g/dL (13.5-17.5)
[2022-03-27 04:19] LABS: Magnesium, Blood 2.7 mg/dL (1.6-2.4)
[2022-03-27 04:20] LABS: Albumin, Blood 2.8 g/dL (3.4-5.0); Anion Gap 12 mmol/L (6-16); Blood Urea Nitrogen 53 mg/dL (8-24); Bun/Creatinine Ratio 7.8 (12.0-20.0); CO2, Blood 32 mmol/L (21-32); Calcium, Blood 9.1 mg/dL (8.5-10.1); Chloride, Blood 91 mmol/L (98-108); Creatinine, Blood 6.76 mg/dL (0.60-1.20); Glomerular Filtration Rate 10 (60-); Glucose, Blood 149 mg/dL (70-99); Potassium, Blood 4.3 mmol/L (3.5-5.5); Sodium, Blood 135 mmol/L (136-145)
[2022-03-27 08:43] LABS: Albumin, Blood 2.7 g/dL (3.4-5.0); Albumin/Globulin Ratio 0.6 (0.8-1.8); Bilirubin, Direct 0.4 mg/dL (0.0-0.3); Bilirubin, Indirect 0.6 mg/dL (0.1-0.7); Globulin, Blood 4.6 g/dL (2.2-4.0); Total Protein, Blood 7.3 g/dL (6.4-8.2)
--- NOTE | 2022-03-27 10:15 | NUR ---
DURING HD TX PT C/O 10/10 CHEST PAIN AND WAS VERY AGGITATED. PT IN A-FLUTTER WITH A RATE OF [address] BENEDICT NOTIFIED AND ORDERS RECEIVED TO DISCONTINUE DIALYSIS TX AND REPORT TO BEDSIDE RN FOR FOLLOW UP WITH PRIMARY MD OR SALESPERSON TRAILERS AND MOTOR HOMES FOR FURTHER EVALUATION. TX TERMINATED AND BLOOD RETURNED. PT VERY TEAFULL AND CALLING OUT FOR HIS . REPORT GIVEN TO BEDSIDE RN AND PT RETURNED TO HIS RM. CALLED AND LET HER KNOW PT WAS REQUESTING HER.
--- NOTE | 2022-03-27 11:07 | NUR ---
DIALYSIS DURING HD TX PT C/O 07/21 CHEST PAIN AND WAS VERY AGGITATED. PT IN A-FLUTTER WITH A RATE OF [address] BENEDICT NOTIFIED AND ORDERS RECEIVED TO DISCONTINUE DIALYSIS TX AND REPORT TO BEDSIDE RN FOR FOLLOW UP WITH PRIMARY MD OR CUSTOMER SERVICE CLERK FOR FURTHER EVALUATION. TX TERMINATED AND BLOOD RETURNED. PT VERY TEAFULL AND CALLING OUT FOR HIS . REPORT GIVEN TO BEDSIDE RN AND PT RETURNED TO HIS RM. CALLED AND LET HER KNOW PT WAS REQUESTING HER.
[2022-03-27 14:21] LABS: Vancomycin, Random 26.7 ug/mL
[2022-03-27 14:41] LABS: SARS-Cov-2 (COVID-19) PCR, MMC NEGATIVE (NEGATIVE)
--- NOTE | 2022-03-27 15:20 | NUR ---
REPORT CALLED TO KAYLIE PETER AT [facility]
--- NOTE | 2022-03-27 15:44 | NUR ---
Pt off dialysis early due to poor tolerance. pr reating very somulent grimacing and struggles to answer questions and track conversation. at bedside they are awaiting plan of caare and to see if they will transfer. review of pt with dialysis nurse and marianadie Rn. Pt kPS score is 30%. He has apolst on file that states full treatment except blood. Will see waht physician plan is. If pt declines any further will review with physcians if hospice is appropriate.
--- NOTE | 2022-03-27 16:30 | NUR ---
PT OTD WITH EMS CREW AND FAMILY
== END 2022-03-27 16:40 | disposition short-term general hospital (02) | DRG 480 ==
LOC: ER 11:00 → PCU 16:12 → SURS 16:12 → PCU 03-21 15:10
PROVIDERS: Internal Medicine; Internal Medicine Nephrology; Orthopaedic Surgery; Physician Assistant; ADMIT Internal Medicine
PROC: 5A1D70Z Performance of Urinary Filtration, Intermittent, Less than 6 Hours Per Day (ICD-10-PCS; 2022-03-20)
PROC: 0QS736Z Reposition Left Upper Femur with Intramedullary Internal Fixation Device, Percutaneous Approach (ICD-10-PCS; principal; 2022-03-21 12:30)
PROC: 0W9D3ZZ Drainage of Pericardial Cavity, Percutaneous Approach (ICD-10-PCS; 2022-03-24)
DX: S72.142A Displaced intertrochanteric fracture of left femur, initial encounter for closed fracture (principal); N18.6 End stage renal disease; I48.92 Unspecified atrial flutter; G93.40 Encephalopathy, unspecified; N25.81 Secondary hyperparathyroidism of renal origin; E87.1 Hypo-osmolality and hyponatremia; T86.12 Kidney transplant failure; N02.8 Recurrent and persistent hematuria with other morphologic changes; I32 Pericarditis in diseases classified elsewhere; Z20.822 Contact with and (suspected) exposure to COVID-19; I95.9 Hypotension, unspecified; D63.1 Anemia in chronic kidney disease; E88.09 Other disorders of plasma-protein metabolism, not elsewhere classified; Z78.1 Physical restraint status; G40.909 Epilepsy, unspecified, not intractable, without status epilepticus; E87.5 Hyperkalemia; E83.39 Other disorders of phosphorus metabolism; I10 Essential (primary) hypertension; E11.9 Type 2 diabetes mellitus without complications; E11.42 Type 2 diabetes mellitus with diabetic polyneuropathy; K21.9 Gastro-esophageal reflux disease without esophagitis; Z99.2 Dependence on renal dialysis; Z86.73 Personal history of transient ischemic attack (TIA), and cerebral infarction without residual deficits; Z79.82 Long term (current) use of aspirin; Z79.02 Long term (current) use of antithrombotics/antiplatelets; Z79.4 Long term (current) use of insulin; Z79.899 Other long term (current) drug therapy; W18.30XA Fall on same level, unspecified, initial encounter
CPT/HCPCS: 33016; 36415; 36600; 70450; 71045; 73502; 73700; 80053; 80069; 80076; 80164; 80202; 82140; 82803; 82947; 83605; 83735; 84132; 84145; 84443; 84484; 85014; 85018; 85025; 85027; 86141; 87040; 87070; 87205; 87340; 88108; 88305; 93005; 93010; 93308; 93321; 94762; 96374; 96376; 97110; 97163; 99285-25; A9270; C1713; C1769; C1894; J0690; J1100; J1170; J1642; J1644; J2060; J2250; J2310; J2370; J2405; J2543; J2704; J2795; J3010; J3360; J3370; J7030; J7040; J7060; J7507; P9046; U0004

== ENCOUNTER 2022-05-28 03:38 | Inpatient (IN) | payer MEDICARE, BC ==
[~2022-05-28] VITALS: Ht 188 cm; Wt 77.6 kg
[2022-05-28 03:59] LABS: Base Excess Venous 0 mmol/L; Bicarbonate Venous 24.2 mmol/L (24.0-30.0); PCO2 Venous 47.6 mmHg (38-42); pH Blood Venous 7.34 (7.34-7.37)
[2022-05-28 04:00] LABS: BASOPHILS ABSOLUTE AUTO 0.09 K/mm3 (0.00-0.23); BASOPHILS PERCENT AUTO 1 % (0-2); EOSINOPHILS ABSOLUTE AUTO 0.33 K/mm3 (0.00-0.68); EOSINOPHILS PERCENT AUTO 2 % (0-6); Hematocrit 27.9 % (37.0-53.0); Hemoglobin 8.3 g/dL (13.5-17.5); IMMATURE GRAN ABSOLUTE AUTO 0.12 K/mm3 (0.00-0.10); IMMATURE GRAN PERCENT AUTO 1 % (0-1); LYMPHOCYTES ABSOLUTE AUTO 1.86 K/mm3 (0.84-5.20); LYMPHOCYTES PERCENT AUTO 11 % (21-46); MONOCYTES ABSOLUTE AUTO 1.14 K/mm3 (0.16-1.47); MONOCYTES PERCENT AUTO 7 % (4-13); Mean Corpuscular HGB 32.9 pg (26.0-34.0); Mean Corpuscular HGB Conc 29.7 g/dL (31.5-36.5); Mean Corpuscular Volume 111 fL (80-100); Mean Platelet Volume 9.4 fL (9.1-12.4); NEUTROPHILS ABSOLUTE AUTO 13.82 K/mm3 (1.96-9.15); NEUTROPHILS PERCENT AUTO 80 % (41-73); Platelet Count 408 K/mm3 (150-400); RDW Coefficient Variation 17.2 % (11.7-14.2); RDW Standard Deviation 70.4 fL (35.1-46.3); Red Blood Cell Count 2.52 M/mm3 (4.30-5.90); White Blood Cell Count 17.36 K/mm3 (4.00-11.30)
[2022-05-28 04:23] LABS: Magnesium, Blood 2.1 mg/dL (1.6-2.4)
[2022-05-28 04:24] LABS: Alanine Aminotransfer (ALT/SGP <6 U/L (12-78); Albumin, Blood 2.2 g/dL (3.4-5.0); Albumin/Globulin Ratio 0.4 (0.8-1.8); Alk Phos 100 U/L (50-136); Anion Gap 8 mmol/L (6-16); Aspartate Aminotrans (AST/SGOT 15 U/L (12-37); Bilirubin, Direct 0.1 mg/dL (0.0-0.3); Bilirubin, Indirect 0.4 mg/dL (0.1-0.7); Bilirubin, Total 0.5 mg/dL (0.1-1.0); Blood Urea Nitrogen 34 mg/dL (8-24); Bun/Creatinine Ratio 7.6 (12.0-20.0); CO2, Blood 27 mmol/L (21-32); Calcium, Blood 8.7 mg/dL (8.5-10.1); Chloride, Blood 100 mmol/L (98-108); Creatinine, Blood 4.48 mg/dL (0.60-1.20); Globulin, Blood 5.6 g/dL (2.2-4.0); Glomerular Filtration Rate 16 (60-); Glucose, Blood 117 mg/dL (70-99); Potassium, Blood 4.5 mmol/L (3.5-5.5); Sodium, Blood 135 mmol/L (136-145); Total Protein, Blood 7.8 g/dL (6.4-8.2)
[2022-05-28 06:02] LABS: Influenza A, PCR NEGATIVE (NEGATIVE); Influenza B, PCR NEGATIVE (NEGATIVE); Resp Syncytial Virus, PCR NEGATIVE (NEGATIVE); SARS-Cov-2 (COVID-19) PCR, MMC NEGATIVE (NEGATIVE)
[2022-05-28 06:21] LABS: CPK Creatine Kinase 37 U/L (39-308)
--- NOTE | 2022-05-28 07:51 | NUR ---
PT ADMITTED TO ICU FROM ER AT 0719 FOR FLASH PULM EDEMA. PT ARRIVED ON BIPAP 25/05 65% FIO2. SATS 100%. CRACKLES T/O. COARSE TO UPPER LOBES. PT RESP RATE LOW 30'S. PT HTN W NTG GTT AT 125MCG FOR BP CONTROL. DR BENEDICT NOTIFIED, HD RN CALLED. PT IS SCHEDULED TO HAVE HD THIS AM. PT DROWSY, IRRITABLE, AWAKENS TO VOICE AND ANSWERS QUESTIONS, THEN FALLS BACK TO SLEEP QUICKLY.
[2022-05-28] MEDS ORDERED: CATAPRES-TTS 31 EAC2 TOP (10:25)
[2022-05-28] MEDS ORDERED: FERSU300 PO (10:31)
[2022-05-28] MEDS ORDERED: HUMALOG KW100 UNIT/1 SC (10:34)
[2022-05-28] MEDS ORDERED: INSULIN GL100 UNIT/3 SC (10:37)
[2022-05-28] MEDS ORDERED: HYDRA50 PO (10:38)
[2022-05-28] MEDS ORDERED: Isosorbide Mono30 MG PO (10:39)
[2022-05-28] MEDS ORDERED: NIFE30ER PO (10:41)
[2022-05-28] MEDS ORDERED: PRED5 PO (10:44)
[2022-05-28] MEDS ORDERED: PANT40 PO (10:44)
[2022-05-28] MEDS ORDERED: TACR1 PO (10:45)
[2022-05-28] MEDS ORDERED: SPIR50 PO (10:45)
[2022-05-28] MEDS ORDERED: Diovan320 MG PO (10:46)
[2022-05-28] MEDS ORDERED: ONDA4ODT MM (10:47)
--- NOTE | 2022-05-28 10:57 | NUR ---
DR RIVAS CALLED THIS AM AND GIVEN UPDATE. 10/13 AMP D50 GIVEN FOR BS 67, REPEAT BS 106. PT REMAINS DROWSY. ECHO COMPLETED. HD IN PROGRESS, 2L HAS BEEN TAKEN OFF SO FAR, BP STARTING TO COME DOWN. NTG REMAINS AT 125MCG. PT'S AT BEDSIDE STATES MEDS APPEAR DIFF. FROM [facility] MEDS. PT'S STATES SHE DOESNT THINK HE IS ON ANY BLOOD THINNERS D/T BLEED POST PEG PLACEMENT. MEDS UPDATED PER [facility] RECORDS, MEDS ARE DIFF. WILL NOTIFY DR RIVAS, WILL HOLD MEDS UNTIL MEDS ARE CONFIRMED W . INSULIN HELD THIS AM FOR LOW BS, PT ALSO NPO AND REMAINS ON BIPAP.
--- NOTE | 2022-05-28 11:45 | NUR ---
ISTRATE IN TO SEE PT. SCD'S ORDERED, PT REFUSED, DR AWARE. MEDS TO BE UPDATED. NTG TITRATED DOWN TO 100MCG.
[2022-05-28 12:17] LABS: CPK Creatine Kinase 64 U/L (39-308)
--- NOTE | 2022-05-28 12:59 | NUR ---
BIPAP REMOVED FOR BREAK, O2 PLACED AT 2L. PT STATES SOB IMPROVED, LUNGS SOUNDS IMPROVED. 4L OFF W DIALYSIS. CRITICAL TROPONIN CALLED TO DR RIVAS, REPEAT LABS ORDERED. PT SLEEPING NOW, APPEARS COMFORTABLE.
--- NOTE | 2022-05-28 16:44 | NUR ---
SHIFT UPDATE: BIPAP MASK TAKEN OFF FOR A BREAK, PT PUT ON NC WITH 2 L OXYGEN GOING. PT IS SLEEPING IN BED AND OXYGEN LEVELS ARE MAINTAINING 90<. TUBE FEEDINGS WERE STARTED BY SEBAS PETER AND ARE A CONTINUOUS FEED AT A RATE OF 25 MLS/HR WITH A GOAL RATE OF 35 MLS/HR. WILL CONTINUE TO MONITOR THROUGHOUT SHIFT.
--- NOTE | 2022-05-28 18:26 | NUR ---
SHIFT SUMMARY: PT IS ALERT AND ORIENTED. THE PT HAS SOME CONFUSSION ABOUT THE EVENTS THAT LED HIM TO THE HOSPITAL LAST NIGHT, BUT IS ABLE TO RECALL EVENTS UP UNTIL THAT POINT. THE PT IS CURRENTLY OFF THE BIPAP SINCE 1445 AND IS ON 2 L OXYGEN VIA NC. THE PT IS MAINTAINING OXYGEN LEVELS 96< AND RR 18-20. THE PT IS IN SR WITH HR IN THE 90'S AND SBP IN THE 170'S. THE NITROGLYERIN DRIP IS ON STANDBY AT THE MOMENT AND PO HTN MEDS WERE GIVEN THIS AFTERNOON. THE PT ALSO HAS A CLONIDINE PATCH PLACED THIS AFTERNOON ON THE R. UPPER CHEST REGION. THE PT HAS BEEN SLEEPING ON AND OFF ALL DAY. THE PATIENT RECENTLY HAS COMPLAINTS OF PAIN IN HIS LOWER BACK THAT HE DESCRIBES " A CONSTANT AND ACHINGN PAIN." THE PT MEDICATED PER EMAR. THE PT HAS TUBE FEEDING ON CONTINUOUS FEED WITH A RATE OF 25 MLS/HR. THE PT HAS PRODUCED NO URINE THIS SHIFT, BUT STATES THAT HE DOESNT PRODUCE MUCH URINE AT BASELINE R/T ESRD. THE PT HAD DIALYSIS PERFORMED EARLIER THIS MORNING AND 4 LITERS OF FLUID WAS TAKEN OFF. THE PT TOLERATED THIS WELL. THE PT'S , JONAS, IS AT BEDSIDE AT THE MOMENT AND HAS BEEN UPDATED ON THE PT'S STATUS AND ALL QUESTIONS HAVE BEEN ANSWERED AT THIS TIME. THIS SHIFT THE PT HAS REFUSED REPOSITIONING, SO HE HAS REMAINED ON HIS BACKSIDE THIS SHIFT. THERE IS AN ORDER FOR SCD'S, BUT THE PT REFUSED PLACEMENT, PROVIDER NOTIFIED. WILL CONTINUE TO MONITOR TILL ONCOMING RN ARRIVES.
--- NOTE | 2022-05-28 19:15 | NUR ---
ASSUMED CARE/EKG PATIENT IS LYING IN BED WITH AT BEDSIDE. PATIENT TRACKS TO SOUND AND FOLLOWS COMMANDS WITH FLAT AFFECT AND WITHDRAWN. NS TKO INF TO RT WRIST PIV-STOPPED THIS INFUSION UPON ASSUMING CARE. NEPRO TF INF @ 25ML/HR TO PEG TUBE WITH GR 35ML/HR. CELL PHONE IN ON BEDSIDE TABLE CHARGING, PLAYING OCEAN SOUNDS. EKG COMPLETED UPON ASSUMING CARE WHICH SHOWED NEW T WAVE INVERSION IN LEADS V4 AND V5. PATIENT DENIED CP AND SOB. DR. FONTENOT NOTIFIED-CARDIOLOGY CONSULT ORDERED AND CALLED, HEPARIN GTT ORDERED. PENDING APTT AND PT. REPORT RECEVIED FROM ROME HANSON AND ROME MULLEN.
[2022-05-28 20:58] LABS: International Normalized Ratio 1.28; Prothrombin Time Results 13.2 Sec (9.7-11.5)
[2022-05-29 03:57] LABS: BASOPHILS ABSOLUTE AUTO 0.04 K/mm3 (0.00-0.23); BASOPHILS PERCENT AUTO 1 % (0-2); EOSINOPHILS ABSOLUTE AUTO 0.21 K/mm3 (0.00-0.68); EOSINOPHILS PERCENT AUTO 3 % (0-6); Hematocrit 22.5 % (37.0-53.0); Hemoglobin 6.9 g/dL (13.5-17.5); IMMATURE GRAN ABSOLUTE AUTO 0.03 K/mm3 (0.00-0.10); IMMATURE GRAN PERCENT AUTO 1 % (0-1); LYMPHOCYTES ABSOLUTE AUTO 1.26 K/mm3 (0.84-5.20); LYMPHOCYTES PERCENT AUTO 20 % (21-46); MONOCYTES ABSOLUTE AUTO 0.73 K/mm3 (0.16-1.47); MONOCYTES PERCENT AUTO 12 % (4-13); Mean Corpuscular HGB 33.3 pg (26.0-34.0); Mean Corpuscular HGB Conc 30.7 g/dL (31.5-36.5); Mean Corpuscular Volume 109 fL (80-100); Mean Platelet Volume 9.8 fL (9.1-12.4); NEUTROPHILS ABSOLUTE AUTO 4.09 K/mm3 (1.96-9.15); NEUTROPHILS PERCENT AUTO 64 % (41-73); Platelet Count 270 K/mm3 (150-400); RDW Coefficient Variation 16.5 % (11.7-14.2); RDW Standard Deviation 66.4 fL (35.1-46.3); Red Blood Cell Count 2.07 M/mm3 (4.30-5.90); White Blood Cell Count 6.36 K/mm3 (4.00-11.30)
[2022-05-29 04:33] LABS: Magnesium, Blood 2.2 mg/dL (1.6-2.4)
[2022-05-29 04:40] LABS: Alanine Aminotransfer (ALT/SGP <6 U/L (12-78); Albumin/Globulin Ratio 0.4 (0.8-1.8); Alk Phos 83 U/L (50-136); Anion Gap 7 mmol/L (6-16); Aspartate Aminotrans (AST/SGOT 23 U/L (12-37); Bilirubin, Total 0.5 mg/dL (0.1-1.0); Blood Urea Nitrogen 34 mg/dL (8-24); CO2, Blood 30 mmol/L (21-32); Calcium, Blood 8.7 mg/dL (8.5-10.1); Chloride, Blood 97 mmol/L (98-108); Creatinine, Blood 4.88 mg/dL (0.60-1.20); Globulin, Blood 4.7 g/dL (2.2-4.0); Glomerular Filtration Rate 14 (60-); Glucose, Blood 85 mg/dL (70-99); Phosphorus, Blood 4.4 mg/dL (2.5-4.9); Potassium, Blood 4.1 mmol/L (3.5-5.5); Sodium, Blood 134 mmol/L (136-145); Total Protein, Blood 6.7 g/dL (6.4-8.2)
--- NOTE | 2022-05-29 05:31 | NUR ---
SHIFT SUMMARY PATIENT SLEPT THROUGH MOST OF SHIFT AND DENIED PAIN. HEPARIN STARTED AT 15UNITS/KG/HR PER PHARMACY AND REMAINS AT THIS RATE. PATIENT DOES NOT REMEMBER BEING AT BEDSIDE AT BEGINNING OF SHIFT, BUT IS STILL A&O X 4. NO RESPIRATORY DISTRESS OR HYPOXIA-2L NC IN PLACE WITH NO BIPAP USE DURING THE NIGHT. PG PLACED TO MARGA AND BP CUFF MOVED TO RT LEG. PATIENT REMAINS HYPERTENSIVE. NO URINE OUTPUT AND NO BM THIS SHIFT. PATIENT REQUESTED CHEERIOS-TOTAL INTAKE OF 2 BOWLS OF CHEERIOS WITH 1 CARTON OF MILK, TOLERATED WELL. TF INCREASED TO GR 35ML/HR-TOLERATING WELL WITH NO NAUSEA, VOMITING, OR ABD PAIN. MORNING LABS SHOWED A CRITICAL TROPONIN OF 2183-IMPROVED FROM PREVIOUS RESULT. CARDIOLOGY CONSULTED AND CALLED AT BEGINNING OF SHIFT. HGB LOW AT 6.9 WITH NO SIGNS OR SYMPTOMS OF BLEEDING-PATIENT DECLINES BLOOD TRANSFUSIONS, NO CALL MADE TO . BNP REMAINS UNCHANGED AT >4968. NO OTHER CHANGES DURING SHIFT.
[2022-05-29 07:33] LABS: Ferritin, Serum 1785 ng/mL (26-388); Iron Serum 21 ug/dL (65-175)
[2022-05-29 07:41] LABS: Vancomycin, Random 16.3 ug/mL
--- NOTE | 2022-05-29 08:05 | NUR ---
CARE OF PT ASSUMED AT 0700. PT SLEEPING, AWAKENS TO VOICE, DENIES COMPLAINTS. PT'S AT BEDSIDE. HEPARIN INFUSING AT 15UNITS. NTG REMAINS OFF. SATS 99% ON 2L VIA N/C. DR NICOLAS IN THIS AM TO SEE PT. PT TO BE NPO FOR POSSIBLE CLINICAL SCIENCE CONSULTANT THIS AM.
--- NOTE | 2022-05-29 12:25 | NUR ---
PT TO RUG MEASURER
--- NOTE | 2022-05-29 14:12 | NUR ---
PT BACK FROM SILICA MIXER OPERATOR, S/P ONE STENT TO RCA. TR BAND TO RIGHT RADIAL ART. CIRC CHECK WNL. VSS. PT DENIES COMPLAINTS. 12CC AIR TO BAND, BAND PLACED AT 1400. HEPARIN GTT DC'D.
--- NOTE | 2022-05-29 15:53 | NUR ---
BLOOD ORDERED, DR SMITHTRATE NOTIFIED THAT PT IS J.V. BLOOD CANCELLED.
--- NOTE | 2022-05-29 17:56 | NUR ---
AIR REMOVED FROM TR BAND STARTING AT 1600, 2 CC REMOVED Q 5MIN. AREA WITHOUT SWELLING, HEMATOMA, BLEEDING. CIRC CHECK REMAINS WNL.
--- NOTE | 2022-05-29 21:42 | NUR ---
ASSUMED CARE OF PATIENT AT 2020. PATIENT RESTING COMFORTABLY IN BED. NO COMPLAINTS OF PAIN AT THIS TIME. RIGHT RADIAL SITE WNL. NO TENDERNESS OR BRUISING. NEDA JUAN RN
--- NOTE | 2022-05-30 03:57 | NUR ---
UNABLE TO MAINTAIN PT BP BELOW SBP 170'S DESPITE PRN MEDICATIONS. PATIENT STATES THIS IS HIS BASELINE AND HE SUSATAINS HIGH BP ON AN EVERY DAY BASIS.
[2022-05-30 04:43] LABS: BASOPHILS ABSOLUTE AUTO 0.01 K/mm3 (0.00-0.23); BASOPHILS PERCENT AUTO 0 % (0-2); EOSINOPHILS ABSOLUTE AUTO 0.14 K/mm3 (0.00-0.68); EOSINOPHILS PERCENT AUTO 3 % (0-6); Hematocrit 22.3 % (37.0-53.0); Hemoglobin 6.6 g/dL (13.5-17.5); IMMATURE GRAN ABSOLUTE AUTO 0.01 K/mm3 (0.00-0.10); IMMATURE GRAN PERCENT AUTO 0 % (0-1); LYMPHOCYTES ABSOLUTE AUTO 0.98 K/mm3 (0.84-5.20); LYMPHOCYTES PERCENT AUTO 19 % (21-46); MONOCYTES ABSOLUTE AUTO 0.76 K/mm3 (0.16-1.47); MONOCYTES PERCENT AUTO 15 % (4-13); Mean Corpuscular HGB 31.9 pg (26.0-34.0); Mean Corpuscular HGB Conc 29.6 g/dL (31.5-36.5); Mean Corpuscular Volume 108 fL (80-100); Mean Platelet Volume 9.9 fL (9.1-12.4); NEUTROPHILS ABSOLUTE AUTO 3.27 K/mm3 (1.96-9.15); NEUTROPHILS PERCENT AUTO 63 % (41-73); Platelet Count 264 K/mm3 (150-400); RDW Coefficient Variation 16.2 % (11.7-14.2); RDW Standard Deviation 64.4 fL (35.1-46.3); Red Blood Cell Count 2.07 M/mm3 (4.30-5.90); White Blood Cell Count 5.17 K/mm3 (4.00-11.30)
[2022-05-30 05:04] LABS: Anion Gap 8 mmol/L (6-16); Blood Urea Nitrogen 45 mg/dL (8-24); Bun/Creatinine Ratio 7.6 (12.0-20.0); CO2, Blood 28 mmol/L (21-32); Calcium, Blood 8.5 mg/dL (8.5-10.1); Chloride, Blood 97 mmol/L (98-108); Creatinine, Blood 5.92 mg/dL (0.60-1.20); Glomerular Filtration Rate 11 (60-); Glucose, Blood 93 mg/dL (70-99); Magnesium, Blood 2.4 mg/dL (1.6-2.4); Phosphorus, Blood 5.1 mg/dL (2.5-4.9); Potassium, Blood 4.4 mmol/L (3.5-5.5); Sodium, Blood 133 mmol/L (136-145)
--- NOTE | 2022-05-30 06:54 | NUR ---
SHIFT SUMMARY PATIENT RESTING THROUGHOUT SHIFT. INTERMITTENT COMPLAINTS OF DISCOMFORT. REFUSED REPOSITIONING. LUNGS CLEAR, 2LNC. EXTREMELY HYPERTENSIVE THROGHOUT SHIFT BUT ASYMPTOMATIC. NO EFFECT FROM PRN MEDICATIONS FOR BP.
--- NOTE | 2022-05-30 07:49 | NUR ---
ASSUMPTION OF CARE RECEIVED REPORT FROM VINH PETER AT 0705, ASSUMED CARE OF PATIENT. PATIENT IN BED ON LEFT SIDE, EYES CLOSED. EASILY AWOKE, CBG CHECKED. PATIENT WENT BACK TO SLEEP. STABLE VITALS ON ROOM AIR. TF INFUSING AT 35ML/HR. WRIST IMMOBILIZER TO RIGHT WRIST. WILL REVIEW ORDERS AND TREAT PRESCRIBED.
--- NOTE | 2022-05-30 09:20 | NUR ---
BLOOD PRESSURE HYPERTENSION NOTED, REVIEWED WITH DIALYSIS NURSE OVER PHONE AT 0745. HYDRALAZINE GIVEN, NO RESULTS. LEBETOLOL IV GIVEN, SBP IN 180'S AFTER ADMINISTRATION. ESTRADA CATH LAB NURSE TO BEDSIDE AT THIS TIME, REVIEWED B/P.WILL CONTINUE TO HOLD PO MEDICATIONS UNTIL DIALYSIS IS RUNNING.
[2022-05-30 12:33] LABS: Vancomycin, Random 19.1 ug/mL
--- NOTE | 2022-05-30 13:29 | NUR ---
NAUSEA DIALYSIS COMPLETED AT 1230, RN ATTEMPTED TO GIVE AM PO MEDICATIONS. PATIENT DECLINED STATING HE WAS NAUSEOUS AND COULD NOT TOLERATE HIS PO MEDICATIONS. ZOFRAN GIVEN. MEDICATED WITH PRN ANTIHYPERTENSIVE. AT 1315 PATIENT ATE A YOGURT BUT CONTINUED TO STATE HE WAS TOO NAUSEOUS FOR MEDICATIONS. WILL CONTINUE TO HOLD PO MEDICATIONS AT THIS TIME.
--- NOTE | 2022-05-30 18:20 | NUR ---
SHIFT SUMMARY PATIENT NAUSEOUS, DROWSY THROUGH DAY. DECLINED PO MEDICATIONS, FREQUENTLY OFFERED AND REASSESSED. DIALYSIS COMPLETED AT BEDSIDE WITH 3.5L REMOVED. HYPERTENSION THROUGH SHIFT, MEDICATED WITH IV ANTIHYPERTENSIVES CHARTED. TF INFUSING CONTINUOUSLY VIA PEG TUBE AT 35ML/HR GOAL RATE. REMAINS ON ROOM AIR WITH SP02 ABOVE 95%. WILL REPORT TO ONCOMING RN.
--- NOTE | 2022-05-30 21:51 | NUR ---
DR. ELLSWORTH NOTIFIED CRITICAL LAB AND HIGH BP - NO NEW ORDERS
--- NOTE | 2022-05-30 22:37 | NUR ---
DR. ELLSWORTH UPDATED POST PRN BP - NITRO DRIP ORDERED.
[2022-05-31 03:53] LABS: BASOPHILS ABSOLUTE AUTO 0.02 K/mm3 (0.00-0.23); BASOPHILS PERCENT AUTO 1 % (0-2); EOSINOPHILS ABSOLUTE AUTO 0.16 K/mm3 (0.00-0.68); EOSINOPHILS PERCENT AUTO 4 % (0-6); Hemoglobin 6.2 g/dL (13.5-17.5); IMMATURE GRAN ABSOLUTE AUTO 0.01 K/mm3 (0.00-0.10); IMMATURE GRAN PERCENT AUTO 0 % (0-1); LYMPHOCYTES ABSOLUTE AUTO 1.02 K/mm3 (0.84-5.20); LYMPHOCYTES PERCENT AUTO 26 % (21-46); MONOCYTES ABSOLUTE AUTO 0.72 K/mm3 (0.16-1.47); MONOCYTES PERCENT AUTO 18 % (4-13); Mean Corpuscular HGB 32.1 pg (26.0-34.0); Mean Corpuscular HGB Conc 29.5 g/dL (31.5-36.5); Mean Corpuscular Volume 109 fL (80-100); Mean Platelet Volume 9.8 fL (9.1-12.4); NEUTROPHILS ABSOLUTE AUTO 2.05 K/mm3 (1.96-9.15); NEUTROPHILS PERCENT AUTO 52 % (41-73); Platelet Count 229 K/mm3 (150-400); RDW Coefficient Variation 16.3 % (11.7-14.2); RDW Standard Deviation 64.8 fL (35.1-46.3); Red Blood Cell Count 1.93 M/mm3 (4.30-5.90); White Blood Cell Count 3.98 K/mm3 (4.00-11.30)
[2022-05-31 04:10] LABS: Albumin, Blood 1.9 g/dL (3.4-5.0); Anion Gap 7 mmol/L (6-16); Blood Urea Nitrogen 27 mg/dL (8-24); Bun/Creatinine Ratio 6.3 (12.0-20.0); CO2, Blood 31 mmol/L (21-32); Calcium, Blood 8.2 mg/dL (8.5-10.1); Chloride, Blood 98 mmol/L (98-108); Creatinine, Blood 4.28 mg/dL (0.60-1.20); Glomerular Filtration Rate 17 (60-); Glucose, Blood 206 mg/dL (70-99); Magnesium, Blood 2.2 mg/dL (1.6-2.4); Phosphorus, Blood 3.4 mg/dL (2.5-4.9); Potassium, Blood 3.8 mmol/L (3.5-5.5); Sodium, Blood 136 mmol/L (136-145)
[2022-05-31 06:11] LABS: HBSAG SCREEN Negative (Negative)
--- NOTE | 2022-05-31 06:16 | NUR ---
PT RESTED OVERNIGHT. DENIES PAIN OR DISCOMFORT. ON NITRO DRIP FOR SYSTOLIC GOAL <160. TF AT GOAL. ANURIC ON DIALYSIS. DECLINED TURNS. MAKE NEEDS KNOWN W/CALL LIGHT.
--- NOTE | 2022-05-31 07:21 | NUR ---
ASSUME CARE: I have assumed care of this patient.
--- NOTE | 2022-05-31 09:39 | NUR ---
MEDICATIONS: pt declines to take PO medications this morning stating he is nauseated. Pt offered zofran but declines this as well.
--- NOTE | 2022-05-31 12:58 | NUR ---
UPDATE: Istrate called and notified of pt's continued nausea. Pt continues to decline oral mediactions due to this nausea. RN has discussed giving meds per tube, pt declines. Telephone order for reglan and promethazine
--- NOTE | 2022-05-31 18:19 | NUR ---
SHIFT SUMMARY: NEURO: pt alert and oriented x 4. he has generalized weak that is worse in his BLE. pt transferred into chair from bed using walker with two person max assist. Up in chair for about two hours today. AM medications were delayed several hours this morning due to nausea. Pt's states he often wakes up nauseated and will vomit up meds sometimes. PRN zofran and reglan given with good effect. CARDIAC: cardizem currently on SB after pt was able to take home meds down Gtube. Monitor SR RESPIRATORY: CTA on RA GI/: anuria. pt transferred to commode, but no BM. Tube feeds running at goal rate PSYCH/SOCIAL: flat affect. spouse at bedside and is both encouraging and very helpful
--- NOTE | 2022-05-31 19:17 | NUR ---
PT RESTING IN RECLINER CHEWING ON BP CUFF. BECAME VERBALLY AGGRESSIVE WHEN NURSING APPROCHED FOR SHIFT ASSESSMENT. REFUSING CARE, REFUSING TO TRANSITION BACK TO BED AND BIPAP
[2022-06-01 04:22] LABS: BASOPHILS ABSOLUTE AUTO 0.05 K/mm3 (0.00-0.23); BASOPHILS PERCENT AUTO 1 % (0-2); EOSINOPHILS ABSOLUTE AUTO 0.11 K/mm3 (0.00-0.68); EOSINOPHILS PERCENT AUTO 3 % (0-6); Hematocrit 22.1 % (37.0-53.0); Hemoglobin 6.6 g/dL (13.5-17.5); IMMATURE GRAN ABSOLUTE AUTO 0.03 K/mm3 (0.00-0.10); IMMATURE GRAN PERCENT AUTO 1 % (0-1); LYMPHOCYTES ABSOLUTE AUTO 1.08 K/mm3 (0.84-5.20); LYMPHOCYTES PERCENT AUTO 26 % (21-46); MONOCYTES ABSOLUTE AUTO 0.85 K/mm3 (0.16-1.47); MONOCYTES PERCENT AUTO 21 % (4-13); Mean Corpuscular HGB Conc 29.9 g/dL (31.5-36.5); Mean Corpuscular Volume 107 fL (80-100); Mean Platelet Volume 10.1 fL (9.1-12.4); NEUTROPHILS ABSOLUTE AUTO 1.98 K/mm3 (1.96-9.15); NEUTROPHILS PERCENT AUTO 48 % (41-73); Platelet Count 224 K/mm3 (150-400); RDW Coefficient Variation 15.4 % (11.7-14.2); Red Blood Cell Count 2.06 M/mm3 (4.30-5.90)
[2022-06-01 04:51] LABS: Magnesium, Blood 2.3 mg/dL (1.6-2.4)
[2022-06-01 05:10] LABS: Alanine Aminotransfer (ALT/SGP <6 U/L (12-78); Albumin/Globulin Ratio 0.4 (0.8-1.8); Alk Phos 71 U/L (50-136); Anion Gap 6 mmol/L (6-16); Aspartate Aminotrans (AST/SGOT 13 U/L (12-37); Bilirubin, Direct 0.2 mg/dL (0.0-0.3); Bilirubin, Indirect 0.2 mg/dL (0.1-0.7); Bilirubin, Total 0.4 mg/dL (0.1-1.0); Blood Urea Nitrogen 34 mg/dL (8-24); Bun/Creatinine Ratio 6.3 (12.0-20.0); CO2, Blood 30 mmol/L (21-32); Calcium, Blood 8.5 mg/dL (8.5-10.1); Chloride, Blood 100 mmol/L (98-108); Creatinine, Blood 5.36 mg/dL (0.60-1.20); Globulin, Blood 4.8 g/dL (2.2-4.0); Glomerular Filtration Rate 13 (60-); Glucose, Blood 90 mg/dL (70-99); Phosphorus, Blood 3.3 mg/dL (2.5-4.9); Potassium, Blood 4.6 mmol/L (3.5-5.5); Sodium, Blood 136 mmol/L (136-145); Total Protein, Blood 6.8 g/dL (6.4-8.2)
--- NOTE | 2022-06-01 06:05 | NUR ---
NEURO INTACT. NICARDIPINE RESTARTED AND TITRATED TO STANDBY TOLERATED. PT SYSTOLIC RISES WHILE AWAKE. INCONTINENT OF URINE X2. TF AT GOAL. TOLERATING PO WELL. DENIES PAIN OR DISCOMFORT. TURNS SELF DECLINE ASSIST. PT EXPRESSED WANTING TO GO HOME BUT AGREED TO WAIT TILL DAYSHIFT.
--- NOTE | 2022-06-01 07:08 | NUR ---
ASSUME CARE: I have assumed care of this patient.
--- NOTE | 2022-06-01 10:18 | NUR ---
Supportive visit this AM. Spoke with Primary RN Violeta and discussed case. Pt's nausea has improved since yesterday with Pt taking his home medications this AM. Pt resting in bed with his eyes closed and snoring. Pt receiving dialysis during visit. Spouse Sussy at bedside. Offered active listening and validated concerns. Sussy expresses concerns regarding Pt's stay at [facility] this last time. She reports facility was not equiped for his continuous tube feedings and did not have feeding pump. She is requesting facility receive pump if Pt returns to [facility]. Continued active listening. Sussy expresses appreciation and reports no other immediate concerns at this time. Palliative Care will F/U for therapeutic visits as needed.
[2022-06-01 12:08] LABS: Vancomycin, Random 7.2 ug/mL
--- NOTE | 2022-06-01 18:53 | NUR ---
SHIFT SUMMARY: NEURO: pt awake and oriented x 4. He moves all extremities, although his BLE are very weak. He is able to sit up via bed controls, but declines turn assistance. CARDIAC: nicardipine currently running at 12.5 mg/hr. All BP medications were given today and several doses of PRN hydralazine and lopressor given. SR on monitor. RESPIRATORY: cta on ra GI/: tube feeds running at goal. small BM smear today. Minimal appetite still, but he is tolerating more snacks brought in by . SKIN: dry and peeling; no breakdown noted PSYCH/SOCIAL: spouse at bedside for most of day. Pt flat and withdrawn.
[2022-06-02 04:06] LABS: BASOPHILS ABSOLUTE AUTO 0.08 K/mm3 (0.00-0.23); BASOPHILS PERCENT AUTO 2 % (0-2); EOSINOPHILS ABSOLUTE AUTO 0.18 K/mm3 (0.00-0.68); EOSINOPHILS PERCENT AUTO 4 % (0-6); Hematocrit 22.5 % (37.0-53.0); Hemoglobin 6.7 g/dL (13.5-17.5); IMMATURE GRAN ABSOLUTE AUTO 0.03 K/mm3 (0.00-0.10); IMMATURE GRAN PERCENT AUTO 1 % (0-1); LYMPHOCYTES ABSOLUTE AUTO 1.35 K/mm3 (0.84-5.20); LYMPHOCYTES PERCENT AUTO 31 % (21-46); MONOCYTES PERCENT AUTO 19 % (4-13); Mean Corpuscular HGB 31.9 pg (26.0-34.0); Mean Corpuscular HGB Conc 29.8 g/dL (31.5-36.5); Mean Corpuscular Volume 107 fL (80-100); NEUTROPHILS ABSOLUTE AUTO 1.89 K/mm3 (1.96-9.15); NEUTROPHILS PERCENT AUTO 44 % (41-73); Platelet Count 219 K/mm3 (150-400); RDW Coefficient Variation 15.2 % (11.7-14.2); RDW Standard Deviation 60.3 fL (35.1-46.3); White Blood Cell Count 4.33 K/mm3 (4.00-11.30)
[2022-06-02 04:16] LABS: Albumin, Blood 1.8 g/dL (3.4-5.0); Anion Gap 4 mmol/L (6-16); Blood Urea Nitrogen 21 mg/dL (8-24); Bun/Creatinine Ratio 5.9 (12.0-20.0); CO2, Blood 32 mmol/L (21-32); Calcium, Blood 7.9 mg/dL (8.5-10.1); Chloride, Blood 102 mmol/L (98-108); Creatinine, Blood 3.56 mg/dL (0.60-1.20); Glomerular Filtration Rate 21 (60-); Glucose, Blood 98 mg/dL (70-99); Magnesium, Blood 1.8 mg/dL (1.6-2.4); Phosphorus, Blood 2.3 mg/dL (2.5-4.9); Potassium, Blood 3.8 mmol/L (3.5-5.5); Sodium, Blood 138 mmol/L (136-145)
--- NOTE | 2022-06-02 06:22 | NUR ---
PT RESTED OVERNIGHT. NICARDIPINE TITRATED DOWN TOLERATED. DENIES CHEST PAIN OR DISCOMFORT. TF SET CHANGED. INCONTINENT OF BLADDER AND BOWEL. BM 06/02/22. DECLINED TURNS. TURNS SELF SLIGHTY IN BED. CALL LIGHT WITHIN REACH MAKE NEEDS KNOWN
--- NOTE | 2022-06-02 08:00 | NUR ---
INITIAL ASSESSMENT PATIENT ALERT AND ORIENTED X 4. PATIENT APPEARS LETHARGIC. PATIENT WEAK BUT ABLE TO MOVE ALL EXTREMITIES. PATIENT FLAT AND WITHDRAWN. PATIENT CALM AND COOPERATIVE. PATIENT DECONDITIONED; RECEIVED REPORT THAT PATIENT IS 3 PERSON ASSIST TO TRANSFER FROM BED TO CHAIR. PATIENT AFEBRILE. NO COMPLAINTS OF PAIN AT THIS TIME. PATIENT SATTING 90% AND GREATER ON RA. LUNGS CLEAR THROUGHOUT. PATIENT IN SR WITH BBB, HR IN THE 80S. SBP 140S TO 150S. NICARDIPINE DRIP STOPPED. R HAND EDEMATOUS. PATIENT REFUSING SCDS. PATIENT DENIES NAUSEA. PATIENT HAS POOR APPETITE BUT IS ATTEMPTING TO EAT SOME BREAKFAST. PEG TUBE IN PLACE WITH NEPRO INFUSING AT GOAL RATE OF 35MLS/ HOUR AND 30 ML WATER FLUSH Q4H. PATIENT HAD BM THIS AM PER GEODESY TEACHER RN REPORT. PATIENT ANURIC; DIALYSIS PATIENT. SKIN DRY, PALE AND PEELING. FISTULA NOTED TO L ARM; + BRUIT AND THRILL. SCAB TO 2ND TOE ON R FOOT. PATIENT IS REFUSING REPOSITIONING. BED LOW, CALL LIGHT IN REACH. AT BEDSIDE. WILL CONTINUE TO MONITOR PATIENT FREQUENTLY THROUGHOUT SHIFT.
--- NOTE | 2022-06-02 08:53 | NUR ---
DR. RIVAS UPDATED ON PATIENT STATUS. INFORMED THAT HGB 6.7 AND PHOS 2.3 THIS AM. INFORMED THAT PATIENT RECEIVED SODIUM PHOS REPLACEMENT THIS AM. INFORMED THAT NICARDIPINE DRIPPED STOPPED THIS AM AND ORAL BP MEDS GIVEN. INFORMED THAT SBP CURRENTLY IN THE 140S. INFORMED THAT THE TREND SEEMED TO SHOW THAT BLOOD PRESSURE WOULD IMPROVE AND THEN AFTER DIALYSIS PATIENT WOULD BECOME HYPERTENSIVE AGAIN BECAUSE 50% OF MEDS ARE BEING DIALYZED OFF PER REPORT. INFORMED THAT PATIENT NEEDS PT/OT. NO ORDERS RECEIVED AT THIS TIME.
--- NOTE | 2022-06-02 12:10 | NUR ---
PATIENT AFEBRILE. HR IN THE 80S. SBP IN THE 140S. 100 ML WATER FLUSH INTO PEG AFTER TF STOPPED. TF TO BE CYCLIC ON NIGHTS NOW. BLOOD SUGAR 129; NO COVERAGE INDICATED. PATIENT REFUSED TO REPOSITION OR TO GET INTO RECLINER. NO OTHER ACUTE CHANGES TO NOTE ON AT THIS TIME.
--- NOTE | 2022-06-02 16:20 | NUR ---
SHIFT SUMMARY PATIENT HAS REMAINED LETHARGIC AND NAPPED ON AND OFF THROUGHOUT SHIFT. PATIENT REMAINS ALERT AND ORIENTED X 4. PATIENT REMAINS AFEBRILE. PATIENT HAS HAD NO COMPLAINTS OF PAIN. PATIENT HAS REMAINED SATTING 90% AND GREATER ON RA. PATIENT HAS REMAINED IN SR WITH BBB, HR IN THE 80S. SBP 120S TO 160S. NICARDIPINE SHUT OFF THIS AM. PATIENT CONTINUES TO REFUSE SCDS. NO BM THIS SHIFT. PATIENT ATE A LITTLE BIT OF BREAKFAST, BUT DOES NOT HAVE MUCH OF AN APPETITE. TFS CHANGED TO CYCLIC OVERNIGHT. PATIENT REMAINS ANURIC. PATIENT HAS BEEN REFUSING TURNS UNTIL 1400. EXPLAINED TO PATIENT THAT HE WILL END UP WITH A PRESSURE WOUND TO HIS BOTTOM IF HE DOES NOT MOVE AND THAT THEY ARE PAINFUL. THIS SWAYED PATIENT TO ACCEPT REPOSITIONING. PATIENT REFUSED BED BATH AND TO GET INTO A RECLINER. WIRELESS CONSTRUCTION MANAGER GETTING PATIENT READY TO TRANSFER TO MEDICAL FLOOR. , JONAS, CALLED AND INFORMED.
--- NOTE | 2022-06-02 16:30 | NUR ---
PATIENT TAKEN TO MEDICAL FLOOR, ROOM 311. ALL BELONGINGS SENT WITH PATIENT.
--- NOTE | 2022-06-02 17:14 | NUR ---
REPORT RECEIVED FROM ANTONIO PETER IN ICU. PT TRANSFERRED TO [facility] AT 1635. PT A/O X4 LIFT PT. PT DENIED PAIN/NAUSEA ON ARRIVAL. PT REQUESTED A BEDBATH AND PAPER PRODUCTION ENGINEER GAVE PT BATH. CBG CHECK COMPLETED AND WNL. PT HAS NO CONCERNS AT THIS TIME. PT TO BE STARTED ON PEG FEEDING ONCE BEDBATH COMPLETED.
[2022-06-03 05:23] LABS: Hematocrit 24.2 % (37.0-53.0); Hemoglobin 7.2 g/dL (13.5-17.5)
[2022-06-03 06:01] LABS: Albumin, Blood 1.9 g/dL (3.4-5.0); Anion Gap 8 mmol/L (6-16); Blood Urea Nitrogen 31 mg/dL (8-24); Bun/Creatinine Ratio 6.6 (12.0-20.0); CO2, Blood 29 mmol/L (21-32); Calcium, Blood 8.7 mg/dL (8.5-10.1); Chloride, Blood 98 mmol/L (98-108); Creatinine, Blood 4.68 mg/dL (0.60-1.20); Glomerular Filtration Rate 15 (60-); Glucose, Blood 108 mg/dL (70-99); Magnesium, Blood 2.3 mg/dL (1.6-2.4); Phosphorus, Blood 3.2 mg/dL (2.5-4.9); Potassium, Blood 4.4 mmol/L (3.5-5.5); Sodium, Blood 135 mmol/L (136-145)
--- NOTE | 2022-06-03 06:01 | NUR ---
PT IS ALERT AND ORIENTED. PT IS CALM AND COOPERATIVE WITH CARE. PT CALLS APPROPRIATELY. PT IS A MAX ASSIST FOR TRANSFERS, NOT OUT OF BED OVERNIGHT. PT HYPERTENSIVE THIS AM, CALLED DR. ELLSWORTH WHO GAVE ORDER TO PUT PT BACK ON TELE AND GIVE PRN LABETALOL, RESULTS PENDING. PT DENIES PAIN, NAUSEA, VOMITING, AND SOB. BED IN LOW POSITION, CALL LIGHT WITHIN REACH. WILL CONTINUE TO MONITOR.
--- NOTE | 2022-06-03 07:33 | NUR ---
ASSUMED CARE: PT HYPERTENSIVE THIS AM. BILINGUAL SPEECH THERAPIST AT BEDSIDE DOING ATTENDS CHANGE. NSR WITH BBB AT 85. HERE THIS AM
--- NOTE | 2022-06-03 07:54 | NUR ---
CALL TO DIALYSIS NURSE TO FIND OUT PT'S SCHEDULE. RELAYED PT'S BP TO NURSE AND NURSE INSTRUCTED TO GIVE BP MEDS TO PT THIS AM
--- NOTE | 2022-06-03 09:10 | NUR ---
PT TAKEN TO DIALYSIS VIA BED
[2022-06-03 13:45] LABS: Vancomycin, Random 16.3 ug/mL
--- NOTE | 2022-06-03 18:36 | NUR ---
SHIFT SUMMARY: PT MEDICATED X2 FOR HYPERTENSION. BP SETTLED AFTER DIALYSIS THIS AM THEN BECAME ELEVATED AGAIN THIS AFTERNOON. TF RUNNING THROUGH PEG TUBE. PT CONCERNED ABOUT DIARRHEA, WHICH DIETITIAN IS TREATING WITH BANANA FLAKES. PT DENIES NEEDS OR CONCERNS AT THIS TIME. AWAITING SNF.
--- NOTE | 2022-06-04 06:14 | NUR ---
SHIFT SUMMARY: PT IS ALERT AND ORIENTED. PT IS CALM AND COOPERATIVE WITH CARE. PT CALLS APPROPRIATELY. PT BECAME HYPERTENSIVE THIS AM, GAVE PRN LABETOLOL, AND HYDRALAZINE, AND APPLIED A SCHEDULED CLONIDINE PATCH EARLY PER DR. ELLSWORTH. RECHECK OF BP SCHEDULED TO HAPPEN @ 0630. PT REPORTS NAUSEA ON ONE OCCASION, GAVE PRN ZOFRAN. PT REPORTS BACK PAIN ON ONE OCCASION, GAVE MORPHINE AND TYLENOL. PT DENIES VOMITING AND SOB. WILL CONTINUE TO MONITOR.
[2022-06-04 07:18] LABS: Hematocrit 25.3 % (37.0-53.0); Hemoglobin 7.5 g/dL (13.5-17.5)
[2022-06-04 07:48] LABS: Albumin, Blood 1.9 g/dL (3.4-5.0); Anion Gap 6 mmol/L (6-16); Blood Urea Nitrogen 22 mg/dL (8-24); Bun/Creatinine Ratio 5.5 (12.0-20.0); CO2, Blood 32 mmol/L (21-32); Calcium, Blood 8.8 mg/dL (8.5-10.1); Chloride, Blood 96 mmol/L (98-108); Creatinine, Blood 3.97 mg/dL (0.60-1.20); Glomerular Filtration Rate 18 (60-); Glucose, Blood 112 mg/dL (70-99); Magnesium, Blood 2.2 mg/dL (1.6-2.4); Phosphorus, Blood 2.7 mg/dL (2.5-4.9); Potassium, Blood 4.3 mmol/L (3.5-5.5); Sodium, Blood 134 mmol/L (136-145)
--- NOTE | 2022-06-04 17:49 | NUR ---
PT HAS HAD NO ACUTE CHANGES AOX3 AND COOPERATIVE OF CARE. PT IS RESTING IN BED AND IS VERY WEAK. PT HAD EMESIS THIS AM 15 MIN AFTER TAKING ORAL MEDS. PT TREATED WITH NAUSEA MEDS PRIOR TO LATER ORAL MEDICATION ADMINISTRATION AND THIS SEEMED EFFECTIVE. PT ALSO STARTED SHIFT WITH BP OF 210/106. BP HAD IMPROVED BY 1304 WITH BP OF 148/69. PT NEEDS HELP Q2 HRS TO CHANGE BED POSITION. CALL LIGHT IS WITHIN REACH WILL CONTINUE TO MONITOR.
[2022-06-05 05:07] LABS: Hematocrit 24.6 % (37.0-53.0); Hemoglobin 7.5 g/dL (13.5-17.5)
[2022-06-05 05:46] LABS: Anion Gap 7 mmol/L (6-16); Blood Urea Nitrogen 29 mg/dL (8-24); Bun/Creatinine Ratio 5.8 (12.0-20.0); CO2, Blood 31 mmol/L (21-32); Calcium, Blood 9.3 mg/dL (8.5-10.1); Chloride, Blood 93 mmol/L (98-108); Creatinine, Blood 4.97 mg/dL (0.60-1.20); Glomerular Filtration Rate 14 (60-); Glucose, Blood 84 mg/dL (70-99); Magnesium, Blood 2.4 mg/dL (1.6-2.4); Phosphorus, Blood 2.6 mg/dL (2.5-4.9); Potassium, Blood 4.7 mmol/L (3.5-5.5); Sodium, Blood 131 mmol/L (136-145)
--- NOTE | 2022-06-05 06:36 | NUR ---
[address] MCKEE TO NOTIFY HIM THAT TELEMETRY REPORTED SEEING ST ELEVATIONS ON PATIENT'S HEART MONITOR. REPORTED THAT THE PATIENT WAS ASYMPTOMATIC. DR MCKEE SAID TO KEEP AN EYE ON THE PATIENT. [address] ELLSWORTH TO NOTIFY HER THAT THE PATIENT WASN'T RESPONDING MUCH TO PRN ANTIHYPERTENSIVE MEDICATIONS AND THAT TELEMETRY MONITORS WERE STILL NOTING ST ELEVATIONS. DR ELLSWORTH ORDERED AN EKG.
[2022-06-05 13:56] LABS: Vancomycin, Random 15.3 ug/mL
--- NOTE | 2022-06-05 18:31 | NUR ---
NO ACUTE CHANGES PT SPENT EARLIER PART OF THE DAY IN DIALYSIS. PT CONTINUES TO HAVE HIGH BP AND WAS UP TO 213/110 DURING DIAYSIS. PT WAS TREATED PER EMAR AND LAST BP HAD IMPROVE AT 190/87. DOCTORS ARE AWARE AND HAVE BEEN ADJUSTIING MEDS TO EMAR.PT SEEMS VERY SLEEPY TODAY, PT IS AWAKE FOR DINNER. PT HELPED TO REPOSTION Q2 HRS. NO DISTRESS NOTED.
[2022-06-06 04:51] LABS: Hemoglobin 7.7 g/dL (13.5-17.5)
[2022-06-06 05:25] LABS: Anion Gap 6 mmol/L (6-16); Blood Urea Nitrogen 25 mg/dL (8-24); Bun/Creatinine Ratio 6.2 (12.0-20.0); CO2, Blood 33 mmol/L (21-32); Chloride, Blood 93 mmol/L (98-108); Creatinine, Blood 4.02 mg/dL (0.60-1.20); Glomerular Filtration Rate 18 (60-); Glucose, Blood 92 mg/dL (70-99); Magnesium, Blood 2.2 mg/dL (1.6-2.4); Phosphorus, Blood 2.6 mg/dL (2.5-4.9); Potassium, Blood 3.9 mmol/L (3.5-5.5); Sodium, Blood 132 mmol/L (136-145)
--- NOTE | 2022-06-06 05:52 | NUR ---
SHIFT SUMMARY PAIENT ALERT AND ORIENTED. HAD NO COMPLAINTS OF PAIN OR SHORTNESS OF BREATH. NO ACUTE ISSUES NOTED OVERNIGHT. CALL LIGHT WITHIN REACH. REPORT GIVEN TO ONCOMING RN.
--- NOTE | 2022-06-06 18:29 | NUR ---
PATIENT IS ALERT AND ORIENTED. HE IS WITHDRAWN AND HAS A FLAT AFFECT. HE IS A LITTLE CHILDLIKE. PATIENT SLEPT FOR MOST OF THE DAY, ONLY WAKING UP TO EAT CEREAL FOR BREAKFAST AND LUNCH. AT 1446 THE PATIENT WAS TRANSFERRED TO [facility] WHERE HE REMAINS AT THIS TIME. 2 PERSON MAX ASSIST WITH GAITBELT. THE PATIENT'S IS AT THE BEDSIDE. HIS BP HAS DECREASED THROUGOUT THE SHIFT. THE LAST BP SHOWING 161/105. WILL CONTINUE TO MONITOR
--- NOTE | 2022-06-07 06:29 | NUR ---
SHIFT SUMMARY PATIENT ALERT AND ORIENTED. HAD NO COMPLAINTS OF PAIN OR SHORTNESS OF BREATH. MEDICATED PER EMAR FOR HTN. NO OTHER ISSUES NOTED OVERNIGHT. CALL LIGHT WITHIN REACH. REPORT GIVEN TO ONCOMING RN.
[2022-06-07 10:33] LABS: Hematocrit 23.4 % (37.0-53.0); Hemoglobin 7.5 g/dL (13.5-17.5)
[2022-06-07 10:51] LABS: Anion Gap 9 mmol/L (6-16); Blood Urea Nitrogen 36 mg/dL (8-24); Bun/Creatinine Ratio 6.8 (12.0-20.0); CO2, Blood 30 mmol/L (21-32); Calcium, Blood 9.1 mg/dL (8.5-10.1); Chloride, Blood 92 mmol/L (98-108); Creatinine, Blood 5.27 mg/dL (0.60-1.20); Glomerular Filtration Rate 13 (60-); Glucose, Blood 125 mg/dL (70-99); Magnesium, Blood 2.2 mg/dL (1.6-2.4); Phosphorus, Blood 3.8 mg/dL (2.5-4.9); Potassium, Blood 4.9 mmol/L (3.5-5.5); Sodium, Blood 131 mmol/L (136-145)
[2022-06-07 14:00] LABS: Vancomycin, Random 16.3 ug/mL
--- NOTE | 2022-06-07 14:43 | NUR ---
DIALYSIS NOTE HYPOTENSIVE EPISODE DURING HD TX. DR. JAK ZAIDI AT BEDSIDE AND DOSE ADJUSTMENTS MADE WITH NEW PARAMETERS FOR BP MEDICATIONS.
--- NOTE | 2022-06-07 18:33 | NUR ---
SHIFT SUMMARY PT IS EMOTIONAL AND TEMPERMENTAL. HE FREQUENTLY REFUSES CARE, BUT THEN RELENTS AFTER SOME TIME. HE WAS RESTARTED ON VANCO TODAY. DIALYSIS WENT WELL, BUT PTS BP WENT FROM 195 TO 96 SYSTOLIC AND DIALYSIS WARNED THIS RN TO HOLD ALL BP MEDS BEFORE DIALYSIS OR CONSULT WITH MD. CYCLIC FEEDINGS BEGAN AT 1700. PT IS HOPEING TO DISCHARGE ON THURSDAY, BUT NOT RETURN TO [facility]. BED IN LOWEST POSITION, CALL LIGHT IN [facility], AT THE BEDSIDE.
[2022-06-08 00:18] LABS: Stool Occult Blood Guaiac 1 Neg (Neg)
--- NOTE | 2022-06-08 04:43 | NUR ---
SHIFT SUMMARY NO ACUTE CHANGE TO PT CONDITION. PT HAS NO CURRENT COMPLAINTS. TUBE FEEDING CONTINUES TO RUN. PT HAS CALL LIGHT WITHIN HIS REACH.
[2022-06-08 06:25] LABS: Hematocrit 24.6 % (37.0-53.0); Hemoglobin 7.6 g/dL (13.5-17.5)
[2022-06-08 06:38] LABS: Anion Gap 5 mmol/L (6-16); Blood Urea Nitrogen 25 mg/dL (8-24); Bun/Creatinine Ratio 6.4 (12.0-20.0); CO2, Blood 33 mmol/L (21-32); Calcium, Blood 8.8 mg/dL (8.5-10.1); Chloride, Blood 97 mmol/L (98-108); Creatinine, Blood 3.93 mg/dL (0.60-1.20); Glomerular Filtration Rate 19 (60-); Glucose, Blood 81 mg/dL (70-99); Magnesium, Blood 2.3 mg/dL (1.6-2.4); Potassium, Blood 3.9 mmol/L (3.5-5.5); Sodium, Blood 135 mmol/L (136-145)
--- NOTE | 2022-06-08 16:22 | NUR ---
SHIFT SUMMARY PT SLEEPING AT START OF SHIFT AND THRU OUT MOST OF TODAY. PT DIFFICULT TO WAKE UP, AND VERY HIGGINS, WANTING TO SLEEP INSTEAD OF EAT. PT'S IN TODAY FOR A FEW HOURS; PT SLEEPING MOST OF THE TIME SHE WAS HERE. PER SHIFT REPORT, BP ELEVATED AND LABATOLOL TO BE GIVEN PER EMAR. AM MEDS ALSO GIVEN AND BP GERALDINE'D, SHOWING GOOD EFFECT. DR SEGURA IN TO SEE PT; NEW ORDERS PLACED. SR ON TELE; SEE CHART. PT ABLE TO MAKE NEEDS KNOWN. CALL LT IN REACH.
--- NOTE | 2022-06-09 00:15 | NUR ---
PT HAS PAINFUL LUMP IN R GROIN AREA. PT STS THAT IT WAS NOT THERE UNTIL AFTER WORKING WITH PT YESTERDAY. PAIN MEDICATION GIVEN AND WILL MONITOR FURTHER.
--- NOTE | 2022-06-09 04:32 | NUR ---
PT REFUSED HIS MORNING LAB DRAW
--- NOTE | 2022-06-09 09:00 | NUR ---
DIALYSIS NOTE PT ARRIVED FOR TX AND WAS FEBRILE OF 101.6 AND SOME CONFUSION NOTED. DR. BENEDICT NOTIFIED AND NEW ORDERS REVIEVED FOR BLOOD CX AND ABX. REPORT GIVEN TO BEDSIDE RN.
[2022-06-09 10:09] LABS: Anion Gap 8 mmol/L (6-16); Blood Urea Nitrogen 32 mg/dL (8-24); Bun/Creatinine Ratio 6.2 (12.0-20.0); CO2, Blood 30 mmol/L (21-32); Calcium, Blood 8.9 mg/dL (8.5-10.1); Chloride, Blood 96 mmol/L (98-108); Creatinine, Blood 5.19 mg/dL (0.60-1.20); Glomerular Filtration Rate 13 (60-); Glucose, Blood 96 mg/dL (70-99); Magnesium, Blood 2.1 mg/dL (1.6-2.4); Phosphorus, Blood 3.4 mg/dL (2.5-4.9); Potassium, Blood 4.2 mmol/L (3.5-5.5); Sodium, Blood 134 mmol/L (136-145)
[2022-06-09 10:31] LABS: Hematocrit 23.9 % (37.0-53.0); Hemoglobin 7.5 g/dL (13.5-17.5)
--- NOTE | 2022-06-09 16:15 | NUR ---
SHIFT SUMMARY PT REFUSING CARE THIS AM; REFUSED LAB'S, VS, AND CBG'S, BEING VERY IRRITABLE. BUT LATER PT WAS AWAKE MORE TODAY THAN YESTERDAY AND ATE A LITTLE MORE TODAY WELL. PT TAKEN DOWN FOR DIALYSIS AND FOUND TO HAVE TEMP; SEE CHART. BCX'S AND IV ABX ORDERED. PT LATER RETURNED TO FOR LUNCH. PT ABLE TO EAT SOME OF LUNCH TODAY. TO THIS AM UNTIL HAVING TO GO TO WORK. PT IS MORE CO-OP WHEN IS IN RM. ABLE TO WORK WITH O/T A LITTLE BIT TODAY. PT REMAINS VERY WEAK AND UNSTEADY JUST TRYING TO SIT UP TO EOB. NO C/O. BP A LITTLE BETTER TODAY THAN YESTERDAY, UNTIL THIS AFTERNOON; SEE CHART. MEDS GIVEN PER EMAR. PT RESTING QUIETLY AT THIS TIME. CALL LT IN REACH.
[2022-06-10 05:41] LABS: Hematocrit 27.1 % (37.0-53.0); Hemoglobin 8.3 g/dL (13.5-17.5)
[2022-06-10 06:06] LABS: Magnesium, Blood 2.3 mg/dL (1.6-2.4)
[2022-06-10 06:07] LABS: Albumin, Blood 2.1 g/dL (3.4-5.0); Anion Gap 7 mmol/L (6-16); Blood Urea Nitrogen 22 mg/dL (8-24); Bun/Creatinine Ratio 5.7 (12.0-20.0); CO2, Blood 30 mmol/L (21-32); Calcium, Blood 8.8 mg/dL (8.5-10.1); Chloride, Blood 96 mmol/L (98-108); Creatinine, Blood 3.83 mg/dL (0.60-1.20); Glomerular Filtration Rate 19 (60-); Glucose, Blood 96 mg/dL (70-99); Phosphorus, Blood 2.5 mg/dL (2.5-4.9); Potassium, Blood 3.9 mmol/L (3.5-5.5); Sodium, Blood 133 mmol/L (136-145)
--- NOTE | 2022-06-10 15:48 | NUR ---
SHIFT SUMMARY NO ACUTE CHANGES TO PRESENT THIS SHIFT. PT SLEEPING AT START OF SHIFT BUT WOKE FOR CARE THIS AM. PT NOT VERY MOTIVATED TO WORK WITH P/T AGAIN TODAY, BUT WAS ABLE TO PARTICIPATE FOR A SHORT WHILE AND THEN KEPT FALLING ASLEEP. DR SEGURA IN TO SEE PT EARLY WELL. PT EATING A LITTLE BETTER TODAY SO FAR; SEE CHART. REMAINS SR ON TELE. NO C/O PAIN. INCONTINENT OF URINE X1 TODAY. DENIES FURTHER NEEDS. CALL LT IN REACH.
--- NOTE | 2022-06-11 07:41 | NUR ---
PT REFUSED MORNING CBG
[2022-06-11 09:51] LABS: Anion Gap 8 mmol/L (6-16); Blood Urea Nitrogen 32 mg/dL (8-24); Bun/Creatinine Ratio 6.1 (12.0-20.0); CO2, Blood 29 mmol/L (21-32); Calcium, Blood 8.7 mg/dL (8.5-10.1); Chloride, Blood 96 mmol/L (98-108); Creatinine, Blood 5.22 mg/dL (0.60-1.20); Glomerular Filtration Rate 13 (60-); Glucose, Blood 88 mg/dL (70-99); Magnesium, Blood 2.2 mg/dL (1.6-2.4); Phosphorus, Blood 3.1 mg/dL (2.5-4.9); Potassium, Blood 4.3 mmol/L (3.5-5.5); Sodium, Blood 133 mmol/L (136-145)
[2022-06-11 09:55] LABS: Hematocrit 25.8 % (37.0-53.0); Hemoglobin 8.2 g/dL (13.5-17.5)
--- NOTE | 2022-06-11 18:37 | NUR ---
SHIFT SUMMARY PT A&O X4. PT PLEASANT UPON INTERACTIONS, BUT WITHDRAWN AND FLAT AFFECT. PT TO DIALYSIS AT 0900. 4L REMOVED DURING DIALYSIS. PT REFUSED ALL CBG AND INSULIN, STATING HE DOES "NOT WANT TO BE POKED. VS; HR IN 80'S, SBP 200-190'S. MEDICATED PER EMAR. PT REPORTS THIS IS "NORMAL AND HE ALWAYS RUNS HIGH". PT RESTED THROUGHOUT SHIFT. PT WORKED WITH PT FOR A SHORT TIME. POWERGLIDE DRESSING CHANGED. PT DECLINED BEDBATH AND OTHER MORNING CARE. PT DECLINED PM FEEDING STATING "IT MAKES HIM HAVE DIARRHEA". NO ACUTE CHANGES THROUGHOUT SHIFT. CALL LIGHT WITHIN REACH AND BED IN LOWEST POSITION.
--- NOTE | 2022-06-12 01:30 | NUR ---
RECEIVED ANTIHYPERTENSIVE MEDS EARLIER, MEDS EFFECTIVE BP 181/88 (WAS 204/93 PRIOR TO MEDS). REFUSING TO EAT WHEN FOOD/DRINKS OFFERED. GLUCOSE LEVEL WAS 65, ASYMPTOMATIC. WILL CONT TO ENCOURAGE COMPLIANCE WITH HEALTH MAINTENANCE. CALL LIGHT IN REACH
--- NOTE | 2022-06-12 03:36 | NUR ---
HOOP COILING MACHINE OPERATOR SUMMARY BP ELEVATED AT SHIFT COMMENCE - AM SHIFT REPORTED BASE LINE IS HIGH - SEE DOC FLOW SHEETS. RECEIVED HS MEDS (ANTIHYPERTENSIVES), MEDS EFFECTIVE. BP DROPPED TO 181/88 AND HR 78. ASYMPTOMATIC. PT HAS BEEN RESTING QUIETLY WITH FEW INTERUPTIONS, BLOOD SUGAR LOW (65) BUT REFUSED TO EAT OR DRINK ANYTHING BUT WATER. WILL CONTINUE TO ENCOURAGE PT TO EAT/DRINK TO BRING UP BLOOD SUGAR. CHARGE NURSE AWARE. CALL LIGHT IN REACH.
[2022-06-12 05:10] LABS: Hematocrit 29.1 % (37.0-53.0); Hemoglobin 9.1 g/dL (13.5-17.5)
[2022-06-12 05:35] LABS: Anion Gap 8 mmol/L (6-16); Blood Urea Nitrogen 23 mg/dL (8-24); Bun/Creatinine Ratio 5.7 (12.0-20.0); CO2, Blood 30 mmol/L (21-32); Calcium, Blood 8.9 mg/dL (8.5-10.1); Chloride, Blood 96 mmol/L (98-108); Creatinine, Blood 4.04 mg/dL (0.60-1.20); Glomerular Filtration Rate 18 (60-); Glucose, Blood 70 mg/dL (70-99); Magnesium, Blood 2.1 mg/dL (1.6-2.4); Phosphorus, Blood 3.7 mg/dL (2.5-4.9); Sodium, Blood 134 mmol/L (136-145)
--- NOTE | 2022-06-12 17:21 | NUR ---
END OF SHIFT SUMMARY: PATIENT HESITANT FOR ALL CARE. PATIENT REQUIRES DIRECTION, CLEAR INSTRUCTIONS, AND HELP TO GET HIM TO PARTICIPATE IN CARE. PATIENT FLAT AND WITHDRAWN THROUGHOUT THE SHIFT. PATIENT'S SIGNIFICANT OTHER WAS IN TO VISIT THE PATIENT DURING LUNCH. PATIENT HAS A MINIMAL APPETITE AND HAS BEEN REFUSING THE NIGHTLY TUBE FEED (NOTIFIED COMMUNICATION LECTURER WESLY WHO WILL BE ABLE TO VISIT THE PATIENT TOMORROW TO DISCUSS OTHER OPTIONS). PATIENT CONTINUES TO HAVE ELEVATED BLOOD PRESSURES THAT RESPONDED WELL TO THE CHANGES IN SCHEDULED MEDICATION. BY THE AFTERNOON, PATIENT SBP WAS 166. PATIENT HAD ONE EPISODE OF EMESIS. NAUSEA RESOLVED WITH PRN ZOFRAN. PATIENT RECEIVED A BEDBATH, SAT UP TO THE CHAIR FOR LUNCH, AND WORKED WITH OT WITH STRONG ENCOURAGEMENT FROM STAFF AND THE PATIENT'S .
--- NOTE | 2022-06-12 19:35 | NUR ---
AWAKE. AFFECT STOIC. HELENA PAIN. STATES "IM IN THE MIDDLE OF DOING SOMETHING" WHEN NURSE IS TALKNIG TO HIM. NOTE PHONE ON BEDSIDE TABLE AND HE IS STARING AT IT. CALL LIGHT IN REACH. NO NOTED S/S ACUTE DISTRESS
--- NOTE | 2022-06-12 22:29 | NUR ---
tolerated hs meds with orange juice. More alert than yesterday. Refused Heparin, banana flakes and probiotic. Refused accu check as well. Call light in reach. Denies pain.
--- NOTE | 2022-06-13 03:31 | NUR ---
HUMANITIES DEPARTMENT CHAIR SUMMARY ALTHOUGH AFFECT AND BEHAVIOR REMAIN STOIC AND WITHDRAWN, WAS MORE RECEPTIVE TO TAKING MEDS WITH ORANGE JUICE INSTEAD OF JUST WATER. DISCUSSED BLOOD GLUCOSE AND DIET COMPLIANCE, AND SEEMED MORE RECEPTIVE THAN NOTED 24 HR PREVIOUS. INCONT OF URINE ONCE AND OF FECES ONCE WELL. ASKED FOR STAFF ASSISTANCE IN EACH SITUATION. OTHERWISE HAS BEEN RESTING QUIETLY WITH FEW INTERRUPTIONS. VSS, BP LOWER AND MORE IN NORMAL RANGE THIS SHIFT. SEE DOC FLOW SHEETS FOR DETAILS. CALL LIGHT IN REACH.
[2022-06-13 05:41] LABS: Hemoglobin 8.3 g/dL (13.5-17.5)
[2022-06-13 05:49] LABS: Albumin, Blood 2.1 g/dL (3.4-5.0); Anion Gap 8 mmol/L (6-16); Blood Urea Nitrogen 33 mg/dL (8-24); Bun/Creatinine Ratio 6.1 (12.0-20.0); CO2, Blood 30 mmol/L (21-32); Calcium, Blood 8.9 mg/dL (8.5-10.1); Chloride, Blood 96 mmol/L (98-108); Creatinine, Blood 5.37 mg/dL (0.60-1.20); Glomerular Filtration Rate 13 (60-); Glucose, Blood 66 mg/dL (70-99); Magnesium, Blood 2.3 mg/dL (1.6-2.4); Phosphorus, Blood 4.8 mg/dL (2.5-4.9); Potassium, Blood 4.7 mmol/L (3.5-5.5); Sodium, Blood 134 mmol/L (136-145)
--- NOTE | 2022-06-13 17:20 | NUR ---
SHIFT SUMMARY PTN 42-YEAR-OLD, A&O X4, MOOD CHANGES BETWEEN COOPERATIVE TO AGITATED WITH INTERUPTIONS. FULL CODE. A&O X4. LIFT REQUIRED. INCONTINENT, ONLY SMALL AMOUNT OF URINE PRODUCED. INCONTINENT OF STOOL. POWER GLIDE TO RIGHT UPPER ARM. ROOM AIR. TELEMETRY WITH SINUS RYTHYM, DC'D THIS SHIFT. LEFT ARM FISTULA. DIALYSIS, NEXT 06/14. PEG TUBE -PTN HAD BEEN REFUSING, NUTRITION TO RESTART THIS EVENING. RENAL DIET. BP ELEVATED WITH ADDITIONAL HYDRALZAINE GIVEN THIS SHIFT. BLOOD SUGAR LOW AND GLARGINE HELD IN AM, DR HARGROVE NOTIFIED. CONTINUE TO MONITOR.
--- NOTE | 2022-06-14 04:03 | NUR ---
SHIFT SUMMARY PATIENT HAD N/V START OF SHIFT. IV ZOFRAN GIVEN WITH GOOD EFFECT. REFUSED PEG TUBE FEEDING. ELEVATED BLOOD PRESSURE BEFORE ORAL BP MEDICATION GIVEN, 175/82. SECOND SET OF VITALS BP 151/80. DENIES PAIN AND SOB. AXOX 4 WITH FLAT AFFECT. BEDREST. POWERGLIDE MARGA INTACT. PERMA CATH INTACT. CBG 114. ON ROOM AIR. WATCHED TV SHOWS ON HIS PHONE FIRST PART OF SHIFT. CALL LIGHT IN REACH. BED IN LOWEST POSITION. WILL CONTINUE TO MONITOR UNTIL DAY SHIFT NURSE ASSUMES CARE.
[2022-06-14 05:44] LABS: Hematocrit 26.5 % (37.0-53.0); Hemoglobin 8.2 g/dL (13.5-17.5)
[2022-06-14 06:14] LABS: Albumin, Blood 2.2 g/dL (3.4-5.0); Anion Gap 8 mmol/L (6-16); Blood Urea Nitrogen 40 mg/dL (8-24); Bun/Creatinine Ratio 6.5 (12.0-20.0); CO2, Blood 27 mmol/L (21-32); Calcium, Blood 9.5 mg/dL (8.5-10.1); Chloride, Blood 94 mmol/L (98-108); Creatinine, Blood 6.19 mg/dL (0.60-1.20); Glomerular Filtration Rate 11 (60-); Glucose, Blood 75 mg/dL (70-99); Magnesium, Blood 2.2 mg/dL (1.6-2.4); Phosphorus, Blood 5.1 mg/dL (2.5-4.9); Potassium, Blood 5.1 mmol/L (3.5-5.5); Sodium, Blood 129 mmol/L (136-145)
--- NOTE | 2022-06-14 10:49 | NUR ---
LATE ENTRY 0940: PT TO DIALYSIS VIA BED. ALL BP MEDS HELD THIS MORNING PER [facility] DIALYSIS NURSE LOLLY AFTER DIALYSIS.
--- NOTE | 2022-06-14 18:09 | NUR ---
SHIFT SUMMARY PT A&O X 4. FLAT AFFECT, SLOW TO RESPOND TO ALL INTERACTIONS THOUGH IS COOPERATIVE. PT WAS RELUCTANT TO TAKE MORNING MEDS D/T FEARFULNESS OF BECOMING NAUSEATED. PREEMPTIVELY MEDICATED WITH ZOFRAN. BP MEDS GIVEN UPON RETURN FROM DIALYSIS. NO NAUSEA, NO VOMITING. PT SPENT THE MORNING HOURS IN DIALYSIS. UPON RETURN FROM DIALYSIS AND AFTER ATTEMPTING TO EAT HIS LUNCH PT LAID BACK HIS BED AND SLEPT TIL DINNER. NO INSULIN COVERGAE NEEDED FOR HIS BG's TODAY. HE DID RECEIVE HIS AM DOSE OF GLARGINE. PLAN IS FOR TRANSFER TO SNF [place] PENDING ACCEPTANCE.
--- NOTE | 2022-06-14 18:19 | NUR ---
VASCULAR ACCESS & DIALYSIS ACCESS. PT HAS A POWER GLIDE THAT IS INTACT & PATENT THOUGH DOES NOT DRAW. HE HAS AN AV FISTULA IN L UPPER ARM FOR DIALYSIS THAT IS WRAPPED WITH COBAN AFTER DIALYSIS TODAY. FISTULA HAS GOOD AUDIBLE AND PALPABLE BRUIT.
[2022-06-15 05:04] LABS: Hematocrit 26.8 % (37.0-53.0); Hemoglobin 8.3 g/dL (13.5-17.5)
--- NOTE | 2022-06-15 05:40 | NUR ---
SHIFT SUMMARY. PT IS ALERT AND ORIENTED. PT IS CALM AND COOPERATIVE WITH CARE. PT CALLS APPROPRIATELY. PT IS A LIFT FOR TRANSFERS AND 2 PERSON ASSIST FOR CHANGES. PT INCONTINENT OF BOWEL AND BLADDER, CHANGED AND CLEANED NEEDED. PT DENIES PAIN, NAUSEA, VOMITING, AND SOB. AWAITING SNF PLACEMENT PLANNED FOR THURSDAY. NO ACUTE CHANGES OR COMPLICATIONS OVERNIGHT. BED IN LOW POSITON, CALL LIGHT WITHIN REACH. WILL REPORT TO DAY NURSE.
[2022-06-15 05:49] LABS: Magnesium, Blood 2.2 mg/dL (1.6-2.4)
[2022-06-15 05:50] LABS: Albumin, Blood 2.1 g/dL (3.4-5.0); Anion Gap 6 mmol/L (6-16); Blood Urea Nitrogen 26 mg/dL (8-24); Bun/Creatinine Ratio 5.5 (12.0-20.0); CO2, Blood 31 mmol/L (21-32); Calcium, Blood 9.1 mg/dL (8.5-10.1); Chloride, Blood 93 mmol/L (98-108); Glomerular Filtration Rate 15 (60-); Glucose, Blood 73 mg/dL (70-99); Phosphorus, Blood 4.9 mg/dL (2.5-4.9); Potassium, Blood 4.7 mmol/L (3.5-5.5); Sodium, Blood 130 mmol/L (136-145)
--- NOTE | 2022-06-15 10:58 | NUR ---
NAUSEA PT NAUSEATED RIGHT AFTER TAKING ALL OF HIS MORNING MEDS. VOMITED APPROX 400CCS PINK TINGED VOMITUS (DRANK A STRAWBERRY ENSURE TO TAKE HIS MEDS) WITH AN UNIDENTIFABLE MIXTURE OF SOME OF HIS MEDS. MEDICATED WITH ZOFRAN, CLEANED PT UP AND CHANGED HIS GOWN. HE WAS ABLE TO CATCH MAJORITY OF THE VOMITUS IN AN EMESIS BAG. IS NOW RESTING COMFORTABLY. WILL CONTINUE TO MONITOR.
--- NOTE | 2022-06-15 11:40 | NUR ---
AV FISTULA AV FISTULA IN L UA WITH A GAUZE/COBAN DRESSING APPLIED IS SCANTILY BLEEDING. BRUIT PRESENT. DRESSING CHANGED.
--- NOTE | 2022-06-15 18:11 | NUR ---
SHIFT SUMMARY A&O X 4. VSS. NO DIALYSIS TODAY. HE HAS HAD NO FURTHER C/O N/V SINCE THIS AM. HE HAS SLEPT MUCH OF DAY. HIS SO HAS BEEN IN THE ROOM MAJORITY OF THE DAY. HE'S ANTICIPATING DIALYSIS TOMORROW MORNING AND PLAN IS FOR SNF PLACEMENT [place].
--- NOTE | 2022-06-16 04:07 | NUR ---
SHIFT SUMMARY PATIENT HAD NO ACUTE CHANGES. AXOX 4 AND BEDREST. FLAT AFFECT. TAKES MEDS WHOLE W/WATER. REPORTED BACK PAIN X ONE AND TYLENOL GIVEN PER EMAR. DENIES CHEST PAIN, SOB, AND N/V. HYPERTENSIVE REPORTING EMESIS ON DAY SHIFT AFTER TAKING BP MEDICATION. AFEBRILE. POWERGLIDE MARGA INTACT. CALL LIGHT IN REACH. BED IN LOWEST POSITION. WILL CONTINUE TO MONITOR UNTIL DAY SHIFT NURSE ASSUMES CARE.
[2022-06-16 05:07] LABS: Hematocrit 26.6 % (37.0-53.0); Hemoglobin 8.3 g/dL (13.5-17.5)
[2022-06-16 05:39] LABS: Albumin, Blood 2.2 g/dL (3.4-5.0); Anion Gap 7 mmol/L (6-16); Blood Urea Nitrogen 38 mg/dL (8-24); Bun/Creatinine Ratio 6.4 (12.0-20.0); CO2, Blood 29 mmol/L (21-32); Calcium, Blood 9.3 mg/dL (8.5-10.1); Chloride, Blood 94 mmol/L (98-108); Creatinine, Blood 5.97 mg/dL (0.60-1.20); Glomerular Filtration Rate 11 (60-); Glucose, Blood 75 mg/dL (70-99); Magnesium, Blood 2.4 mg/dL (1.6-2.4); Phosphorus, Blood 5.4 mg/dL (2.5-4.9); Sodium, Blood 130 mmol/L (136-145)
--- NOTE | 2022-06-16 06:01 | NUR ---
BP 172/82 AND IV APRESOLINE 20 MG GIVEN PER EMAR FOR SBP >160. BP 175/86 ON REASESSMENT.
[2022-06-16 06:08] LABS: HBSAG SCREEN Negative (Negative); HCV AB <0.1 (0.0-0.9); HEP A AB, IGM Negative (Negative); HEP B CORE AB, IGM Negative (Negative)
--- NOTE | 2022-06-16 17:00 | NUR ---
DAYSHIFT SUMMARY Patient very tired this morning, declined medications, stated he would take when he woke up. Patient went to dialysis this morning. This afternoon patient alert/awake, reattempted medications. Patient said he didn't feel like he could take meds. Patients asked if meds could be given via g-tube. Administred meds through g-tube. MD at bedside, encourgaed patient to get OOB and sit in the recliner during the day, to ensure patient could tolerate outpatient dialysis chair. Used zaid lift to transfer patient to recliner. Patient sat in recliner for 3.5 hours. BP high today, PRN hydralizine given. Will continue to monitor.
--- NOTE | 2022-06-17 03:38 | NUR ---
COSMETOLOGIST SUMMARY MORE RECEPTIVE TO TAKING MEDS THIS SHIFT. REFUSED HEPARIN AGAIN. MORE VERBAL AND INTERACTIVE WITH STAFF THAN USUALLY OBSERVED. HAD 2 LARGE SEMI LIQUID BOWEL MOVEMENTS. OTHERWISE HAS BEEN RESTING QUIETLY WITH OUT NOTED DISTRESS. CALL LIGHT IN REACH. BP REMAINS HIGH, WHICH SEEMS TO BE HIS AVERAGE - SEE DOC FLOW SHEETS FOR DETAILS. PEG TUBE IN USE. ABLE TO ASSIST IN REPOSITIONING HIM. CALL LIGHT IN REACH. RAILS UP X 2.
[2022-06-17 10:53] LABS: Hemoglobin 8.9 g/dL (13.5-17.5)
[2022-06-17 11:13] LABS: Albumin, Blood 2.3 g/dL (3.4-5.0); Anion Gap 6 mmol/L (6-16); Blood Urea Nitrogen 26 mg/dL (8-24); Bun/Creatinine Ratio 5.7 (12.0-20.0); CO2, Blood 33 mmol/L (21-32); Calcium, Blood 9.5 mg/dL (8.5-10.1); Chloride, Blood 92 mmol/L (98-108); Creatinine, Blood 4.59 mg/dL (0.60-1.20); Glomerular Filtration Rate 15 (60-); Glucose, Blood 110 mg/dL (70-99); Magnesium, Blood 2.4 mg/dL (1.6-2.4); Phosphorus, Blood 4.3 mg/dL (2.5-4.9); Potassium, Blood 4.3 mmol/L (3.5-5.5); Sodium, Blood 131 mmol/L (136-145)
--- NOTE | 2022-06-17 15:45 | NUR ---
Spoke with Primary RN Yeimy and discussed case. Pt refusing some care and is showing little motivation. Pt also showing little motivation with therapy. Spoke with Dr Sanders and discussed case. Pt sitting in recliner upon arrival. Reviewed plan of care with Pt and engaged in therapeutic discussion regarding goals of care. Pt confirms his wishes to be a full code. He also reports wanting to go to SNF and continue dialysis. Discussed the importance of working with therapey in order to be accepted to SNF. Continued therapeutic conversation with Pt responding very little. Discussed the importance of routine self evaluation regarding one's goals and having conversations with family. Ended visit to allow Pt to rest. Palliative Care will remain available.
--- NOTE | 2022-06-17 16:29 | NUR ---
DAYSHIFT SUMMARY Patient awake early this morning, Asked patient if he was ready to take medications. Patient upset that nurse was giving some meds via g-tube and others orally. Patient frusterated and said we should make up our mind. Explained that patient reported nausea, and said it was hard swallowing so many pills, and if I give some meds via g-tube that is less pills he had to swallow. Patient agreed, dispensed meds, and patient took all medications orally, no N/V observed. MD instructed RN to ensure patient was getting OOB and sitting in the chair throught out the day, and encouarged patient to work with therapy. Staff used sit-stand lift to transfer patient from bed to recliner. PT checked on patient 3x times today, patient refused therapy. RN/ENGINE COWLING INSTALLER helped patient into chair, patient told therapy he was tired, and did not want to do exercises. Patient sat in chair all afternoon today, tolerating sitting in the chair in reclined position. CBG 62 this morning, patient denies s/sx hypoglycemia. brought in patient food, evening CBG 207, SSI given.
--- NOTE | 2022-06-17 23:17 | NUR ---
MOBILE LOUNGE DRIVER OR OPERATOR SUMMARY PT IN BED RESTING AT THE BEGINNING OF THE SHIFT. PT A/OX4; WITHDRAWN/SLOW TO RESPOND. PT REQ TO TAKE ORAL MEDS W/OJ. PT ABLE TO SWALLOW ALL MEDS AND REPORTED NO NAUSEA. PT REFUSED HEPARIN AND BANANNA FLAKES; PT REPORTS FLAKES HAVE HIM DIARRHEA WHEN HE TOOK THEM LAST. EDUCATED PT ON HEPARIN AND BLOOD CLOT PREVENTION. NO ACUTE CHANGES. CALL LIGHT IN REACH.
[2022-06-18 10:41] LABS: Hematocrit 24.7 % (37.0-53.0); Hemoglobin 7.8 g/dL (13.5-17.5)
[2022-06-18 10:59] LABS: Albumin, Blood 2.1 g/dL (3.4-5.0); Anion Gap 6 mmol/L (6-16); Blood Urea Nitrogen 39 mg/dL (8-24); CO2, Blood 33 mmol/L (21-32); Chloride, Blood 94 mmol/L (98-108); Creatinine, Blood 5.61 mg/dL (0.60-1.20); Glomerular Filtration Rate 12 (60-); Glucose, Blood 126 mg/dL (70-99); Magnesium, Blood 2.3 mg/dL (1.6-2.4); Phosphorus, Blood 4.5 mg/dL (2.5-4.9); Potassium, Blood 4.9 mmol/L (3.5-5.5); Sodium, Blood 133 mmol/L (136-145)
--- NOTE | 2022-06-18 17:54 | NUR ---
SHIFT SUMMARY: PATIENT A&OX4. PLEASANT AND COOPERATIVE WITH CARE. PATIENT HAD DIALYSIS THIS AM. 3000 MLS OF FLUID WAS TAKEN OFF. PATIENT REFUSE SEVERAL MEDS THIS AM. HELD SEVERAL MEDS PER FENCE ERECTOR'S REQUEST. PATIENT DENIES N/V, AND PAIN THIS SHIFT. PATIENT UP IN CHAIR USING A LIFT WITH 2 ASSIST. PATIENT TOLERATED SITTING UP IN CHAIR FOR ABOUT 4 HOURS FROM [id number]. VITALS SIGN REVIEWED. PATIENT REFUSED TO ACCESS PEGTUBE FLUSH WITH 100 MLS OF H2O THIS AM FOR MAINTENANCE. EDUCATE PATIENT AND AGREEABLE TO RESUME CARE OF PEGTUBE TONIGHT FOR FEEDING. PATIENT REPORT HE REFUSING FEEDING THROUGH PEG TUBE DUE TO DIARRHEA. PATIENT REPORT THAT HE HARDLY VOID OF URINE SINCE HE STARTED DIALYSIS. PATIENT USES CALL LIGHT APPROPRIATELY T/O SHIFT. CALL LIGHT IN REACH.
--- NOTE | 2022-06-19 02:27 | NUR ---
PT'S BP 204/92 AT 1948. UPON REVIEW, PT DID NOT RECEIVE MOST AM MEDS, INCLUDING MANY BP MEDS, D/T DIALYSIS. NIGHTTIME MEDICATIONS ADMINISTERED. PT DENIED C/O CP, SOB OR OTHER ADVERSE EFFECTS OF ELEVATED BP.
--- NOTE | 2022-06-19 03:59 | NUR ---
PT NOTED TO HAVE BP OF SBP 225. 20MG IV APRESOLINE GIVEN. WILL CALL TO NOTIFY ON-CALL.
--- NOTE | 2022-06-19 04:10 | NUR ---
DR ELLSWORTH NOTIFIED. RECHECK BP AND NOTIFY HER IF SBP >180.
[2022-06-19 05:58] LABS: Hematocrit 27.9 % (37.0-53.0); Hemoglobin 8.9 g/dL (13.5-17.5)
--- NOTE | 2022-06-19 06:08 | NUR ---
BP COMING DOWN AND STABILIZING. PER DR ELLSWORTH CONTINUE TO MONITOR AND NOTIFY IF SBP >180.
--- NOTE | 2022-06-19 06:11 | NUR ---
A&Ox4. PLEASANT AND COOPERATIVE WITH CARE. SBP 225 @0400 CHECK. GIVEN 20MG IV APRESOLINE AND ON-CALL NOTIFIED. SBP ADEQUATELY COMING DOWN AND DR ELLSWORTH SATISFIED WITH THIS. FOUR LARGE, LIQUID BOWEL MOVEMENTS. DENIES C/O PAIN OR DISCOMFORT. WILL REPORT TO ONCOMING RN.
[2022-06-19 06:20] LABS: Albumin, Blood 2.3 g/dL (3.4-5.0); Anion Gap 5 mmol/L (6-16); Blood Urea Nitrogen 26 mg/dL (8-24); Bun/Creatinine Ratio 7.2 (12.0-20.0); CO2, Blood 36 mmol/L (21-32); Calcium, Blood 9.5 mg/dL (8.5-10.1); Chloride, Blood 94 mmol/L (98-108); Creatinine, Blood 3.63 mg/dL (0.60-1.20); Glomerular Filtration Rate 21 (60-); Glucose, Blood 86 mg/dL (70-99); Magnesium, Blood 2.1 mg/dL (1.6-2.4); Phosphorus, Blood 2.8 mg/dL (2.5-4.9); Potassium, Blood 4.1 mmol/L (3.5-5.5); Sodium, Blood 135 mmol/L (136-145)
--- NOTE | 2022-06-19 18:59 | NUR ---
Shift Summary A/O, calling appropriately. Hypoglycemic this morning in 40's. Was able to get patient to eat 2 cereals, 1.5 carton of milk, and an orange juice to get blood sugar up to high 70's. in to visit and also brought in food. Worked with therapy. Agreeable to be up in chair for dinner, advised to stay sitting for 4 hours. Meds whole with water. Denies pain. Independent with bed mobility.
--- NOTE | 2022-06-20 04:25 | NUR ---
A&Ox4. PLEASANT AND COOPERATIVE WITH CARE. SAT IN RECLINER x2.5 HOURS LST NIGHT, BUT UNABLE TO TOLERATE ANY LONGER. DECLINED PEG TUBE FEEDINGS OR FLUSHES FOR FEAR OF DIARRHEA EPISODES SCHEDULED FOR DIALYSIS TODAY; NEEDS TO TRY AND STAY IN CHAIR FOR DIALYSIS IN ANTICIPATION OF BEING ABLE TO DC TO SNF. HE WOULD LIKE A SHOWER TODAY, IF POSSIBLE. APRESOLINE GIVEN AT 0430 FOR SBP 172. DIARRHEA EPISODE x2. CALLS APPROPRIATELY FOR CHANGE. WILL REPORT TO ONCOMING RN.
[2022-06-20 06:14] LABS: Hematocrit 26.4 % (37.0-53.0); Hemoglobin 8.5 g/dL (13.5-17.5)
[2022-06-20 06:31] LABS: Albumin, Blood 2.2 g/dL (3.4-5.0); Anion Gap 6 mmol/L (6-16); Blood Urea Nitrogen 38 mg/dL (8-24); Bun/Creatinine Ratio 7.8 (12.0-20.0); CO2, Blood 33 mmol/L (21-32); Calcium, Blood 9.2 mg/dL (8.5-10.1); Chloride, Blood 95 mmol/L (98-108); Glomerular Filtration Rate 14 (60-); Glucose, Blood 73 mg/dL (70-99); Magnesium, Blood 2.3 mg/dL (1.6-2.4); Phosphorus, Blood 3.5 mg/dL (2.5-4.9); Potassium, Blood 4.9 mmol/L (3.5-5.5); Sodium, Blood 134 mmol/L (136-145)
--- NOTE | 2022-06-20 18:12 | NUR ---
SHIFT SUMMARY PT A&OX 4 AND IN PLEASENT MOOD T/O SHIFT. FLAT AFFECT NOTED. DIALYSIS THIS SHIFT PT TOLERATED 4 HOURS IN RECLINER. BED BATH PROVIDED UPON RETURN TO UNIT PER PT REQUEST. TOLERATING PO INTAKE WELL, REFUSES TUBE ACCESS. BROUGHT IN SUBWAY FOR DINNER. CALL LIGHT W/IN REACH.
--- NOTE | 2022-06-20 23:45 | NUR ---
PT AWAKE AT START OF SHIFT, WATCHING TV. PT IS IRRITABLE WITH FLAT AFFECT. REFUSES CARE WHEN HE FEELS LIKE IT. REFUSING PEG TUBE FEEDINGS AND FLUSHES. REFUSED TO ALLOW PEG TUBE SITE TO BE CLEANED. SITE VERY CRUSTY WITH BUILD UP. REFUSED OINTMENT TO SOFTEN. PER SHIFT REPORT, PT ACCEPTED TO SNF IN [place]. AGRICULTURAL EQUIPMENT DESIGN ENGINEER TO VERIFY CHAIR AT LOCAL [facility] FOR DIALYSIS BEFORE D/C. DENIED FURTHER NEEDS. RESTING QUIELTY AT THIS TIME. CALL LT IN REACH.
--- NOTE | 2022-06-21 05:26 | NUR ---
PT'S BP AT 0438 195/104. ADMINISTERED PRN HYDRALAZINE 20mg IV. SHORTLY, THEREAFTER, PT BEGAN C/O NAUSEA. ADMINISTERED 4mg ZOFRAN IV. PT REQUESTED I COME BACK FOR POWERGLIDE BLOOD DRAW IN HALF HOUR. WILL RECHECK BLOOD PRESSURE AT THAT TIME.
[2022-06-21 06:47] LABS: Hematocrit 26.9 % (37.0-53.0); Hemoglobin 8.5 g/dL (13.5-17.5)
[2022-06-21 06:59] LABS: Albumin, Blood 2.3 g/dL (3.4-5.0); Anion Gap 4 mmol/L (6-16); Blood Urea Nitrogen 25 mg/dL (8-24); CO2, Blood 35 mmol/L (21-32); Calcium, Blood 9.1 mg/dL (8.5-10.1); Chloride, Blood 98 mmol/L (98-108); Creatinine, Blood 3.59 mg/dL (0.60-1.20); Glomerular Filtration Rate 21 (60-); Glucose, Blood 86 mg/dL (70-99); Magnesium, Blood 2.3 mg/dL (1.6-2.4); Phosphorus, Blood 3.2 mg/dL (2.5-4.9); Potassium, Blood 4.3 mmol/L (3.5-5.5); Sodium, Blood 137 mmol/L (136-145)
--- NOTE | 2022-06-21 07:37 | NUR ---
A&Ox4. DECLINED ALL PEG TUBE Tx INCLUDING FLUSHES AND CLEANING. CHARGE NOTIFIED. EPISODE OF HTN THIS EVENING FOR THE THIRD NIGHT IN A ROW AND IV HYDRALAZINE 20MG IV ADMINISTERED. NO C/O CP OR SOB AT TIME OF HTN EPISODE. AWAITING DC TO SNF. REPORT TO ONCOMING RN.
--- NOTE | 2022-06-21 08:05 | NUR ---
DR. LANDA NOTIFIED OF HTN
--- NOTE | 2022-06-21 18:45 | NUR ---
SHIFT SUMMARY PT A&0 X4 T/O SHIFT, FLAT AFFECT. HTN NOTED, MEDICATED PER EMAR. PT RESTED COMFORTABLY T/O SHIFT. CALL LIGHT W/IN REACH. VSS. TOLERATING PO INTAKE WELL, SPOUSE IN TO SEE PT IN EVENING HOURS. AWAITING PLACEMENT @ SNF [place] @ THIS TIME.
--- NOTE | 2022-06-22 04:00 | NUR ---
PT IS A/OX4, PLEASANT AND COOPERATIVE THIS SHIFT. THE PT APPEARS TO BE BREATHING EASILY ON RA AT THIS TIME. THE PT DENIED ANY PAIN. THIS AM THE PT AWOKE FEELING DIAPHERETIC AND LOOPY. PT FELT THAT HIS BLOOD SUGAR WAS LOW. PT WAS GIVEN ORANGE JUICE PER HIS REQUEST, BS CHECKED AT 63. MORE ORANGE JUICE WAS GIVEN. SYMPTOMS RESOLVED. PT WAS HYPERTENSIVE THIS EVENING, PM BP MEDS GIVEN PTS BP REMAINED HIGH, HYDRAZOLINE 20MG WAS GIVEN. CALL LIGHT IN REACH, WILL CONTINUE TO MONITOR AND ASSESS FOR CHANGES
[2022-06-22 05:59] LABS: Hematocrit 25.8 % (37.0-53.0); Hemoglobin 8.1 g/dL (13.5-17.5)
[2022-06-22 06:28] LABS: Albumin, Blood 2.2 g/dL (3.4-5.0); Anion Gap 7 mmol/L (6-16); Blood Urea Nitrogen 40 mg/dL (8-24); Bun/Creatinine Ratio 8.5 (12.0-20.0); CO2, Blood 34 mmol/L (21-32); Calcium, Blood 9.1 mg/dL (8.5-10.1); Chloride, Blood 95 mmol/L (98-108); Glomerular Filtration Rate 15 (60-); Glucose, Blood 81 mg/dL (70-99); Phosphorus, Blood 4.2 mg/dL (2.5-4.9); Potassium, Blood 5.3 mmol/L (3.5-5.5); Sodium, Blood 136 mmol/L (136-145)
--- NOTE | 2022-06-22 09:25 | NUR ---
PT TO DIALYSIS @ THIS TIME IN RECLINER
--- NOTE | 2022-06-22 13:29 | NUR ---
PT RETURNED FROM DIALYSIS @ THIS TIME, ABLE TO TOLERATE RECLINER FOR PROCEDURE. PT DOES C/O "EXCESSIVE BLEEDDING WHEN GETTING UNHOOKED". GLUCOSE CHECKED, NO INSULIN COVERAGE INDICATED. @ BEDSIDE.
--- NOTE | 2022-06-22 17:09 | NUR ---
SHIFT SUMMARY PT A&OX 4 AND IN PLEASENT MOOD T/O SHIFT. PT JOKING AND SMILING, THOUGH AFFECT FLAT. DIALYSIS THIS AM [phone], IN WITH PT T/O SHIFT. TOLERATING PO INTAKE WELL, BROUGHT IN SOUP AND EMMETT BARS. CALL LIGHT W/IN REACH. UP TO CHAIR FOR APPROX 4.5 HOURS. HTN NOTED. POSSIBLE TO DC TO [facility] TOMORROW PENDING CHAIR AT [facility].
--- NOTE | 2022-06-22 23:24 | NUR ---
GI: PATIENT HAS HAD A LARGE LIQUID STOOL EVERY 45 MIN[address]ES S[address]CE START OF SHIFT. DR SIGALA IS NOTIFIED AND ORDER FOR STOOL SAMPLE IS OBTAINED.
[2022-06-23 00:38] LABS: C DIFFICILE DNA NEGATIVE (Negative)
[2022-06-23 05:47] LABS: Hematocrit 25.8 % (37.0-53.0); Hemoglobin 8.1 g/dL (13.5-17.5)
--- NOTE | 2022-06-23 05:50 | NUR ---
SHIFT SUMMARY: PATIENT HAD GOOD EFFECT FROM TWO DOSES OF IMMODIUM. PATIENT CONTINUES TO REFUSE ALL PEG TUBE CARE, FEEDINGS, FLUSHES AND BANANA FLAKES. BLOOD GLUCOSE WAS 90 AT HS. PATIENT HAS EATEN 3 PACKS OF SALTINES AND 1/2 PIECE OF CHEDDAR CHEESE AND 240 MLS OF OJ THIS SHIFT. BP CONTINUES TO BE ELEVATED 196/92 AT HS. SCHEDULED MEDS WERE GIVEN WITH GOOD EFFECT. BP IS AGAIN ELEVATRED @ 202/93, PRN HYDRALAZINE WAS GIVEN PER DEC.
[2022-06-23 05:57] LABS: Albumin, Blood 2.3 g/dL (3.4-5.0); Anion Gap 6 mmol/L (6-16); Blood Urea Nitrogen 29 mg/dL (8-24); Bun/Creatinine Ratio 7.6 (12.0-20.0); CO2, Blood 33 mmol/L (21-32); Calcium, Blood 9.1 mg/dL (8.5-10.1); Chloride, Blood 97 mmol/L (98-108); Glomerular Filtration Rate 19 (60-); Glucose, Blood 77 mg/dL (70-99); Phosphorus, Blood 2.5 mg/dL (2.5-4.9); Potassium, Blood 4.6 mmol/L (3.5-5.5); Sodium, Blood 136 mmol/L (136-145)
[2022-06-23] MEDS ORDERED: ASPI81CH PO (11:37)
[2022-06-23] MEDS ORDERED: BACLOFEN5 M3 PO (11:39)
[2022-06-23] MEDS ORDERED: BANATROL PLUS1 EAC1 PO (11:39)
[2022-06-23] MEDS ORDERED: CLOP75 PO (11:40)
[2022-06-23] MEDS ORDERED: LORA.5 PO (11:40)
[2022-06-23 12:26] LABS: Influenza A, PCR NEGATIVE (NEGATIVE); Influenza B, PCR NEGATIVE (NEGATIVE); Resp Syncytial Virus, PCR NEGATIVE (NEGATIVE); SARS-Cov-2 (COVID-19) PCR, MMC NEGATIVE (NEGATIVE)
== END 2022-06-23 14:27 | DRG 246 ==
LOC: ER 03:38 → ICUW 05:48 → MEDS 06-02 16:35
PROVIDERS: Family Medicine; Internal Medicine; Internal Medicine Nephrology; Pharmacist; Student in an Organized Health Care Education/Training Program; ADMIT Internal Medicine
PROC: 5A1D70Z Performance of Urinary Filtration, Intermittent, Less than 6 Hours Per Day (ICD-10-PCS; 2022-05-28)
PROC: 5A09457 Assistance with Respiratory Ventilation, 24-96 Consecutive Hours, Continuous Positive Airway Pressure (ICD-10-PCS; 2022-05-28)
PROC: 027034Z Dilation of Coronary Artery, One Artery with Drug-eluting Intraluminal Device, Percutaneous Approach (ICD-10-PCS; principal; 2022-05-29)
PROC: B2111ZZ Fluoroscopy of Multiple Coronary Arteries using Low Osmolar Contrast (ICD-10-PCS; 2022-05-29)
PROC: 05HM33Z Insertion of Infusion Device into Right Internal Jugular Vein, Percutaneous Approach (ICD-10-PCS; 2022-05-31)
DX: I13.2 Hypertensive heart and chronic kidney disease with heart failure and with stage 5 chronic kidney disease, or end stage renal disease (principal); I21.4 Non-ST elevation (NSTEMI) myocardial infarction; J81.0 Acute pulmonary edema; J96.01 Acute respiratory failure with hypoxia; J15.9 Unspecified bacterial pneumonia; N18.6 End stage renal disease; I69.354 Hemiplegia and hemiparesis following cerebral infarction affecting left non-dominant side; Z94.0 Kidney transplant status; N02.8 Recurrent and persistent hematuria with other morphologic changes; N25.81 Secondary hyperparathyroidism of renal origin; E87.1 Hypo-osmolality and hyponatremia; T82.591A Other mechanical complication of surgically created arteriovenous shunt, initial encounter; D63.1 Anemia in chronic kidney disease; I16.0 Hypertensive urgency; E11.22 Type 2 diabetes mellitus with diabetic chronic kidney disease; Z99.2 Dependence on renal dialysis; G40.909 Epilepsy, unspecified, not intractable, without status epilepticus; E03.9 Hypothyroidism, unspecified; Z20.822 Contact with and (suspected) exposure to COVID-19; Z79.899 Other long term (current) drug therapy; Z98.890 Other specified postprocedural states; E87.5 Hyperkalemia; E88.09 Other disorders of plasma-protein metabolism, not elsewhere classified; I50.22 Chronic systolic (congestive) heart failure
CPT/HCPCS: 0241U; 36415; 71045; 76937; 80048; 80053; 80069; 80074; 80076; 80202; 82248; 82272; 82550; 82728; 82803; 82947; 83540; 83605; 83690; 83735; 83880; 84100; 84145; 84484; 85014; 85018; 85025; 85347; 85610; 85730; 86317; 87040; 87340; 87493; 92978; 93005; 93010; 93306; 93454; 94660; 94760; 96365; 96366; 96368; 96375; 97110; 97162; 97166; 97530; 99152; 99153; 99291-25; A9270; C1725; C1751; C1753; C1769; C1874; C1887; C1894; C9113; C9600; J0360; J0456; J0692; J1580; J1644; J1815; J2250; J2270; J2405; J2550; J2765; J2916; J3010; J3370; J7030; J7050; J7060; J7507; J7512; Q5106; Q9967

== ENCOUNTER 2022-10-15 09:42 | Emergency (ER) | payer BC, MEDICARE ==
[~2022-10-15] VITALS: Ht 188 cm; Wt 86.2 kg
[~2022-10-15 09:42] MED LIST changes: +BACLOFEN5 M3 PO; +BANATROL PLUS1 EAC1 PO; +CATAPRES-TTS 31 EAC2 TOP; +Diovan320 MG PO; +FERSU300 PO; +HUMALOG KW100 UNIT/1 SC; +INSULIN GL100 UNIT/3 SC; +LORA.5 PO; +NIFE30ER PO; +SPIR50 PO
== END 2022-10-15 12:45 | disposition home or self-care (01) ==
LOC: ER 09:42
DX: S41.021A Laceration with foreign body of right shoulder, initial encounter (principal); S90.31XA Contusion of right foot, initial encounter; W01.110A Fall on same level from slipping, tripping and stumbling with subsequent striking against sharp glass, initial encounter; I12.0 Hypertensive chronic kidney disease with stage 5 chronic kidney disease or end stage renal disease; E11.22 Type 2 diabetes mellitus with diabetic chronic kidney disease; N18.6 End stage renal disease; Z99.2 Dependence on renal dialysis; Z79.899 Other long term (current) drug therapy; Z79.4 Long term (current) use of insulin
CPT/HCPCS: 73030; 73630; 90714

== ENCOUNTER → 2022-10-21 | Outpatient (CLI) | payer BC, MEDICARE | END | disposition home or self-care (01) | LOC: LAB SHORT 15:30 | DX: L03.90 Cellulitis, unspecified (principal) | CPT/HCPCS: 87081 ==

== ENCOUNTER 2023-01-23 20:29 | Emergency (ER) | payer MEDICARE, BC ==
[~2023-01-23] VITALS: Ht 188 cm; Wt 86.2 kg
[2023-01-23 21:46] LABS: Albumin, Blood 3.3 g/dL (3.4-5.0); Albumin/Globulin Ratio 0.7 (0.8-1.8); Bilirubin, Total 0.5 mg/dL (0.1-1.0); Bun/Creatinine Ratio 13.4 (12.0-20.0); Creatinine, Blood 3.5 mg/dL (0.60-1.20); Globulin, Blood 4.5 g/dL (2.2-4.0); Potassium, Blood 3.4 mmol/L (3.5-5.5); Total Protein, Blood 7.8 g/dL (6.4-8.2)
[2023-01-23 22:10] LABS: BASOPHILS ABSOLUTE AUTO 0.04 K/mm3 (0.00-0.23); BASOPHILS PERCENT AUTO 1 % (0-2); EOSINOPHILS ABSOLUTE AUTO 0.26 K/mm3 (0.00-0.68); EOSINOPHILS PERCENT AUTO 4 % (0-6); Hematocrit 27.8 % (37.0-53.0); Hemoglobin 9.6 g/dL (13.5-17.5); IMMATURE GRAN ABSOLUTE AUTO 0.03 K/mm3 (0.00-0.10); IMMATURE GRAN PERCENT AUTO 1 % (0-1); LYMPHOCYTES PERCENT AUTO 15 % (21-46); MONOCYTES ABSOLUTE AUTO 0.58 K/mm3 (0.16-1.47); MONOCYTES PERCENT AUTO 9 % (4-13); Mean Corpuscular HGB Conc 34.5 g/dL (31.5-36.5); Mean Corpuscular Volume 102 fL (80-100); Mean Platelet Volume 10.5 fL (9.1-12.4); NEUTROPHILS PERCENT AUTO 71 % (41-73); Platelet Count 222 K/mm3 (150-400); RDW Coefficient Variation 13.2 % (11.7-14.2); RDW Standard Deviation 48.9 fL (35.1-46.3); Red Blood Cell Count 2.74 M/mm3 (4.30-5.90); White Blood Cell Count 6.21 K/mm3 (4.00-11.30)
[2023-01-23 23:00] VITALS: BP 190/98
== END 2023-01-23 23:26 | disposition home or self-care (01) ==
LOC: ER 20:29
PROVIDERS: Emergency Medicine
DX: R10.31 Right lower quadrant pain (principal); I12.0 Hypertensive chronic kidney disease with stage 5 chronic kidney disease or end stage renal disease; E11.22 Type 2 diabetes mellitus with diabetic chronic kidney disease; N18.6 End stage renal disease; R74.8 Abnormal levels of other serum enzymes; Z79.890 Hormone replacement therapy; Z79.4 Long term (current) use of insulin; Z79.899 Other long term (current) drug therapy; Z79.82 Long term (current) use of aspirin; Z79.52 Long term (current) use of systemic steroids
CPT/HCPCS: 36415; 74177; 80053; 83690; 85025; 99284-25; Q9967

== ENCOUNTER → 2023-01-30 | Outpatient (CLI) | payer MEDICARE, BC ==
[2023-01-30 15:59] LABS: Source, Urine Voided
[2023-01-30 16:57] LABS: Appearance, Urine Hazy (Clear); Bilirubin, Urine Neg (Neg); Blood, Urine Neg (Neg); Color, Urine Yellow (P-Yellow); Glucose Qualitative, Urine 1+ (Neg); Ketones, Urine Neg (Neg); Leukocyte Esterase, Urine Neg (Neg); Nitrite, Urine Neg (Neg); Protein, Urine 3+ (Neg); Specific Gravity, Urine 1.015 (1.003-1.022); Urobilinogen, Urine NORM (Normal)
[2023-01-30 17:24] LABS: White Blood Cells, Urine 0-2 /hpf (0-5)
[2023-01-30 17:25] LABS: Bacteria Rare /hpf; Squamous Epithelial Cells Few /hpf (Few)
== END | disposition home or self-care (01) ==
LOC: LAB 15:58 → LAB SHORT 15:58
PROVIDERS: Physician Assistant
DX: N39.0 Urinary tract infection, site not specified (principal)
CPT/HCPCS: 81001

== ENCOUNTER 2023-08-10 14:47 | Inpatient (IN) | payer MEDICARE, BC ==
[~2023-08-10] VITALS: Ht 190.5 cm; Wt 87.5 kg
[~2023-08-10 14:47] MED LIST changes: +Calcium Acetat667 MG PO; +DIVALPROEX SOD500 M2; +DOXA4 PO; +LACO50TA2 PO; +LORA10ER PO; +NEPHRO VITAMIN0.8 MG PO; +OXYC5 PO; +Percocet 5-3251 EACH PO; +RENAL VITAMIN0.8 MG PO; +SERT100 PO; +VALS80 PO
[2023-08-10 15:28] LABS: BASOPHILS ABSOLUTE AUTO 0.01 K/mm3 (0.00-0.23); BASOPHILS PERCENT AUTO 0 % (0-2); EOSINOPHILS ABSOLUTE AUTO 0.01 K/mm3 (0.00-0.68); EOSINOPHILS PERCENT AUTO 0 % (0-6); IMMATURE GRAN ABSOLUTE AUTO 0.08 K/mm3 (0.00-0.10); IMMATURE GRAN PERCENT AUTO 1 % (0-1); LYMPHOCYTES ABSOLUTE AUTO 0.55 K/mm3 (0.84-5.20); LYMPHOCYTES PERCENT AUTO 8 % (21-46); MONOCYTES ABSOLUTE AUTO 0.98 K/mm3 (0.16-1.47); MONOCYTES PERCENT AUTO 14 % (4-13); Mean Corpuscular HGB 32.1 pg (26.0-34.0); Mean Corpuscular HGB Conc 32.1 g/dL (31.5-36.5); Mean Corpuscular Volume 100 fL (80-100); Mean Platelet Volume 10.2 fL (9.1-12.4); NEUTROPHILS ABSOLUTE AUTO 5.53 K/mm3 (1.96-9.15); NEUTROPHILS PERCENT AUTO 77 % (41-73); Platelet Count 213 K/mm3 (150-400); RDW Coefficient Variation 14.2 % (11.7-14.2); RDW Standard Deviation 50.8 fL (35.1-46.3); Red Blood Cell Count 1.65 M/mm3 (4.30-5.90); White Blood Cell Count 7.16 K/mm3 (4.00-11.30)
[2023-08-10 15:48] LABS: Hematocrit 16.5 % (37.0-53.0)
[2023-08-10 15:49] LABS: Hemoglobin 5.3 g/dL (13.5-17.5)
[2023-08-10 16:09] LABS: Albumin, Blood 2.2 g/dL (3.4-5.0); Albumin/Globulin Ratio 0.4 (0.8-1.8); Bilirubin, Total 0.7 mg/dL (0.1-1.0); Bun/Creatinine Ratio 7.6 (12.0-20.0); Creatinine, Blood 9.25 mg/dL (0.60-1.20); Globulin, Blood 5.3 g/dL (2.2-4.0); Potassium, Blood 3.4 mmol/L (3.5-5.5); Total Protein, Blood 7.5 g/dL (6.4-8.2)
[2023-08-10 17:15] LABS: Influenza A, PCR NEGATIVE (NEGATIVE); Influenza B, PCR NEGATIVE (NEGATIVE); Resp Syncytial Virus, PCR NEGATIVE (NEGATIVE); SARS-Cov-2 (COVID-19) PCR, MMC NEGATIVE (NEGATIVE)
[2023-08-10 17:33] LABS: Percent Saturation 16.5 % (20.0-50.0)
[2023-08-10 18:58] LABS: Hematocrit 16.5 % (37.0-53.0); Hemoglobin 5.4 g/dL (13.5-17.5)
[2023-08-10] MEDS ORDERED: ALBU90OI INH (19:06)
[2023-08-10] MEDS ORDERED: FLUT1DIS5 INH (19:06)
[2023-08-10] MEDS ORDERED: EZET10 PO (19:07)
[2023-08-10] MEDS ORDERED: Tessalon200 MG PO (19:07)
[2023-08-10 20:22] VITALS: BP 165/78
[2023-08-11] VITALS (33 sets, daily range): BP systolic 133–181; BP diastolic 68–96
[2023-08-11 03:41] LABS: Mean Corpuscular HGB 31.7 pg (26.0-34.0); Mean Corpuscular HGB Conc 32.7 g/dL (31.5-36.5); Mean Corpuscular Volume 97 fL (80-100); Mean Platelet Volume 9.6 fL (9.1-12.4); Platelet Count 227 K/mm3 (150-400); RDW Standard Deviation 49.4 fL (35.1-46.3); Red Blood Cell Count 1.67 M/mm3 (4.30-5.90); White Blood Cell Count 6.16 K/mm3 (4.00-11.30)
[2023-08-11 03:56] LABS: Hematocrit 16.2 % (37.0-53.0); Hemoglobin 5.3 g/dL (13.5-17.5)
[2023-08-11 04:22] LABS: Magnesium, Blood 2.6 mg/dL (1.6-2.4)
[2023-08-11 04:24] LABS: Albumin, Blood 2.1 g/dL (3.4-5.0); Anion Gap 11 mmol/L (6-16); Blood Urea Nitrogen 78 mg/dL (8-24); Bun/Creatinine Ratio 7.6 (12.0-20.0); CO2, Blood 32 mmol/L (21-32); Calcium, Blood 8.9 mg/dL (8.5-10.1); Chloride, Blood 91 mmol/L (98-108); Ferritin, Serum 2935 ng/mL (26-388); Glomerular Filtration Rate 6 (60-); Glucose, Blood 99 mg/dL (70-99); Phosphorus, Blood 4.9 mg/dL (2.5-4.9); Potassium, Blood 3.3 mmol/L (3.5-5.5); Sodium, Blood 134 mmol/L (136-145)
--- NOTE | 2023-08-11 07:58 | NUR ---
SHIFT SUMMARY: A&OX1-2. RESPONSES TO QUESTIONS VERY SLOW TO RESPOND. REPORTS PT IS A&OX4 WITH NO DELAY AT BASLINE. PT ABLE TO FOLLOW DIRECTIONS WHEN AWAKE. TAKES PILLS WHOLE WITH WATER WITHOUT DIFFICULY. PT CONFUSED BY DIRECTIONS WHEN INITIALLY AWAKENED FROM SLEEP. HR SR IN 80'S. NO SYMPTOMS OF CHEST PAIN/PRESSURE NOTED. PT HAS FREQUENT APNIC EPISODES WITH SATURATIONS DIPPING TO 88% BUT SPONTANIOUSLY INCREASED TO MID 90'S. REPORTS PT DOES NOT HAS DX OF SAM. ABLE TO MAINTAINED SATS ON RA WHILE SLEEPING. BP ELEVATED 180'S/70'S. PT'S REPORTS AT TIMES BP UP TO 250/150. DR. ANDERSON NOTIFIED, RECEIVED ORDERS FOR PT'S HOME BP MEDS TO BE GIVEN WHILE IN HOSPITAL. REPOSITIONED Q2-3H. BLADDER SCANNED DUE TO OLIGURIA, < 100 ML FOUND IN BLADDER. PT REPORTS IT IS NORMAL FOR THE PT NOT TO VOID, OR TO VOID ONLY SMALL AMOUNTS.
--- NOTE | 2023-08-11 10:16 | NUR ---
AM NOTES; PT VERY LETHARGIC THIS MORNING, UNABLE TO STAY AWAKE, UNABLE TO FOLLOW SOME COMMANDS OR RESPONDS TO QUESTIONS, ABLE TO STATE NAME AND SLOW AND MUMBLED. VITALS HRR 80'S, SBP 160-170'S, SATS ABOVE 92% ON RA, AFEBRILE. PT WITH SLOW AND FAST BREATHING WHEN ASLEEP. DIET WAS HELD THIS MORNING PT WOULDNT STAY AWAKE, PT KEEPING FOOD IN THE MOUTH UNABLE TO SWALLOW EVERYTHING DOWN, MEDS WERE HELD WELL. PT GETTING DIALYSIS AT THIS TIME, WILL WAIT TO SEE IF PT GETS MORE AWAKE AFTER DIALYSIS. IN THE ROOM THIS MORNING, WAS GIVEN UPDATE REGARDING PT'S STATUS. PT REPOSIIONED IN BED, ORAL CARE PROVIDED. WILL CONTINUE TO MONITOR
--- NOTE | 2023-08-11 17:32 | NUR ---
PT SUMMARY: SEE AM NOTES: PT FINISHED DIALYSIS AT AROUND 1400 HAD 2000MLS OUTPUT PER LIBRARIAN SPECIALIST. AT THE BEDSIDE MOST OG THE SHIFT, PT WAS MORE ALERT AND RESPONSIVE STILL LETHARGIC BUT ABLE TO KEEP HIMSELF AWAKE TO EAT SOME LUNCH AND TAKE HIS MEDS, SEIZURE AND DAILY MEDS ADMINISTERED LATE PER PHARMACY OKAY TO LATE ADMINISTER SEIZURE MEDS TONIGHT AT 2300. PT ABLE TO TAKE MEDS CRUSHED IN PUDDING. TAKES TIME AND ENCOURAGEMENT TO SWALLOW MEDS WAS HELPFUL. BED BATH WAS PROVIDED UPON SKIN CHECK PT HAS SMALL OPENINGS ON COCCYX MEPILEX PLACED PT WAS FLOATED IN PILLOWS REPOSITIONED Q2HRS. PT ALSO HAD A SEMI LOOSE MEDIUM BM BROWN IN COLOR, MINIMAL URINE OUTPUT ON ATTENDS. VITALS HRR SR AT 90'S, SBP'S 150-170'S, SATS ABOVE 90% ON ROOMAIR, TEMP WAS AT 100 AT LUNCH TIME DURING DIALYSIS WENT DOWN TO 98.0. DR PAZ CAME TO SEE PT AND WAS ABLE TO TALK TO THE , NO ORDERS YET OF THIS TIME, PROVIDER TO REVIEW PT'S CASE PER . PT REFUSED DINNER, CURRENTLY RESTING IN BED, SCD'S ON, CALL LIGHTS IN REACH WILL REPORT TO ONCOMING SHIFT
[2023-08-12] VITALS (8 sets, daily range): BP systolic 111–176; BP diastolic 63–103
[2023-08-12 04:03] LABS: BASOPHILS ABSOLUTE AUTO 0.01 K/mm3 (0.00-0.23); BASOPHILS PERCENT AUTO 0 % (0-2); EOSINOPHILS PERCENT AUTO 0 % (0-6); IMMATURE GRAN PERCENT AUTO 1 % (0-1); LYMPHOCYTES ABSOLUTE AUTO 0.97 K/mm3 (0.84-5.20); LYMPHOCYTES PERCENT AUTO 14 % (21-46); MONOCYTES ABSOLUTE AUTO 1.34 K/mm3 (0.16-1.47); MONOCYTES PERCENT AUTO 19 % (4-13); Mean Corpuscular HGB 32.6 pg (26.0-34.0); Mean Corpuscular HGB Conc 32.6 g/dL (31.5-36.5); Mean Corpuscular Volume 100 fL (80-100); Mean Platelet Volume 9.8 fL (9.1-12.4); NEUTROPHILS ABSOLUTE AUTO 4.62 K/mm3 (1.96-9.15); NEUTROPHILS PERCENT AUTO 66 % (41-73); Platelet Count 217 K/mm3 (150-400); RDW Coefficient Variation 14.1 % (11.7-14.2); RDW Standard Deviation 51.5 fL (35.1-46.3); Red Blood Cell Count 1.75 M/mm3 (4.30-5.90); White Blood Cell Count 7.04 K/mm3 (4.00-11.30)
[2023-08-12 04:20] LABS: Hematocrit 17.5 % (37.0-53.0); Hemoglobin 5.7 g/dL (13.5-17.5)
[2023-08-12 04:32] LABS: Magnesium, Blood 2.2 mg/dL (1.6-2.4)
[2023-08-12 04:33] LABS: Albumin, Blood 2.1 g/dL (3.4-5.0); Anion Gap 8 mmol/L (6-16); Blood Urea Nitrogen 44 mg/dL (8-24); Bun/Creatinine Ratio 6.9 (12.0-20.0); CO2, Blood 33 mmol/L (21-32); Calcium, Blood 9.2 mg/dL (8.5-10.1); Chloride, Blood 93 mmol/L (98-108); Creatinine, Blood 6.39 mg/dL (0.60-1.20); Glomerular Filtration Rate 10 (60-); Glucose, Blood 106 mg/dL (70-99); Phosphorus, Blood 3.8 mg/dL (2.5-4.9); Potassium, Blood 3.3 mmol/L (3.5-5.5); Sodium, Blood 134 mmol/L (136-145)
--- NOTE | 2023-08-12 06:17 | NUR ---
SHIFT SUMMARY PATIENT DROWSY BUT WAKES EASILY, ORIENTED X4. HAD NO COMPLAINTS OF PAIN OR SHORTNESS OF BREATH. ABLE TO TAKE MEDICATIONS WHOLE WITH WATER TONIGHT, PATIENT MORE ALERT THAN ON DAY SHIFT. ON ROOM AIR WITH SPO2 IN THE HIGH 90'S. CONTACTED NURSING SUPPORT WORKER RESIDENT, DR ANDERSON, TO INFORM HER THAT THE PATIENT'S BLOOD PRESSURE THIS MORNING WAS IN THE 170'S. AMLODIPINE AND LABETALOL GIVEN EARLY PER DR ANDERSON. SINUS RHYTHM ON TELE. WILL CONTINUE TO MONITOR. CALL LIGHT WITHIN REACH.
--- NOTE | 2023-08-12 11:57 | NUR ---
AM NOTE: PT REMAINS LETHARGIC BUT TIM TO STAY AWAKE FOR A LITTLE BIT FOR MEDS AND SOME BREKAFAST WAS IN THE ROOM HELPFUL ASSISTING PT WITH FOOD. VITALS HRR SR 70'S, SBP 110-150'S, SATS ABOVE 93% ON RA WHEN AWAKE, DESATS TO LOW 80'S WHEN ASLEEP PLACED ON 2L OF VIA NASAL CANNULA SATS KEPT ABOVE 90%, AFEBRILE. PT PALE, DIAPHORETIC. BED BATH COMPLETED. PT MOSTLY ASLEEP AFTER BREKAFAST, MOSTLY RESPONSIVE TO PAIN WHEN TURNED OR REPOSITIONED. IN THE ROOM AT THIS TIME TO HELP FEED PT FOR LUNCH. NO OTHER ISSUES ENCOUNTERED SERGEY CONTINUE TO MONITOR
--- NOTE | 2023-08-12 18:42 | NUR ---
PT SUMMARY: SEE AM NOTES: PT REMAINED LETHARGIC FOR MOST OF THE SHIFT UNABLE TO STAY AWAKE FOR MEALS. ABLE TO TALK TO DR ISGALA ABOUT OTHER NUTRITION SOURCES, PT HAD NG TUBE IN HTE PAST PER AND PT DOESNT LIKE IT AGREED TO TRY PPPN FOR NOW AND SEE HOW PT DO AFTER 2 DAYS. PT HAS BEEN REPOSITIONED IN BED Q2 HRS. NO VOID TODAY. DR BENEDICT CALLED AND ORDERED CLINIMIX WITH 140MEQ IN TOTAL. PLAN TO PLACE PICC LINE ON PT ANDF START THE CLINIMIX AFTER IRON INFUSION IS DONE. PHARMACY AND DIETITIAN AWARE. PT RESTING IN BED CALL LIGHTS IN REACH WILL REPORT TO ONCOMING SHIFT
[2023-08-13] VITALS (19 sets, daily range): BP systolic 125–171; BP diastolic 63–787
[2023-08-13 04:34] LABS: Hematocrit 15.5 % (37.0-53.0)
[2023-08-13 04:52] LABS: Magnesium, Blood 2.5 mg/dL (1.6-2.4)
[2023-08-13 05:23] LABS: Albumin, Blood 1.9 g/dL (3.4-5.0); Anion Gap 9 mmol/L (6-16); Blood Urea Nitrogen 69 mg/dL (8-24); Bun/Creatinine Ratio 8.3 (12.0-20.0); CO2, Blood 31 mmol/L (21-32); Chloride, Blood 94 mmol/L (98-108); Creatinine, Blood 8.28 mg/dL (0.60-1.20); Glomerular Filtration Rate 8 (60-); Glucose, Blood 146 mg/dL (70-99); Phosphorus, Blood 6.5 mg/dL (2.5-4.9); Potassium, Blood 3.9 mmol/L (3.5-5.5); Sodium, Blood 134 mmol/L (136-145); Triglycerides 116 mg/dL (30-160)
--- NOTE | 2023-08-13 06:44 | NUR ---
SHIFT SUMMARY PATIENT LETHARGIC AND DIFFICULT TO ROUSE, THIS HAS INCREASED OVERNIGHT. UNABLE TO SAFELY ADMINISTER 0600 MEDICATIONS. ON 2 LITERS O2 VIA NC SPO2 95%, PATIENT TACHYPNIC IN THE 30'S. BLOOD PRESSURE STABLE. HEMEGLOBIN, HEMATOCRIT, AND CREATININE CRITICAL THIS MORNING. PROVDER AWARE. WILL CONTINUE TO MONITOR. CALL LIGHT WITHIN REACH.
--- NOTE | 2023-08-13 07:49 | NUR ---
PT IS LETHARGIC AND SLEEPING, RESPONDS TO SOME VERBAL AND TACTILE STIMULI. HE SPONTANEOUSLY WOKE UP AND WAS ABLE TO STATE HIS FULL NAME, THEN HE QUICKLY FELL ASLEEP. I MADE SEVERAL ATTEMPTS TO WAKE HIM BACK UP, BUT HE FALLS ASLEEP TOO QUICKLY. PT HAS SWEAT ON HIS FOREHEAD AND HIS SKIN IS CLAMMY, TEMP 99.5, COOL CLOTH PLACED ON PTS FOREHEAD AND SHEET REMOVED FROM HIS FEET. PT'S O2 SATURATION IS ABOVE 92% ON 2L NC. PT'S ABD SOFT AND NONTENDER, BOWEL TONES PRESENT, BRIEF IN PLACE. Q 2 TURNS. HEELS PADDED AND MEPILEX IN PLACE ON COCCYX. CALL LIGHT IS WITHIN REACH. PT'S JUST ARRIVED IN ROOM. SHE IS SITTING AT HIS BEDSIDE.
--- NOTE | 2023-08-13 12:06 | NUR ---
DROPPED OFF PT FOR DIALYSYS AROUND 0900. PICKED UP PT FROM DIALYSYS AROUND 1200, PT IS BACK IN HIS ROOM. VITALS ARE STABLE. PT IS SLEEPING. CALL LIGHT WITHIN REACH.
--- NOTE | 2023-08-13 13:23 | NUR ---
Pt resting in bed with his eyes closed upon arrival. Pt's spouse Sussy at bedside. Pt intermittently engages in conversation and appears weak, lethargic and confused. Engaged in therapeutic listening as spouse Ssusy reports being Pt's primary caregiver. At baseline Pt requires assistance with bathing, dressing, and transfer to wheelchair. At baseline she is able to leave Pt home alone and go to work. She reports no children or family. She does report some support from friends. Encouraged Sussy to consider planning for the future and setting up caregiver support for respite in order to avoid caregiver burnout. Continue supportive visit. Reviewed plan of care and answered questions. Sussy inquires about prognosis and if decisions need to be made. Instructed on allowing physicians to discuss prognosis and allowing physicians to guide in decision making. Instructed the importance of planning for the potential need to make decisions including first step of considering code status. Gentle discussion regarding risks and implications to CPR. Pt wakes and participates in code status discussion. Pt reports if he declines he would like to be DNR but for now would like to remain full code. Sussy appears to be in agreement with this. Pt drift back to sleep. Sussy agreeable for continued PC visits. Spoke with Primary RNs Laury Tobar, and discussed case. Palliative Care will remain available
--- NOTE | 2023-08-13 17:50 | NUR ---
SHIFT SUMMARY PT IS ALERT AND ORIENTED TO SELF. PT HAS BEEN LETHARGIC/WEAK/SLEEPING ALL DAY. HE IS UNABLE TO HOLD A CONVERSATION. HE IS AROUSABLE, BUT FALLS BACK TO SLEEP IN THE MIDDLE OF THE CONVERSATION. PO MEDICATIONS HAVE NOT BEEN GIVEN TODAY IT WOULD NOT BE SAFE TO ADMINISTER DUE TO HIM NOT BEING ABLE TO STAY AWAKE. PT HAD DIALYSIS THIS MORNING AND TOLERATED WELL. PT ON 2L NC AND MAINTAINING O2 SATURATION ABOVE 93%. HR 70S-80S, BP HAS BEEN ELEVATED TODAY, NOTIFIED. PT'S SAID THAT HE ATE A BOWL OF CHEERIOS THIS MORNING AND A FEW SPOONFULLS OF MILK. PT'S SAID SHE GOT HIM TO EAT A LITTLE BIT OF HIS LUNCH WELL. PT'S HAS HAD TO LEAVE A FEW TIMES TODAY. SHE IS BACK SITTING AT BEDSIDE. JUST CHANGED PT'S BRIEF AND HILL PAD, BRIEF HAD A VERY MINUTE AMOUT OF URINE. MEPILEX IN PLACE, HEEL PROTECTERS IN PLACE. PT SLEPT THE MAJORITY OF THE DAY. HE IS RESTING IN BED WITH HIS AT BEDSIDE. CALL LIGHT WITHIN REACH.
[2023-08-14] VITALS (7 sets, daily range): BP systolic 139–161; BP diastolic 68–81
--- NOTE | 2023-08-14 04:22 | NUR ---
SHIFT SUMMARY NO ACUTE CHANGES OVERNIGHT. NO CHANGES TO NEURO. PT CONTINUES TO BE LETHARGIC AND CAN BE AROUSED BY VERBAL/PHYSICAL STIMULUS. FALLS ASLEEP QUICKLY DURING CONVERSATION/QUESTIONS. PT WAS ABLE TO TAKE PO MEDICATIONS FOR THIS RN WHILE WAS IN ROOM BUT REQUIRED CONSTANT STIMULATION TO STAY AWAKE TO TAKE PILLS AND DRINK WATER. REPOSITIONING Q2HRS WITH PILLOWS. ELEVATING EXTREMETIES. CLINIMIX INFUSING PER EMAR. VITALS STABLE. ON 2L VIA NC. BED IN LOWEST POSITION AND CALL LIGHT WITHIN REACH. THIS RN WILL REPORT TO ONCOMING DAYSHIFT RN.
[2023-08-14 04:44] LABS: Albumin, Blood 1.9 g/dL (3.4-5.0); Anion Gap 7 mmol/L (6-16); Blood Urea Nitrogen 57 mg/dL (8-24); Bun/Creatinine Ratio 8.6 (12.0-20.0); CO2, Blood 33 mmol/L (21-32); Calcium, Blood 9.1 mg/dL (8.5-10.1); Chloride, Blood 96 mmol/L (98-108); Creatinine, Blood 6.66 mg/dL (0.60-1.20); Glomerular Filtration Rate 10 (60-); Glucose, Blood 130 mg/dL (70-99); Magnesium, Blood 2.4 mg/dL (1.6-2.4); Phosphorus, Blood 4.3 mg/dL (2.5-4.9); Potassium, Blood 3.9 mmol/L (3.5-5.5); Sodium, Blood 136 mmol/L (136-145)
[2023-08-14 05:11] LABS: Hematocrit 16.3 % (37.0-53.0); Hemoglobin 5.2 g/dL (13.5-17.5)
--- NOTE | 2023-08-14 07:29 | NUR ---
PT SLEEPING BUT AROUSABLE, FALLS BACK ASLEEP QUICKLY. PT ORIENTED TO SELF. PT'S SPEECH IS CONFUSED AT TIMES, DOES NOT ALWAYS ANSWER QUESTIONS APPROPRIATELY. PT ON 2L NC AND MAINTAINING O2 SATURATION ABOVE 92%, PT DENIES SOB, EQUAL AND SYMMETRICAL CHEST MOVEMENT WHILE BREATHING. PTS HR SR 70S-80S PT DENIES CHEST PAIN/PRESSURE. PT'S BRIEF IS DRY THIS MORNING, DIALYSIS PT AND HAD DIALYSIS YESTERDAY. FISTULA ON L ARM THRILL AND BRUIT PRESENT. PT DENIES PAIN THIS MORNING. PT'S IS NOT HERE YET. PT IS SLEEPING IN BED, CALL LIGHT WITHIN REACH.
--- NOTE | 2023-08-14 08:48 | NUR ---
PT WAS IN WITH WHEN I RETURNED TO ROOM TO GIVE MEDS. PT'S SAID PT ATE A COUPLE BITES OF BREAD AND A FEW SIPS OF AN ESNURE. GAVE PT SEVERAL OF HIS MORNING MEDS BEFORE PT VOMITED ALL OVER HIMSELF AND THE BED. WAS NOTIFIED. MEDICATED PER EMAR FOR NAUSEA. BED BATH AND LINEN CHANGE GIVEN, NEW MEPILEX ON COCCYX SKIN IS BLANCHABLE REDNESS WITH, MEPILEX'S APPLIED TO BOTH HEELS. PT RESTING IN BED WITH HOB ELEVATED. PT HAS INTERMITTENT DRY COUGH, LUNG SOUNDS ARE CLEAR, 02 SATURATION 100% ON 2L NC. CALL LIGHT WITHIN REACH.
--- NOTE | 2023-08-14 10:36 | NUR ---
PT REPOSITIONED. BACK AND AT BEDSIDE WITH PT. CALL LIGHT WITHIN REACH.
--- NOTE | 2023-08-14 11:57 | NUR ---
PT'S IN THE ROOM WITH HIM. HE ATE A FEW BITES OF LUNCH AND WANTED TO TAKE A BREAK, SHE SAID THEY WILL KEEP TRYING LITTLE BY LITTLE. I ASKED PT BEFORE HE STARTED EATING IF HE WAS NAUSEOUS AND HE SAID NO. SUCTION SET UP IN ROOM AND UTILIZED NEEDED. PT JUST GOT A COUPLE VISITORS IN HIS ROOM THAT ARE TALKING WITH PT AND HIS . CALL LIGHT WITHIN REACH.
--- NOTE | 2023-08-14 14:14 | NUR ---
HELD PT'S AFTERNOON MEDS HIS VITALS WERE OUTSIE PARAMETERS. PT WAS AWAKE AND TALKING FOR A FEW MINUTES. HE IS SLEEPING NOW WITH AT BEDSIDE. CALL LIGHT WITHIN REACH.
--- NOTE | 2023-08-14 17:49 | NUR ---
SHIFT SUMMARY NO ACUTE CHANGES, SEE PREVIOUS NOTES. DINNER WAS DELIVERED, PT DOES NOT WANT TO EAT RIGHT NOW, SAVING TRAY FOR LATER. ALSO LUKAS PT SOME FOOD, PT SAID HE DID NOT WANT TO EAT RIGHT NOW, AND FELL BACK TO SLEEP. WILL KEEP ME UPDATED IF PT EATS ANY OF THE FOOD SHE BROUGHT OR IF PT WANTS TO TRY SOME OF THE TRAY FROM [place]. PT CONTINUES TO MAINTAIN 02 SATURATION ABOVE 92% ON 2L NC, PT DENIES SOB, SYMMETRICAL RISE AND FALL OF CHEST WHILE PT SLEEPING. HR SR 80'S-90'S, PT DENIES CHEST PAIN/PRESSURE. PT STATED NO URINE OUTPUT IS NORMAL FOR HIM, NO URINE OUTPUT TODAY. Q2 TURNS AND FREQUENT MOUTH CARE PERFORMED TODAY. PT IS RESTING IN BED WITH AT BEDSIDE, CALL LIGHT WITHIN REACH.
[2023-08-15] VITALS (19 sets, daily range): BP systolic 121–187; BP diastolic 63–94
[2023-08-15 04:41] LABS: Hemoglobin 4.9 g/dL (13.5-17.5)
[2023-08-15 04:42] LABS: Hematocrit 15.5 % (37.0-53.0)
--- NOTE | 2023-08-15 04:59 | NUR ---
SHIFT SUMMARY THIS RN ASSUMED CARE OF PATIENT AT 1900. PT CONTINUES TO BE LETHARGIC AND ORIENTED TO SELF, LOCATION, AND PERSON. PT FALLS ASLEEP QUICKLY WITH CONVERSATION BUT DOES APPEAR MORE ALERT THAT PREVIOUS NOC SHIFT WITH THIS RN. BP STABLE. SR WITH BBB ON MONITOR WITH HR 80'S. ON 2L VIA NC WITH SPO2 >92%. CLINIMIX INFUSING PER EMAR. REPOSITIONING Q2HRS. MEPILEX ON COCCYX AND BILATERAL HEELS. BED IN LOWEST POSITION AND CALL LIGHT WITHIN REACH. THIS RN WILL REPORT TO ONCOMING DAYSHIFT RN.
[2023-08-15 05:17] LABS: Magnesium, Blood 2.8 mg/dL (1.6-2.4)
[2023-08-15 05:56] LABS: Albumin, Blood 1.9 g/dL (3.4-5.0); Anion Gap 11 mmol/L (6-16); Blood Urea Nitrogen 86 mg/dL (8-24); CO2, Blood 30 mmol/L (21-32); Calcium, Blood 9.3 mg/dL (8.5-10.1); Chloride, Blood 95 mmol/L (98-108); Glomerular Filtration Rate 7 (60-); Glucose, Blood 121 mg/dL (70-99); Potassium, Blood 4.4 mmol/L (3.5-5.5); Sodium, Blood 136 mmol/L (136-145)
[2023-08-15 09:22] LABS: PCO2 Arterial 38.1 mmHg (35-45); PO2 Arterial 69.2 mmHg (80-100); pH Blood Arterial 7.48 (7.35-7.45)
--- NOTE | 2023-08-15 09:35 | NUR ---
CHARGE NURSE ASSISTING THIS RN TO TRANSPORT PATIENT TO DIALYSIS. PATIENT NOTED TO BE TACHYPNIC (NOT NOTED DURING BEDSIDE REPORT WITH NIGHT RN), DIAPHORETIC AND ASHEN SKIN. VITAL SIGNS TAKEN AND YIELDED RR OF 46. PT TRANSPORTED TO DIALSYSIS WHERE ASSESSED BY RT AND NOTED TO BE HAVING DARIA-DELACRUZ RESPIRATIONS. DR. HOLT TO PATIENT BEDSIDE TO DISCUSS OPTIONS WITH PATIENT AND HIS .
--- NOTE | 2023-08-15 12:58 | NUR ---
CALL FROM COLLEEN PARRISH IN DIALYSIS; PT READY FOR TRANSPORT BACK TO ROOM.
--- NOTE | 2023-08-15 13:38 | NUR ---
PT RETURNED TO UNIT VIA HOSPITAL BED. OXYGEN HOOKED TO CENTRAL SYSTEM AT 2LPM, IV CLINIMIX STILL RUNNING WITHOUT DISRUPTION DURING TRANSFER. V/S OBTAINED. LOW-GRADE FEVER OF 99.5. OFFERED AM MEDS TO WHICH HE DECLINED, WELL DECLINED OFFER OF APAP. SMALL, SOFT, BROWN BM; ATTENDS CHANGED AND REPOSITIONED ONTO LEFT SIDE. NOTED TO HAVE DRY COUGH; ASKING IF THERE IS ANYTHING THAT CAN BE DONE FOR THE COUGH.
--- NOTE | 2023-08-15 14:51 | NUR ---
PATIENT MEDICATED WITH APAP 650MG FOR ELEVATING TEMPERATURE. TOOK 1400 CARDIAC MEDS BUT DECLINED TO TAKE MORNING MEDS MISSED WHILE IN DIALYSIS.
--- NOTE | 2023-08-15 15:15 | NUR ---
Q6H GLUCOSE DC'D DUE TO CONSISTENT GLUCOSE <180. WILL BE DONE AC.
--- NOTE | 2023-08-15 15:44 | NUR ---
PATIENT NOTED TO BE DIAPHORETIC UPON ROUNDING. TEMP 99.1 DOWN FROM 100.8. RESPIRATIONS 48, LABORED AND UNEVEN. COOL, WET CLOTH PLACED ACROSS FOREHAD AND AROUND COLLARBONE TO PROVIDE SOME RELIEF TO WHICH HE STATES HELPED. IS CURRENTLY OUT OF THE FACILITY STATING SHE WAS RUNNING HOME.
--- NOTE | 2023-08-15 16:05 | NUR ---
FAMLY ASKING WHEN PALLIATIVE CARE WILL BE HERE; MICHELLE TALLEY RN COMING TO BEDSIDE IN FIVE MINUTES.
--- NOTE | 2023-08-15 17:55 | NUR ---
Met with pt and Sussy. The pt was dialyzed today, but the general consensus is he would likely not survive more dialysis due to his Hgb number. More labs are scheduled for the morning. Pt was confused and unable to stay awake during our visit. His Sussy asked if Dr. Soler had anymore ideas to try for the patient. I placed a call to Dr. Solre and he states he will stop by to see the patient. If no changes or improvements made by Thursday, the pt wishes to return home on hospice.
--- NOTE | 2023-08-15 18:04 | NUR ---
Plan to attempt arranging home with hospice on Thursday, 08/17 unless another direction is sought prior. At this point, it seems to be a likely scenario. Will plan on this, but cancel if needed.
--- NOTE | 2023-08-15 18:27 | NUR ---
DAY SHIFT SUMMARY: ALERT AND ORIENTED X4. PLEASANT AND COOPERATIVE WITH CARE. VERY LETHARGIC THIS MORNING; AROUSABLE TO VERBAL STIMULI. CRITIAL HGB OF 4.9 THIS MORNING, INCREASED TO 5.0; DOES NOT ACCEPT BLOOD PRODUCTS SECONDARY TO SPIRITUAL BELIEFS. TACHYPNIC ALL SHIFT WITH DARIA-DELACRUZ NOTED BY RT UPON TRANSFER TO DIALYSIS. SMALL BM TODAY. OLIGURIC SECONDARY TO ESRD. ALL AM MEDS HELD DUE TO DIALISYS AND WERE REFUSED UPON RETURN, BUT DID ACCEPT AFTERNOON MEDS. 100.8F FEVER RELIEVED WITH APAP AND COOL CLOTH. C/O GENERALIZED MALAISE AND BODY ACHES, ESPECIALLY WITH FEVER. CODE STATUS CHANGED TO DNR OTDAY AND CONSULT WITH PALLIATIVE CARE TO DISCUSS CARE GOALS, MOVING FORWARD. HE HAS HAD SEVERAL VISITORS THORUGHOUT THE DAY AND IS TIRED. GLUCOSE CHECKS CHANGED TO AC/HS DUE TO LEVELS CONSISTENTLY <180. POST-PRANDIAL DINNER GLUCOSE 291 AND 3U NOVOLOG ADMINISTERED. CXR TODAY YIELDED POSITIVE FOR ATELECTATSIS AND PULMONARY EFFUSIONS; FINE CRACKLES AUSCULTATED IN BILATERAL BASES. , SUREKHA, AT BEDSIDE. REPORT TO ONCOMING RN.
[2023-08-16] VITALS (18 sets, daily range): BP systolic 110–160; BP diastolic 69–88
[2023-08-16 04:58] LABS: Hemoglobin 5.2 g/dL (13.5-17.5)
[2023-08-16 05:15] LABS: Albumin, Blood 1.9 g/dL (3.4-5.0); Anion Gap 9 mmol/L (6-16); Blood Urea Nitrogen 68 mg/dL (8-24); Bun/Creatinine Ratio 10.8 (12.0-20.0); CO2, Blood 31 mmol/L (21-32); Calcium, Blood 9.4 mg/dL (8.5-10.1); Chloride, Blood 98 mmol/L (98-108); Creatinine, Blood 6.29 mg/dL (0.60-1.20); Glomerular Filtration Rate 11 (60-); Glucose, Blood 212 mg/dL (70-99); Magnesium, Blood 2.6 mg/dL (1.6-2.4); Phosphorus, Blood 5.5 mg/dL (2.5-4.9); Potassium, Blood 4.2 mmol/L (3.5-5.5); Sodium, Blood 138 mmol/L (136-145)
--- NOTE | 2023-08-16 06:32 | NUR ---
shift summary this rn assumed care at 1900. vital signs stable, tele sr 70s-80. spo2 >90% on 1.5l nc. patient is oriented x3, confusion at times. patient has been sleepy, but arousable, but falls back asleep quickly. this rn did not feel patient was alert enough to take morning po meds at this time. see shift assessment for further detials. no acute changes. plan of care is up to date. call light within reach bed in lowest position and bed alarm on;.
--- NOTE | 2023-08-16 18:31 | NUR ---
SHIFT SUMMARY: PT HAS BEEN LETHARGIC, ALERT TO VOICE, ORIENTED x3, COOPERATIVE W/CARE. PT RESTS PEACEFULLY, DOES HAVE OCCASIONAL TACHYPNEIC EPISODES, O2 SATS >95% ON 1.5 L/MIN NC. SR ON MONITOR, RATE 80s. PT W/LOW PO INTAKE, BENEFITS FROM ENCOURAGEMENT TO TAKE MEDICATION AND TO EAT. PT REPOSITIONED PER PROTOCOL, TOLERATES WELL. MULTIPLE VISITORS TO/FROM ROOM T/OUT DAY. DIALYSIS PERFORMED AT BEDSIDE THIS AM, 2L REMOVED. AT THIS TIME, PT RESTING QUIETLY IN ROOM W/FAMILY AT BEDSIDE AND CALL LIGHT WITHIN REACH. WILL CONTINUE TO MONITOR AND TREAT ACCORDINGLY UNTIL CHANGE OF SHIFT.
--- NOTE | 2023-08-16 22:03 | NUR ---
ASSUMPTION OF CARE THIS RN ASSUMED CARE AT APPROX 1915. PT IS AOX3-4. LETHARGIC, AROUSABLE TO VERBAL STIMULI. DIFFICULTY W/ FOLLOWING DIRECTIONS NOTED, ESPECIALLY W/ TAKING ORAL MEDICATIONS. REQUIRES FREQUENT INSTRUCTION. MOSTLY COOPERATIVE W/ CARE. SOFT, SLOW SPEECH NOTED. FAMILY AT BEDSIDE AT ASSUMPTION OF CARE. RECEPTIVE TO EDUCATION, ASKING QUESTIONS NEEDED REGARDING MEDICATIONS AND PLAN OF CARE. ASSISTING W/ CARE. VSS. DENIES CHEST PAIN OR PRESSURE. BP ELEVATED, SBP 160's. PRIOR DIAGNOSIS OF HTN. TELEMETRY SHOWING SINUS 80's. CURRENTLY ON 1.5L VIA NC, SATS >90%. WHILE ADMINISTERING EVENING ORAL MEDICATIONS, PT EXPERIENCED NAUSEA AND VOMITING. APPROX 200ML OF CLEAR EMESIS, NO PILLS NOTED. IV ZOFRAN ADMINISTERED PER EMAR. ABLE TO TOLERATE REMAINING PO MEDICATIONS W/O NAUSEA, DIFFICULTY FOLLOWING DIRECTIONS. REPOSITIONING FREQUENTLY TOLERATED. ATTENDS IN PLACE, IS C/D/I. CALL LIGHT IN REACH.
--- NOTE | 2023-08-16 23:57 | NUR ---
UPDATE PT REMAINS AOX2-3. LETHARGIC, EASILY AROUSABLE TO VERBAL STIMULI. VS REMAIN STABLE. BP IMPROVED, SBP 130's. PT REPOSITIONED IN BED. PT APPEARS TO BE RESTING COMFORTABLY IN BED. NO SIGNS OF DISTRESS NOTED, EYES CLOSED, RESPIRATIONS EVEN.
[2023-08-17] VITALS (7 sets, daily range): BP systolic 110–141; BP diastolic 55–82
[2023-08-17 04:39] LABS: Hematocrit 14.8 % (37.0-53.0); Hemoglobin 4.6 g/dL (13.5-17.5)
[2023-08-17 04:52] LABS: Albumin, Blood 1.9 g/dL (3.4-5.0); Anion Gap 11 mmol/L (6-16); Blood Urea Nitrogen 62 mg/dL (8-24); Bun/Creatinine Ratio 11.5 (12.0-20.0); CO2, Blood 29 mmol/L (21-32); Calcium, Blood 9.5 mg/dL (8.5-10.1); Chloride, Blood 95 mmol/L (98-108); Glomerular Filtration Rate 13 (60-); Glucose, Blood 204 mg/dL (70-99); Magnesium, Blood 2.4 mg/dL (1.6-2.4); Phosphorus, Blood 5.5 mg/dL (2.5-4.9); Potassium, Blood 4.3 mmol/L (3.5-5.5); Sodium, Blood 135 mmol/L (136-145)
--- NOTE | 2023-08-17 05:42 | NUR ---
END OF SHIFT NOTE NO ACUTE CHANGES SINCE PREVIOUS NOTES. PT REMAINS AOX2-3. LETHARGIC, EASILY AROUSABLE TO VERBAL STIMULI. SLEPT THROUGHOUT SHIFT. VS REMAIN STABLE. TELEMETRY CONTINUING TO SHOW SINUS 80's-90's. BP STABLE. REMAINS ON 1.5L VIA NC, SATS >90%. ABLE TO TOLERATE PO MEDICATIONS THIS MORNING WITHOUT NAUSEA OR VOMITING. FREQUENT REPOSITIONING THROUGHOUT SHIFT. VOIDING. ATTENDS IN PLACE, CHANGED TO KEEP C/D/I. NO BM THIS SHIFT. CALL LIGHT IN REACH. WILL REPORT TO ONCOMING RN.
[2023-08-17 12:03] LABS: Vancomycin, Random <0.8 ug/mL
--- NOTE | 2023-08-17 15:02 | NUR ---
Called to meet with . pt not responsive. They want to go home and have him pass there. Review of agencies. No prferance care coordinators will find out who is available. Pt kps score is 20%.
--- NOTE | 2023-08-17 17:56 | NUR ---
SHIFT SUMMARY: PT CONTINUES LETHARGIC, MINIMALLY RESPONSIVE TO VERBAL STIMULI, MORE ALERT TO CARE PROVIDED SUCH ORAL CARE OR REPOSITIONING. O2 SATS >93% ON 1.5 L/MIN NC, OCCASIONAL EPISODES OF SHALLOW RESPIRATIONS/TACHYPNEA. SR ON MONITOR, RATE 70s-80s. PT SWALLOWS PILLS WHOLE W/WATER, BUT DECLINES SOME MORNING MEDICATION AFTER TAKING ABOUT HALF OF HIS MEDICATION. PT DECLINES FOOD TODAY, MINIMAL FLUID INTAKE, IV FLUIDS INFUSING PER ORDERS. BEDBATH COMPLETED TODAY. ORAL CARE AND REPOSITIONING PROVIDED PER PROTOCOL. PT's FAMILY HAS DECIDED FOR PT TO DC HOME ON HOSPICE, CURRENT PLAN IS FOR PT TO BE ADMITTED TO HOSPICE TOMORROW. AT THIS TIME, PT RESTING QUIETLY IN BED W/FAMILY AT BEDSIDE. WILL CONTINUE TO MONITOR AND TREAT ACCORDINGLY UNTIL CHANGE OF SHIFT.
--- NOTE | 2023-08-17 21:32 | NUR ---
ASSUMPTION OF CARE THIS RN ASSUMED CARE AT APPROX 1915. PT REMAINS LETHARGIC, AROUSABLE TO VERBAL STIMULI. IRRITABLE W/ CARE AND ADL's. AT BEDSIDE, RECEPTIVE TO EDUCATION AND ASKS QUESTIONS NEEDED. WITH 's ASSIST, THIS RN WAS ABLE TO ADMINISTER ALL EVENING PO MEDICATIONS, EXCEPT FOR PO HYDRALAZINE. BP STABLE, SBP 130's. BECAME INCREASINGLY LETHARGIC AND IRRITABLE. VSS. TELEMETRY SHOWING SINUS 70's. DENIES CHEST PAIN AND PRESSURE. REMAINS ON 1.5L VIA NC, SATS >90%. SHALLOW RESPIRATIONS NOTED. EXPERIENCES EPISODES OF TACHYPNEA, ESPECIALLY W/ INCREASED STIMULI SUCH REPOSITIONING. OCCASSIONAL DRY NONPRODUCTIVE COUGH. INCONTINENT, ATTENDS IN PLACE IS CURRENTLY C/D/I. CALL LIGHT IN REACH. WILL CONTINUE TO MONITOR.
[2023-08-18 03:34] VITALS: BP 138/74
--- NOTE | 2023-08-18 06:29 | NUR ---
END OF SHIFT NOTE NO ACUTE CHANGES SINCE ASSUMPTION OF CARE NOTE. PT REMAINS LETHARGIC. MINIMALLY RESPONSIVE TO VERBAL STIMULI, INCREASED ALERTNESS WITH PHYSICAL STIMULI SUCH REPOSITIONING. REFUSED TO TAKE PO LEVOTHRYOXIN AND PROTONIX THIS MORNING. VS REMAIN STABLE. TELEMETRY CONTINUING TO SHOW SR 80's. REMAINS ON 1.5L VIA NC, SATS >90%. FREQUENT REPOSITIONING PERFORMED THROUGHOUT SHIFT. SMALL INCONTINENT VOID. SMALL BM. ATTENDS IN PLACE. CALL LIGHT IN REACH. WILL REPORT TO ONCOMING RN.
[2023-08-18 07:02] VITALS: BP 145/79
--- NOTE | 2023-08-18 07:23 | NUR ---
Received in room report from Noc RN. Patient is arousable and minimal verbal response, mostly to simple questions. He is on 3L O2 vis NC and sats 100%. He has 20ga IV to RFA and is infusing Clinimix at 50 ml/hr. He has dialysis ports to [facility] and may have course of dialysis before going home today. He has pink boots fopr skin protecyion bilateral feet. He ZAVALA minimally and very weak. will be in shortly and he reacts better with her. Plan for going home on hospice this am.
--- NOTE | 2023-08-18 11:23 | NUR ---
has been at bedside with patient. He had difficult time with am meds and needed encouragemnet. He is hard to get to participate with care. He remains on 3L O2 via NC and sats >90%. All his belongings and paperwork gathered and awaiting ride home. He has been able to take small sips of water at times with wives encouragement. Oral care and repositioning done.
--- NOTE | 2023-08-18 12:35 | NUR ---
[facility] arrived at 1200 and patient was transferred to [facility] and was transported to home with all belongings. at bedside during transfer. IV pulled intact and site WNL.
== END 2023-08-18 12:15 | disposition hospice, home (50) | DRG 811 ==
LOC: ER 14:47 → PCU 14:48
PROVIDERS: Emergency Medicine; Family Medicine; Hospitalist; Internal Medicine Nephrology; Nurse Practitioner Acute Care; ADMIT Internal Medicine
PROC: 5A1D70Z Performance of Urinary Filtration, Intermittent, Less than 6 Hours Per Day (ICD-10-PCS; principal; 2023-08-11)
PROC: 4A033R1 Measurement of Arterial Saturation, Peripheral, Percutaneous Approach (ICD-10-PCS; 2023-08-15)
DX: D50.9 Iron deficiency anemia, unspecified (principal); G92.8 Other toxic encephalopathy; N18.6 End stage renal disease; I12.0 Hypertensive chronic kidney disease with stage 5 chronic kidney disease or end stage renal disease; D84.821 Immunodeficiency due to drugs; E87.1 Hypo-osmolality and hyponatremia; N25.81 Secondary hyperparathyroidism of renal origin; T86.12 Kidney transplant failure; J90 Pleural effusion, not elsewhere classified; D63.1 Anemia in chronic kidney disease; Z66 Do not resuscitate; Z11.52 Encounter for screening for COVID-19; E11.22 Type 2 diabetes mellitus with diabetic chronic kidney disease; E03.9 Hypothyroidism, unspecified; E87.6 Hypokalemia; F32.A Depression, unspecified; F41.9 Anxiety disorder, unspecified; N40.0 Benign prostatic hyperplasia without lower urinary tract symptoms; I25.10 Atherosclerotic heart disease of native coronary artery without angina pectoris; E83.39 Other disorders of phosphorus metabolism; E87.70 Fluid overload, unspecified; R60.1 Generalized edema; G40.909 Epilepsy, unspecified, not intractable, without status epilepticus; K21.9 Gastro-esophageal reflux disease without esophagitis; Z99.2 Dependence on renal dialysis; Z79.52 Long term (current) use of systemic steroids; Z86.73 Personal history of transient ischemic attack (TIA), and cerebral infarction without residual deficits; Z79.4 Long term (current) use of insulin; Z79.02 Long term (current) use of antithrombotics/antiplatelets; Z95.5 Presence of coronary angioplasty implant and graft; Z79.890 Hormone replacement therapy
CPT/HCPCS: 0241U; 36415; 36600; 51798; 70450; 71045; 71250; 80053; 80069; 80164; 80202; 82140; 82607; 82728; 82746; 82803; 82947; 83540; 83550; 83735; 84443; 84478; 85014; 85018; 85025; 85027; 87040; 93005; 93010; 94760; 96365; 96375; 96376; 99285-25; A9270; G0378; J0881; J1750; J1815; J2405; J2916; J7030; J7131; J7507; J7512